=== PATIENT | female | born 1950 | race Caucasian/White ===

== ENCOUNTER 2019-01-24 14:23 | Emergency (ER) | payer OTHER ==
[~2019-01-24] VITALS: Ht 162.6 cm; Wt 56.2 kg
[~2019-01-24 14:23] MED LIST: CEPH500 PO; CIPR500 PO; DOCU100 PO; Fibercon625 MG; Gas-X125 M1; HYDCHL12.5 PO; LACTULOSE10 GM/15 M PO; LISI10 PO; LISI20 PO; OXYB5 PO; PHENA200 PO; Stool Softener100 MG PO; [UNRECOGNIZED DRUG - REMARK] PO; lisinopril PO
[2019-01-24] MEDS ORDERED: Amoxicillin500 MG PO (14:53)
[2019-01-24] MEDS ORDERED: PROBIOTIC1 EACH PO (14:53)
[2019-01-24] MEDS ORDERED: Metamucil Smooth1 EA PO (14:53)
[2019-01-24] MEDS ORDERED: VITAMIN D50000 UNIT PO (14:54)
[2019-01-24 15:04] LABS: BASOPHILS ABSOLUTE AUTO 0.03 K/mm3 (0.00-0.23); BASOPHILS PERCENT AUTO 0 % (0-2); EOSINOPHILS PERCENT AUTO 0 % (0-6); Hematocrit 45.8 % (33.0-51.0); Hemoglobin 14.8 g/dL (11.5-16.0); IMMATURE GRAN ABSOLUTE AUTO 0.05 K/mm3 (0.00-0.10); IMMATURE GRAN PERCENT AUTO 0 % (0-1); LYMPHOCYTES ABSOLUTE AUTO 0.89 K/mm3 (0.84-5.20); LYMPHOCYTES PERCENT AUTO 7 % (21-46); MONOCYTES PERCENT AUTO 8 % (4-13); Mean Corpuscular HGB 31.5 pg (26.0-34.0); Mean Corpuscular HGB Conc 32.3 g/dL (31.5-36.5); Mean Corpuscular Volume 97 fL (80-100); Mean Platelet Volume 9.7 fL (9.1-12.4); NEUTROPHILS ABSOLUTE AUTO 11.51 K/mm3 (1.96-9.15); NEUTROPHILS PERCENT AUTO 85 % (41-73); Platelet Count 340 K/mm3 (150-400); RDW Coefficient Variation 14.1 % (11.7-14.2); White Blood Cell Count 13.58 K/mm3 (4.00-11.30)
[2019-01-24 15:24] LABS: Alanine Aminotransfer (ALT/SGP 64 U/L (12-78); Albumin, Blood 4.3 g/dL (3.4-5.0); Albumin/Globulin Ratio 1.1 (0.8-1.8); Alk Phos 188 U/L (50-136); Anion Gap 9 mmol/L (6-16); Aspartate Aminotrans (AST/SGOT 42 U/L (12-37); Blood Urea Nitrogen 27 mg/dL (8-24); Bun/Creatinine Ratio 28.7 (12.0-20.0); CO2, Blood 25 mmol/L (21-32); Calcium, Blood 9.6 mg/dL (8.5-10.1); Chloride, Blood 107 mmol/L (98-108); Creatinine, Blood 0.94 mg/dL (0.40-1.00); Globulin, Blood 3.8 g/dL (2.2-4.0); Glomerular Filtration Rate >60 (60-); Glucose, Blood 105 mg/dL (70-99); Sodium, Blood 141 mmol/L (136-145); Total Protein, Blood 8.1 g/dL (6.4-8.2)
[2019-01-24] MEDS ORDERED: Miralax17 GM PO (16:32)
[2019-01-24] MEDS ORDERED: SIME80CH PO (16:32)
== END 2019-01-24 17:03 | disposition home or self-care (01) ==
LOC: ER 14:23
PROVIDERS: Physician Assistant
DX: R14.0 Abdominal distension (gaseous) (principal); L98.9 Disorder of the skin and subcutaneous tissue, unspecified; J98.11 Atelectasis; I10 Essential (primary) hypertension; Z85.3 Personal history of malignant neoplasm of breast
CPT/HCPCS: 36415; 71046; 74176; 80053; 83690; 85025; 93005; 93010; 99284-25

== ENCOUNTER 2019-01-27 11:18 | Inpatient (IN) | payer OTHER ==
[~2019-01-27] VITALS: Ht 162.6 cm; Wt 56.3 kg
[~2019-01-27 11:18] MED LIST changes: +Amoxicillin500 MG PO; +Metamucil Smooth1 EA PO; +Miralax17 GM PO; +PROBIOTIC1 EACH PO; +SIME80CH PO; +VITAMIN D50000 UNIT PO
[2019-01-27 11:57] LABS: BASOPHILS ABSOLUTE AUTO 0.04 K/mm3 (0.00-0.23); BASOPHILS PERCENT AUTO 1 % (0-2); EOSINOPHILS ABSOLUTE AUTO 0.07 K/mm3 (0.00-0.68); EOSINOPHILS PERCENT AUTO 1 % (0-6); Hematocrit 42.8 % (33.0-51.0); IMMATURE GRAN ABSOLUTE AUTO 0.02 K/mm3 (0.00-0.10); IMMATURE GRAN PERCENT AUTO 0 % (0-1); LYMPHOCYTES ABSOLUTE AUTO 1.31 K/mm3 (0.84-5.20); LYMPHOCYTES PERCENT AUTO 23 % (21-46); MONOCYTES ABSOLUTE AUTO 0.58 K/mm3 (0.16-1.47); MONOCYTES PERCENT AUTO 10 % (4-13); Mean Corpuscular HGB Conc 32.7 g/dL (31.5-36.5); Mean Corpuscular Volume 98 fL (80-100); Mean Platelet Volume 9.6 fL (9.1-12.4); NEUTROPHILS ABSOLUTE AUTO 3.77 K/mm3 (1.96-9.15); NEUTROPHILS PERCENT AUTO 65 % (41-73); Platelet Count 265 K/mm3 (150-400); RDW Coefficient Variation 14.2 % (11.7-14.2); RDW Standard Deviation 51.5 fL (35.1-46.3); Red Blood Cell Count 4.37 M/mm3 (3.80-5.20); White Blood Cell Count 5.79 K/mm3 (4.00-11.30)
[2019-01-27 12:18] LABS: Alanine Aminotransfer (ALT/SGP 61 U/L (12-78); Albumin, Blood 3.9 g/dL (3.4-5.0); Albumin/Globulin Ratio 1.1 (0.8-1.8); Alk Phos 169 U/L (50-136); Anion Gap 7 mmol/L (6-16); Aspartate Aminotrans (AST/SGOT 47 U/L (12-37); Bilirubin, Total 1.1 mg/dL (0.1-1.0); Blood Urea Nitrogen 15 mg/dL (8-24); Bun/Creatinine Ratio 23.2 (12.0-20.0); CO2, Blood 27 mmol/L (21-32); Calcium, Blood 9.6 mg/dL (8.5-10.1); Chloride, Blood 108 mmol/L (98-108); Creatinine, Blood 0.65 mg/dL (0.40-1.00); Globulin, Blood 3.6 g/dL (2.2-4.0); Glomerular Filtration Rate >60 (60-); Glucose, Blood 92 mg/dL (70-99); Potassium, Blood 3.8 mmol/L (3.5-5.5); Sodium, Blood 142 mmol/L (136-145); Total Protein, Blood 7.5 g/dL (6.4-8.2)
[2019-01-27 14:53] LABS: International Normalized Ratio 1.01; Prothrombin Time Results 10.7 Sec (9.7-11.5)
[2019-01-27] MEDS ORDERED: BISA5EC PO (17:47)
[2019-01-27] MEDS ORDERED: ZYRTEC10 M1 PO (17:47)
--- NOTE | 2019-01-27 18:05 | NUR ---
ADMIT NOTE RECEIVED REPORT FROM LING GALVEZ RN IN ED. PT TO ROOM AT 1633, SBA TO BED. PT ORIENTED TO ROOM AND CALL LIGHT. PT EDUCATED ON FALL RISK AND USE OF CALL LIGHT. PT REPORTS THE BLOATING AND ABD PAIN STARTED ON Saturday01/24/19 AND WAS SEEN IN ER AND SENT HOME. PCP SENT PT IN TO ER TODAY FOR CONTINUED ABD BLOATING AND PAIN. PT A&Ox4, CALM AND COOPERATIVE WITH CARE. PT RESTING IN BED, CALL LIGHT WITHIN REACH. PT DENIES PAIN AT THIS TIME, SOB AND N/V. PT RECEIVING IV FLUIDS. NPO EXCEPT ICE CHIPS. VSS. NO OTHER ACUTE CHANGES NOTED DURING SHIFT. WILL CONTINUE TO MONITOR UNTIL REPORT GIVEN TO ONCOMING RN.
--- NOTE | 2019-01-27 20:42 | NUR ---
patient sitting in be at shift change with family friend at bedside. patient denies pain at this time. IVF infusing. lungs sounds clear throughout. Abdomen is largely distended and firm non tender with tympanic belly sounds. patient OOB to BSC, but unable to void. will try again as patient desires. bed alarmed. call irby within reach.
--- NOTE | 2019-01-27 21:14 | NUR ---
spoke to patients brother Thong Hand at patient request. also received message froom sister Mohini will return her call kathy. provided info regarding current consults pending and patient resting comfortably, denies pain at this time.
[2019-01-28 04:59] LABS: BASOPHILS ABSOLUTE AUTO 0.03 K/mm3 (0.00-0.23); BASOPHILS PERCENT AUTO 1 % (0-2); EOSINOPHILS ABSOLUTE AUTO 0.11 K/mm3 (0.00-0.68); EOSINOPHILS PERCENT AUTO 3 % (0-6); Hematocrit 35.5 % (33.0-51.0); Hemoglobin 11.3 g/dL (11.5-16.0); IMMATURE GRAN ABSOLUTE AUTO 0.02 K/mm3 (0.00-0.10); IMMATURE GRAN PERCENT AUTO 1 % (0-1); LYMPHOCYTES PERCENT AUTO 41 % (21-46); MONOCYTES ABSOLUTE AUTO 0.48 K/mm3 (0.16-1.47); MONOCYTES PERCENT AUTO 12 % (4-13); Mean Corpuscular HGB 30.9 pg (26.0-34.0); Mean Corpuscular HGB Conc 31.8 g/dL (31.5-36.5); Mean Corpuscular Volume 97 fL (80-100); Mean Platelet Volume 9.9 fL (9.1-12.4); NEUTROPHILS PERCENT AUTO 43 % (41-73); Platelet Count 202 K/mm3 (150-400); RDW Coefficient Variation 14.3 % (11.7-14.2); RDW Standard Deviation 50.3 fL (35.1-46.3); Red Blood Cell Count 3.66 M/mm3 (3.80-5.20); White Blood Cell Count 3.94 K/mm3 (4.00-11.30)
[2019-01-28 05:24] LABS: Alanine Aminotransfer (ALT/SGP 42 U/L (12-78); Albumin, Blood 2.9 g/dL (3.4-5.0); Albumin/Globulin Ratio 1.2 (0.8-1.8); Alk Phos 113 U/L (50-136); Anion Gap 3 mmol/L (6-16); Aspartate Aminotrans (AST/SGOT 21 U/L (12-37); Bilirubin, Total 0.9 mg/dL (0.1-1.0); Blood Urea Nitrogen 11 mg/dL (8-24); Bun/Creatinine Ratio 17.7 (12.0-20.0); CO2, Blood 28 mmol/L (21-32); Calcium, Blood 7.8 mg/dL (8.5-10.1); Chloride, Blood 114 mmol/L (98-108); Creatinine, Blood 0.62 mg/dL (0.40-1.00); Globulin, Blood 2.5 g/dL (2.2-4.0); Glomerular Filtration Rate >60 (60-); Glucose, Blood 101 mg/dL (70-99); Potassium, Blood 3.2 mmol/L (3.5-5.5); Sodium, Blood 145 mmol/L (136-145)
[2019-01-28 05:25] LABS: Total Protein, Blood 5.4 g/dL (6.4-8.2)
--- NOTE | 2019-01-28 12:09 | NUR ---
PATIENT PICKED UP BY DAY SURGERY. A/O AT BASELINE WITH NO C/O PAIN OR DISTRESS.
--- NOTE | 2019-01-28 12:09 | NUR ---
FROM ROOM 361 TO SDS WITH RN. ADMISSION TO UNIT STARTED
--- NOTE | 2019-01-28 13:19 | NUR ---
PATIENT RETURNED FROM DAY SURGERY [facility]IA [facility] WITH RN. PATIENT IS A/O AT BASELINE WITH NO C/O PAIN OR DISCOMFORT. ABDOMEN IS SIGNIFICANTLY LESS DISTENDED. ABDOMEN IS SOFT, ROUND AND NON-TENDER WITH HYPOACTIVE BOWEL TONES. PATIENT IS RESTING COMFORTABLY IN BED.
--- NOTE | 2019-01-28 14:54 | NUR ---
Advance Directive Education attempted/Spiritual care visit conducted. Patient states that she has no interest in talking about advance care directives and did not know why admissions would send that request. Patient is lying in bed and alert. Patient immediately tells me about the relief she feels fro having some of the air removed from her stomach. Patient tells me about her family, her roman catholic ([facility]) and her life history. I listen empathically, emotional support and prayer. Patient responds well and voices appreciation for the visit.
--- NOTE | 2019-01-28 17:21 | NUR ---
SHIFT SUMMARY: PATIENT IS RESTING IN BED COMFORTABLY SINCE COLONOSCOPY THIS MORNING. SHE DENIES ANY PAIN OR DISCOMFORT. PATIENT ASKED THIS NURSE TO CALL AND GIVE AN UPDATE TO HER CORN MILLER, MARLON AND THIS WAS DONE THIS AFTERNOON. PATIENT HAS HAD MULTIPLE VISITORS THROUGHOUT THE DAY. PATIENT IS PLEASANT AND COOPERATIVE WITH HER CARE AND AWAITING DINNER.
[2019-01-29 05:41] LABS: Anion Gap 8 mmol/L (6-16); Blood Urea Nitrogen 9 mg/dL (8-24); Bun/Creatinine Ratio 17.1 (12.0-20.0); CO2, Blood 25 mmol/L (21-32); Calcium, Blood 7.8 mg/dL (8.5-10.1); Chloride, Blood 112 mmol/L (98-108); Creatinine, Blood 0.53 mg/dL (0.40-1.00); Glomerular Filtration Rate >60 (60-); Glucose, Blood 88 mg/dL (70-99); Potassium, Blood 3.2 mmol/L (3.5-5.5); Sodium, Blood 145 mmol/L (136-145)
--- NOTE | 2019-01-29 06:25 | NUR ---
NOC SHIFT SUMMARY PT HAS BEEN PLEASANT AND COOPERATIVE WITH CARE THIS NIGHT. BOWEL TONES THROUGHOUT. HER STOMACH REMAINS DISTENDED THOUGH PER DAY SHIFT REPORT IT IS MUCH IMPROVED FROM PREVIOUS. NO COMPLAINTS OF PAIN OR DISCOMFORT. PT HAS SLEPT MUCH OF NIGHT. DURING ROUNDING WHEN I SAW THAT SHE WAS AWAKE I OFFERED ENSURE. PT DECLINED STATING THAT IT WAS TOO EARLY IN THE MORNING TO DRINK. CURRENTLY IN BED AND APPEARS IN NO ACUTE DISTRESS. WILL CONTINUE TO MONITOR. VSS.
--- NOTE | 2019-01-29 18:14 | NUR ---
NOTIFIED DR. Eduardo CASTORENA PT REQUESTING GAS X. DR. CASTORENA SAID TO ORDER 1 TAB GAS X Q4H PRN. NO OTHER NEW ORDERS AT THIS TIME.
--- NOTE | 2019-01-29 18:18 | NUR ---
SHIFT SUMMARY- PT DENIES PAIN. DENIES SOB. RESP E/U ON RA. DENIES N/V. PT PASSING GAS. NO BM THIS SHIFT. PT REQUESTING GAS X. NOTIFIED. MEDS GIVEN PER EMAR. PHYSICAL THERAPY IN TO WORK WITH PT TODAY. 1 ASSIST TO THE BATHROOM. PT'S SPOUSE IN TO VISIT THIS AM. NO OTHER SIGNIFICANT CHANGES THIS SHIFT.
--- NOTE | 2019-01-30 03:42 | NUR ---
NOC SHIFT SUMMARY PT IS AAOX4. SHE IS PLEASANT AND COOPERATIVE WITH CARE. HAS SPENT THIS NIGHT IN BED SLEEPING OFF AND ON. SHE HAS BEEN OFFERED AND AGREED TO BREATHING TREATMENTS. NO ACUTE CHANGES NOTED FRMOM PREVIOUS NIGHT. VSS. SHE DOES COMPLAIN OF SOME DISCOMFORT IN HER R ARM WHERE AN IV WAS REMOVED, REQUESTED AND WAS GIVEN A WARM DAMP CLOTH TO THE AREA. PT IS APPRECIATIVE. CURRENTLY APPEARS IN NO ACUTE DISTRESS. WILL CONTINUE TO MONITOR.
[2019-01-30 04:49] LABS: BASOPHILS ABSOLUTE AUTO 0.03 K/mm3 (0.00-0.23); BASOPHILS PERCENT AUTO 1 % (0-2); EOSINOPHILS ABSOLUTE AUTO 0.12 K/mm3 (0.00-0.68); EOSINOPHILS PERCENT AUTO 3 % (0-6); Hematocrit 37.3 % (33.0-51.0); Hemoglobin 11.8 g/dL (11.5-16.0); IMMATURE GRAN ABSOLUTE AUTO 0.01 K/mm3 (0.00-0.10); IMMATURE GRAN PERCENT AUTO 0 % (0-1); LYMPHOCYTES ABSOLUTE AUTO 1.68 K/mm3 (0.84-5.20); LYMPHOCYTES PERCENT AUTO 37 % (21-46); MONOCYTES ABSOLUTE AUTO 0.46 K/mm3 (0.16-1.47); MONOCYTES PERCENT AUTO 10 % (4-13); Mean Corpuscular HGB 31.6 pg (26.0-34.0); Mean Corpuscular HGB Conc 31.6 g/dL (31.5-36.5); Mean Platelet Volume 9.7 fL (9.1-12.4); NEUTROPHILS PERCENT AUTO 49 % (41-73); Platelet Count 185 K/mm3 (150-400); RDW Coefficient Variation 13.9 % (11.7-14.2); RDW Standard Deviation 51.4 fL (35.1-46.3); Red Blood Cell Count 3.73 M/mm3 (3.80-5.20)
--- NOTE | 2019-01-30 04:57 | NUR ---
NOC SHIFT SUMMARY PT IS AAOX4 RESP EVEN AND UNLABORED SLEEPING IN BED AT PRESENT AND APPEARS IN NO ACUTE DISTRESS. HER STOMACH CONTINUES TO BE DISTENDED WITH NO COMPLAINTS OF PAIN. PT STATES SHE HAS BEEN PASSING FLATUS. PER NOTES ENGOURAGED WALKING AND PO LIQUID INTAKE. VSS. HAVE GIVEN PO SIMETHICONE. NO ACUTE CHANGES NOTED THIS NIGHT WILL CONTINUE TO MONITOR.
[2019-01-30 04:58] LABS: Mean Corpuscular Volume 100 fL (80-100)
[2019-01-30 05:10] LABS: Anion Gap 5 mmol/L (6-16); Blood Urea Nitrogen 8 mg/dL (8-24); Bun/Creatinine Ratio 12.6 (12.0-20.0); CO2, Blood 30 mmol/L (21-32); Calcium, Blood 8.4 mg/dL (8.5-10.1); Chloride, Blood 110 mmol/L (98-108); Creatinine, Blood 0.63 mg/dL (0.40-1.00); Glomerular Filtration Rate >60 (60-); Glucose, Blood 87 mg/dL (70-99); Potassium, Blood 3.8 mmol/L (3.5-5.5); Sodium, Blood 145 mmol/L (136-145)
--- NOTE | 2019-01-30 11:40 | NUR ---
Patient is lying in bed and is complaining about the pressure in her "belly." I asked patient what the plans for her stomach issues are and she said that "they" are working on it. I provided emotional support and prayer. Patient responded well and thanked me for the visit.
--- NOTE | 2019-01-30 18:29 | NUR ---
SHIFT SUMMARY - PT DENIES PAIN. DENIES SOB. RESP E/U ON RA. DENIES N/V. NSR AT 74 PER PCU REPAIRER CYLINDER HEADS. PT PASSING GAS. PT HAD ONE SMALL BM TODAY. DR. ANDERSEN PLACED 30 UPPER SORBIAN CATH TUBE IN PT'S BOTTOM TO HELP EXPELL THE GAS. PT'S ABDOMEN A LITTLE LESS DISTENDED AND MUCH SOFTER TO PALPATE THIS PM. DR. ANDERSEN SAID IF RECTAL TUBE FALLS OUT IT DOES NOT NEED TO BE REPLACED. PT'S IN TO VISIT TODAY. ONE ASSIST TO THE BATHROOM. NO OTHER SIGNIFICANT CHANGES THIS SHIFT.
[2019-01-30 21:54] LABS: Source, Urine Clean Catch
[2019-01-30 22:01] LABS: Bilirubin, Urine Neg (Neg); Blood, Urine 1+ (Neg); Glucose Qualitative, Urine Neg (Neg); Ketones, Urine Neg (Neg); Leukocyte Esterase, Urine Neg (Neg); Nitrite, Urine Neg (Neg); Protein, Urine Neg (Neg); Specific Gravity, Urine 1.005 (1.003-1.022); Urobilinogen, Urine NORM (Normal)
[2019-01-30 22:06] LABS: Appearance, Urine Clear (Clear); Color, Urine Yellow (P-Yellow)
[2019-01-30 22:20] LABS: Bacteria Mod /hpf; Red Blood Cells, Urine 0-2 /hpf (0-2); Squamous Epithelial Cells Mod /hpf (Few); White Blood Cells, Urine 0-2 /hpf (0-5)
--- NOTE | 2019-01-31 04:22 | NUR ---
SHIFT SUMMARY PT DEVELOPMENTALLY DELAYED. SPEECH SLOW BUT ANSWERS QUESTIONS APPROPRIATELY. DEE REMAINED IN RECTUM PLACED BY MD YESTERDAY. NO COMPLAINTS OF GAS, NAUSEA OR ABD DISCOMFORT THIS EVENING. SMALL AMOUNT OF LIQUID STOOL OUT. BLOOD PRESSURE ELEVATED THIS EVENING. APRESOLINE GIVEN THIS AM. OTHERWISE NO ACUTE CHANGES. WILL CONTINUE TO MONITOR AND REPORT TO DAY RN.
[2019-01-31 05:07] LABS: BASOPHILS ABSOLUTE AUTO 0.03 K/mm3 (0.00-0.23); BASOPHILS PERCENT AUTO 1 % (0-2); EOSINOPHILS ABSOLUTE AUTO 0.14 K/mm3 (0.00-0.68); EOSINOPHILS PERCENT AUTO 2 % (0-6); Hematocrit 43.9 % (33.0-51.0); Hemoglobin 14.1 g/dL (11.5-16.0); IMMATURE GRAN ABSOLUTE AUTO 0.02 K/mm3 (0.00-0.10); IMMATURE GRAN PERCENT AUTO 0 % (0-1); LYMPHOCYTES ABSOLUTE AUTO 1.03 K/mm3 (0.84-5.20); LYMPHOCYTES PERCENT AUTO 18 % (21-46); MONOCYTES ABSOLUTE AUTO 0.55 K/mm3 (0.16-1.47); MONOCYTES PERCENT AUTO 10 % (4-13); Mean Corpuscular HGB Conc 32.1 g/dL (31.5-36.5); Mean Platelet Volume 9.8 fL (9.1-12.4); NEUTROPHILS ABSOLUTE AUTO 4.02 K/mm3 (1.96-9.15); NEUTROPHILS PERCENT AUTO 70 % (41-73); Platelet Count 234 K/mm3 (150-400); RDW Coefficient Variation 13.8 % (11.7-14.2); Red Blood Cell Count 4.55 M/mm3 (3.80-5.20); White Blood Cell Count 5.79 K/mm3 (4.00-11.30)
[2019-01-31 05:17] LABS: Mean Corpuscular Volume 97 fL (80-100)
[2019-01-31 05:38] LABS: Alanine Aminotransfer (ALT/SGP 33 U/L (12-78); Albumin, Blood 3.3 g/dL (3.4-5.0); Albumin/Globulin Ratio 0.9 (0.8-1.8); Alk Phos 130 U/L (50-136); Anion Gap 6 mmol/L (6-16); Aspartate Aminotrans (AST/SGOT 25 U/L (12-37); Blood Urea Nitrogen 8 mg/dL (8-24); Bun/Creatinine Ratio 14.3 (12.0-20.0); CO2, Blood 30 mmol/L (21-32); Calcium, Blood 8.6 mg/dL (8.5-10.1); Chloride, Blood 106 mmol/L (98-108); Creatinine, Blood 0.56 mg/dL (0.40-1.00); Globulin, Blood 3.6 g/dL (2.2-4.0); Glomerular Filtration Rate >60 (60-); Glucose, Blood 93 mg/dL (70-99); Sodium, Blood 142 mmol/L (136-145); Total Protein, Blood 6.9 g/dL (6.4-8.2)
[2019-01-31] MEDS ORDERED: MIRALAX17 GM PO (11:19)
[2019-01-31] MEDS ORDERED: SIME80CH PO (11:20)
--- NOTE | 2019-01-31 12:55 | NUR ---
PATIENT DISCHARGE THE PATIENT WAS DISCHARGED HOME WITH HER SPOUSE AFTER DISCHARGE INSTRUCTIONS WERE GIVEN TO THE PATIENT. THE PATIENT WAS INSTRUCTED TO FOLLOW UP WITH PCP AND TO LOG BUYER HER PRESCRIPTIONS ORDERED. THE PATIENT WAS ALSO INSTRUCTED TO WALK AT HOME 3 TIMES A DAY. THE PATIENT LEFT THE HOSPITAL WITHOUT CONCERN OR COMPLAINT.
== END 2019-01-31 12:56 | disposition home or self-care (01) | DRG 346 ==
LOC: ER 11:18 → MEDS 15:07 → ENPENDDIS 01-31 10:40 → MEDS 01-31 12:56
PROVIDERS: Emergency Medicine; Family Medicine; Internal Medicine Gastroenterology; Surgery; ADMIT Family Medicine
PROC: 0D9L8ZZ Drainage of Transverse Colon, Via Natural or Artificial Opening Endoscopic (ICD-10-PCS; principal; 2019-01-28 11:30)
DX: K56.609 Unspecified intestinal obstruction, unspecified as to partial versus complete obstruction (principal); K64.4 Residual hemorrhoidal skin tags; K64.8 Other hemorrhoids; I10 Essential (primary) hypertension; L68.0 Hirsutism; G31.84 Mild cognitive impairment of uncertain or unknown etiology; E87.6 Hypokalemia
CPT/HCPCS: 36415; 71046; 74018; 74176; 80048; 80053; 81001; 83690; 84443; 85025; 85610; 87086; 93005; 93010; 96361; 96374; 97110; 97116; 97162; 99284-25; 99285-25; J0360; J1170; J1650; J2704; J2710; J7120

== ENCOUNTER 2019-04-24 19:36 | Observation (INO) | payer OTHER ==
[~2019-04-24] VITALS: Ht 162.6 cm; Wt 52.3 kg
[~2019-04-24 19:36] MED LIST changes: +BISA5EC PO; +MIRALAX17 GM PO; +ZYRTEC10 M1 PO
[2019-04-24 22:53] LABS: BASOPHILS ABSOLUTE AUTO 0.02 K/mm3 (0.00-0.23); BASOPHILS PERCENT AUTO 0 % (0-2); EOSINOPHILS ABSOLUTE AUTO 0.05 K/mm3 (0.00-0.68); EOSINOPHILS PERCENT AUTO 1 % (0-6); Hemoglobin 13.6 g/dL (11.5-16.0); IMMATURE GRAN ABSOLUTE AUTO 0.01 K/mm3 (0.00-0.10); IMMATURE GRAN PERCENT AUTO 0 % (0-1); LYMPHOCYTES ABSOLUTE AUTO 1.44 K/mm3 (0.84-5.20); LYMPHOCYTES PERCENT AUTO 26 % (21-46); MONOCYTES ABSOLUTE AUTO 0.52 K/mm3 (0.16-1.47); MONOCYTES PERCENT AUTO 9 % (4-13); Mean Corpuscular HGB 31.2 pg (26.0-34.0); Mean Corpuscular HGB Conc 32.4 g/dL (31.5-36.5); Mean Corpuscular Volume 96 fL (80-100); Mean Platelet Volume 9.6 fL (9.1-12.4); NEUTROPHILS ABSOLUTE AUTO 3.56 K/mm3 (1.96-9.15); NEUTROPHILS PERCENT AUTO 64 % (41-73); Platelet Count 231 K/mm3 (150-400); RDW Coefficient Variation 14.2 % (11.7-14.2); RDW Standard Deviation 50.4 fL (35.1-46.3); Red Blood Cell Count 4.36 M/mm3 (3.80-5.20)
[2019-04-24 23:08] LABS: Alanine Aminotransfer (ALT/SGP 43 U/L (12-78); Albumin, Blood 4.1 g/dL (3.4-5.0); Albumin/Globulin Ratio 1.2 (0.8-1.8); Alk Phos 145 U/L (50-136); Anion Gap 7 mmol/L (6-16); Aspartate Aminotrans (AST/SGOT 33 U/L (12-37); Bilirubin, Total 1.1 mg/dL (0.1-1.0); Blood Urea Nitrogen 12 mg/dL (8-24); Bun/Creatinine Ratio 22.8 (12.0-20.0); CO2, Blood 29 mmol/L (21-32); Calcium, Blood 8.9 mg/dL (8.5-10.1); Chloride, Blood 107 mmol/L (98-108); Creatinine, Blood 0.53 mg/dL (0.40-1.00); Globulin, Blood 3.4 g/dL (2.2-4.0); Glomerular Filtration Rate >60 (60-); Glucose, Blood 103 mg/dL (70-99); Potassium, Blood 3.7 mmol/L (3.5-5.5); Sodium, Blood 143 mmol/L (136-145); Total Protein, Blood 7.5 g/dL (6.4-8.2); Troponin I <0.015 ng/mL (0.000-0.040)
[2019-04-25 05:34] LABS: Alanine Aminotransfer (ALT/SGP 33 U/L (12-78); Albumin, Blood 3.1 g/dL (3.4-5.0); Albumin/Globulin Ratio 1.1 (0.8-1.8); Alk Phos 106 U/L (50-136); Anion Gap 6 mmol/L (6-16); Aspartate Aminotrans (AST/SGOT 22 U/L (12-37); Blood Urea Nitrogen 10 mg/dL (8-24); Bun/Creatinine Ratio 20.7 (12.0-20.0); CO2, Blood 28 mmol/L (21-32); Calcium, Blood 8.3 mg/dL (8.5-10.1); Chloride, Blood 109 mmol/L (98-108); Creatinine, Blood 0.48 mg/dL (0.40-1.00); Globulin, Blood 2.8 g/dL (2.2-4.0); Glomerular Filtration Rate >60 (60-); Glucose, Blood 82 mg/dL (70-99); Magnesium, Blood 2.4 mg/dL (1.6-2.4); Potassium, Blood 3.2 mmol/L (3.5-5.5); Sodium, Blood 143 mmol/L (136-145); Total Protein, Blood 5.9 g/dL (6.4-8.2)
--- NOTE | 2019-04-25 05:41 | NUR ---
Rn summary: Patient is alert and oriented, she is develomentaly slow. She has been cooperative with care. Pt is incontinent of urine. Pt has rested fairly well after admission completed. Pt did have a small scratch to her left hip and upper back. No bruising noted. Pt does have 3+ pitting edema to bernarda feet and ankles. Chente hose applied as ordered. Bed alarm for safety. Plan is for pt to be placed with BPA today. Call light in reach. Will continue to monitor.
--- NOTE | 2019-04-25 09:54 | NUR ---
X-RAY RESULTS: WHEN PATIENT RETURNED FROM THE X-RAY, TRANSPORT REPORTED THAT THE RADIOLOGIST RECOMMENDED THAT THE PATIENT BE NPO. DISCUSSED THIS WITH DR. RAMIREZ. PATIENT DENIES NAUSEA, VOMITING, AND ABDOMINAL TENDERNESS. BOWEL SOUNDS PRESENT. PATIENT REPORTS THAT THIS IS HER NORMAL ABDOMINAL SIZE.
--- NOTE | 2019-04-25 11:09 | NUR ---
RECTAL TUBE REFUSAL: INFORMED DR. RAMIREZ THAT THE PATIENT REFUSED THE PLACEMENT OF THE RECTAL TUBE. PER DR. RAMIREZ, STAFF IS TO ENCOURAGE AMBULATION.
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
--- NOTE | 2019-04-26 06:24 | NUR ---
SHIFT SUMMARY NO ACUTE EVENTS OVERNIGHT. PATIENT AMBULATED TO BATHROOM WITH SBA. CONTINENT/INCONTINENT. PATIENT COMPLAINING OF TEETH BEING "STUCK". NO OTHER COMPLAINTS OR CONCERNS.
--- NOTE | 2019-04-26 15:25 | NUR ---
ELEVATED BLOOD PRESSURE: PATIENT EXPERIENCING AN ELEVATED BLOOD PRESSURE. PATIENT DENIES DIZZINESS, SOB OR CHEST PAIN. NO CHANGES TO NEURO STATUS. PATIENT RESTING COMFORTABLY IN BED. MEDICATED PER PRNS FOR ELEVATED BLOOD PRESSURE (SEE EMAR).
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
--- NOTE | 2019-04-27 05:52 | NUR ---
SHIFT SUMMARY NO ACUTE EVENTS OVERNIGHT. PATIENT STATES THAT ABD DISTENTION IS BETTER TODAY. PATIENT UP AD TIRSO IN ROOM. INCONTINENT OF BLADDER. PATIENT STATES SHE HAD A VERY NICE VISIT WITH HER 04/26/19. NO COMPLAINTS OR CONCERNS VOICED.
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
--- NOTE | 2019-04-27 18:32 | NUR ---
SHIFT SUMMARY PT HAS HAD NO COMPLAINTS OR CHANGES THIS SHIFT. PLANS FOR POSSIBLE DISCHARGES TOMORROW. CALL LIGHT IN REACH. WILL CONTINUE TO MONITOR AND REPORT TO ONCOMING RN.
--- NOTE | 2019-04-28 06:04 | NUR ---
SHIFT SUMMARY PATIENT UNABLE TO SLEEP THROUGHOUT EDGE CUTTING MACHINE OPERATOR. PATIENT BLOOD PRESSURE 190/110 THIS AM. TREATED WITH PRN ANEL, SEE MAR. PATIENT INCONTINENT BUT CALLS APPROPRIATELY FOR STAFF ASSIST. WILL CONTINUE TO MONITOR AND REPORT TO ONCOMING NURSE.
[2019-04-28 08:35] LABS: Anion Gap 2 mmol/L (6-16); Blood Urea Nitrogen 14 mg/dL (8-24); CO2, Blood 32 mmol/L (21-32); Calcium, Blood 9.4 mg/dL (8.5-10.1); Chloride, Blood 105 mmol/L (98-108); Creatinine, Blood 0.64 mg/dL (0.40-1.00); Glomerular Filtration Rate >60 (60-); Glucose, Blood 94 mg/dL (70-99); Potassium, Blood 3.5 mmol/L (3.5-5.5); Sodium, Blood 139 mmol/L (136-145)
[2019-04-28] MEDS ORDERED: ACET325 PO (12:10)
[2019-04-28] MEDS ORDERED: SIME80CH PO (12:11)
--- NOTE | 2019-04-28 13:35 | NUR ---
1240 PATIENT TO DISCHARGE HOME ON HOME HEALTH AND WITH THE AIDE OF CAREGIVER. IV REMOVED WITH NO SS OF INFECTION NOTED. NURSE WENT OVER DC PAPERS WITH PATIENT AND SENT THEM HOME WITH CAREGIVER WHO ARRIVED TO PICK HER UP . PATIENT DRESSED BY STAFF. FOLLOW UP APPOINTMENT MADE BY [facility]. PATIENT TAKEN OUT BY STAFF IN TO AWAITING RIDE.
== END 2019-04-28 13:22 | disposition home or self-care (01) ==
LOC: ER 19:36 → MEDS 19:37 → ER 04-25 00:36 → MEDS 04-25 00:36 → ENPENDDIS 04-28 11:53 → MEDS 04-28 13:22
PROVIDERS: Family Medicine; Nurse Practitioner Acute Care; Physician Assistant; ADMIT Family Medicine
DX: T74.11XA Adult physical abuse, confirmed, initial encounter (principal); I16.0 Hypertensive urgency; G31.84 Mild cognitive impairment of uncertain or unknown etiology; F81.9 Developmental disorder of scholastic skills, unspecified; R14.0 Abdominal distension (gaseous); I10 Essential (primary) hypertension; Z79.899 Other long term (current) drug therapy; Y04.2XXA Assault by strike against or bumped into by another person, initial encounter
CPT/HCPCS: 36415; 71046; 74019; 80048; 80053; 83735; 84484; 85025; 93005; 93010; 96372; 99285-25; A9270; G0378; J1650

== ENCOUNTER 2019-04-28 19:59 | Inpatient (IN) | payer OTHER ==
[~2019-04-28] VITALS: Ht 162.6 cm; Wt 46.0 kg
[2019-04-28 20:46] LABS: BASOPHILS ABSOLUTE AUTO 0.03 K/mm3 (0.00-0.23); BASOPHILS PERCENT AUTO 0 % (0-2); EOSINOPHILS PERCENT AUTO 0 % (0-6); Hematocrit 47.2 % (33.0-51.0); IMMATURE GRAN ABSOLUTE AUTO 0.04 K/mm3 (0.00-0.10); IMMATURE GRAN PERCENT AUTO 0 % (0-1); LYMPHOCYTES ABSOLUTE AUTO 0.64 K/mm3 (0.84-5.20); LYMPHOCYTES PERCENT AUTO 4 % (21-46); MONOCYTES ABSOLUTE AUTO 0.85 K/mm3 (0.16-1.47); MONOCYTES PERCENT AUTO 6 % (4-13); Mean Corpuscular HGB Conc 33.9 g/dL (31.5-36.5); Mean Corpuscular Volume 94 fL (80-100); Mean Platelet Volume 9.8 fL (9.1-12.4); NEUTROPHILS ABSOLUTE AUTO 12.84 K/mm3 (1.96-9.15); NEUTROPHILS PERCENT AUTO 89 % (41-73); Platelet Count 376 K/mm3 (150-400); RDW Coefficient Variation 14.3 % (11.7-14.2); RDW Standard Deviation 49.3 fL (35.1-46.3)
[2019-04-28 21:05] LABS: Albumin, Blood 4.5 g/dL (3.4-5.0); Albumin/Globulin Ratio 1.2 (0.8-1.8); Bilirubin, Total 1.4 mg/dL (0.1-1.0); Bun/Creatinine Ratio 18.5 (12.0-20.0); Calcium, Blood 9.7 mg/dL (8.5-10.1); Creatinine, Blood 1.08 mg/dL (0.40-1.00); Globulin, Blood 3.7 g/dL (2.2-4.0); Potassium, Blood 3.8 mmol/L (3.5-5.5); Total Protein, Blood 8.2 g/dL (6.4-8.2)
[2019-04-29 02:31] LABS: Source, Urine Catheter
[2019-04-29 02:41] LABS: Appearance, Urine Clear (Clear); Bilirubin, Urine Neg (Neg); Blood, Urine 1+ (Neg); Color, Urine Amber (P-Yellow); Glucose Qualitative, Urine Neg (Neg); Ketones, Urine 1+ (Neg); Leukocyte Esterase, Urine 1+ (Neg); Nitrite, Urine Neg (Neg); Protein, Urine 2+ (Neg); Specific Gravity, Urine 1.025 (1.003-1.022); Urobilinogen, Urine NORM (Normal)
[2019-04-29 02:47] LABS: Bacteria Many /hpf; Hyaline Casts 50-100 /lpf (0-2); Mucus Mod (0-Heavy); Red Blood Cells, Urine 0-2 /hpf (0-2); Squamous Epithelial Cells Few /hpf (Few)
[2019-04-29 04:37] LABS: BASOPHILS ABSOLUTE AUTO 0.02 K/mm3 (0.00-0.23); BASOPHILS PERCENT AUTO 0 % (0-2); EOSINOPHILS PERCENT AUTO 0 % (0-6); Hematocrit 41.5 % (33.0-51.0); Hemoglobin 13.9 g/dL (11.5-16.0); IMMATURE GRAN ABSOLUTE AUTO 0.08 K/mm3 (0.00-0.10); IMMATURE GRAN PERCENT AUTO 1 % (0-1); LYMPHOCYTES ABSOLUTE AUTO 0.68 K/mm3 (0.84-5.20); LYMPHOCYTES PERCENT AUTO 5 % (21-46); MONOCYTES ABSOLUTE AUTO 0.99 K/mm3 (0.16-1.47); MONOCYTES PERCENT AUTO 7 % (4-13); Mean Corpuscular HGB Conc 33.5 g/dL (31.5-36.5); Mean Corpuscular Volume 96 fL (80-100); Mean Platelet Volume 9.7 fL (9.1-12.4); NEUTROPHILS ABSOLUTE AUTO 11.91 K/mm3 (1.96-9.15); NEUTROPHILS PERCENT AUTO 87 % (41-73); Platelet Count 241 K/mm3 (150-400); RDW Coefficient Variation 14.3 % (11.7-14.2); Red Blood Cell Count 4.34 M/mm3 (3.80-5.20); White Blood Cell Count 13.68 K/mm3 (4.00-11.30)
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
[2019-04-29 04:51] LABS: Anion Gap 9 mmol/L (6-16); Blood Urea Nitrogen 20 mg/dL (8-24); Bun/Creatinine Ratio 22.8 (12.0-20.0); CO2, Blood 27 mmol/L (21-32); Calcium, Blood 8.8 mg/dL (8.5-10.1); Chloride, Blood 104 mmol/L (98-108); Creatinine, Blood 0.88 mg/dL (0.40-1.00); Glomerular Filtration Rate >60 (60-); Glucose, Blood 136 mg/dL (70-99); Potassium, Blood 3.2 mmol/L (3.5-5.5); Sodium, Blood 140 mmol/L (136-145)
[2019-04-29 13:07] LABS: Source, Urine Catheter
[2019-04-29 13:10] LABS: Bilirubin, Urine Neg (Neg); Blood, Urine 1+ (Neg); Glucose Qualitative, Urine Neg (Neg); Ketones, Urine Neg (Neg); Leukocyte Esterase, Urine Neg (Neg); Nitrite, Urine Neg (Neg); Protein, Urine 1+ (Neg); Urobilinogen, Urine NORM (Normal)
[2019-04-29 13:52] LABS: Appearance, Urine Clear (Clear); Color, Urine Yellow (P-Yellow)
[2019-04-29 13:53] LABS: Amorphous Light (0-Heavy); Bacteria Mod /hpf; Mucus Light (0-Heavy); Red Blood Cells, Urine 0-2 /hpf (0-2); Squamous Epithelial Cells Few /hpf (Few); White Blood Cells, Urine 0-2 /hpf (0-5)
--- NOTE | 2019-04-29 17:26 | NUR ---
SHIFT SUMMARY PT HAD RECTAL TUBE THIS AM THAT WAS REMOVED BY THIS RN PER DR. CASTORENA'S ORDERS. PT HAS BEEN UNABLE TO VOID AND HAD URINARY RETENTION WITH ALMOST 600ML OF URINE IN BLADDER AROUND 1100. IT WAS VERY DIFFICULT TO PLACE DEE CATHETER. AFTER SEVERAL NURSES TRIED TO PLACE A STRAIGHT CATH, CREATIVE TECHNOLOGIST PLACED INDWELLING CATHETER. DR. CASTORENA WAS AWARE OF RETENTION AND DIFFICULTY PLACING CATHETER AND ORDERED FOR CATHETER TO STAY IN. PT HAS HAD NO COMPLAINTS OF PAIN. IVF INFUSING WITHOUT DIFFICULTY. PT CONTINUES TO HAVE DISTENTION TO ABDOMEN. NO BM'S SINCE RECTAL TUBE, WHICH HAD STOOL IN IT. NO FLATULANCE. PT NPO AT THIS TIME. NO ACUTE CHANGES THIS SHIFT. CALL LIGHT IN REACH. BED ALARM ON FOR SAFETY. WILL CONTINUE TO MONITOR AND REPORT TO ONCOMING RN.
--- NOTE | 2019-04-30 03:48 | NUR ---
SHIFT SUMMARY: PT IS ALERT AND ORIENTED. PT IS CALM AND COOPERATIVE WITH CARE. PT CALLS APPROPRIATELY. PT IS A ONE PERSON ASSIST TO THE BSC. FLUIDS RUNNING ORDERED. DEE PATENT AND DRAINING YELLOW URINE. PT DENIES PAIN, NAUSEA, VOMITING, AND SOB. PT'S ABD CONTINUES TO BE QUITE DISTENDED WITH TYMPANIC BOWEL TONES. PT SLEPT INTERMITTENTLY THROUGHOUT THE NIGHT. NO ACUTE CHANGES OR COMPLICATIONS THIS SHIFT. BED IN LOW POSITION, CALL LIGHT WITHIN REACH. WILL CONTINUE TO MONITOR.
[2019-04-30 04:50] LABS: BASOPHILS ABSOLUTE AUTO 0.02 K/mm3 (0.00-0.23); BASOPHILS PERCENT AUTO 0 % (0-2); EOSINOPHILS ABSOLUTE AUTO 0.05 K/mm3 (0.00-0.68); EOSINOPHILS PERCENT AUTO 1 % (0-6); Hematocrit 36.8 % (33.0-51.0); IMMATURE GRAN ABSOLUTE AUTO 0.03 K/mm3 (0.00-0.10); IMMATURE GRAN PERCENT AUTO 0 % (0-1); LYMPHOCYTES ABSOLUTE AUTO 1.35 K/mm3 (0.84-5.20); LYMPHOCYTES PERCENT AUTO 19 % (21-46); MONOCYTES ABSOLUTE AUTO 0.66 K/mm3 (0.16-1.47); MONOCYTES PERCENT AUTO 9 % (4-13); Mean Corpuscular HGB 31.7 pg (26.0-34.0); Mean Corpuscular HGB Conc 32.6 g/dL (31.5-36.5); Mean Corpuscular Volume 97 fL (80-100); NEUTROPHILS ABSOLUTE AUTO 4.89 K/mm3 (1.96-9.15); NEUTROPHILS PERCENT AUTO 70 % (41-73); Platelet Count 219 K/mm3 (150-400); RDW Coefficient Variation 14.6 % (11.7-14.2); RDW Standard Deviation 51.8 fL (35.1-46.3); Red Blood Cell Count 3.78 M/mm3 (3.80-5.20)
[2019-04-30 05:06] LABS: Anion Gap 4 mmol/L (6-16); Blood Urea Nitrogen 12 mg/dL (8-24); Bun/Creatinine Ratio 20.9 (12.0-20.0); CO2, Blood 28 mmol/L (21-32); Chloride, Blood 113 mmol/L (98-108); Creatinine, Blood 0.58 mg/dL (0.40-1.00); Glomerular Filtration Rate >60 (60-); Glucose, Blood 87 mg/dL (70-99); Potassium, Blood 2.9 mmol/L (3.5-5.5); Sodium, Blood 145 mmol/L (136-145)
[2019-04-30 11:10] LABS: Free Thyroxine 1.2 ng/dL (0.70-1.60); Magnesium, Blood 2.4 mg/dL (1.6-2.4)
[2019-04-30 11:13] LABS: Thyroid Stimulating Hormone 2.52 uIU/mL (0.360-4.800)
[2019-04-30 11:21] LABS: Bilirubin, Direct 0.2 mg/dL (0.0-0.3); Bilirubin, Total 1.2 mg/dL (0.1-1.0)
--- NOTE | 2019-04-30 18:29 | NUR ---
SHIFT SUMMARY PT HAD A LARGE LIQUID STOOL THIS AFTERNOON AND ABDOMEN HAS BEEN LESS DISTENDED. PT REPORTS FEELING BETTER. INDWELLING CATHETER IN PLACE WITH URINE DRAINING. IVF INFUSING WITHOUT DIFFICULTY. DR. BEAVERS IN TO SEE PT THIS AFTENROON AND PLANS FOR A POSSIBLE DECOMPRESSSION PROCEDURE TOMORROW. DR. BEAVERS WILL REASSESS HER TOMORROW. PT TOLERATING CLEAR LIQUID DIET. NO ACUTE CHANGES AT THIS TIME. WILL CONTINUE TO MONITOR AND REPORT TO ONCOMING RN. CALL LIGHT IN REACH.
[2019-05-01 04:35] LABS: BASOPHILS ABSOLUTE AUTO 0.02 K/mm3 (0.00-0.23); BASOPHILS PERCENT AUTO 0 % (0-2); EOSINOPHILS ABSOLUTE AUTO 0.09 K/mm3 (0.00-0.68); EOSINOPHILS PERCENT AUTO 2 % (0-6); Hemoglobin 11.3 g/dL (11.5-16.0); IMMATURE GRAN ABSOLUTE AUTO 0.01 K/mm3 (0.00-0.10); IMMATURE GRAN PERCENT AUTO 0 % (0-1); LYMPHOCYTES ABSOLUTE AUTO 1.33 K/mm3 (0.84-5.20); LYMPHOCYTES PERCENT AUTO 22 % (21-46); MONOCYTES ABSOLUTE AUTO 0.59 K/mm3 (0.16-1.47); MONOCYTES PERCENT AUTO 10 % (4-13); Mean Corpuscular HGB 30.9 pg (26.0-34.0); Mean Corpuscular HGB Conc 32.3 g/dL (31.5-36.5); Mean Corpuscular Volume 96 fL (80-100); NEUTROPHILS ABSOLUTE AUTO 3.97 K/mm3 (1.96-9.15); NEUTROPHILS PERCENT AUTO 66 % (41-73); Platelet Count 198 K/mm3 (150-400); RDW Coefficient Variation 14.6 % (11.7-14.2); Red Blood Cell Count 3.66 M/mm3 (3.80-5.20); White Blood Cell Count 6.01 K/mm3 (4.00-11.30)
[2019-05-01 05:01] LABS: Anion Gap 5 mmol/L (6-16); Blood Urea Nitrogen 8 mg/dL (8-24); Bun/Creatinine Ratio 15.6 (12.0-20.0); CO2, Blood 26 mmol/L (21-32); Calcium, Blood 7.9 mg/dL (8.5-10.1); Chloride, Blood 116 mmol/L (98-108); Creatinine, Blood 0.51 mg/dL (0.40-1.00); Glomerular Filtration Rate >60 (60-); Glucose, Blood 85 mg/dL (70-99); Potassium, Blood 3.3 mmol/L (3.5-5.5); Sodium, Blood 147 mmol/L (136-145)
--- NOTE | 2019-05-01 05:11 | NUR ---
SHIFT SUMMARY: PT IS ALERT AND ORIENTED. PT IS CALM, FRIENDLY, AND COOPERATIVE WITH CARE. PT CALLS APPROPRIATELY. PT IS A ONE PERSON ASSIST FOR TRANSFERS. PT DENIES PAIN, NAUSEA, VOMITING, AND SOB. FLUIDS RUNNING ORDERED. GI CONSULTED. NPO AFTER MIDNIGHT ORDERED. NO ACUTE CHANGES OR COMPLICATIONS THIS SHIFT. WILL CONTINUE TO MONITOR.
[2019-05-01] MEDS ORDERED: PERIDEX15 ML PO (12:44)
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
--- NOTE | 2019-05-01 19:09 | NUR ---
SHIFT SUMMARY- PT RECIEVED A DOSE OF IV LASIX AFTER THE COMPLETION OF HER COLONOSCOPY AND IV POTASSIUM. PT HAD 1000ML OF CLEAR URINE OUT IN THE FIRST 60 MINUTES FOLLOWING THE DOSE. BETWEEN 1520 AND 1900 SHE HAD ROUGHLY 3000ML OF CLEAR URINE OUT LAST BP WAS 124/71, SEEMS TO BE TRENDING DOWN NOW. PT IS VERY PRECAST WORKER AT THIS TIME, SHE IS ON A CLEAR LIQUID DIET AND IV CLINIMIX AT 125ML PER HOUR, PT HAD +4 PITTING EDEMA IN HER LLE AND +2 IN THE RLE PRIOR TO THE IV LASIX DOSE THIS HAS IMPROVED GREATLY TO RLE TRACE AND LLE +2 EDEMA. PASSED ON IN BEDSIDE REPORT TO NIGHT ERROL LOEPZ.
[2019-05-02 05:17] LABS: BASOPHILS ABSOLUTE AUTO 0.03 K/mm3 (0.00-0.23); BASOPHILS PERCENT AUTO 1 % (0-2); EOSINOPHILS PERCENT AUTO 2 % (0-6); Hematocrit 36.8 % (33.0-51.0); IMMATURE GRAN ABSOLUTE AUTO 0.02 K/mm3 (0.00-0.10); IMMATURE GRAN PERCENT AUTO 0 % (0-1); LYMPHOCYTES ABSOLUTE AUTO 1.42 K/mm3 (0.84-5.20); LYMPHOCYTES PERCENT AUTO 28 % (21-46); MONOCYTES ABSOLUTE AUTO 0.47 K/mm3 (0.16-1.47); MONOCYTES PERCENT AUTO 9 % (4-13); Mean Corpuscular HGB 31.3 pg (26.0-34.0); Mean Corpuscular HGB Conc 32.6 g/dL (31.5-36.5); Mean Corpuscular Volume 96 fL (80-100); NEUTROPHILS ABSOLUTE AUTO 2.96 K/mm3 (1.96-9.15); NEUTROPHILS PERCENT AUTO 59 % (41-73); Platelet Count 207 K/mm3 (150-400); RDW Coefficient Variation 14.1 % (11.7-14.2); RDW Standard Deviation 49.5 fL (35.1-46.3); Red Blood Cell Count 3.84 M/mm3 (3.80-5.20)
[2019-05-02 05:45] LABS: Alanine Aminotransfer (ALT/SGP 34 U/L (12-78); Albumin, Blood 2.7 g/dL (3.4-5.0); Albumin/Globulin Ratio 0.9 (0.8-1.8); Alk Phos 131 U/L (50-136); Anion Gap 4 mmol/L (6-16); Aspartate Aminotrans (AST/SGOT 25 U/L (12-37); Bilirubin, Total 0.8 mg/dL (0.1-1.0); Blood Urea Nitrogen 10 mg/dL (8-24); Bun/Creatinine Ratio 19.9 (12.0-20.0); CO2, Blood 30 mmol/L (21-32); Calcium, Blood 8.2 mg/dL (8.5-10.1); Chloride, Blood 110 mmol/L (98-108); Globulin, Blood 2.9 g/dL (2.2-4.0); Glomerular Filtration Rate >60 (60-); Glucose, Blood 92 mg/dL (70-99); Magnesium, Blood 2.3 mg/dL (1.6-2.4); Phosphorus, Blood 2.6 mg/dL (2.5-4.9); Potassium, Blood 3.8 mmol/L (3.5-5.5); Sodium, Blood 144 mmol/L (136-145); Total Protein, Blood 5.6 g/dL (6.4-8.2)
--- NOTE | 2019-05-02 07:12 | NUR ---
very cooperative, took medication with water, rm air, call light in reach, no major medical changes noted during shift, abdm soft but still swollen
--- NOTE | 2019-05-02 07:31 | NUR ---
ASSUMED CARE OF PT- RECIEVED REPORT FROM NIGHT ERROL LOPEZ. PT SLEEPING SOUNDLY AT SHIFT CHANGE, EDEMA IN BLE NOTICABLY LESS THAN PREVIOUS. PT ABD DISTENDED, WILL MEDICATE WITH METAMUCIL AND MIRALAX THIS MORNING PER EMAR. PT WOKE TO STAFF VOICES BUT STILL APPEARS GROGGY. DEE IN PLACE PATENT AND DRAINING CLEAR YELLOW TINGED URINE.
--- NOTE | 2019-05-02 13:04 | NUR ---
CALLED DR BEAVERS- PT ABDOMEN MORE DISTENDED THIS AFTERNOON, STILL NOT PASSING ANY FLATUS. NEW ORDER FOR NPO, POSSIBLE CT SCAN OF THE ABDOMEN
[2019-05-02 14:53] LABS: BASOPHILS ABSOLUTE AUTO 0.02 K/mm3 (0.00-0.23); BASOPHILS PERCENT AUTO 1 % (0-2); EOSINOPHILS ABSOLUTE AUTO 0.06 K/mm3 (0.00-0.68); EOSINOPHILS PERCENT AUTO 1 % (0-6); Hematocrit 37.3 % (33.0-51.0); Hemoglobin 12.2 g/dL (11.5-16.0); IMMATURE GRAN ABSOLUTE AUTO 0.02 K/mm3 (0.00-0.10); IMMATURE GRAN PERCENT AUTO 1 % (0-1); LYMPHOCYTES ABSOLUTE AUTO 0.83 K/mm3 (0.84-5.20); LYMPHOCYTES PERCENT AUTO 19 % (21-46); MONOCYTES ABSOLUTE AUTO 0.44 K/mm3 (0.16-1.47); MONOCYTES PERCENT AUTO 10 % (4-13); Mean Corpuscular HGB 31.4 pg (26.0-34.0); Mean Corpuscular HGB Conc 32.7 g/dL (31.5-36.5); Mean Corpuscular Volume 96 fL (80-100); Mean Platelet Volume 9.7 fL (9.1-12.4); NEUTROPHILS ABSOLUTE AUTO 2.96 K/mm3 (1.96-9.15); NEUTROPHILS PERCENT AUTO 68 % (41-73); Platelet Count 212 K/mm3 (150-400); RDW Coefficient Variation 14.2 % (11.7-14.2); RDW Standard Deviation 49.9 fL (35.1-46.3); Red Blood Cell Count 3.88 M/mm3 (3.80-5.20); White Blood Cell Count 4.33 K/mm3 (4.00-11.30)
[2019-05-02 15:11] LABS: Anion Gap 5 mmol/L (6-16); Blood Urea Nitrogen 11 mg/dL (8-24); Bun/Creatinine Ratio 24.8 (12.0-20.0); CO2, Blood 28 mmol/L (21-32); Calcium, Blood 8.2 mg/dL (8.5-10.1); Chloride, Blood 110 mmol/L (98-108); Creatinine, Blood 0.44 mg/dL (0.40-1.00); Glomerular Filtration Rate >60 (60-); Glucose, Blood 133 mg/dL (70-99); Potassium, Blood 4.2 mmol/L (3.5-5.5); Sodium, Blood 143 mmol/L (136-145)
--- NOTE | 2019-05-02 18:19 | NUR ---
SHIFT SUMMARY- PT ABD CONTINUED TO INCREASE IN SIZE T/O THE SHIFT, SPOKE TO DR BEAVERS, PT NOW NPO WITH THE EXCEPTION OF SIPS OF WATER WITH MEDICATIONS. PT CURRENTLY PREPARING FOR CT SCAN OF THE ABDOMEN HAS BEEN DRINKING CONTRAST EVERY HOUR. PLAN IS FOR CT SCAN AT 1900. PT HAS A SMALL AREA ON HER TAILBONE THAT IS OPEN FROM BEING IN BED AND SCOOTING UP AND DOWN IN BED, PT MOVES HERSELF IN THE BED INDEPENDENTLY. PLACED A COCCYX MEPILEX TO PREVENT FURTHER BREAKDOWN. FLOATED PT HIPS ON PILLOWS TO RELIEVE PRESSURE. PT STATES HER BOTTOM FEELS MUCH BETTER.
--- NOTE | 2019-05-03 04:09 | NUR ---
SHIFT SUMMARY: ABD REMAINS DISTENDED WITH TYMPANIC HYPERACTIVE BOWEL TONES. PT DENIES PAIN AND ANY N/V. GIVEN SIMETHICONE Q4 PER EMAR. PT DENIES PASSING GAS. NO BM. NPO EXCEPT FOR SIPS WITH MEDS. CLINIMIX INFUSING. PT REQUESTING ASSISTANCE WITH REPOSITIONING T/O SHIFT. DEE DRAINING CLEAR YELLOW URINE.
--- NOTE | 2019-05-03 07:35 | NUR ---
ASSUMED CARE OF PT- BEDSIDE REPORT COMPLETED WITH NIGHT RN PITER. PT HAS HAD NO ACUTE CHANGES T/O THE NIGHT, CT ABDOMEN WAS COMPLETED, ABDOMINAL DISTENTION SEEMS A LITTLE WORSE THIS MORNING THAN AT END OF SHIFT YESTERDAY. PT SEEMS TO BE MORE TIRED TODAUY AND IS BEGINNING TO FEEL LIKE SHE IS "NEVER GOING TO GET TO GO HOME." PT DESPERATELY WANTS TO EAT FOOD, STAFF REMIND HER SHE IS NPO AT THIS TIME AND THAT THE FOOD ISN'T GOING ANYWHERE (PT STILL NOT PASSING FLATUS). CLINIMIX GOING IV AT THIS TIME AT 125ML/HR.
--- NOTE | 2019-05-03 09:28 | NUR ---
CALLED DR LEEANNE RADER TO GIVE SPIRONOLACTONE AND LISINOPRIL. PLAN IS FOR PT TO GO DOWN TO ICU FOR INFUSION OF NEOSTIGMINE.
--- NOTE | 2019-05-03 11:07 | NUR ---
NEOSTIGMINE & GLYCOPYRROLATE: ADMINISTERED 0.2MG OF GLYCOPYRROLATE AT 1101 INTO IV ON L FORARM, FLUSHED WITH 10ML OF NS. STARTED 2MG OF NEOSTIGMINE PROGRAMED INTO IV PUMP TO INFUSE OVER 2 MIN AND FLUSH WITH A TOTAL OF 15 ML OF NS @ A RATE OF 2ML/MIN. HR CURRENTLY 85 BP 129/79. NO S/S OF DISTRESS NOTED. PRIOR TO STARTING MEDICATIONS BT NOTED IN ALL 4 QUADRANTS AND VERY TEMPNIC.
--- NOTE | 2019-05-03 12:00 | NUR ---
TRANSFER BACK TO [facility]: PT APPEARS STABLE AT THIS TIME. HEAR RATE IS RANGING FROM HIGH 50'S TO 60'S, WAS WHAT HER HEART RATE WAS UPON ARIVING TO ICU. PT BEDDING PREPPED FOR POSSIBLE BM AFTER INFUSION WAS ADMINISTERED, BUT WAS TRANSFERED WITHOUT ANY BM. NURSE AWARE. TRANSFERED WITH TELE BOX ON PRIOR TO LEAVING THE ICU. NO ACUTE DISTRESS NOTED. UPDATED MED FLOOR RN.
--- NOTE | 2019-05-03 15:46 | NUR ---
art therapy given to patient she is distrught at still being in hospital
--- NOTE | 2019-05-03 16:28 | NUR ---
SHIFT SUMMARY- PT WENT TO ICU FOR INFUSIONS, MEDICATIONS THAT MAY GET HER BOWELS MOVING. PT CURRENTLY ON POWDER PRESS OPERATOR RUNNING NSR IN THE 80'S. PT DENIES ABD PAIN, DISTENTION STILL PRESENT, PT STILL NPO WITH THE EXCEPTIONS OF MEDS WITH SIPS OF WATER. CLINIMIX RUNNING AT 125ML/HR. SPOKE TO PALLIATIVE CARE, PT SEEMED TO BE GETTING MORE DISCOURAGED, PROVIDED COLORING PAGES CRAYONS AND MARKERS. PT SEEMED PLEASED WITH THIS. ABDOMINAL DISTENTION SEEMS TO BE GETTING WORSE DESPITE SIMETHICONE ADMINISTRATION, BT HYPERACTIVE AND TYMPANIC.
[2019-05-04 04:40] LABS: BASOPHILS ABSOLUTE AUTO 0.03 K/mm3 (0.00-0.23); BASOPHILS PERCENT AUTO 1 % (0-2); EOSINOPHILS ABSOLUTE AUTO 0.12 K/mm3 (0.00-0.68); EOSINOPHILS PERCENT AUTO 2 % (0-6); Hematocrit 39.2 % (33.0-51.0); Hemoglobin 12.6 g/dL (11.5-16.0); IMMATURE GRAN ABSOLUTE AUTO 0.03 K/mm3 (0.00-0.10); IMMATURE GRAN PERCENT AUTO 1 % (0-1); LYMPHOCYTES ABSOLUTE AUTO 1.08 K/mm3 (0.84-5.20); LYMPHOCYTES PERCENT AUTO 17 % (21-46); MONOCYTES ABSOLUTE AUTO 0.72 K/mm3 (0.16-1.47); MONOCYTES PERCENT AUTO 11 % (4-13); Mean Corpuscular HGB 31.5 pg (26.0-34.0); Mean Corpuscular HGB Conc 32.1 g/dL (31.5-36.5); Mean Corpuscular Volume 98 fL (80-100); Mean Platelet Volume 9.9 fL (9.1-12.4); NEUTROPHILS ABSOLUTE AUTO 4.36 K/mm3 (1.96-9.15); NEUTROPHILS PERCENT AUTO 69 % (41-73); Platelet Count 238 K/mm3 (150-400); RDW Coefficient Variation 13.8 % (11.7-14.2); RDW Standard Deviation 50.3 fL (35.1-46.3); White Blood Cell Count 6.34 K/mm3 (4.00-11.30)
[2019-05-04 05:10] LABS: Alanine Aminotransfer (ALT/SGP 30 U/L (12-78); Albumin, Blood 2.7 g/dL (3.4-5.0); Albumin/Globulin Ratio 0.9 (0.8-1.8); Alk Phos 126 U/L (50-136); Anion Gap 5 mmol/L (6-16); Aspartate Aminotrans (AST/SGOT 20 U/L (12-37); Blood Urea Nitrogen 23 mg/dL (8-24); Bun/Creatinine Ratio 54.2 (12.0-20.0); CO2, Blood 28 mmol/L (21-32); Calcium, Blood 8.3 mg/dL (8.5-10.1); Chloride, Blood 110 mmol/L (98-108); Creatinine, Blood 0.42 mg/dL (0.40-1.00); Globulin, Blood 3.1 g/dL (2.2-4.0); Glomerular Filtration Rate >60 (60-); Glucose, Blood 111 mg/dL (70-99); Magnesium, Blood 2.5 mg/dL (1.6-2.4); Potassium, Blood 4.4 mmol/L (3.5-5.5); Sodium, Blood 143 mmol/L (136-145); Total Protein, Blood 5.8 g/dL (6.4-8.2)
[2019-05-04 05:11] LABS: Bilirubin, Total 0.6 mg/dL (0.1-1.0)
--- NOTE | 2019-05-04 05:15 | NUR ---
Rn Summary: Patient is alert and oriented, slow. Pt has walked to the BR tonight. Pt denies any pain. Abdomen with active bowel tones but remains very distended. Abdomen is sl firm but has give to it. Pt has burped some tonight but deinies passing any gas. Pt continues on clinimix as ordered. Vital signs have remianed stable. Telemetry shows SR in the 60's this am Pt has rested fairly well between meds and cares. Uses call light appropriately. Will continue to monitor.
--- NOTE | 2019-05-04 10:50 | NUR ---
PER DR.T.POWELL RADER FOR CLEAR LIQUIDS. PATIENT HAD ONE WATERY SMALL TO MEDIUM B.M.
--- NOTE | 2019-05-04 17:59 | NUR ---
ALERT.ORIENTED. SLOW TO RESPOND. DEVELOPMENTALLY DELAYED. CLINIMIX AT 75ML/HR. USES BSC. AND WERE IN TO SEE. DENIES ABD PAIN WHICH REMAINS FIRM . USES BSC. UNLABORED RESPIRATIONS.DEE DRAINING CLEAR YELLOW URINE. BED IN LOW POSITION. CALL LIGHT WITHIN REACH. TELE ON. TM.
--- NOTE | 2019-05-05 13:30 | NUR ---
TO SURGERY ABOUT 1320. CAREGIVER HERE. WENT HOME ABOUT 1/2 HOUR AGO AND STS "SHE CAN CALL ME WHEN SHE'S BACK."IV SALINE LOCKED. AWARE PATIENT HAD FULL LIQUID BREAKFAST. Abhay RN'S AWARE OF BREAKFAST.
--- NOTE | 2019-05-05 13:38 | NUR ---
INTO SDS VIA BED. ESCORTED BY [facility]. PT REPORTS BEING "SCARED," BUT DENIES PAIN. HISTORY AND ALLERGIES REVIEWED. NPO SINCE FULL LIQUID BREAKFAST @ 0800 THIS AM. PT ABDOMEN IS EXTREMELY DISTENDED AND FIRM. NO NOTED RESPIRATORY DISTRESS AT THIS TIME.
--- NOTE | 2019-05-05 15:18 | NUR ---
REPORT TO GUI [facility]ON ON SURGICAL FLOOR. PATIENT STILL IN SURGERY. WILL MOVE PATIENT BELONGINGS TO RM 211.
--- NOTE | 2019-05-05 17:40 | NUR ---
SHIFT SUMMARY PT A&OX4, VSS, PAIN 12/03, KATIE PO, DENIES N&V. S/P TOTAL COLECTOMY WITH ILEOSTOMY.
[2019-05-06 03:39] LABS: BASOPHILS ABSOLUTE AUTO 0.01 K/mm3 (0.00-0.23); BASOPHILS PERCENT AUTO 0 % (0-2); EOSINOPHILS PERCENT AUTO 0 % (0-6); Hematocrit 35.1 % (33.0-51.0); Hemoglobin 11.6 g/dL (11.5-16.0); IMMATURE GRAN ABSOLUTE AUTO 0.06 K/mm3 (0.00-0.10); IMMATURE GRAN PERCENT AUTO 1 % (0-1); LYMPHOCYTES ABSOLUTE AUTO 0.84 K/mm3 (0.84-5.20); LYMPHOCYTES PERCENT AUTO 8 % (21-46); MONOCYTES ABSOLUTE AUTO 1.09 K/mm3 (0.16-1.47); MONOCYTES PERCENT AUTO 10 % (4-13); Mean Corpuscular HGB 31.8 pg (26.0-34.0); Mean Corpuscular Volume 96 fL (80-100); Mean Platelet Volume 9.8 fL (9.1-12.4); NEUTROPHILS ABSOLUTE AUTO 8.77 K/mm3 (1.96-9.15); NEUTROPHILS PERCENT AUTO 81 % (41-73); Platelet Count 361 K/mm3 (150-400); RDW Coefficient Variation 13.9 % (11.7-14.2); Red Blood Cell Count 3.65 M/mm3 (3.80-5.20); White Blood Cell Count 10.77 K/mm3 (4.00-11.30)
[2019-05-06 03:56] LABS: Albumin, Blood 2.7 g/dL (3.4-5.0); Anion Gap 6 mmol/L (6-16); Blood Urea Nitrogen 19 mg/dL (8-24); Bun/Creatinine Ratio 31.6 (12.0-20.0); CO2, Blood 26 mmol/L (21-32); Calcium, Blood 8.7 mg/dL (8.5-10.1); Chloride, Blood 108 mmol/L (98-108); Glomerular Filtration Rate >60 (60-); Glucose, Blood 148 mg/dL (70-99); Phosphorus, Blood 4.1 mg/dL (2.5-4.9); Potassium, Blood 5.1 mmol/L (3.5-5.5); Sodium, Blood 140 mmol/L (136-145)
--- NOTE | 2019-05-06 05:33 | NUR ---
S/P day 2 colectomy, Low grade temperature. Vitals stable. No complaints of pain. Paul catheter in place, drained 600ml. Stoma red/bloody, no drainage.
--- NOTE | 2019-05-06 10:28 | NUR ---
DEE CATHETER REMOVED AT 1020. PT WAS ABLE TO AMBULATE IN THE HALWAYS, SHE REQUIRED 2 ASSIST FOR HELP WITH LINES AND TUBES.
--- NOTE | 2019-05-06 13:07 | NUR ---
DIET ORDER CLARIFIED WITH DR. CONTRERAS. OK TO CONTINUE FULL LIQUID DIET.
--- NOTE | 2019-05-06 17:08 | NUR ---
STRAIGHT CATH OF PATIENT FOR BLADDER SCAN VOLUME GREATER THAN 300ML. 500ML OUT. PT TOLERATED WELL. NO COMPLAINTS OF PAIN OR DISCOMFORT.
--- NOTE | 2019-05-06 17:11 | NUR ---
POD 1 TOTAL COLECTOMY WITH ILEOSOMY. PATIENT ALERT AND ORIENTED, SLOW TO RESPOND NORMAL FOR PT. DEE REMOVED THIS AM. NO VOID DURING SHIFT STRAIGHT CATH AT 1713 500ML OUT. PT HAS NO COMPLAINTS OF PAIN THIS SHIFT. OSTOMY PINK AND BEEFY, NO STOOL OUTPUT. SMALL AMOUNT SANGUINOUS DISCHARGE. PT FLOATED ON PILLOWS DURING SHIFT. UP TO CHAIR AND RESTROOM DURING SHIFT. CLINIMIX INFUSING 75ML/HR.
[2019-05-07 05:02] LABS: BASOPHILS ABSOLUTE AUTO 0.01 K/mm3 (0.00-0.23); BASOPHILS PERCENT AUTO 0 % (0-2); EOSINOPHILS ABSOLUTE AUTO 0.01 K/mm3 (0.00-0.68); EOSINOPHILS PERCENT AUTO 0 % (0-6); Hematocrit 28.1 % (33.0-51.0); Hemoglobin 9.2 g/dL (11.5-16.0); IMMATURE GRAN ABSOLUTE AUTO 0.04 K/mm3 (0.00-0.10); IMMATURE GRAN PERCENT AUTO 1 % (0-1); LYMPHOCYTES ABSOLUTE AUTO 0.96 K/mm3 (0.84-5.20); LYMPHOCYTES PERCENT AUTO 12 % (21-46); MONOCYTES ABSOLUTE AUTO 1.04 K/mm3 (0.16-1.47); MONOCYTES PERCENT AUTO 13 % (4-13); Mean Corpuscular HGB 31.3 pg (26.0-34.0); Mean Corpuscular HGB Conc 32.7 g/dL (31.5-36.5); Mean Corpuscular Volume 96 fL (80-100); Mean Platelet Volume 9.9 fL (9.1-12.4); NEUTROPHILS PERCENT AUTO 75 % (41-73); Platelet Count 290 K/mm3 (150-400); RDW Coefficient Variation 13.9 % (11.7-14.2); RDW Standard Deviation 48.5 fL (35.1-46.3); Red Blood Cell Count 2.94 M/mm3 (3.80-5.20); White Blood Cell Count 8.06 K/mm3 (4.00-11.30)
[2019-05-07 05:49] LABS: Anion Gap 7 mmol/L (6-16); Blood Urea Nitrogen 17 mg/dL (8-24); Bun/Creatinine Ratio 34.6 (12.0-20.0); CO2, Blood 29 mmol/L (21-32); Calcium, Blood 8.8 mg/dL (8.5-10.1); Chloride, Blood 104 mmol/L (98-108); Creatinine, Blood 0.49 mg/dL (0.40-1.00); Glomerular Filtration Rate >60 (60-); Glucose, Blood 134 mg/dL (70-99); Magnesium, Blood 2.2 mg/dL (1.6-2.4); Phosphorus, Blood 3.3 mg/dL (2.5-4.9); Potassium, Blood 4.3 mmol/L (3.5-5.5); Sodium, Blood 140 mmol/L (136-145)
--- NOTE | 2019-05-07 06:20 | NUR ---
SHIFT SUMMARY LYING IN SEMI FOWLERS WITH EYES OPEN. HAS BEEN ACTIVE THIS SHFIT. GOT OOB TO BS TO URINATE X4, WITH A SHIFT TOTAL OF 800ML MEASURED, AND 2 INCONTINENT VOIDS. PULL UP PLACED PER PT REQUEST DUE TO INCONTINENT EPISODES. ABLE TO REPOSITION SELF IN BED. ENCOURAGED TO MOVE AT WILL. MEPILEX TO COCCYX REMAINS C/D/I. MIDLINE ABD PREVENA IN PLACE, CONTINUES TO MAKE NOISE BUT REMAINS PATENT. ILEOSTOMY TO RLQ WITH RED BEEFY STOMA. BAG CIRCUIT INTACT, DRAINING RED FLUID. NO FLATUS PRESENT YET. ABD DISTENTION CONTINUES. DENIES PAIN, DISCOMFRT, OR FURTHER NEEDS AT THIS TIME. SAFETY MEASURES IN PLACE. WILL GIVE HAND OFF TO ONCOMING SHIFT USING SBAR.
--- NOTE | 2019-05-07 07:50 | NUR ---
05/07/19 0750 hSeldon Rene PATIENT DETERMINED TO BE ASA APPROPRIATE FOR PROPOFOL SEDATION PRIOR TO START OF PROCEDURE BY DR. Wendy Broderick Placed3-LEAD EKG REVIEWED WITH PHYSICIAN PRIOR TO START OF PROCEDURE.Patient to ENDO 1History, Chart, Medications and Allergies reviewed before start of procedure.MONITOR INTACT WITH CONTINUOUS PULSE OXIMETRY AND INTERMITTENT BP.O2 VIA N/C INTACT THROUGHOUT SEDATION/PROCEDURE.
--- NOTE | 2019-05-07 13:01 | NUR ---
Echocardiogram completed.
--- NOTE | 2019-05-07 14:22 | NUR ---
NOTICED A DROP IN HGB FROM 11.6 ON 05/06 TO 9.2 ON 05/07. DR CASTORENA NOTIFIED. NO NEW ORDERS AT THIS TIME. PATIENT IS ASYMPTOMATIC. RESTING IN BED AMBULATING TO RESTROOM DURING SHIFT.
--- NOTE | 2019-05-07 16:16 | NUR ---
SHIFT SUMMARY POD 2. PT ALERT AND ORIENTED. NO COMPLAINTS OF PAIN. UP TO RESTROOM AND TO CHAIR DURING SHIFT. AMBULATED HALLWAYS, TOLERATED WELL. OSTOMY RLQ PINK AND BEEFY SMALL AMOUNT SANGUINOUS DISCHARGE, NO BM SEEN. SLIGHT INCREASE IN DISTENTION, DR CONTRERAS AWARE ORDERS CHANGED TO CLEAR LIQUID DIET. PT REPOSITIONING SELF IN BED. ALTERNATING SIDES WITH PILLOWS. PROVENA STILL CONTINUALLY SUCTIONING, FOAM STILL COMPRESSED. NO DRAINAGE.
[2019-05-08 05:31] LABS: Hematocrit 35.2 % (33.0-51.0); Hemoglobin 11.5 g/dL (11.5-16.0); Mean Corpuscular HGB Conc 32.7 g/dL (31.5-36.5); Mean Corpuscular Volume 98 fL (80-100); Mean Platelet Volume 10.3 fL (9.1-12.4); Platelet Count 396 K/mm3 (150-400); RDW Coefficient Variation 13.6 % (11.7-14.2); RDW Standard Deviation 49.2 fL (35.1-46.3); Red Blood Cell Count 3.59 M/mm3 (3.80-5.20); White Blood Cell Count 15.81 K/mm3 (4.00-11.30)
[2019-05-08 05:59] LABS: Albumin, Blood 2.4 g/dL (3.4-5.0); Anion Gap 6 mmol/L (6-16); Blood Urea Nitrogen 26 mg/dL (8-24); Bun/Creatinine Ratio 52.3 (12.0-20.0); CO2, Blood 29 mmol/L (21-32); Calcium, Blood 9.1 mg/dL (8.5-10.1); Chloride, Blood 100 mmol/L (98-108); Glomerular Filtration Rate >60 (60-); Glucose, Blood 165 mg/dL (70-99); Phosphorus, Blood 4.6 mg/dL (2.5-4.9); Potassium, Blood 5.2 mmol/L (3.5-5.5); Sodium, Blood 135 mmol/L (136-145)
--- NOTE | 2019-05-08 06:34 | NUR ---
SHIFT SUMMARY LYING IN SEMI FOWLERS WITH EYES OPEN. HAS BEEN ACTIVE THIS SHIFT. GOT OOB AND AMBULATED TO BATHROOM X3. PULL UP IN PLACE DUE TO URGENCY. ABLE TO REPOSITION SELF IN BED. ENCOURAGED TO MOVE AT WILL. MEPILEX TO COCCYX REMAINS C/D/I. MIDLINE ABD PREVENA IN PLACE, CONTINUES TO MAKE NOISE BUT REMAINS PATENT. ILEOSTOMY TO RLQ WITH RED BEEFY STOMA. BAG CIRCUIT INTACT, DRAINING RED FLUID. NO FLATUS PRESENT YET. HAD SMALL BM FROM RECTUM THIS SHIFT. ABD DISTENTION CONTINUES. C/O PAIN AND N/V X1 EACH THIS SHIFT. BEDICATED PER EMAR. DENIES FURTHER DISCOMFRT OR FURTHER NEEDS AT THIS TIME. SAFETY MEASURES IN PLACE. WILL GIVE HAND OFF TO ONCOMING SHIFT USING SBAR.
--- NOTE | 2019-05-08 15:12 | NUR ---
PATIENT UP TO CHAIR FOR APPROX 3 HRS. AMBULATED IN LEON. VISITOR IN TO SEE; PANFILO HWANG. BACK TO BED. DENIES PAIN. C/O NAUSEA AT THIS TIME; ZOFRAN ADMIN. CONT TO MONITOR.
--- NOTE | 2019-05-08 15:26 | NUR ---
200 ML DARK RED LIQUID OUT IN OSTOMY.
--- NOTE | 2019-05-08 18:25 | NUR ---
SHIFT SUMMARY PATIENT C/O NAUSEA X 1 THIS AFTERNOON, RESOLVED PER PATIENT AFTER ZOFRAN ADMIN. DENIES PAIN. ABD REMAINS FIRM AND DISTENDED, VERY HYPO BT'S. IVF INFUSING PER ORDER, SITE CLEAR. 200 ML THIN RED LIQUID OUT IN OSTOMY THIS SHIFT. PATIENT CONTINENT AND INCONTINENT OF URINE. ATTENDS IN PLACE. COCCYX DRESSING C&I. BED ALARM ON. CALL LIGHT IN REACH. WOUND VAC ALRMING AT TIMES, APPEARS TO HAVE ADEQUATE SEAL. DR CONTRERAS IN THIS AFTERNOON. NO NEW ORDERS.
[2019-05-09 10:09] LABS: BASOPHILS ABSOLUTE AUTO 0.01 K/mm3 (0.00-0.23); BASOPHILS PERCENT AUTO 0 % (0-2); EOSINOPHILS PERCENT AUTO 0 % (0-6); Hemoglobin 9.5 g/dL (11.5-16.0); IMMATURE GRAN ABSOLUTE AUTO 0.07 K/mm3 (0.00-0.10); IMMATURE GRAN PERCENT AUTO 1 % (0-1); LYMPHOCYTES ABSOLUTE AUTO 1.08 K/mm3 (0.84-5.20); LYMPHOCYTES PERCENT AUTO 7 % (21-46); MONOCYTES ABSOLUTE AUTO 1.12 K/mm3 (0.16-1.47); MONOCYTES PERCENT AUTO 7 % (4-13); Mean Corpuscular HGB 31.8 pg (26.0-34.0); Mean Corpuscular HGB Conc 31.7 g/dL (31.5-36.5); Mean Corpuscular Volume 100 fL (80-100); Mean Platelet Volume 10.1 fL (9.1-12.4); NEUTROPHILS ABSOLUTE AUTO 12.91 K/mm3 (1.96-9.15); NEUTROPHILS PERCENT AUTO 85 % (41-73); Platelet Count 401 K/mm3 (150-400); RDW Coefficient Variation 13.9 % (11.7-14.2); RDW Standard Deviation 50.5 fL (35.1-46.3); Red Blood Cell Count 2.99 M/mm3 (3.80-5.20); White Blood Cell Count 15.19 K/mm3 (4.00-11.30)
[2019-05-09 11:58] LABS: Anion Gap 5 mmol/L (6-16); Blood Urea Nitrogen 50 mg/dL (8-24); Bun/Creatinine Ratio 61.6 (12.0-20.0); CO2, Blood 30 mmol/L (21-32); Calcium, Blood 9.3 mg/dL (8.5-10.1); Chloride, Blood 96 mmol/L (98-108); Creatinine, Blood 0.81 mg/dL (0.40-1.00); Glomerular Filtration Rate >60 (60-); Glucose, Blood 146 mg/dL (70-99); Potassium, Blood 5.3 mmol/L (3.5-5.5); Sodium, Blood 131 mmol/L (136-145)
--- NOTE | 2019-05-09 17:56 | NUR ---
SHIFT SUMMARY PT POD 5 COLECTOMY W/ILEOSTOMY PLACEMENT. STOMA PINK/BEEFY, DRAINING SMALL AMOUNT GREENISH FLUID. ABDOMEN SEVERLY DISTENDED W/HYPOACTIV BT, DENIES NAUSEA THIS SHIFT-TOLERATING SMALL AMOUNTS CLEAR LIQUIDS. PT UP TO CHAIR UNTIL 1400. WORKED WITH PT, UP TO BSC SBA W/FWW.
[2019-05-10 04:51] LABS: Anion Gap 7 mmol/L (6-16); Blood Urea Nitrogen 49 mg/dL (8-24); CO2, Blood 27 mmol/L (21-32); Calcium, Blood 8.8 mg/dL (8.5-10.1); Chloride, Blood 98 mmol/L (98-108); Creatinine, Blood 0.64 mg/dL (0.40-1.00); Glomerular Filtration Rate >60 (60-); Glucose, Blood 118 mg/dL (70-99); Potassium, Blood 4.9 mmol/L (3.5-5.5); Sodium, Blood 132 mmol/L (136-145)
--- NOTE | 2019-05-10 05:59 | NUR ---
PT HAS BEEN STABLE THIS SHIFT. TACHYCARDIC. PT DENIES PAIN. CALLS FREQUENTLY FOR REPOSITIONING IN THE BED. ABD REMAINS BLOATED AND TENDER. OSTOMY WITH 100CC BURGUNDY LIQUID. ABD DRESSING CDI. PT VOIDING WELL ON BSC. MIN ASSIST OOB. PT HAS POOR PO INTAKE. CLINIMIX CONT TO INFUSE. MEPILEX INTACT TO COCCYX. PT GIVEN MELATONIN TO ASSIST SLEEP, HOWEVER DID NOT SLEEP MUCH IF AT ALL. USES CALL LIGHT APPROPRIATELY NEEDED.
--- NOTE | 2019-05-10 16:20 | NUR ---
SHIFT SUMMARY PT WAS UP TO CHAIR TODAY UNTIL 2PM. PT AMBULATES TO BATHROOM WITH STANDBY ASSISTANCE. ILEOSTOMY IN PLACE WITH MINIMAL BURGUNDY DRAINAGE TODAY. PT HAS BEEN ON SEVERAL WALKS DOWN THE LEON TODAY WITH RN AND ACTIVITY HAS BEEN ENCOURAGED. DR HAS BEEN IN TO SEE PT TODAY. ATTENS IN PLACE FOR OCCASIONAL INCONTINENCE. SCD'S IN PLACE THROUGHOUT THE DAY.
[2019-05-11 04:49] LABS: Bun/Creatinine Ratio 60.5 (12.0-20.0); Calcium, Blood 9.1 mg/dL (8.5-10.1); Creatinine, Blood 1.24 mg/dL (0.40-1.00); Potassium, Blood 5.7 mmol/L (3.5-5.5)
--- NOTE | 2019-05-11 05:33 | NUR ---
PT STABLE THIS SHIFT. LOW GRADE TEMPS X2. TACHY T/O SHIFT. ENCOURAGED DEEP BREATHING. PT DID NOT SLEEP WELL T/O NIGHT. REPOSITIONED NEEDED FOR COMFORT. EGG CRATE PLACED TO BED. PT UP TO CHAIR X1. SBA TO BATHROOM. ATTENDS ON FOR OCCASIONAL INCONTINENCE. TYLENOL FOR PAIN X1, EFFECTIVE. NAUSEA MED X1, EFFECTIVE. OSTOMY WITH NO OUTPUT. ABSENT BT'S. POOR PO INTAKE. CONT CLINIMIX. USES CALL LIGHT APPROPRIATELY.
--- NOTE | 2019-05-11 18:32 | NUR ---
SHIFT SUMMARY PT A&O, DEVELOPMENTALLY DELAYED. NO ACUTE CHANGES T/O SHIFT. AMBULATED IN LEON WITH ASSEMBLER TRIM SEVERAL TIME TODAY AND SAT UP ON CHAIR FOR MOST OF SHIFT. BT RARE BUT OSTOMY PUT OUT THIN BROWN LIQUID. STOMA DUSKY, DOCTOR IS AWARE. NA 128 TODAY, DR. GREENE AWARE. USES CALL LIGHT APPROPRIATELY
[2019-05-12 04:58] LABS: Hematocrit 22.3 % (33.0-51.0); Hemoglobin 7.4 g/dL (11.5-16.0); Mean Corpuscular HGB 32.2 pg (26.0-34.0); Mean Corpuscular HGB Conc 33.2 g/dL (31.5-36.5); Platelet Count 303 K/mm3 (150-400); RDW Coefficient Variation 14.5 % (11.7-14.2); RDW Standard Deviation 51.2 fL (35.1-46.3); White Blood Cell Count 16.87 K/mm3 (4.00-11.30)
[2019-05-12 05:02] LABS: Mean Corpuscular Volume 97 fL (80-100)
[2019-05-12 05:19] LABS: BAND PERCENT MAN 15 % (0-8); BASOPHILS PERCENT MAN 0 % (0-2); EOSINOPHILS PERCENT MAN 0 % (0-6); LYMPHOCYTES ABSOLUTE MAN 1.34 K/mm3 (0.84-5.20); LYMPHOCYTES PERCENT MAN 8 % (21-46); METAMYELOCYTE ABSOLUTE MAN 0.16 K/mm3 (0.00-0.00); METAMYELOCYTE PERCENT MAN 1 % (0-0); MONOCYTES ABSOLUTE MAN 1.34 K/mm3 (0.16-1.47); MONOCYTES PERCENT MAN 8 % (4-13); SEG NEUTROPHILS PERCENT MAN 68 % (41-73); TOTAL CELLS COUNTED 100
--- NOTE | 2019-05-12 05:40 | NUR ---
SHIFT SUMMARY: PT IS ALERT AND ORIENTED BUT DEVELOPMENTALLY DELAYED. PT IS A 1 PERSON ASSIST TO THE BSC. PT INCONINENT OVERNIGHT. DR. GREENE CALLED AND ORDERED DEE PLACEMENT FOR STRICT I'S AND O'S, MULTIPLE ATTEMPTS AT PLACEMENT WERE NOT SUCCESSFUL. PT'S ILEOSTOMY PUTTING OUT DARK BROWN LIQUID STOOL. PT DID NOT SLEEP OVERNIGHT. CLINIMIX RUNNING ORDERED. PT DENIES PAIN, NAUSEA, VOMITING, AND SOB. WILL CONTINUE TO MONITOR.
[2019-05-12 06:35] LABS: Albumin/Globulin Ratio 0.5 (0.8-1.8); Bilirubin, Total 0.5 mg/dL (0.1-1.0); Bun/Creatinine Ratio 49.3 (12.0-20.0); Calcium, Blood 8.7 mg/dL (8.5-10.1); Creatinine, Blood 2.27 mg/dL (0.40-1.00); Globulin, Blood 3.7 g/dL (2.2-4.0); Potassium, Blood 6.3 mmol/L (3.5-5.5); Total Protein, Blood 5.7 g/dL (6.4-8.2)
[2019-05-12 07:43] LABS: PCO2 Arterial 23.7 mmHg (35-45); PO2 Arterial 79.2 mmHg (80-100); pH Blood Arterial 7.43 (7.35-7.45)
--- NOTE | 2019-05-12 08:32 | NUR ---
LATE ENTRY 0730 THIS RN TO ROOM, BRIDGE OPERATOR REPORTS LOW BP 80'S/10'S AND UNABLE TO OBTAIN MANUAL BP. PT RESPONDS TO VERBAL STIMULI AND FALLS ASLEEP QUICKLY. TACHYPNIC, BREATHING EVEN AND UNLABORED. O2 SATURATIONS IN 80'S, PLACED 3L O2 VIA NC, LS CLEAR/DIM BASES. HEART SOUNDS IRREGULAR AND HAS MURMUR, 90-110'S. EDEMA NOTED IN BLE 2+. CAP REFIL >[address]REM[address] COOL. [address] GREENE CALLED EARLIER THIS AM WITH POTASSIUM RESULTS, ORDERS ENTERED BY NOC RN. DR CAMACHO CONSULTED, SPOKE WITH NOC RN, ORDERS ENTERED BY NOC RN. HIRAM, MUSICAL INSTRUMENT SUPERVISOR GIVES REPORTS TO EDUCATIONAL DIAGNOSTICIAN. PT MOVED TO ICU8.
--- NOTE | 2019-05-12 08:55 | NUR ---
SUMMARY REPORT FROM ERROL MANN ON PATIENT IN 211 WITH HYPOTENSION AFTER TOTAL COLLECTOMY. TRANSFERRED IN BED TO ICU 8 AT 0746. UPON INITIAL ASSESSMENT, ABDOMEN IS VERY DISTENDED AND FIRM. CALL TO DR. GREENE FOR NGT ORDER FOR DECOMPRESSION. LARGE AMOUNT OF AIR DISPELLED AND ABDOMEN SOFT IMMEDIATELY WITH INSERTION OF NGT. BROWN STOOL FOLLOWED AIR WITH A TOTAL OF 850 CC IN FIRST HOUR. 500 CC BOLUS NS GIVEN. STAT ABDOMEN CT AT 0825. BACK TO ICU 8 WITH LAB ATTEMPTING TO OBTAIN TYPE AND CROSS FOR PRBC ADMINISTRATION. DR. GREENE HAS CONSULTED DR. CAMCAHO AND DR. EMERSON. BICARB GTT STARTED. 2ND BOLUS OF 1L ORDERED AND RADIOLOGIST CALLED REQUESTING DR. GREENE'S PHONE# AND AGAIN TO ASK FOR DR. CONTRERAS. PATIENT IS A&O, DEVELOPMENTALLY DELAYED AT BASELINE, AND SAYS HER STOMACH FEELS BETTER NOW. OSTOMY BAG SHOWS SMALL AMOUNT OF BROWN STOOL IN BAG.
--- NOTE | 2019-05-12 10:07 | NUR ---
MD VISIT DR. EMERSON IN. PLACING CENTRAL LINE LEFT SUBCLAVIAN AFTER 12.5 FENTANYL AND VERSED 1 MG IV. LEVOPHED STARTED AT 4 MCG/MIN. TITRATED TO 8 MCG/MIN
--- NOTE | 2019-05-12 10:10 | NUR ---
BICARB GTT STOPPED PER DR. EMERSON. PRBC HELD PER DR. EMERSON. 2ND LITER BOLUS INFUSING (500 CC +1000+ 1000)
--- NOTE | 2019-05-12 10:15 | NUR ---
LEVOPHE TITRATED TO 10 MCG/MIN
--- NOTE | 2019-05-12 10:49 | NUR ---
LEVOPHED TO 15 MCG/MIN. 3RD ITER BOLUS ORDERED
[2019-05-12 11:39] LABS: Hematocrit 19.5 % (33.0-51.0); Hemoglobin 6.3 g/dL (11.5-16.0); Mean Corpuscular HGB 31.8 pg (26.0-34.0); Mean Corpuscular HGB Conc 32.3 g/dL (31.5-36.5); Mean Corpuscular Volume 99 fL (80-100); Mean Platelet Volume 10.4 fL (9.1-12.4); Platelet Count 342 K/mm3 (150-400); RDW Coefficient Variation 14.4 % (11.7-14.2); RDW Standard Deviation 51.3 fL (35.1-46.3); Red Blood Cell Count 1.98 M/mm3 (3.80-5.20); White Blood Cell Count 17.79 K/mm3 (4.00-11.30)
[2019-05-12 11:43] LABS: Source, Urine Catheter
[2019-05-12 11:48] LABS: Bilirubin, Urine Neg (Neg); Blood, Urine 5+ (Neg); Glucose Qualitative, Urine 2+ (Neg); Ketones, Urine Neg (Neg); Leukocyte Esterase, Urine 1+ (Neg); Nitrite, Urine Neg (Neg); Protein, Urine 2+ (Neg); Urobilinogen, Urine NORM (Normal)
[2019-05-12 11:59] LABS: Albumin, Blood 1.5 g/dL (3.4-5.0); Albumin/Globulin Ratio 0.5 (0.8-1.8); Bilirubin, Total 0.5 mg/dL (0.1-1.0); Bun/Creatinine Ratio 50.5 (12.0-20.0); Calcium, Blood 7.5 mg/dL (8.5-10.1); Creatinine, Blood 2.02 mg/dL (0.40-1.00); Globulin, Blood 2.8 g/dL (2.2-4.0); Magnesium, Blood 2.4 mg/dL (1.6-2.4); Phosphorus, Blood 6.5 mg/dL (2.5-4.9); Potassium, Blood 5.5 mmol/L (3.5-5.5); Total Protein, Blood 4.3 g/dL (6.4-8.2); Troponin I 0.026 ng/mL (0.000-0.040)
--- NOTE | 2019-05-12 12:00 | NUR ---
EMERGENT CASE TAKEN DIRECTLY FROM ICU TO OR.
[2019-05-12 12:12] LABS: BAND PERCENT MAN 13 % (0-8); BASOPHILS PERCENT MAN 0 % (0-2); EOSINOPHILS PERCENT MAN 0 % (0-6); LYMPHOCYTES ABSOLUTE MAN 1.06 K/mm3 (0.84-5.20); LYMPHOCYTES PERCENT MAN 6 % (21-46); MONOCYTES ABSOLUTE MAN 1.24 K/mm3 (0.16-1.47); MONOCYTES PERCENT MAN 7 % (4-13); NEUTROPHILS ABSOLUTE MAN 15.47 K/mm3 (1.96-9.15); SEG NEUTROPHILS PERCENT MAN 74 % (41-73); TOTAL CELLS COUNTED 100
[2019-05-12 12:13] LABS: International Normalized Ratio 1.06; Prothrombin Time Results 11.2 Sec (9.7-11.5)
--- NOTE | 2019-05-12 12:32 | NUR ---
TAKEN TO SURGERY BY ERROL GASCA
--- NOTE | 2019-05-12 13:03 | NUR ---
05/12/19 1303 Sherly Rausch PT TO OR 3 FROM ICU 8. MULTIPLE DRIPS RUNNING. BLOOD RUNNING. DEE DRAINING YELLOW URINE. BLOOD PUT ON RANGER BY ORDARTEM UPON ENTERING OR. 2ND UNIT OF BLOOD STARTED AFTER START OF CASE BY BRENT ON RANGER.
[2019-05-12 13:06] LABS: Appearance, Urine Clear (Clear); Color, Urine Yellow (P-Yellow)
[2019-05-12 13:12] LABS: Amorphous Light (0-Heavy); Bacteria Mod /hpf; Squamous Epithelial Cells Few /hpf (Few); Yeast/Fungi Urine Few /hpf
--- NOTE | 2019-05-12 14:05 | NUR ---
RETURNED FROM OR ON VENT
--- NOTE | 2019-05-12 14:10 | NUR ---
VASOPRESSIN OFF. TITRATING LEVOPHED DOWN
--- NOTE | 2019-05-12 15:20 | NUR ---
FAMILY MEETING WITH PALLIATIVE CARE TO DETERMINE CODE STATUS AND FILL OUT POLST
--- NOTE | 2019-05-12 15:22 | NUR ---
VASOPRESSIN ON. LEVOPHED AT 5 MCG/MIN
--- NOTE | 2019-05-12 15:33 | NUR ---
SLIGHT ST ELEVATION POSSIBLE ON MONITOR. EKG ORDERED
--- NOTE | 2019-05-12 15:46 | NUR ---
[facility] CARE VISIT: EARLIER CASE CONFERENCE WITH GROUP EXERCISE CLASS INSTRUCTOR FOLLOWING PT AND WORKING WITH [facility] STILL PUMP OPERATOR TO ASSIST PT AND HER , ANA, WHO BOTH HAVE DEVELOPMENTAL DELAY/COGNITIVE IMPAIRMENT. INFORMED THAT PT HAS TAKEN A TURN FOR THE WORSE AND ADVOCATES FROM [facility] ARE CONCERNED AND WOULD LIKE PT'S CODE STATUS ADDRESSED WITH HER IF POSSIBLE. ARRIVED TO ICU RM #8, WHERE PT HAS TRANSFERRED AFTER A SECOND BOWEL SURGERY. SHE IS ON A VENTILATOR AND HER RN IS TENDING TO HER. PRESENT, WERE OUR GROUP EXERCISE CLASS INSTRUCTOR, PT'S , ANA, [facility] ACCOUNT SERVICES COORDINATOR, MARTIN AND PT/'S CHIEF YEOMAN. I INTRODUCED MYSELF TO AND STOOD WITH HIM WHILE I EXPLAINED HIS OPTICIANRY TEACHER'S CONCERNS. [facility] STAFF WERE PRESENT TO ADVOCATE FOR PT/ AND TO VERIFY/READ ANY MATERIALS DISCUSSED AND MADE CLEAR THEY CANNOT MAKE RECOMMENDATIONS OR INFLUENCE MEDICAL DECISIONS IN ANY WAY. IN SIMPLE TERMS, I EXPLAINED WHAT FULL CODE MEANT TO AND HE WAS GIVEN AN UPDATE ON HIS 'S HEALTH STATUS AFTER SURGERY BY GROUP EXERCISE CLASS INSTRUCTOR, RN AND HIS [facility] RADIOLOGY RESIDENT. BECAME UNSTABLE ON HIS FEET WITH DISTRESS AND FEELING WEAK. WE SEATED HIM IN A CHAIR AND I BROUGHT HIM WATER. HIS CHIEF YEOMAN SAID A PRAYER FOR GROUP AND WE CONTINUED CONVERSATION WITH HIS PERMISSION. AFTER DISCUSSION AND AND [facility] ACCOUNT SERVICES COORDINATOR'S QUESTIONS ANSWERED WAS ASKED BY [facility] STAFF IF PT'S HEART WERE TO STOP WOULD HE WANT US TO DO CPR/COMPRESSIONS OR WOULD HE WANT US TO ALLOW HER TO GO TO [facility]. ANA STATED HE WOULD WANT HER TO BE ALLOWED TO PASS AND TO GO TO [facility]. WITH HIS PERMISSION WE COMPLETED A POLST TO REFLECT WISHES FOR CARE. ANA REPEATS THAT HE CANNOT READ OR WRITE AND I ASKED HIS ADVOCATE/RADIOLOGY RESIDENT TO REMAIN BY HIS SIDE WHILE WE DISCUSSED THE POLST SO HE WOULD BE COMFORTABL KNOWING FROM SOMEONE FAMILIAR WHAT WAS REVIEWED AND DOCUMENTED. WE DISCUSSED PT'S IMPROVED STATUS AFTER SURGERY TODAY, POSSIBILITY OF COMING OFF THE VENT TOMORROW. PT STATED IF SHE WERE TO NEED THE BREATHING MACHINE AGAIN, HE WOULD WANT HER TO BE VENTILATED TO HELP HER AT LEAST FOR AWHILE. POLST COMPLETED AND ORDERS ENTERED AFTER SIGNATURE AND DISCUSSION WITH DR EMERSON. PT IS NOW A LIMITED CODE. NO CPR, NO SHOCKS, YES TO INTUBATION AND MEDICATIONS. UNDERSTANDS THAT IF PT WERE TO DECLINE FURTHER WE WOULD TALK AGAIN ABOUT MEDICAL DECISIONS AND THE BENEFIT VS THE BURDEN OF TREATMENTS AVAILABLE. HE IS APPROPRIATELY TEARFUL AND SHAKEN WITH THIS VERY DIFFICULT CONVERSATION AND DECISION MAKING. ANA WAS SUPPORTED AND PRAISED FOR HIS LOVE AND LONG ENDURING ATTENDANCE TO HIS 'S NEEDS. HIS RADIOLOGY RESIDENT HAS BEEN AN ADVOCATE AND SUPPORT PERSON FOR SOME TIME AND HAD A GOOD RAPPORT WITH HIM, DID HIS CHIEF YEOMAN. RESPONDED WELL TO COACHING ON DEEP BREATHING WHEN HE BECAME DISTRESSED DURING THE CONVERSATION. HE AND HIS HAVE BEEN FOR MORE THAN 40 YEARS. PLAN FOR [facility] CARE TO FOLLOW PT AND SUPPORT ANA.
--- NOTE | 2019-05-12 16:23 | NUR ---
PT'S UPDATED POLST FAXED TO [facility].
[2019-05-12 16:45] LABS: Base Excess Venous -9.9 mmol/L; PCO2 Venous 39.4 mmHg (38-42); PO2 Venous 80.6 mmHg (38-42); pH Blood Venous 7.25 (7.34-7.37)
--- NOTE | 2019-05-12 17:16 | NUR ---
LIMITED BEDSIDE ECHOCARDIOGRAM COMPLETE
[2019-05-12 17:17] LABS: Magnesium, Blood 2.2 mg/dL (1.6-2.4)
[2019-05-12 17:34] LABS: Calcium, Blood 7.4 mg/dL (8.5-10.1); Creatinine, Blood 1.74 mg/dL (0.40-1.00); Potassium, Blood 5.5 mmol/L (3.5-5.5)
--- NOTE | 2019-05-12 18:33 | NUR ---
MD VISIT DR. CAMAHCO IN. ORDER FOR ABG AND TO CALL RESULTS
[2019-05-12 18:35] LABS: PCO2 Arterial 27.1 mmHg (35-45); PO2 Arterial 119 mmHg (80-100); pH Blood Arterial 7.37 (7.35-7.45)
--- NOTE | 2019-05-12 18:46 | NUR ---
LEFT MESSAGE FOR DR. CAMACHO ON CELL TO CALL BACK FOR ABG RESULTS
--- NOTE | 2019-05-12 18:51 | NUR ---
DR. CAMACHO CALLED BACK FOR ABG RESULTS.
[2019-05-13 03:55] LABS: Alanine Aminotransfer (ALT/SGP 82 U/L (12-78); Albumin, Blood 1.3 g/dL (3.4-5.0); Albumin/Globulin Ratio 0.4 (0.8-1.8); Alk Phos 214 U/L (50-136); Anion Gap 7 mmol/L (6-16); Aspartate Aminotrans (AST/SGOT 68 U/L (12-37); Bilirubin, Total 0.7 mg/dL (0.1-1.0); Blood Urea Nitrogen 74 mg/dL (8-24); Bun/Creatinine Ratio 59.2 (12.0-20.0); CO2, Blood 21 mmol/L (21-32); Calcium, Blood 7.3 mg/dL (8.5-10.1); Chloride, Blood 104 mmol/L (98-108); Creatinine, Blood 1.25 mg/dL (0.40-1.00); Globulin, Blood 3.2 g/dL (2.2-4.0); Glomerular Filtration Rate 45 (60-); Glucose, Blood 228 mg/dL (70-99); Magnesium, Blood 2.2 mg/dL (1.6-2.4); Phosphorus, Blood 4.1 mg/dL (2.5-4.9); Sodium, Blood 132 mmol/L (136-145); Total Protein, Blood 4.5 g/dL (6.4-8.2); Vancomycin, Random 7.6 ug/mL
--- NOTE | 2019-05-13 06:06 | NUR ---
SHIFT SUMMARY: BEDSIDE REPORT FROM AKBAR RN. PT INTUBATED SEDATED ON PROPOFOL. LS CLEAR WITH SLIGHT RHONCHI CLEARED WITH SX. PT ON LEVOPHED AND VASOPRESSIN. BICARB gtt AND TPN AT 75/hr. PT QUIET AND APPEARED COMFORTABLE T/O NOC OPENING EYES MOST TIMES WHEN RN AT BEDSIDE. PT STOMA WET AND PINK/RED WITH DK. BROWN WATERY LIQUID OUT. ABD INCISION WITH WOUND VAC IN PLACE-DRESSING REMAINING SEALED D/C/I. PT GIVEN COMPLETE BEDBATH, MEPILEX ON COCCYX WOUND D/C/I. PT REMAINS ON LEVOPHED AND VASOPRESSIN NOT TOLERATING OFF VASOPRESSIN. WILL CONTINUE TO MONITOR AND REPORT OFF TO DAY RN.
[2019-05-13 07:18] LABS: Hematocrit 26.5 % (33.0-51.0); Hemoglobin 9.1 g/dL (11.5-16.0)
--- NOTE | 2019-05-13 14:11 | NUR ---
ASSUMPTION OF CARE ASSUMED CARE OF PT AT 0715, PT INTUBATED WITH VENT SET TO AC 18/400/5/30%, CENTRAL LINE TO LEFT IJ INFUSING BICARB, LEVOPHED, VASOPRESSIN, AND PROPOFOL (SEE FLOWSHEET), VSS. PT AROUSES TO VERBAL STIMULI, FOLLOWS DIRECTIONS. WOUNDVAC IN PLACE, NOT DRAINAGE NOTED. ILEOSTOMY IN PLACE, STOMA PINK, DARK BROWN LIQUID STOOL DRAINING. VENT SETTINGS CHANGED TO PS 5 @ APPROX 1015, TOLERATED WELL. PT EXTUBATED @ 1139. PRESSORS TITRATED DOWN TO STAND BY.
--- NOTE | 2019-05-13 14:31 | NUR ---
PT AWAKE IN BED, WATCHING TELEVISION. PT APPEARS TO HAVE COGNITIVE DELAYS, CHILD LIKE SPEECH, SLOWLY PROCESSES INFORMATION AND DIFFICULTIES RETAINING INFORMATION. PT IS COOPERATIVE BUT IRRITABLE AT TIMES. DECLINED PARTICIPATION IN PHYSICAL THERAPY TODAY.
[2019-05-13 15:11] LABS: Base Excess Venous -2.2 mmol/L; Bicarbonate Venous 22.3 mmol/L (24.0-30.0); PCO2 Venous 43.8 mmHg (38-42); PO2 Venous 47.7 mmHg (38-42); pH Blood Venous 7.34 (7.34-7.37)
[2019-05-13 15:12] LABS: Hematocrit 28.6 % (33.0-51.0); Hemoglobin 9.8 g/dL (11.5-16.0); Mean Corpuscular HGB 31.4 pg (26.0-34.0); Mean Corpuscular HGB Conc 34.3 g/dL (31.5-36.5); Mean Platelet Volume 9.7 fL (9.1-12.4); NRBC ABSOLUTE 0.02 K/mm3 (0.00-0.02); NRBC Auto 0.2 /100 WBC (0.0-0.2); Platelet Count 209 K/mm3 (150-400); RDW Coefficient Variation 16.5 % (11.7-14.2); RDW Standard Deviation 55.8 fL (35.1-46.3); Red Blood Cell Count 3.12 M/mm3 (3.80-5.20); White Blood Cell Count 9.39 K/mm3 (4.00-11.30)
[2019-05-13 15:18] LABS: Mean Corpuscular Volume 92 fL (80-100)
--- NOTE | 2019-05-13 15:29 | NUR ---
NT SUCTION PROVIDED, PT TOLERATED WELL.
[2019-05-13 15:30] LABS: BAND PERCENT MAN 11 % (0-8); BASOPHILS PERCENT MAN 0 % (0-2); EOSINOPHILS ABSOLUTE MAN 0.09 K/mm3 (0.00-0.68); EOSINOPHILS PERCENT MAN 1 % (0-6); LYMPHOCYTES ABSOLUTE MAN 0.46 K/mm3 (0.84-5.20); LYMPHOCYTES PERCENT MAN 5 % (21-46); MONOCYTES ABSOLUTE MAN 0.37 K/mm3 (0.16-1.47); MONOCYTES PERCENT MAN 4 % (4-13); NEUTROPHILS ABSOLUTE MAN 8.45 K/mm3 (1.96-9.15); SEG NEUTROPHILS PERCENT MAN 79 % (41-73); TOTAL CELLS COUNTED 100
--- NOTE | 2019-05-13 18:46 | NUR ---
SHIFT SUMMARY OVERALL PT DID WELL THIS SHIFT. PT IS ALERT AND ORIENTED, BUT HAS DIFFICULTIES RETAINING INFORMATION. PT EXTUBATED AT APPROX 1145, TOLERATED WELL, MAINTAINING SATURATIONS ON RA-2L PER NC. PT HAS A WEAK COUGH AND SECRETIONS REQUIRING OCCASSIONAL NT SUCTIONING. NG TUBE TO INTERMITTENT SUCTION, DRAINING BILE, TOTAL OF 650ml THIS SHIFT. RUQ BOWEL TONES HYPOACTIVE, ABSENT BOWEL TONES OTHERWISE. ILEOSTOMY WITH LIQUID BROWN STOOL, STOMA IS BEEFY RED IN AREAS AND POSSIBLY DUSKY IN OTHERS. NO DRAINAGE TO ABDOMINAL WOUND VAC THIS SHIFT. LEVOPHED WAS TITRATED OFF @ APPROX 1300, BUT WAS RESTARTED AT 1530 AND TITRATED UP TO 5, MAPS CURRENTLY IN THE 60'S.
--- NOTE | 2019-05-13 19:30 | NUR ---
ASSUMED CARE BEDSIDE REPORT RECIEVED. PT IS LAYING IN BED, AWAKE, ALERT, AND ORIENTED. PT WITH HX OF DEVELOPMENTAL DELAY. PT IS ABLE TO ANSWER SIMPLE QUESTIONS AND FOLLOW SIMPLE COMMANDS. PT ON 2L O2 NC. PT WITH WEAK COUGH REQUIRING FREQUENT NT SUCTION TO CLEAR SECRETIONS. VITAL SIGNS STABLE WITH PT ON LEVOPHED AT 5 MCG/MIN. TPN INFUSING AT 75 ML/HR. CL TO LIJ C/D/I. SAFE SET IN PLACE. NGT IN PLACE TO LIS WITH BILE OUTPUT NOTED. OSTOMY IN PLACE WITH PINK STOMA WITH AREAS OF BROWN/SCAB LIKE APPEARANCE. OSTOMY PUTTING OUT LIQUID BROWN STOOL. MID LINE ABD WOUND VAC IN PLACE. DEE IN PLACE WITH CLEAR YELLOW OUTPUT NOTED. WILL CONTINUE TO MONITOR.
[2019-05-14 04:12] LABS: Hematocrit 26.1 % (33.0-51.0); Hemoglobin 8.9 g/dL (11.5-16.0); Mean Corpuscular HGB Conc 34.1 g/dL (31.5-36.5); Mean Corpuscular Volume 91 fL (80-100); Mean Platelet Volume 9.7 fL (9.1-12.4); NRBC ABSOLUTE 0.02 K/mm3 (0.00-0.02); NRBC Auto 0.2 /100 WBC (0.0-0.2); Platelet Count 248 K/mm3 (150-400); RDW Coefficient Variation 16.4 % (11.7-14.2); RDW Standard Deviation 55.2 fL (35.1-46.3); Red Blood Cell Count 2.87 M/mm3 (3.80-5.20); White Blood Cell Count 11.29 K/mm3 (4.00-11.30)
[2019-05-14 04:35] LABS: Magnesium, Blood 2.3 mg/dL (1.6-2.4)
[2019-05-14 04:40] LABS: BAND PERCENT MAN 13 % (0-8); BASOPHILS PERCENT MAN 0 % (0-2); EOSINOPHILS PERCENT MAN 0 % (0-6); LYMPHOCYTES ABSOLUTE MAN 0.33 K/mm3 (0.84-5.20); LYMPHOCYTES PERCENT MAN 3 % (21-46); MONOCYTES ABSOLUTE MAN 0.67 K/mm3 (0.16-1.47); MONOCYTES PERCENT MAN 6 % (4-13); NEUTROPHILS ABSOLUTE MAN 10.27 K/mm3 (1.96-9.15); SEG NEUTROPHILS PERCENT MAN 78 % (41-73); TOTAL CELLS COUNTED 100
[2019-05-14 04:42] LABS: Alanine Aminotransfer (ALT/SGP 55 U/L (12-78); Albumin, Blood 1.2 g/dL (3.4-5.0); Albumin/Globulin Ratio 0.4 (0.8-1.8); Alk Phos 155 U/L (50-136); Anion Gap 5 mmol/L (6-16); Aspartate Aminotrans (AST/SGOT 36 U/L (12-37); Bilirubin, Total 0.7 mg/dL (0.1-1.0); Blood Urea Nitrogen 39 mg/dL (8-24); Bun/Creatinine Ratio 57.4 (12.0-20.0); CO2, Blood 26 mmol/L (21-32); Calcium, Blood 7.7 mg/dL (8.5-10.1); Chloride, Blood 112 mmol/L (98-108); Creatinine, Blood 0.68 mg/dL (0.40-1.00); Globulin, Blood 3.1 g/dL (2.2-4.0); Glomerular Filtration Rate >60 (60-); Glucose, Blood 132 mg/dL (70-99); Phosphorus, Blood 1.9 mg/dL (2.5-4.9); Potassium, Blood 2.9 mmol/L (3.5-5.5); Total Protein, Blood 4.3 g/dL (6.4-8.2); Vancomycin, Random 9.4 ug/mL
[2019-05-14 04:43] LABS: Sodium, Blood 143 mmol/L (136-145)
--- NOTE | 2019-05-14 06:07 | NUR ---
SHIFT SUMMARY NO ACUTE CHANGES THIS SHIFT. PT HAS SLEPT THROUGHOUT MOST OF THE MORNING. WHEN AWAKE PT IS ALERT, ORIENTED, AND FOLLOWS SIMPLE COMMANDS. PT HAS DENIED PAIN THIS SHIFT. PT USES CALL LIGHT APPROPRIATELY AND ASKS TO BE NT SUCTIONED. PT REMAINS WITH WEAK COUGH AND COPIOUS ORAL SECRETIONS. VITAL SIGNS STABLE WITH LEVOPHED AT 6 MCG/MIN. CL TO LIJ C/D/I, SAFESET IN PLACE. TPN INFUSING AT 75 ML/HR, NS TKO, AND KCL IVPB. DR CAMACHO IN TO SEE PT TONIGHT. DEE REMAINS IN PLACE WITH LARGE AMOUNT OF CLEAR YELLOW OUTPUT NOTED. ILLEOSTOMY REMAINS UNCHANGED WITH SMALL AMOUNT OF LIQUID BROWN OUTPUT NOTED. WOUND VAC REMAINS C/D/I. NGT IN PLACE WITH SMALL AMOUNT OF BILE OUTPUT THIS SHIFT. WILL CONTINUE TO MONITOR AND REPORT OFF TO ONCOMING RN.
--- NOTE | 2019-05-14 08:14 | NUR ---
ASSUMPTION OF CARE ASSUMED CARE OF PT AT 0700. PT AWAKE AND ALERT IN BED, FOLLOWING COMMANDS. PT ABLE TO ANSWER YES/NO QUESTIONS EASILY BUT IS SLOWER TO RESPOND AND HAS MORE DIFFICULTY WITH OPEN ENDED QUESTIONS. CENTRAL LINE TO L IJ INFUSING LEVOPHED @ 6, CPN @ 75, AND KCL. PT HAS DIFFICULTY REPOSITING SELF IN BED. LOW DIASTOLIC BP'S NOTED, MAP IN 60-70'S. STOMA APPEARS PINK/RED WITH DARKENED/BROWN AREAS. PLAN: INCREASE MOBILITY TOLERATED, PT/OT, TITRATE LEVOPHED DOWN TOLERATED, PULMONARY TOILET; I.S., ENCOURAGE DEEP BREATHING AND COUGHING.
--- NOTE | 2019-05-14 12:07 | NUR ---
Pt visit this afternoon. Pt resting in bed upon arrival. Pt reports discomfort in her sacral area but denies need for medication or intervention for discomfort. She reports discomfort is tolerable. Pt's attention is drawn towards television during visit. Pt denies any concens at this time. Spoke with bedside nurse and discussed case. Palliative Care will remain available.
--- NOTE | 2019-05-14 15:41 | NUR ---
PAIN ASSESSMENT PT SEEMS TO HAVE DIFFICULTY VERBALIZING PAIN. WHEN ASKED IF SHE HAS ANY PAIN OR DISCOMFORT, PT STS NO. PT APPEARED TO BE GUARDING ABDOMINAL AREA AND GRIMACING. WHEN ASKED ABOUT SPECIFIC AREAS PT STATED SHE HAD PAIN IN THE ABDOMINAL AND SACRAL AREA, MEDICATED WITH PRN FENTANYL. PT NOW ONLY COMPLAINS OF SACRAL PAIN.
--- NOTE | 2019-05-14 18:38 | NUR ---
SHIFT SUMMARY PT CONTINUES TO BE ALERT AND ORIENTED THROUGHOUT SHIFT, SLOW TO RESPOND, USES CALL LIGHT APPROPRIATELY. VSS, LEVOPHED TITRATED OFF @ 1540 WITH MAPS MAINTAINING 60'S-70'S. BOWEL TONES PRESENT IN ALL 4 QUADRANTS, WOUND VAC REMAINS IN PLACE, NO DRAINAGE NOTED. NO CHANGE TO STOMA, REMAINS PINK/RED WITH DARK/BROWN AREAS. NGT CONTINUES TO DRAIN LARGE AMOUNTS OF BILE, 800ml THIS SHIFT.
[2019-05-15 04:01] LABS: BASOPHILS ABSOLUTE AUTO 0.01 K/mm3 (0.00-0.23); BASOPHILS PERCENT AUTO 0 % (0-2); EOSINOPHILS ABSOLUTE AUTO 0.08 K/mm3 (0.00-0.68); EOSINOPHILS PERCENT AUTO 1 % (0-6); Hematocrit 26.5 % (33.0-51.0); Hemoglobin 8.8 g/dL (11.5-16.0); IMMATURE GRAN ABSOLUTE AUTO 0.61 K/mm3 (0.00-0.10); IMMATURE GRAN PERCENT AUTO 6 % (0-1); LYMPHOCYTES ABSOLUTE AUTO 0.65 K/mm3 (0.84-5.20); LYMPHOCYTES PERCENT AUTO 7 % (21-46); MONOCYTES ABSOLUTE AUTO 1.18 K/mm3 (0.16-1.47); MONOCYTES PERCENT AUTO 12 % (4-13); Mean Corpuscular HGB 31.4 pg (26.0-34.0); Mean Corpuscular HGB Conc 33.2 g/dL (31.5-36.5); Mean Platelet Volume 9.4 fL (9.1-12.4); NEUTROPHILS ABSOLUTE AUTO 7.16 K/mm3 (1.96-9.15); NEUTROPHILS PERCENT AUTO 74 % (41-73); Platelet Count 245 K/mm3 (150-400); RDW Coefficient Variation 16.2 % (11.7-14.2); RDW Standard Deviation 56.5 fL (35.1-46.3); White Blood Cell Count 9.69 K/mm3 (4.00-11.30)
[2019-05-15 04:02] LABS: Mean Corpuscular Volume 95 fL (80-100)
[2019-05-15 04:18] LABS: Albumin, Blood 1.2 g/dL (3.4-5.0); Anion Gap 3 mmol/L (6-16); Blood Urea Nitrogen 28 mg/dL (8-24); Bun/Creatinine Ratio 49.4 (12.0-20.0); CO2, Blood 26 mmol/L (21-32); Calcium, Blood 7.7 mg/dL (8.5-10.1); Chloride, Blood 116 mmol/L (98-108); Creatinine, Blood 0.57 mg/dL (0.40-1.00); Glomerular Filtration Rate >60 (60-); Glucose, Blood 108 mg/dL (70-99); Magnesium, Blood 1.9 mg/dL (1.6-2.4); Phosphorus, Blood 1.2 mg/dL (2.5-4.9); Potassium, Blood 3.4 mmol/L (3.5-5.5); Sodium, Blood 145 mmol/L (136-145)
[2019-05-15 04:41] LABS: BAND PERCENT MAN 2 % (0-8); BASOPHILS PERCENT MAN 0 % (0-2); EOSINOPHILS PERCENT MAN 0 % (0-6); LYMPHOCYTES ABSOLUTE MAN 0.67 K/mm3 (0.84-5.20); LYMPHOCYTES PERCENT MAN 7 % (21-46); METAMYELOCYTE ABSOLUTE MAN 0.19 K/mm3 (0.00-0.00); METAMYELOCYTE PERCENT MAN 2 % (0-0); MONOCYTES ABSOLUTE MAN 1.25 K/mm3 (0.16-1.47); MONOCYTES PERCENT MAN 13 % (4-13); MYELOCYTE ABSOLUTE MAN 0.09 K/mm3 (0.00-0.00); MYELOCYTE PERCENT MAN 1 % (0-0); NEUTROPHILS ABSOLUTE MAN 7.46 K/mm3 (1.96-9.15); SEG NEUTROPHILS PERCENT MAN 75 % (41-73); TOTAL CELLS COUNTED 100
[2019-05-15 04:59] LABS: Vancomycin, Trough 15.5 ug/mL (5.0-10.0)
--- NOTE | 2019-05-15 06:03 | NUR ---
SHIFT SUMMARY PT WITH NO ACUTE CHANGES THIS SHIFT. PT SLEPT OFF AND ON THROUGHOUT THE NIGHT. WHEN AWAKE PT IS ALERT, ORIENTED, AND FOLLOWS SIMPLE COMMANDS. PT SPEAKS SIMPLE WORDS AND MAKES NEEDS KNOWN. PT WITH HX OF DEVELOPMENTAL DELAY. PT HAS DENIED PAIN THROUGHOUT THE SHIFT. VITAL SIGNS HAVE REMAINED STABLE. PT ON ROOM AIR. PT NEEDING FREQUENT NT SUCTION AT BEGINNING OF SHIFT TO CLEAR ORAL SECRETIONS. NGT REMAINS IN PLACE WITH DARK BILE COLORED OUTPUT. CL TO LIJ IS C/D/I, SAFE SET IN PLACE. ILLEOSTOMY C/D/I WITH DARK BROWN OUTPUT NOTED. STOMA IS PINK WITH SMALL AREAS OF STOMA APPEARING BROWN/SCAB LIKE. WOUND VAC IN PLACE TO MIDLINE ABD. DEE IN PLACE WITH YELLOW OUTPUT NOTED. NO FAMILY IN ROOM. WILL CONTINUE TO MONITOR AND REPORT OFF TO ONCOMING RN.
--- NOTE | 2019-05-15 08:30 | NUR ---
PT AWAKE, ALERT, TALKATIVE. SOMETIMES HARD TO UNDERSTAND SPEECH. ABLE TO ANSWER QUESTIONS AND FOLLOW DIRECTIONS. DENIES PAIN. DOES GRIMACE WITH REPOSITIONING. WATCHING TV. RESPIRATIONS UNLABORED, LUNGS CLEAR, CONGESTED COUGH-ABLE TO CLEAR SECRETIONS. USED PEP VALVE. SINUS RHYTHM. BP STABLE. LSC CENTRAL LINE INTACT WTIH TPN, ELECTROLYTE REPLACEMENT INFUSING. ABDOMEN SOFT, ROUND. ML DRSG INTACT WITH SMALL VAC. UO VIA DEE. LINEN WET-PERICARE DONE, LINEN CHANGE. MEPILEX ON BUTTOCKS INTACT. NGT TO LIS WITH GREEN BILE DRAINAGE. C/O THIRST, NPO. ORAL CARE DONE
--- NOTE | 2019-05-15 11:00 | NUR ---
DR. LIMON HERE-ASSESSED PT. PLANS FOR PCU STATUS. PT ABLE TO USE PEP VALVE WITH REMINDERS. REPOSITIONED
--- NOTE | 2019-05-15 12:30 | NUR ---
UO POOR, LINEN WET, QUESTION IF DEE LEAKING, D/C AND WILL LET PT TRY TO VOID. DENIES COMPLAINTS. REPOSITIONED. PT'S AND FRIEND HERE-UPDATED. ELECTROLYTES INFUSED. BLOOD SUGAR STABLE.
--- NOTE | 2019-05-15 14:30 | NUR ---
STOMA APPLIANCE LEAKING, NEW APPLIANC ON. ML WOUND DSRG INTACT. LINEN CHANGE, REPOSITIONED, WORKED WITH PHYSICAL THERAPIST.
--- NOTE | 2019-05-15 17:12 | NUR ---
DR. CONTRERAS HERE-ASSESSED PT. NGT D/C WITHOUT ANY PROBLEMS. DENIES NAUSEA. MORE TALKATIVE. DENIES ANY SOB. USING PEP VALVE WITH ENCOURAGEMENT. ATTENDS ON-INCONTINENT URINE. COLOSTOMY BAG INTACT, STOMA PROTRUDING, MOIST, PINK WITH SEROSANG DRAINAGE. TPN INFUSING AND ANTIBIOTICS VIA CENTRAL LINE. PLANS FOR TRANSFER TO SURGICAL FLOOR.
--- NOTE | 2019-05-15 18:00 | NUR ---
REPORT TO ANGEL RN, PT TO SURGICAL FLOOR 231 IN BED. AWAKE, ALERT, NO DISTRESS. LINES INTACT
--- NOTE | 2019-05-15 18:25 | NUR ---
PT ARRIVAL TO UNIT. ALERT AND COOPERATIVE. PT DENIES PAIN OR DISCOMFORT. MIDLINE ABD INCISION IS CDI WITH ARJUN WOUND VAC IN PLACE. TPN INFUSING PER ORDERS. CALL LIGHT WITHIN REACH. PT APPEARS COMFORTABLE IN BED WATCHING TV. BED ALARM IN PLACE FOR SAFETY.
[2019-05-16 05:21] LABS: Hematocrit 27.1 % (33.0-51.0); Mean Corpuscular HGB 30.7 pg (26.0-34.0); Mean Corpuscular HGB Conc 33.2 g/dL (31.5-36.5); Mean Corpuscular Volume 93 fL (80-100); Mean Platelet Volume 9.4 fL (9.1-12.4); Platelet Count 286 K/mm3 (150-400); RDW Coefficient Variation 15.8 % (11.7-14.2); RDW Standard Deviation 53.4 fL (35.1-46.3); Red Blood Cell Count 2.93 M/mm3 (3.80-5.20); White Blood Cell Count 10.56 K/mm3 (4.00-11.30)
[2019-05-16 05:42] LABS: BASOPHILS PERCENT MAN 0 % (0-2); EOSINOPHILS PERCENT MAN 1 % (0-6); LYMPHOCYTES ABSOLUTE MAN 0.84 K/mm3 (0.84-5.20); LYMPHOCYTES PERCENT MAN 8 % (21-46); METAMYELOCYTE ABSOLUTE MAN 0.52 K/mm3 (0.00-0.00); METAMYELOCYTE PERCENT MAN 5 % (0-0); MONOCYTES ABSOLUTE MAN 1.26 K/mm3 (0.16-1.47); MONOCYTES PERCENT MAN 12 % (4-13); NEUTROPHILS ABSOLUTE MAN 7.81 K/mm3 (1.96-9.15); SEG NEUTROPHILS PERCENT MAN 74 % (41-73); TOTAL CELLS COUNTED 100
[2019-05-16 05:49] LABS: Albumin, Blood 1.3 g/dL (3.4-5.0); Anion Gap 5 mmol/L (6-16); Blood Urea Nitrogen 26 mg/dL (8-24); Bun/Creatinine Ratio 49.4 (12.0-20.0); CO2, Blood 27 mmol/L (21-32); Chloride, Blood 115 mmol/L (98-108); Creatinine, Blood 0.53 mg/dL (0.40-1.00); Glomerular Filtration Rate >60 (60-); Glucose, Blood 110 mg/dL (70-99); Phosphorus, Blood 2.5 mg/dL (2.5-4.9); Potassium, Blood 3.4 mmol/L (3.5-5.5); Sodium, Blood 147 mmol/L (136-145)
--- NOTE | 2019-05-16 06:35 | NUR ---
Patient alert and oriented. Vital signs stable. TPN infusing. No complaints of pain. Ostomy producing brown liquidy stool and gas. Incontinent of voids.
--- NOTE | 2019-05-16 18:33 | NUR ---
SUMMARY: PT IS POD4 FROM SUDO OBSTUCTION REPAIR. NO ACUTE CHANGE TODAY, PT A/O, VSS. BOWEL TONES ACTIVE AND OSTOMY PRODUCING LIQ BROWN STOOL. ABD DISTENDED TODAY. ABLE TO ADVANCE TO CLEAR LIQ DIET, PT TOLERATED WELL WITHOUT NAUSEA. PT WORKED WITH PHYSICAL THERAPY, UP WITH SBA TO CHAIR. ENCOUARGING MOBILTY, TURNING, AND DEEP BREATHING. MEPILEX DRESSING CHANGED AT [facility]. PT HAS DENIED PAIN TODAY. WILL CTM AND REPORT TO [facility].
--- NOTE | 2019-05-17 01:41 | NUR ---
HR: THIS RN NOTIFIED BY TELE MONITOR OF 10 BEAT RUN OF VTACH W/RATE OF 225. PT ALERT, ASYMPTOMATIC WHEN ASSESSED. VITALS TAKEN; WNL. OTIFIED, NO NEW ORDERS REC AT THIS TIME.
[2019-05-17 06:44] LABS: Hematocrit 29.7 % (33.0-51.0); Hemoglobin 9.5 g/dL (11.5-16.0)
[2019-05-17 07:00] LABS: Albumin, Blood 1.4 g/dL (3.4-5.0); Anion Gap 5 mmol/L (6-16); Blood Urea Nitrogen 26 mg/dL (8-24); Bun/Creatinine Ratio 57.5 (12.0-20.0); CO2, Blood 28 mmol/L (21-32); Chloride, Blood 114 mmol/L (98-108); Creatinine, Blood 0.45 mg/dL (0.40-1.00); Glomerular Filtration Rate >60 (60-); Glucose, Blood 113 mg/dL (70-99); Magnesium, Blood 2.1 mg/dL (1.6-2.4); Potassium, Blood 3.6 mmol/L (3.5-5.5); Sodium, Blood 147 mmol/L (136-145)
--- NOTE | 2019-05-17 07:31 | NUR ---
POD 5 S/P OSTOMY REVISION. PT HAD A 10 BEAT RUN OF VTACH W/RATE OF 225; PT ASYMPTOMATIC DURING EVENT, OTHER VSS. DRESSING CDI. PT DENIED NEED FOR PAIN MEDS. OSTOMY PUTTING OUT LIQ BROWN STOOL+SM AMT GAS, STOMA BEEFY PINK. PO INTAKE MINIMAL, FLUIDS ENC W/ROUNDINGS. PT REPOSITIONED FREQ T/O NIGHT, IS USING CALL LIGHT FOR ASSISTANCE, REP GIVEN TO DAY RN.
--- NOTE | 2019-05-17 10:45 | NUR ---
DR. GREENE IN TO SEE PT. DISCUSSED D/C TELE ORDERS, INFORMED OF V-TACH DURING BATTERY TEST ENGINEER. ADVICED TO GO AHEAD TO D/C TELE PER PREVIOUS ORDER.
--- NOTE | 2019-05-17 12:00 | NUR ---
DR. CAMACHO IN TO SEE PT AT 0627. D/C PO K+ PER DOCTOR ORDER.
--- NOTE | 2019-05-17 12:20 | NUR ---
DR. DOSS IN TO SEE PT. NO NEW ORDERS AT THIS TIME.
--- NOTE | 2019-05-17 18:29 | NUR ---
SHIFT SUMMARY POD #5 S/P OSTOMY REVISION. A&O T/O SHIFT W/OUT ANY ACUTE CHANGES. FAMILY IN TO VISIT TWICE TODAY AT MEAL TIMES. TELE DC PER ORDER. ARJUN IN PLACE WITH DRESSING DRY AND INTACT. OSTOMY PRODUCING BROWN LIQUID STOOL AND GAS. STOMA APPEARED MEATY. ATTENDS IN PLACE R/T INCONT AND CHANGED PRN. VALE AREA HAD INCREASED REDNESS, WHICH DECREASED WITH BARRIER CREAM APPLICATION. DENIED PAIN OR NEED FOR PAIN MEDICATIONS DURING SHIFT. REPOSITIONED FREQUENTLY AND WAS UP IN CHAIR AT DINNER TIME.
[2019-05-18 05:15] LABS: Hematocrit 29.9 % (33.0-51.0); Hemoglobin 9.5 g/dL (11.5-16.0)
[2019-05-18 05:37] LABS: Albumin, Blood 1.4 g/dL (3.4-5.0); Anion Gap 6 mmol/L (6-16); Blood Urea Nitrogen 25 mg/dL (8-24); Bun/Creatinine Ratio 56.6 (12.0-20.0); CO2, Blood 28 mmol/L (21-32); Calcium, Blood 8.1 mg/dL (8.5-10.1); Chloride, Blood 112 mmol/L (98-108); Creatinine, Blood 0.44 mg/dL (0.40-1.00); Glomerular Filtration Rate >60 (60-); Glucose, Blood 115 mg/dL (70-99); Magnesium, Blood 2.2 mg/dL (1.6-2.4); Phosphorus, Blood 3.6 mg/dL (2.5-4.9); Potassium, Blood 3.8 mmol/L (3.5-5.5); Sodium, Blood 146 mmol/L (136-145)
--- NOTE | 2019-05-18 06:27 | NUR ---
PT VSS T/O NIGHT. DRESSING INTACT, NO ACTIVE DRNG. OSTOMY PUTTING OUT LIQ GREEN/BROWN STOOL+GAS. PT EDUCATED DURING OSTOMY CARE. PT DENIED PAIN/N/V, KATIE SM AMT CLEAR LIQ. TPN AND ABX CONT PER ORDERS. ATTENDS CHANGES PRN, MEPILEX TO COCCYX CHANGED THIS SHIFT. PT REPOSITIONED OFTEN T/O NIGHT, ENC TO ASSIST W/REPOSITIONING. PT USING CALL LIGHT FOR ASSISTANCE, WILL CONT TO MONITOR UNTIL REP GIVEN TO ONCOMING RN.
--- NOTE | 2019-05-18 17:02 | NUR ---
SHIFT SUMMARY NO ACUTE CHANGES TODAY. VSS. PT CONT TO GET STRONGER WITH PT/OT. WAS UP IN CHAIR FOR GOOD PORTION OF THE MORNING. PT DENIES PAIN. MIDLINE ARJUN WOUND VAC CDI. OSTOMY PRODUCING GAS AND LIQ BROWN STOOL. PT ADVANCING TO FULL LIQ DIET FOR DINNER THIS EVENING. CPN INFUSING PER ORDERS. PT REPOSITIONED Q2H AND ATTENDS CHANGED PRN FOR INCONTINENCE. MEPILEX DRESSING TO COCCYX CDI. PT USES CALL LIGHT APPROPRIATELY. BED ALARM IN PLACE FOR SAFETY. PLAN IS FOR DISCHARGE TO SNF EITHER TOMORROW OR THE NEXT DAY.
[2019-05-19 05:15] LABS: Hematocrit 29.5 % (33.0-51.0); Hemoglobin 9.4 g/dL (11.5-16.0)
[2019-05-19 05:38] LABS: Albumin, Blood 1.4 g/dL (3.4-5.0); Anion Gap 5 mmol/L (6-16); Blood Urea Nitrogen 23 mg/dL (8-24); CO2, Blood 28 mmol/L (21-32); Calcium, Blood 8.2 mg/dL (8.5-10.1); Chloride, Blood 111 mmol/L (98-108); Creatinine, Blood 0.47 mg/dL (0.40-1.00); Glomerular Filtration Rate >60 (60-); Glucose, Blood 107 mg/dL (70-99); Magnesium, Blood 2.2 mg/dL (1.6-2.4); Phosphorus, Blood 3.7 mg/dL (2.5-4.9); Potassium, Blood 3.9 mmol/L (3.5-5.5); Sodium, Blood 144 mmol/L (136-145)
--- NOTE | 2019-05-19 06:15 | NUR ---
DR CAMACHO IN TO SEE PT.
--- NOTE | 2019-05-19 06:15 | NUR ---
TPN RATE DECREASING TO 50ML/HR PER DR. CAMACHO
--- NOTE | 2019-05-19 06:23 | NUR ---
SHIFT SUMMARY: NO SIGNIFICANT CHANGES OVER NIGHT. PT DENIES PAIN AND N/V. STOMA BEEFY RED, PRODUCING GAS AND GREEN LIQ STOOL. APPLIANCE CHANGED ONCE THIS SHIFT. EMPTIED A TOTAL OF 250 ML OUT. PT EDUCATED ON HOW TOT BURP OSTOMY BAG. PT REPOSITIONED IN BED FREQ T/O SHIFT. MEPILEX TO COCCYX CDI. PT KATIE FULL LIQ DIET WITH NECTAR THICK LIQ. NO SX OF ASPIRATION. TPN INFUSING INTO CENTRAL LINE. INCONTINENT X2 OVERNIGHT. 2 ASSIST FOR ALL TRANSFERS. POSSIBLE D/C TO SNF TODAY.
[2019-05-19 17:56] LABS: Vancomycin, Trough 19.6 ug/mL (5.0-10.0)
--- NOTE | 2019-05-19 18:04 | NUR ---
SHIFT SUMMARY PT HAS BEEN UP TO CHAIR TODAY X2, REPOSITIONED FREQUENTLY. PT NEEDED 2X ASSIST WITH WALKER WHEN TRANSFERRING BED TO CHAIR. BED ALARM AND CHAIR ALARM IN USE TODAY. PT'S WAS IN TO VISIT. ILEOSTOMY IS FUNCTIONING WELL; PT HAS BEEN PRODUCING A LOT OF GAS WELL. PT HAS BEEN TOLERATING NECTAR THICK LIQUIDS, ALTHOUGH SHE STATES SHE "DOESN'T LIKE MOST OF THEM". HOWEVER SHE DOES SEEM TO LIKE THE CHOCOLATE ENSURES. PT HAS REPORTED NO PAIN TODAY. WOUND VAC DRESSING C/D/I. MEPILEX ON COCCYX CHANGED TODAY.
--- NOTE | 2019-05-20 05:33 | NUR ---
SHIFT SUMMARY: PT S/P OSTOMY REVISION. ILEOSTOMY PRODUCING LIQ BROWN STOOL AND GAS. PT BEGINNING TO ASSIST IN BURPING BAG. EDUCATION PROVIDED T/O SHIFT. PT TURNED FREQ PT IS HAVING A DIFFICULT TIME GETTING COMFORTABLE. DENYING PAIN AND N/V. ABD WITH MILD-MOD DISTENTION. BT ACTIVE IN ALL QUADRANTS. LAST BAG OF TPN HAS INFUSED. SALINE LOCKED EXCEPT FOR ABX PER EMAR. POSSIBLE DISCHARGE TO SNF TODAY.
[2019-05-20 06:16] LABS: Albumin, Blood 1.5 g/dL (3.4-5.0); Anion Gap 4 mmol/L (6-16); Blood Urea Nitrogen 23 mg/dL (8-24); Bun/Creatinine Ratio 46.6 (12.0-20.0); CO2, Blood 28 mmol/L (21-32); Calcium, Blood 8.2 mg/dL (8.5-10.1); Chloride, Blood 113 mmol/L (98-108); Creatinine, Blood 0.49 mg/dL (0.40-1.00); Glomerular Filtration Rate >60 (60-); Glucose, Blood 85 mg/dL (70-99); Magnesium, Blood 2.2 mg/dL (1.6-2.4); Phosphorus, Blood 3.9 mg/dL (2.5-4.9); Sodium, Blood 145 mmol/L (136-145)
[2019-05-20 06:44] LABS: Hematocrit 29.6 % (33.0-51.0); Hemoglobin 9.3 g/dL (11.5-16.0)
--- NOTE | 2019-05-20 08:15 | NUR ---
pt's jo barnes called for update of pt, on list of release of information approval, provided with update and told pt jo called
--- NOTE | 2019-05-20 11:08 | NUR ---
PT NPO PER SPEECH THERAPY EVAL AND RECOMMENDATION FOR NPO. DR CALLE NOTIFIED. PT EXPRESSED DESIRE TO BE DISCHARGED AND DOES NOT WANT PEG TUBE. PALLIATIVE CARE CONSULT REQUESTED.
--- NOTE | 2019-05-20 13:34 | NUR ---
Case Conference: Conferenced with [facility] Calvillo, [employer] Operations Manager [employer], and SORB advocate Santa. Karli educates on swallow evaluation and the Pt's inability to protect her airway when swallowing including her own secretions. Discussed options for goals of care including Peg-Tube placement and hospice. Questions answered and Santa reports she will continue conversation with Pt's niece and other SORB advocates. Palliative Care will remain available.
--- NOTE | 2019-05-20 14:17 | NUR ---
Received call from bedside nurse that VERONICA advocate would like to speak with this RN further. Spoke with SORB advocate Santa and she reports having further discussions with Pt regarding PEG-Tube placement and feels the Pt understands the consequences of not wanting a PEG-Tube placed and the consuequences of eating. This RN visited with Pt and accessed Pt's level of understanding regarding eating. Asked Pt what would happen if she where to eat and drink. Pt responds "I would choke". Instructed Pt she may not even know if she is choking and food and fluid would enter her lungs. Asked what would happen if food and fluid goes into her lungs. She states "I would get sick". Instructed Pt getting sick could cause her to dye. Asked what dying means and Pt reponds "I would not be here anymore". Asked Pt with knowing she could if she still wants to eat and Pt responds "yes". Pt appears to understand consequnces if she were to eat. Suggested to VERONICA advocate to have another person that knows her as well as Santa or better confirm Pt's understanding. Santa is agreeable and will contact Bella. No other concerns reported at this time. Palliative Care will remain available.
--- NOTE | 2019-05-20 19:16 | NUR ---
SHIFT SUMMARY PT HAS REPORTED NO PAIN TODAY. ILEOSTOMY IS FUNCTIONING WELL. PT INCONTIENT; WEARS BRIEFS. SWALLOW EVAL WAS DONE TODAY, SHOWED THAT PT SILENTLY ASPIRATES; PEG TUBE RECOMMENDED. DR CALLE, PALLIATIVE CARE, GUN FITTER, WERE NOTIFIED AND DISCUSSED OPTIONS WITH PT. PT REPORTS BEING ANXIOUS ABOUT THE SITUATION. CENTRAL LINE DC'D TODAY. PT HAS BEEN NPO SINCE SWALLOW EVAL THIS MORNING PER RECOMMENDATIONS. PT HAS BEEN UP TO CHAIR TODAY WELL.
[2019-05-21 05:12] LABS: Hematocrit 29.2 % (33.0-51.0)
[2019-05-21 05:28] LABS: Albumin, Blood 1.5 g/dL (3.4-5.0); Anion Gap 5 mmol/L (6-16); Blood Urea Nitrogen 23 mg/dL (8-24); Bun/Creatinine Ratio 40.6 (12.0-20.0); CO2, Blood 27 mmol/L (21-32); Calcium, Blood 8.2 mg/dL (8.5-10.1); Chloride, Blood 115 mmol/L (98-108); Creatinine, Blood 0.57 mg/dL (0.40-1.00); Glomerular Filtration Rate >60 (60-); Glucose, Blood 84 mg/dL (70-99); Magnesium, Blood 2.2 mg/dL (1.6-2.4); Phosphorus, Blood 4.2 mg/dL (2.5-4.9); Potassium, Blood 3.7 mmol/L (3.5-5.5); Sodium, Blood 147 mmol/L (136-145)
--- NOTE | 2019-05-21 07:39 | NUR ---
PT VSS T/O NIGHT. DRESSING CDI. PT DENIED PAIN/N/V T/O NIGHT. OSTOMY PUTTING OUT GAS+LIQ STOOL. PT EDUCATION CONT W/OSTOMY CARE. PT NPO PER ORDERS, ORAL CARE PROVIDED. PT REPOSITIONED FREQ T/O NIGHT, ENC TO STAY OFF OF BACK R/T COCCYX WOUND. ATTENDS CHANGED PRN T/O NIGHT. PT USING CALL LIGHT FOR ASSISTANCE, REP GIVEN TO DAY RN.
--- NOTE | 2019-05-21 14:09 | NUR ---
Spiritual care visit conducted. Patient is sitting on a chair and alert with her , Jules, bedside. Patient immediately tells me what she thinks is happening with her plan of care then a few minutes later patient's RN comes in and reminds her again about her diagnosis and the precautions they are taking to keep her from aspirating. Patient tells me about her voodoo beliefs (patient attends [facility]), and how her sincere helps in difficult times. Patient tells me that their goal is to try to get up to [place] where they could be near a relative who is a nurse. I listn empathically and provide a calming presence and prayer. Patient and Edward respond well and show sigs of reduced stress. They voice appreciation for the prayer. I will continue to remain available to patient and family.
--- NOTE | 2019-05-21 16:56 | NUR ---
SPOKE WITH DR. CALLE ABOUT REDNESS AROUND PATIENTS VALE AREA. ORDERS PLACED FOR NYSTATIN. ORDERS TO RESTART TPN WERE PLACED PATIENT IS STILL UNABLE TO SWALLOW SAFELY. PATIENT HAS ALSO STATED HER WILLINGNESS TO HAVE A PEG TUBE PLACED IF SHE IS DEEMED A CANDIDATE.
--- NOTE | 2019-05-21 16:58 | NUR ---
Pt visit this afternoon. Pt resting in bed upon arival. SORB advocates, bedside nurse Shen, healthcare advisory services manager Sandra, and Dr Horta present during visit. Pt has elected for G-Tube placement. Dr Macias has order CT to determine if there is room. Short discharge plan discussed along with intermodal dispatcher placement planned also discussed with SORB advocates. No other concerns reported at this time. Palliative Care will remain available.
--- NOTE | 2019-05-21 17:22 | NUR ---
SHIFT SUMMARY PT HAS BEEN ALERT AND ORIENTED X 4 DURING SHIFT, HAS SHOWN SOME INTERMITTENT CONFUSION. PATIENT HAS SHOWN A POSITIVE AFFECT. WORKED WITH PT AND OT TODAY WAS UP TO CHAIR DURING SHIFT. PATIENT HAS BEEN WILLING TO REPOSITION. PATIENT STATED WILLINGNESS TO RECEIVE A PEG TUBE, AWAITING CT SCAN TO CONFIRM THE POSSIBILITY. NO COMPLAINTS OF PAIN DURING SHIFT. OSTOMY IS PINK AND BEEFY, GAS AND BROWN STOOL BEING OUTPUT, PATIENT WAS A WILLING PARTICIPANT DURING CARE. NEW ORDERS STARTED FOR CLINIMIX WITH LIPIDS FOR NUTRITIONAL SUPPLEMENT.
--- NOTE | 2019-05-21 18:46 | NUR ---
CHANGED OSTOMY APPLIANCE AND BANDAGE, SLIGHT REDNESS AROUND STOMA. SCANT AMOUNT RED DISCHARGE AROUND STOMA. PATIENT TOLERATED CHANGE WELL, LOOKED AT STOMA AND OSTOMY DURING CHANGE.
[2019-05-22 04:44] LABS: Hematocrit 31.4 % (33.0-51.0); Hemoglobin 9.9 g/dL (11.5-16.0)
[2019-05-22 05:07] LABS: Albumin, Blood 1.7 g/dL (3.4-5.0); Anion Gap 7 mmol/L (6-16); Blood Urea Nitrogen 32 mg/dL (8-24); Bun/Creatinine Ratio 42.2 (12.0-20.0); CO2, Blood 26 mmol/L (21-32); Calcium, Blood 8.3 mg/dL (8.5-10.1); Chloride, Blood 113 mmol/L (98-108); Creatinine, Blood 0.76 mg/dL (0.40-1.00); Glomerular Filtration Rate >60 (60-); Glucose, Blood 142 mg/dL (70-99); Magnesium, Blood 2.4 mg/dL (1.6-2.4); Phosphorus, Blood 4.3 mg/dL (2.5-4.9); Sodium, Blood 146 mmol/L (136-145)
--- NOTE | 2019-05-22 05:30 | NUR ---
Pt alert and oriented. Vital signs stable. Turn and repositioned every hour. Incontinent of void. IV Clinamix infusing. Patient taken to CT for imaging. Ostomy producing green liquidy BM, stoma is pink and beefy. NPO maintained. No complaints of pain. Reddness to anna area; nystatin powder applied.
--- NOTE | 2019-05-22 07:38 | NUR ---
POWERGLIDE DC'D R/T INFILTRATION. CLINIMIX INFUSION STOPPED AND ACCESS REMOVED. PT REPORTS NO PAIN IN ARM. "UNCOMFORTABLE" FEELING. PUFFY UP TO SHOULDER AND DOWN TO MID FOREARM. WILL CONTINUE TO MONITOR.
--- NOTE | 2019-05-22 09:10 | NUR ---
INTO SDS VIA dBMEDx. PT A&OX3-DENIES PAIN AT THIS TIME. HISTORY AND ALLERGIES REVIEWED. NPO STATUS CONFIRMED.NEW #20 TO RIGHT FOREARM OBTAINED PT DID NOT HAVE PREVIOUS IV ACCESS.LUNGS DIMINISHED IN THE LEFT BASE. SATS>90% ON RA.
--- NOTE | 2019-05-22 09:24 | NUR ---
PT LEFT VIA GURNEY TO OR FOR PEG TUBE PLACEMENT. PT AND OT IN ROOM TO ASSIST WITH TRANSFER.
--- NOTE | 2019-05-22 09:37 | NUR ---
05/22/19 0937 Joie Lindsey PROCEDURE ROOM ENDO #1. MONITOR INTACT WITH CONTINUOUS PULSE OXIMETRY AND INTERMITTENT BP.
--- NOTE | 2019-05-22 11:18 | NUR ---
PT RETURNED FROM OR AT APPROX 1005. PATIENT WAS ALERT AND ORIENTED WITH NO COMPLAINTS OF PAIN. PER REPORTING NURSE THEY WERE UNABLE TO PLACE A PEG TUBE. PATIENT IS SITTING UP IN BED AND IS ON ROOM AIR.
--- NOTE | 2019-05-22 16:45 | NUR ---
SPOKE WITH YEHUDA MEJIA TO PROVIDE UPDATE ON PATIENT. PATIENT RESTING COMFORTABLY IN BED. PT REQUESTED THE IV IN HER RIGHT HAND BE REMOVED. CLINIMIX INFUSING THROUGH PICC LINE CURRENTLY
--- NOTE | 2019-05-22 19:34 | NUR ---
SHIFT SUMMARY PT ALERT AND ORIENTED DURING SHIFT. TAKEN TO OR FOR PEG TUBE PLACEMENT AND WAS UNABLE TO HAVE PROCEDURE DONE R/T ULCERATIONS OF THE STOMACH. ORDERS CHANGED FOR PICC PLACEMENT AND TPN TO BE ORDERED STARTING TOMORROW. PICC LINE IS IN PLACE. PATIENT RECEIVING CLINIMIX DURING SHIFT. PATIENT ASKS FOR SIPS OF WATER AND FOOD DURING SHIFT, REMINDED OF NPO STATUS AND GIVEN MOUTH SWABS. OSTOMY PRODUCING GREEN LIQUID BM. STOMA PINK AND BEEFY. SURGICAL SITE OPEN TO AIR [place] IN PLACE NO DISCHARGE NOTED. REDNESS ON VALE AREA TREATED DURING BRIEF CHANGES WITH NYSTATIN. PT AMBULATED TO CHAIR WITH FWW AND GAIT BELT, 2 ASSIST. PATIENT HAS HAD A FLAT AFFECT DURING SHIFT.
[2019-05-23 04:54] LABS: BASOPHILS ABSOLUTE AUTO 0.02 K/mm3 (0.00-0.23); BASOPHILS PERCENT AUTO 0 % (0-2); EOSINOPHILS ABSOLUTE AUTO 0.08 K/mm3 (0.00-0.68); EOSINOPHILS PERCENT AUTO 0 % (0-6); Hematocrit 29.6 % (33.0-51.0); Hemoglobin 9.6 g/dL (11.5-16.0); IMMATURE GRAN PERCENT AUTO 1 % (0-1); LYMPHOCYTES ABSOLUTE AUTO 0.62 K/mm3 (0.84-5.20); LYMPHOCYTES PERCENT AUTO 3 % (21-46); MONOCYTES ABSOLUTE AUTO 1.06 K/mm3 (0.16-1.47); MONOCYTES PERCENT AUTO 5 % (4-13); Mean Corpuscular HGB 31.1 pg (26.0-34.0); Mean Corpuscular HGB Conc 32.4 g/dL (31.5-36.5); Mean Platelet Volume 9.6 fL (9.1-12.4); NEUTROPHILS ABSOLUTE AUTO 18.15 K/mm3 (1.96-9.15); NEUTROPHILS PERCENT AUTO 90 % (41-73); Platelet Count 521 K/mm3 (150-400); RDW Coefficient Variation 14.6 % (11.7-14.2); RDW Standard Deviation 51.4 fL (35.1-46.3); Red Blood Cell Count 3.09 M/mm3 (3.80-5.20); White Blood Cell Count 20.13 K/mm3 (4.00-11.30)
[2019-05-23 04:57] LABS: Mean Corpuscular Volume 96 fL (80-100)
[2019-05-23 05:15] LABS: Alanine Aminotransfer (ALT/SGP 25 U/L (12-78); Albumin, Blood 1.6 g/dL (3.4-5.0); Albumin/Globulin Ratio 0.4 (0.8-1.8); Alk Phos 239 U/L (50-136); Anion Gap 5 mmol/L (6-16); Aspartate Aminotrans (AST/SGOT 12 U/L (12-37); Bilirubin, Total 0.4 mg/dL (0.1-1.0); Blood Urea Nitrogen 36 mg/dL (8-24); Bun/Creatinine Ratio 42.9 (12.0-20.0); CO2, Blood 26 mmol/L (21-32); Calcium, Blood 8.2 mg/dL (8.5-10.1); Chloride, Blood 111 mmol/L (98-108); Creatinine, Blood 0.84 mg/dL (0.40-1.00); Globulin, Blood 3.9 g/dL (2.2-4.0); Glomerular Filtration Rate >60 (60-); Glucose, Blood 120 mg/dL (70-99); Magnesium, Blood 2.4 mg/dL (1.6-2.4); Phosphorus, Blood 3.7 mg/dL (2.5-4.9); Potassium, Blood 3.8 mmol/L (3.5-5.5); Sodium, Blood 142 mmol/L (136-145); Total Protein, Blood 5.5 g/dL (6.4-8.2)
--- NOTE | 2019-05-23 05:27 | NUR ---
SHIFT SUMMARY PT HAS DONE WELL THIS SHIFT. STOMA PINK/BEEFY MOD AMT GREEN LIQUID OUTPUT FROM OSTOMY. MIDLINE INCISION CLEAN AND DRY, OPEN TO AIR. UP TO CHAIR TWICE 1 PERSON MODERATE ASSIST. CLINIMIX W/LIPIDS RUNNING 50ML/HR.
--- NOTE | 2019-05-23 16:25 | NUR ---
SHIFT SUMMARY: TRACEY WAS ADMITTED FOR SIRS. SHE HAD A SMALL BOWEL OBSTRUCTION WITH ILEOSTOMY REVISION ON 05/12. SHE USES HER CALL LIGHT APPROPRIATELY. SHE AMBULATED DOWN THE HALLWAY AND BACK WITH PT TODAY USING A FWW AND GAIT BELT, MODIFIED 1 PERSON ASSIST. PICC LINE PATENT. SOMEONE IS COMING TOMORROW TO CUT HER HAIR. MEPILEX IN PLACE ON COCCYX. MIDLINE INCISION BATH MIX OPERATOR.
[2019-05-24 04:58] LABS: BASOPHILS ABSOLUTE AUTO 0.03 K/mm3 (0.00-0.23); BASOPHILS PERCENT AUTO 0 % (0-2); EOSINOPHILS ABSOLUTE AUTO 0.13 K/mm3 (0.00-0.68); EOSINOPHILS PERCENT AUTO 1 % (0-6); Hematocrit 28.6 % (33.0-51.0); Hemoglobin 8.9 g/dL (11.5-16.0); IMMATURE GRAN ABSOLUTE AUTO 0.08 K/mm3 (0.00-0.10); IMMATURE GRAN PERCENT AUTO 1 % (0-1); LYMPHOCYTES ABSOLUTE AUTO 0.37 K/mm3 (0.84-5.20); LYMPHOCYTES PERCENT AUTO 3 % (21-46); MONOCYTES ABSOLUTE AUTO 0.76 K/mm3 (0.16-1.47); MONOCYTES PERCENT AUTO 7 % (4-13); Mean Corpuscular HGB 30.1 pg (26.0-34.0); Mean Corpuscular HGB Conc 31.1 g/dL (31.5-36.5); Mean Corpuscular Volume 97 fL (80-100); Mean Platelet Volume 9.5 fL (9.1-12.4); NEUTROPHILS ABSOLUTE AUTO 10.35 K/mm3 (1.96-9.15); NEUTROPHILS PERCENT AUTO 88 % (41-73); Platelet Count 395 K/mm3 (150-400); RDW Coefficient Variation 14.6 % (11.7-14.2); Red Blood Cell Count 2.96 M/mm3 (3.80-5.20); White Blood Cell Count 11.72 K/mm3 (4.00-11.30)
[2019-05-24 05:13] LABS: Albumin, Blood 1.4 g/dL (3.4-5.0); Anion Gap 6 mmol/L (6-16); Blood Urea Nitrogen 30 mg/dL (8-24); Bun/Creatinine Ratio 34.2 (12.0-20.0); CO2, Blood 25 mmol/L (21-32); Calcium, Blood 7.9 mg/dL (8.5-10.1); Chloride, Blood 114 mmol/L (98-108); Creatinine, Blood 0.88 mg/dL (0.40-1.00); Glomerular Filtration Rate >60 (60-); Glucose, Blood 151 mg/dL (70-99); Magnesium, Blood 2.4 mg/dL (1.6-2.4); Phosphorus, Blood 3.5 mg/dL (2.5-4.9); Sodium, Blood 145 mmol/L (136-145); Triglycerides 82 mg/dL (30-160)
--- NOTE | 2019-05-24 07:02 | NUR ---
RECEIVED REPORT FROM ERROL HERNANDEZ. PT LYING IN BED WITH EVEN, UNLABORED RESPIRATIONS.
[2019-05-24 13:50] LABS: Vancomycin, Trough 23.8 ug/mL (5.0-10.0)
--- NOTE | 2019-05-24 17:06 | NUR ---
SHIFT SUMMARY: TRACEY IS HERE AFTER AN ILEOSTOMY REVISION. SHE HAS DEVELOPMENTAL DELAY. SHE IS ABLE TO MAKE HER NEEDS KNOWN, SLOW TO RESPOND BUT A&OX4. SHE IS RECEIVING TPN. SHE HAS BEEN UP AMBULATING X 2. SHE DENIES BEING ABLE TO AMBULATE, BUT COMPLETES THE TASK. SHE HAD VISITORS TODAY, ONE WHO CUT HER HAIR. SHE STATED THAT SHE WOULD LIKE TO GO TO A SNF UPON DISCHARGE FOR STRENGTHENING. SHE IS USING MOUTH SWABS, SHE REMAINS NPO.
[2019-05-25 01:26] LABS: Vancomycin, Trough 15.9 ug/mL (5.0-10.0)
--- NOTE | 2019-05-25 06:38 | NUR ---
PT VSS T/O NIGHT. PT HAD NO C/O PAIN/N/V. INCISION VIVEK, CDI. PT NPO, OSTOMY PUTTING OUT LIQ GREEN STOOL, CPN CONT PER ORDERS. PT REPOSITIONED FREQ, ATTENDS CHANGED PRN. PT ENC TO ASSIST W/REPOSITIONING. PT USING CALL LIGHT FOR ASSISTANCE, WILL CONT TO MONITOR UNTIL REP GIVEN TO ONCOMING RN.
--- NOTE | 2019-05-25 19:18 | NUR ---
PT WAS ABLE TO TOLERATE BEING UP IN CHAIR MOST OF THE DAY AND AMUBULATED TO THE LEON AND BACK WITH PHYSICAL THERAPY. PT IS FREQUENTNLY REQUESTING WATER, BUT EDUCATED PT ON NPO STATUS. PT CONTINUES TO RECEIVE CPN THROUGH PICC.
--- NOTE | 2019-05-26 05:31 | NUR ---
PT VSS T/O NIGHT. PT DENIED PAIN/N/V. [place] REMOVED, STERI STRIPS APPLIED. OSTOMY PUTTING OUT LIQ GREEN STOOL. PT NPO W/CPN CONT PER ORDERS, ORAL CARE PRN. PT REPOSITIONED FREQ T/O NIGHT, PT ENCOURAGED TO ASSIST. ATTENDS CHANGED PRN. PT USING CALL LIGHT FOR ASSISTANCE, WILL CONT TO MONITOR UNTIL REP GIVEN TO ONCOMING RN.
[2019-05-26 05:32] LABS: BASOPHILS ABSOLUTE AUTO 0.02 K/mm3 (0.00-0.23); BASOPHILS PERCENT AUTO 0 % (0-2); EOSINOPHILS ABSOLUTE AUTO 0.09 K/mm3 (0.00-0.68); EOSINOPHILS PERCENT AUTO 2 % (0-6); Hematocrit 28.4 % (33.0-51.0); Hemoglobin 8.7 g/dL (11.5-16.0); IMMATURE GRAN ABSOLUTE AUTO 0.06 K/mm3 (0.00-0.10); IMMATURE GRAN PERCENT AUTO 1 % (0-1); LYMPHOCYTES ABSOLUTE AUTO 0.46 K/mm3 (0.84-5.20); LYMPHOCYTES PERCENT AUTO 7 % (21-46); MONOCYTES ABSOLUTE AUTO 0.74 K/mm3 (0.16-1.47); MONOCYTES PERCENT AUTO 12 % (4-13); Mean Corpuscular HGB 30.1 pg (26.0-34.0); Mean Corpuscular HGB Conc 30.6 g/dL (31.5-36.5); Mean Corpuscular Volume 98 fL (80-100); Mean Platelet Volume 9.7 fL (9.1-12.4); NEUTROPHILS ABSOLUTE AUTO 4.81 K/mm3 (1.96-9.15); NEUTROPHILS PERCENT AUTO 78 % (41-73); Platelet Count 302 K/mm3 (150-400); RDW Coefficient Variation 14.3 % (11.7-14.2); RDW Standard Deviation 52.1 fL (35.1-46.3); Red Blood Cell Count 2.89 M/mm3 (3.80-5.20); White Blood Cell Count 6.18 K/mm3 (4.00-11.30)
[2019-05-26 05:52] LABS: Alanine Aminotransfer (ALT/SGP 20 U/L (12-78); Albumin, Blood 1.3 g/dL (3.4-5.0); Albumin/Globulin Ratio 0.3 (0.8-1.8); Alk Phos 285 U/L (50-136); Anion Gap 4 mmol/L (6-16); Aspartate Aminotrans (AST/SGOT 13 U/L (12-37); Bilirubin, Total 0.5 mg/dL (0.1-1.0); Blood Urea Nitrogen 20 mg/dL (8-24); Bun/Creatinine Ratio 25.5 (12.0-20.0); CO2, Blood 27 mmol/L (21-32); Calcium, Blood 7.7 mg/dL (8.5-10.1); Chloride, Blood 113 mmol/L (98-108); Creatinine, Blood 0.78 mg/dL (0.40-1.00); Glomerular Filtration Rate >60 (60-); Glucose, Blood 127 mg/dL (70-99); Magnesium, Blood 2.2 mg/dL (1.6-2.4); Phosphorus, Blood 3.7 mg/dL (2.5-4.9); Potassium, Blood 4.1 mmol/L (3.5-5.5); Sodium, Blood 144 mmol/L (136-145); Total Protein, Blood 5.3 g/dL (6.4-8.2)
[2019-05-26 13:27] LABS: Vancomycin, Trough 20.2 ug/mL (5.0-10.0)
--- NOTE | 2019-05-26 15:51 | NUR ---
GAVE PT SIPS OF WATER WHILE SITTING UP RIGHT. PT APPEARED TO TOLERATE SIPS, NO COUGHING OR OR GURGLING VOICE NOTED. PT REMAINED SITTING UP AFTER SIPS WERE ADMINISTERED.
--- NOTE | 2019-05-26 17:44 | NUR ---
PT AMBULATED IN LEON MULTIPLE TIMES TODAY. VSS THROUGH OUT SHIFT. CPN CONTINUES TO RUN AND PT HAD A FEW SIPS OF WATER WHEN SITTING UP RIGHT, NO COUGHING OR GURGLING VOICE NOTED. OSTOMY CONTINUES TO HAVE APPROPRIATE OUTPUT. ABDOMINAL INSICION IS APPROXIMATED, C/D/I WITH STERI-STRIPS.
[2019-05-26 18:49] LABS: Source, Urine Catheter
[2019-05-26 19:15] LABS: Appearance, Urine Cloudy (Clear); Bilirubin, Urine Neg (Neg); Blood, Urine 4+ (Neg); Color, Urine Yellow (P-Yellow); Glucose Qualitative, Urine Neg (Neg); Ketones, Urine Neg (Neg); Leukocyte Esterase, Urine 3+ (Neg); Nitrite, Urine Neg (Neg); Protein, Urine 2+ (Neg); Specific Gravity, Urine 1.015 (1.003-1.022); Urobilinogen, Urine NORM (Normal)
[2019-05-26 19:24] LABS: White Blood Cells, Urine TNTC /hpf (0-5)
[2019-05-26 19:25] LABS: Bacteria Many /hpf; Squamous Epithelial Cells Few /hpf (Few); Yeast/Fungi Urine Many /hpf
[2019-05-27 05:58] LABS: BASOPHILS ABSOLUTE AUTO 0.02 K/mm3 (0.00-0.23); BASOPHILS PERCENT AUTO 0 % (0-2); EOSINOPHILS ABSOLUTE AUTO 0.11 K/mm3 (0.00-0.68); EOSINOPHILS PERCENT AUTO 2 % (0-6); Hematocrit 28.3 % (33.0-51.0); Hemoglobin 8.9 g/dL (11.5-16.0); IMMATURE GRAN ABSOLUTE AUTO 0.16 K/mm3 (0.00-0.10); IMMATURE GRAN PERCENT AUTO 3 % (0-1); LYMPHOCYTES ABSOLUTE AUTO 0.49 K/mm3 (0.84-5.20); LYMPHOCYTES PERCENT AUTO 8 % (21-46); MONOCYTES ABSOLUTE AUTO 0.76 K/mm3 (0.16-1.47); MONOCYTES PERCENT AUTO 12 % (4-13); Mean Corpuscular HGB 30.2 pg (26.0-34.0); Mean Corpuscular HGB Conc 31.4 g/dL (31.5-36.5); Mean Corpuscular Volume 96 fL (80-100); Mean Platelet Volume 9.7 fL (9.1-12.4); NEUTROPHILS ABSOLUTE AUTO 4.59 K/mm3 (1.96-9.15); NEUTROPHILS PERCENT AUTO 75 % (41-73); Platelet Count 263 K/mm3 (150-400); RDW Standard Deviation 49.6 fL (35.1-46.3); Red Blood Cell Count 2.95 M/mm3 (3.80-5.20); White Blood Cell Count 6.13 K/mm3 (4.00-11.30)
[2019-05-27 06:14] LABS: Alanine Aminotransfer (ALT/SGP 18 U/L (12-78); Albumin, Blood 1.3 g/dL (3.4-5.0); Albumin/Globulin Ratio 0.3 (0.8-1.8); Alk Phos 260 U/L (50-136); Anion Gap 4 mmol/L (6-16); Aspartate Aminotrans (AST/SGOT 11 U/L (12-37); Bilirubin, Total 0.5 mg/dL (0.1-1.0); Blood Urea Nitrogen 18 mg/dL (8-24); Bun/Creatinine Ratio 23.3 (12.0-20.0); CO2, Blood 28 mmol/L (21-32); Calcium, Blood 7.9 mg/dL (8.5-10.1); Chloride, Blood 112 mmol/L (98-108); Creatinine, Blood 0.77 mg/dL (0.40-1.00); Globulin, Blood 4.2 g/dL (2.2-4.0); Glomerular Filtration Rate >60 (60-); Glucose, Blood 130 mg/dL (70-99); Magnesium, Blood 2.2 mg/dL (1.6-2.4); Phosphorus, Blood 3.7 mg/dL (2.5-4.9); Potassium, Blood 4.2 mmol/L (3.5-5.5); Sodium, Blood 144 mmol/L (136-145); Total Protein, Blood 5.5 g/dL (6.4-8.2)
--- NOTE | 2019-05-27 06:51 | NUR ---
PT VSS T/O NIGHT. INCISION CDI. PT KATIE SMALL SIPS WATER, W/NO SIG COUGHING EPISODES. PT USED COMMODE X1, ENC TO CALL FOR ASSISTANCE W/VOIDS. NEW 1X DOSE OF LASIX GIVEN THIS AM. CPN CONT PER ORDERS. WILL CONT TO MONITOR UNTIL REP GIVEN TO ONCOMING RN.
--- NOTE | 2019-05-27 12:42 | NUR ---
PT AMB EARLIER IN HALLWAY WITH PT ALSO WEIGHED PT SITTING IN CHAIR DR CASTORENA ALSO BY 10 ML WATER GIVEN
--- NOTE | 2019-05-27 14:35 | NUR ---
dr horvath by to see pt ok to increase amt of h20 per each 15 min to 25 ml and 100 ml per hr
--- NOTE | 2019-05-27 14:50 | NUR ---
new dressing applied to coccyx
[2019-05-28 06:13] LABS: BASOPHILS ABSOLUTE AUTO 0.03 K/mm3 (0.00-0.23); BASOPHILS PERCENT AUTO 1 % (0-2); EOSINOPHILS PERCENT AUTO 2 % (0-6); Hematocrit 27.9 % (33.0-51.0); Hemoglobin 8.6 g/dL (11.5-16.0); IMMATURE GRAN ABSOLUTE AUTO 0.25 K/mm3 (0.00-0.10); IMMATURE GRAN PERCENT AUTO 4 % (0-1); LYMPHOCYTES ABSOLUTE AUTO 0.49 K/mm3 (0.84-5.20); LYMPHOCYTES PERCENT AUTO 9 % (21-46); MONOCYTES ABSOLUTE AUTO 0.71 K/mm3 (0.16-1.47); MONOCYTES PERCENT AUTO 12 % (4-13); Mean Corpuscular HGB 29.4 pg (26.0-34.0); Mean Corpuscular HGB Conc 30.8 g/dL (31.5-36.5); Mean Corpuscular Volume 95 fL (80-100); Mean Platelet Volume 9.8 fL (9.1-12.4); NEUTROPHILS ABSOLUTE AUTO 4.19 K/mm3 (1.96-9.15); NEUTROPHILS PERCENT AUTO 73 % (41-73); Platelet Count 243 K/mm3 (150-400); RDW Standard Deviation 48.8 fL (35.1-46.3); Red Blood Cell Count 2.93 M/mm3 (3.80-5.20); White Blood Cell Count 5.77 K/mm3 (4.00-11.30)
[2019-05-28 06:28] LABS: Alanine Aminotransfer (ALT/SGP 19 U/L (12-78); Albumin, Blood 1.3 g/dL (3.4-5.0); Albumin/Globulin Ratio 0.3 (0.8-1.8); Alk Phos 223 U/L (50-136); Anion Gap 2 mmol/L (6-16); Aspartate Aminotrans (AST/SGOT 13 U/L (12-37); Bilirubin, Total 0.5 mg/dL (0.1-1.0); Blood Urea Nitrogen 20 mg/dL (8-24); Bun/Creatinine Ratio 26.6 (12.0-20.0); CO2, Blood 29 mmol/L (21-32); Calcium, Blood 7.9 mg/dL (8.5-10.1); Chloride, Blood 111 mmol/L (98-108); Creatinine, Blood 0.75 mg/dL (0.40-1.00); Glomerular Filtration Rate >60 (60-); Glucose, Blood 128 mg/dL (70-99); Magnesium, Blood 2.2 mg/dL (1.6-2.4); Phosphorus, Blood 3.8 mg/dL (2.5-4.9); Potassium, Blood 3.9 mmol/L (3.5-5.5); Sodium, Blood 142 mmol/L (136-145); Total Protein, Blood 5.3 g/dL (6.4-8.2)
--- NOTE | 2019-05-28 16:10 | NUR ---
SHIFT SUMMARY NO ACUTE CHANGES TODAY. VSS. PT CONT TO DENY PAIN. OSTOMY PUTTING OUT BROWN LIQ STOOL AND GAS. STOMA BEEFY RED. ABD MIDLINE INCISION WITH STERI STRIPS IS CDI. PT UP IN CHAIR ALL DAY AND AMBULATED HALLWAY WITH PT/OT. DR. CASTORENA DID INCREASE HER FREE WATER INTAKE AMOUNT PT TOLERATING IT WITHOUT SWALLOWING DIFFICULTY, COUGHING, OR ASPIRATION. CPN CONT TO INFUSE IN PICC LINE PER ORDERS. PT USES CALL LIGHT APPROPRIATELY.
[2019-05-29 04:23] LABS: Hemoglobin 8.5 g/dL (11.5-16.0)
[2019-05-29 04:40] LABS: Albumin, Blood 1.3 g/dL (3.4-5.0); Anion Gap 5 mmol/L (6-16); Blood Urea Nitrogen 22 mg/dL (8-24); Bun/Creatinine Ratio 30.1 (12.0-20.0); CO2, Blood 27 mmol/L (21-32); Calcium, Blood 7.7 mg/dL (8.5-10.1); Chloride, Blood 110 mmol/L (98-108); Creatinine, Blood 0.73 mg/dL (0.40-1.00); Glomerular Filtration Rate >60 (60-); Glucose, Blood 120 mg/dL (70-99); Phosphorus, Blood 3.8 mg/dL (2.5-4.9); Sodium, Blood 142 mmol/L (136-145)
--- NOTE | 2019-05-29 15:14 | NUR ---
SHIFT SUMMARY NO ACUTE CHANGES TODAY. PT CONT TO DO WELL WITH PT/OT. DIET WAS ADVANCED TO CLEAR LIQS WITH RESTRICTIONS. PT TOLERATING WELL SO FAR WITH NO S/S ASPIRATION. MIDLINE INCISION IS CDI AND OSTOMY PRODUCING LIQ BROWN STOOL AND GAS. CPN INFUSING THROUGH PICC LINE. PT USES CALL LIGHT APPROPRIATELY.
[2019-05-30 05:14] LABS: Hematocrit 28.6 % (33.0-51.0); Hemoglobin 9.1 g/dL (11.5-16.0)
[2019-05-30 05:37] LABS: Albumin, Blood 1.4 g/dL (3.4-5.0); Anion Gap 6 mmol/L (6-16); Blood Urea Nitrogen 20 mg/dL (8-24); Bun/Creatinine Ratio 28.4 (12.0-20.0); CO2, Blood 27 mmol/L (21-32); Chloride, Blood 108 mmol/L (98-108); Glomerular Filtration Rate >60 (60-); Glucose, Blood 115 mg/dL (70-99); Phosphorus, Blood 3.4 mg/dL (2.5-4.9); Potassium, Blood 3.8 mmol/L (3.5-5.5); Sodium, Blood 141 mmol/L (136-145)
--- NOTE | 2019-05-30 07:30 | NUR ---
SHIFT SUMMARY: PT HAS DONE WELL THIS SHIFT. OSTOMY PRODUCING LIQ BROWN STOOL AND FLATUS. BURPED T/O SHIFT WITH CONT EDUCATION PROVIDED. PT INCONTINENT OF URINE. MEPILEX TO COCCYX CDI. CPN INFUSING THROUGH PICC.
--- NOTE | 2019-05-30 11:45 | NUR ---
DR CASTORENA IN TO SEE PT.
--- NOTE | 2019-05-30 14:53 | NUR ---
therapy in to see pt.
--- NOTE | 2019-05-30 15:03 | NUR ---
PT VISITING W/GUEST.
--- NOTE | 2019-05-30 17:04 | NUR ---
SUMMARY NO ACUTE CHANGES T/O SHIFT. PT SAT UP IN CHAIR T/O DAY. DENIES PAIN, N/V, SOB. OSTOMY PRODUCING BROWN LIQUID STOOL. TOLERATING JELLO AND SIPS OF WATER. MULTIPLE VISITORS T/O SHIFT. CALL LIGHT AND PHONE W/IN REACH.
[2019-05-31 04:51] LABS: Hematocrit 29.8 % (33.0-51.0); Hemoglobin 9.2 g/dL (11.5-16.0)
[2019-05-31 05:14] LABS: Albumin, Blood 1.5 g/dL (3.4-5.0); Anion Gap 5 mmol/L (6-16); Blood Urea Nitrogen 21 mg/dL (8-24); Bun/Creatinine Ratio 31.8 (12.0-20.0); CO2, Blood 28 mmol/L (21-32); Calcium, Blood 8.2 mg/dL (8.5-10.1); Chloride, Blood 108 mmol/L (98-108); Creatinine, Blood 0.66 mg/dL (0.40-1.00); Glomerular Filtration Rate >60 (60-); Glucose, Blood 84 mg/dL (70-99); Magnesium, Blood 1.9 mg/dL (1.6-2.4); Phosphorus, Blood 3.3 mg/dL (2.5-4.9); Potassium, Blood 3.8 mmol/L (3.5-5.5); Sodium, Blood 141 mmol/L (136-145); Triglycerides 147 mg/dL (30-160)
--- NOTE | 2019-05-31 07:30 | NUR ---
SUMMARY PT DECONDITIONED, BUT STAFF WHO HAVE PREVIOUSLY CARED FOR PT NOTE SIGNIFICANT IMPROVEMENT.
--- NOTE | 2019-05-31 10:30 | NUR ---
DR. NERISSA CASTORENA IN TO SEE PT. PLAN TO ADVANCE DIET TO FL. PT CURRENTLY SITTING UP IN CHAIR AND TOLERATING IT WELL.
--- NOTE | 2019-05-31 16:16 | NUR ---
DNI STATUS SPOKE WITH DR. NERISSA CASTORENA, PER PALLIATIVE CARE NURSE, TO DISCUSS CHANGING CODE STATUS. NO NEW ORDERS OBTAINED AND PALLIATIVE TEAM NOTIFIED.
--- NOTE | 2019-05-31 16:19 | NUR ---
SHIFT SUMMARY A&O WITH VSS AT BASELINE T/O SHIFT. OSTOMY PRODUCING LIQUID BROWN STOOL AND FLATUS; EMPTIED 3X, BAG AND APPLIANCE CHANGE TODAY. TOLERATING FL DIET WITH INCREASED PO INTAKE T/O SHIFT. DENIES N/V OR ABD DISCOMFORT. VALE/GROIN AREA CONTINUES TO HAVE RED DISCOLORATION; MEDICATION APPLIED PER EMAR, ATTENDS CHANGED PRN WITH FREQUENT REPOSTIONING. MEPILEX DRESSING ON COCCYX AND STERI STRIPS ALONG MIDLINE IN PLACE AND C/D/I. PT UP IN CHAIR MOST OF SHIFT, AMBULATED 2X IN HALLWAY WITH GAITBELT AND FWW; WEAK GATE BUT TOLERATED WELL. FAMILY AND FRIENDS IN TO VISIT TODAY; PT APPEARED RECEPTIVE TO GUESTS. CALL LIGHT WITHIN REACH AND DEMONSTRATED APPROPRIATE USE.
--- NOTE | 2019-05-31 18:20 | NUR ---
Theraputic visit with patient to offer her some of her coloring pages. review of patient with nursing and code status and po intake will review with physician on plan of care and prognosis.
--- NOTE | 2019-05-31 18:33 | NUR ---
CHANGE IN VITALS PT BP, HR, AND TEMP ELEVATED. DOCTOR NOTIFIED.
--- NOTE | 2019-06-01 04:44 | NUR ---
SUMMARY PT AWAKE AND RESTING IN BED HOB UP AT THIS TIME.RESP APPEAR EVEN AND UNLABORED.
[2019-06-01 05:50] LABS: BASOPHILS ABSOLUTE AUTO 0.04 K/mm3 (0.00-0.23); BASOPHILS PERCENT AUTO 1 % (0-2); EOSINOPHILS ABSOLUTE AUTO 0.14 K/mm3 (0.00-0.68); EOSINOPHILS PERCENT AUTO 2 % (0-6); Hematocrit 29.2 % (33.0-51.0); Hemoglobin 9.1 g/dL (11.5-16.0); IMMATURE GRAN ABSOLUTE AUTO 0.29 K/mm3 (0.00-0.10); IMMATURE GRAN PERCENT AUTO 4 % (0-1); LYMPHOCYTES ABSOLUTE AUTO 0.98 K/mm3 (0.84-5.20); LYMPHOCYTES PERCENT AUTO 14 % (21-46); MONOCYTES ABSOLUTE AUTO 0.73 K/mm3 (0.16-1.47); MONOCYTES PERCENT AUTO 10 % (4-13); Mean Corpuscular HGB 30.1 pg (26.0-34.0); Mean Corpuscular HGB Conc 31.2 g/dL (31.5-36.5); Mean Corpuscular Volume 97 fL (80-100); Mean Platelet Volume 9.9 fL (9.1-12.4); NEUTROPHILS ABSOLUTE AUTO 5.02 K/mm3 (1.96-9.15); NEUTROPHILS PERCENT AUTO 70 % (41-73); Platelet Count 326 K/mm3 (150-400); RDW Coefficient Variation 14.2 % (11.7-14.2); RDW Standard Deviation 50.4 fL (35.1-46.3); Red Blood Cell Count 3.02 M/mm3 (3.80-5.20)
[2019-06-01 06:34] LABS: Albumin, Blood 1.5 g/dL (3.4-5.0); Anion Gap 6 mmol/L (6-16); Blood Urea Nitrogen 21 mg/dL (8-24); Bun/Creatinine Ratio 28.2 (12.0-20.0); CO2, Blood 28 mmol/L (21-32); Calcium, Blood 8.2 mg/dL (8.5-10.1); Chloride, Blood 110 mmol/L (98-108); Creatinine, Blood 0.75 mg/dL (0.40-1.00); Glomerular Filtration Rate >60 (60-); Glucose, Blood 86 mg/dL (70-99); Magnesium, Blood 1.9 mg/dL (1.6-2.4); Phosphorus, Blood 3.1 mg/dL (2.5-4.9); Potassium, Blood 3.7 mmol/L (3.5-5.5); Sodium, Blood 144 mmol/L (136-145)
--- NOTE | 2019-06-01 17:14 | NUR ---
SHIFT SUMMARY PT HAS BEEN UP TO CHAIR MOST OF THE DAY TODAY. TOLERATING LIQUID DIET. OSTOMY FUNCTIONING, PT VOIDING. PT IS INCONTINENT AND HAS BEEN CHANGED MULT TIMES TODAY. MEPILEX TO COCCYX WAS CHANGED TODAY BY RN. PT HAD VISITORS TODAY. PT HAS REPORTED NO PAIN. BEEN ASSISTED WITH ADL'S PRN AND REPOSITIONED MULT TIMES.
--- NOTE | 2019-06-01 23:01 | NUR ---
2301: PM CARE COMPLETED. STAGE 2 DECUBITUS ULCER ON SACCRUM CLEANSED WITH WOUND ISOLATION WASHER, COVERED WITH ALGINATE AND SMALL COCCYX MEPILEX DRESSING; PT TOLERATED WELL. NEW PHOTOS TAKEN AND PLACED IN CHART. BARRIER CREAM AND NYSTATIN CREAM APPLIED TO BUTTOCKS, GROIN RASH. NEW OSTOMY WAFER APPLIED AFTER AREA CLEANSED WITH SOAPY WATER, SKIN PREP APPLIED AND WAFER SECURED. PT MEDICATED WITH PRN LIQUID TYLENOL AFTER CARE COMPLETED.
--- NOTE | 2019-06-02 06:15 | NUR ---
0615: DR. CAMACHO ROUNDS ON PT AND ORDERS POTASSIUM LAB DRAW FOR IV LASIX F/U. NO ACUTE CHANGES THIS SHIFT. TOLERATING PO INTAKE, OSTOMY OUTPUT ADEQUATE AND NO SIGNIFICANT PAIN ISSUES.
--- NOTE | 2019-06-02 17:41 | NUR ---
SHIFT SUMMARY PT HAS BEEN UP TO CHAIR TODAY AND WALKED WITH THERAPY WELL HYSTER MACHINE OPERATOR. PT WAS CHANGED MULT TIMES TODAY AND HAD SHOWER THIS MORNING. HAS REPORTED NO PAIN TODAY. TOLERATING LIQUID DIET WELL. PT HAD VISITORS TODAY. ASSISTED WITH ADL'S PRN. REPOSITIONED MULT TIMES.
--- NOTE | 2019-06-03 06:05 | NUR ---
Pt alert and oriented x4. VSS. Tolerating PO. Ostomy pink, producing brown, loose bm and lots of gas. Patient transfering using FWW, Gait belt and two assist. Incontinent of urine. Sore to buttock/coccyx area, covered. no complaints of pain. Medicated as ordered.
[2019-06-03 06:24] LABS: BASOPHILS ABSOLUTE AUTO 0.04 K/mm3 (0.00-0.23); BASOPHILS PERCENT AUTO 1 % (0-2); EOSINOPHILS PERCENT AUTO 3 % (0-6); Hemoglobin 8.9 g/dL (11.5-16.0); IMMATURE GRAN ABSOLUTE AUTO 0.25 K/mm3 (0.00-0.10); IMMATURE GRAN PERCENT AUTO 3 % (0-1); LYMPHOCYTES ABSOLUTE AUTO 1.13 K/mm3 (0.84-5.20); LYMPHOCYTES PERCENT AUTO 14 % (21-46); MONOCYTES ABSOLUTE AUTO 0.86 K/mm3 (0.16-1.47); MONOCYTES PERCENT AUTO 11 % (4-13); Mean Corpuscular HGB 29.4 pg (26.0-34.0); Mean Corpuscular HGB Conc 30.7 g/dL (31.5-36.5); Mean Corpuscular Volume 96 fL (80-100); Mean Platelet Volume 9.4 fL (9.1-12.4); NEUTROPHILS ABSOLUTE AUTO 5.45 K/mm3 (1.96-9.15); NEUTROPHILS PERCENT AUTO 69 % (41-73); Platelet Count 353 K/mm3 (150-400); RDW Coefficient Variation 14.3 % (11.7-14.2); RDW Standard Deviation 49.3 fL (35.1-46.3); Red Blood Cell Count 3.03 M/mm3 (3.80-5.20); White Blood Cell Count 7.93 K/mm3 (4.00-11.30)
[2019-06-03 06:38] LABS: Anion Gap 5 mmol/L (6-16); Blood Urea Nitrogen 18 mg/dL (8-24); Bun/Creatinine Ratio 23.5 (12.0-20.0); CO2, Blood 29 mmol/L (21-32); Calcium, Blood 8.2 mg/dL (8.5-10.1); Chloride, Blood 109 mmol/L (98-108); Creatinine, Blood 0.77 mg/dL (0.40-1.00); Glomerular Filtration Rate >60 (60-); Glucose, Blood 97 mg/dL (70-99); Potassium, Blood 3.7 mmol/L (3.5-5.5); Sodium, Blood 143 mmol/L (136-145)
--- NOTE | 2019-06-03 07:54 | NUR ---
pt sleeping sitting up in her recliner
--- NOTE | 2019-06-03 08:04 | NUR ---
pt awake working with physical therapy
--- NOTE | 2019-06-03 10:29 | NUR ---
PT VISITING WITH HER FAMILY IN ROOM
--- NOTE | 2019-06-03 11:01 | NUR ---
pt working with ot
--- NOTE | 2019-06-03 14:41 | NUR ---
pt back from xray
--- NOTE | 2019-06-03 15:28 | NUR ---
message left on dr fields cell re temp flutter valve given pt unable to use is with demonstration changed pt ostomy leaking earlier
--- NOTE | 2019-06-03 17:08 | NUR ---
amb in hallway with physical therapy
--- NOTE | 2019-06-03 17:40 | NUR ---
pt eating dinner mech soft encouraged pt to eat slowly chew well
--- NOTE | 2019-06-03 18:28 | NUR ---
pt done eating her meal asked pt if she feels short of breath or had any difficulty stated no
[2019-06-04 04:29] LABS: BASOPHILS ABSOLUTE AUTO 0.05 K/mm3 (0.00-0.23); BASOPHILS PERCENT AUTO 1 % (0-2); EOSINOPHILS ABSOLUTE AUTO 0.19 K/mm3 (0.00-0.68); EOSINOPHILS PERCENT AUTO 3 % (0-6); Hematocrit 27.1 % (33.0-51.0); Hemoglobin 8.3 g/dL (11.5-16.0); IMMATURE GRAN ABSOLUTE AUTO 0.25 K/mm3 (0.00-0.10); IMMATURE GRAN PERCENT AUTO 4 % (0-1); LYMPHOCYTES ABSOLUTE AUTO 1.26 K/mm3 (0.84-5.20); LYMPHOCYTES PERCENT AUTO 19 % (21-46); MONOCYTES ABSOLUTE AUTO 0.73 K/mm3 (0.16-1.47); MONOCYTES PERCENT AUTO 11 % (4-13); Mean Corpuscular HGB 29.9 pg (26.0-34.0); Mean Corpuscular HGB Conc 30.6 g/dL (31.5-36.5); Mean Corpuscular Volume 98 fL (80-100); Mean Platelet Volume 9.3 fL (9.1-12.4); NEUTROPHILS ABSOLUTE AUTO 4.28 K/mm3 (1.96-9.15); NEUTROPHILS PERCENT AUTO 63 % (41-73); Platelet Count 376 K/mm3 (150-400); RDW Coefficient Variation 14.2 % (11.7-14.2); RDW Standard Deviation 51.4 fL (35.1-46.3); Red Blood Cell Count 2.78 M/mm3 (3.80-5.20); White Blood Cell Count 6.76 K/mm3 (4.00-11.30)
--- NOTE | 2019-06-04 04:38 | NUR ---
Pt alert and oriented x4. VSS. Ostomy producing soft brown stool and gas. No complaints of pain. Incontinent of urine. Ambulating with FWW and two assist. Tolerating PO intake. Picc line flushed with ease and good blood return.
--- NOTE | 2019-06-04 12:34 | NUR ---
PT UP IN CHAIR FOR LUNCH, SPOUSE AT BEDSIDE.
--- NOTE | 2019-06-04 17:13 | NUR ---
SHIFT SUMMARY PT A&O WITH VSS TODAY. UP IN CHAIR MOST OF SHIFT, AMBULATED SEVERAL TIMES IN HALLWAY AND WORKED WITH THERAPY. MEPILEX REPLACED ON COCCYX AND NYSTATIN CREAM APPLIED TO VALE AREA PER EMAR. PICC LINE DRESSING REPLACED TODAY. NO ACUTE CHANGES T/O SHIFT.
--- NOTE | 2019-06-05 04:34 | NUR ---
pt alert and oriented x4. VSS. No Acute changes.
[2019-06-05 05:14] LABS: BASOPHILS ABSOLUTE AUTO 0.04 K/mm3 (0.00-0.23); BASOPHILS PERCENT AUTO 1 % (0-2); EOSINOPHILS ABSOLUTE AUTO 0.19 K/mm3 (0.00-0.68); EOSINOPHILS PERCENT AUTO 3 % (0-6); Hematocrit 24.9 % (33.0-51.0); Hemoglobin 7.7 g/dL (11.5-16.0); IMMATURE GRAN ABSOLUTE AUTO 0.13 K/mm3 (0.00-0.10); IMMATURE GRAN PERCENT AUTO 2 % (0-1); LYMPHOCYTES ABSOLUTE AUTO 1.37 K/mm3 (0.84-5.20); LYMPHOCYTES PERCENT AUTO 22 % (21-46); MONOCYTES ABSOLUTE AUTO 0.73 K/mm3 (0.16-1.47); MONOCYTES PERCENT AUTO 12 % (4-13); Mean Corpuscular HGB 30.4 pg (26.0-34.0); Mean Corpuscular HGB Conc 30.9 g/dL (31.5-36.5); Mean Corpuscular Volume 98 fL (80-100); Mean Platelet Volume 9.3 fL (9.1-12.4); NEUTROPHILS ABSOLUTE AUTO 3.78 K/mm3 (1.96-9.15); NEUTROPHILS PERCENT AUTO 61 % (41-73); Platelet Count 377 K/mm3 (150-400); RDW Coefficient Variation 14.4 % (11.7-14.2); RDW Standard Deviation 51.6 fL (35.1-46.3); Red Blood Cell Count 2.53 M/mm3 (3.80-5.20); White Blood Cell Count 6.24 K/mm3 (4.00-11.30)
--- NOTE | 2019-06-05 05:23 | NUR ---
Turn and reposition Q1-2H. Patient refuses to stay at 30 degree angle for more than 20min and wants the HOB raised. Educated patient on importance of staying off buttocks to allow pressure sore to heal. Patient still refusing and wants to sit.
--- NOTE | 2019-06-05 13:51 | NUR ---
OSTOMY APPLIANCE CHANGED.
--- NOTE | 2019-06-05 15:30 | NUR ---
DR WEBSTER IN TO SEE PT. DISCUSSED COCCYX WOUND AND H&H.
--- NOTE | 2019-06-05 17:10 | NUR ---
SHIFT SUMMARY PT A&OX4 T/O SHIFT WITH NO ACUTE CHANGES. OSTOMY PRODUCING STOOL WITH UNDIGESTED FOOD; APPLIANCE AND BAG CHANGED TODAY. MEPILEX DRESSING ON COCCYX ALSO CHANGED TODAY WITH NO NEW DRAINAGE NOTED; PHOTOS TAKEN OF COCCYX AND PLACED IN CHART. AMBULATED SEVERAL TIMES IN HALLWAY W/ 1 ASSIST AND WORKED WITH THERAPY. CALL LIGHT WITHIN REACH AND DEMONSTRATED APPROPRIATE USE T/O SHIFT.
--- NOTE | 2019-06-06 05:12 | NUR ---
PATIENT STAYED UP IN HER RECLINER FOR MOST OF THE NIGHT. SHE DID STAND AND AMBULATE SHORT DISTANCES IN THE ROOM AFTER ATTENDS CHANGES. SHE IS CURRENTLY IN BED. SHE IS ABLE TO STATE HER NEEDS, SHE IS APPROPRIATE WITH HER REQUESTS AND USES THE CALL LIGHT WELL. OCCASIONALLY RELEASED GAS FROM THE OSTOMY BAG.
[2019-06-06 05:15] LABS: BASOPHILS ABSOLUTE AUTO 0.05 K/mm3 (0.00-0.23); BASOPHILS PERCENT AUTO 1 % (0-2); EOSINOPHILS ABSOLUTE AUTO 0.16 K/mm3 (0.00-0.68); EOSINOPHILS PERCENT AUTO 3 % (0-6); Hematocrit 27.8 % (33.0-51.0); Hemoglobin 8.5 g/dL (11.5-16.0); IMMATURE GRAN ABSOLUTE AUTO 0.14 K/mm3 (0.00-0.10); IMMATURE GRAN PERCENT AUTO 2 % (0-1); LYMPHOCYTES ABSOLUTE AUTO 1.38 K/mm3 (0.84-5.20); LYMPHOCYTES PERCENT AUTO 22 % (21-46); MONOCYTES PERCENT AUTO 13 % (4-13); Mean Corpuscular HGB 30.2 pg (26.0-34.0); Mean Corpuscular HGB Conc 30.6 g/dL (31.5-36.5); Mean Corpuscular Volume 99 fL (80-100); Mean Platelet Volume 9.3 fL (9.1-12.4); NEUTROPHILS ABSOLUTE AUTO 3.81 K/mm3 (1.96-9.15); NEUTROPHILS PERCENT AUTO 60 % (41-73); Platelet Count 443 K/mm3 (150-400); RDW Coefficient Variation 14.4 % (11.7-14.2); RDW Standard Deviation 52.6 fL (35.1-46.3); Red Blood Cell Count 2.81 M/mm3 (3.80-5.20); White Blood Cell Count 6.34 K/mm3 (4.00-11.30)
[2019-06-06 05:38] LABS: Percent Saturation 15.2 % (15.0-50.0)
[2019-06-06 05:41] LABS: Alanine Aminotransfer (ALT/SGP 51 U/L (12-78); Albumin, Blood 1.9 g/dL (3.4-5.0); Albumin/Globulin Ratio 0.4 (0.8-1.8); Alk Phos 447 U/L (50-136); Anion Gap 7 mmol/L (6-16); Aspartate Aminotrans (AST/SGOT 34 U/L (12-37); Bilirubin, Total 0.3 mg/dL (0.1-1.0); Blood Urea Nitrogen 22 mg/dL (8-24); Bun/Creatinine Ratio 29.2 (12.0-20.0); CO2, Blood 25 mmol/L (21-32); Calcium, Blood 8.6 mg/dL (8.5-10.1); Chloride, Blood 111 mmol/L (98-108); Creatinine, Blood 0.75 mg/dL (0.40-1.00); Globulin, Blood 4.4 g/dL (2.2-4.0); Glomerular Filtration Rate >60 (60-); Glucose, Blood 97 mg/dL (70-99); Magnesium, Blood 1.9 mg/dL (1.6-2.4); Phosphorus, Blood 3.1 mg/dL (2.5-4.9); Potassium, Blood 4.1 mmol/L (3.5-5.5); Sodium, Blood 143 mmol/L (136-145); Total Protein, Blood 6.3 g/dL (6.4-8.2)
--- NOTE | 2019-06-06 17:23 | NUR ---
SHIFT SUMMARY PT HAS BEEN UP TO CHAIR TODAY. TOLERATING DIET WELL. WORKED WITH THERAPY TODAY. PT HAS BEEN REPOSITIONED MULT TIMES AND ASSISTED WITH ADL'S PRN. FAMILY HAS BEEN IN TO SEE PT. PT HAS REPORTED NO PAIN TODAY.
--- NOTE | 2019-06-06 18:53 | NUR ---
LATE ENTRY COMPLETE OSTOMY APPLIANCE CHANGED TODAY AT APPROX 1300.
--- NOTE | 2019-06-07 16:26 | NUR ---
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 HAS REPORTED NO PAIN. TOLERATING DIET AND FLUIDS WELL. OSTOMY HAS BEEN FUNCTIONING WELL. PT BRIEFS CHANGED PRN. PT REPOSITIONED MULT TIMES TODAY. ASSISTED WITH ADL'S PRN. PT HAD VISITOR TODAY.
--- NOTE | 2019-06-08 06:14 | NUR ---
SHIFT SUMMARY: TRACEY IS A&O X 4. SHE IS TOLERATING HER MECHANICAL SOFT DIET WELL. THE MEPILEX TO HER COCCYX WAS CHANGED THIS SHIFT. SHE IS INCONTINENT OF URINE. HER ILEOSTOMY IS DRAINING GREEN LIQUID STOOL. SHE IS ABLE TO MAKE HER NEEDS KNOWN. SHE IS SITTING IN HER CHAIR WITH HER CALL LIGHT IN REACH. NO ACUTE CHANGES THIS SHIFT. VSS.
[2019-06-08 06:19] LABS: BASOPHILS ABSOLUTE AUTO 0.07 K/mm3 (0.00-0.23); BASOPHILS PERCENT AUTO 1 % (0-2); EOSINOPHILS ABSOLUTE AUTO 0.13 K/mm3 (0.00-0.68); EOSINOPHILS PERCENT AUTO 2 % (0-6); Hematocrit 29.7 % (33.0-51.0); IMMATURE GRAN ABSOLUTE AUTO 0.17 K/mm3 (0.00-0.10); IMMATURE GRAN PERCENT AUTO 3 % (0-1); LYMPHOCYTES ABSOLUTE AUTO 1.51 K/mm3 (0.84-5.20); LYMPHOCYTES PERCENT AUTO 26 % (21-46); MONOCYTES ABSOLUTE AUTO 0.64 K/mm3 (0.16-1.47); MONOCYTES PERCENT AUTO 11 % (4-13); Mean Corpuscular HGB Conc 30.3 g/dL (31.5-36.5); Mean Corpuscular Volume 99 fL (80-100); Mean Platelet Volume 9.2 fL (9.1-12.4); NEUTROPHILS ABSOLUTE AUTO 3.34 K/mm3 (1.96-9.15); NEUTROPHILS PERCENT AUTO 57 % (41-73); Platelet Count 489 K/mm3 (150-400); RDW Coefficient Variation 14.5 % (11.7-14.2); RDW Standard Deviation 52.1 fL (35.1-46.3); White Blood Cell Count 5.86 K/mm3 (4.00-11.30)
[2019-06-08 06:40] LABS: Alanine Aminotransfer (ALT/SGP 78 U/L (12-78); Albumin/Globulin Ratio 0.4 (0.8-1.8); Alk Phos 484 U/L (50-136); Anion Gap 6 mmol/L (6-16); Aspartate Aminotrans (AST/SGOT 35 U/L (12-37); Bilirubin, Total 0.4 mg/dL (0.1-1.0); Blood Urea Nitrogen 25 mg/dL (8-24); Bun/Creatinine Ratio 44.8 (12.0-20.0); CO2, Blood 27 mmol/L (21-32); Calcium, Blood 8.9 mg/dL (8.5-10.1); Chloride, Blood 110 mmol/L (98-108); Creatinine, Blood 0.56 mg/dL (0.40-1.00); Globulin, Blood 4.7 g/dL (2.2-4.0); Glomerular Filtration Rate >60 (60-); Glucose, Blood 90 mg/dL (70-99); Potassium, Blood 4.1 mmol/L (3.5-5.5); Sodium, Blood 143 mmol/L (136-145); Total Protein, Blood 6.7 g/dL (6.4-8.2)
--- NOTE | 2019-06-08 18:28 | NUR ---
SUMMARY: NO CHANGE TODAY. VSS, A/O. SOFT STOOL FROM OSTOMY. PT TOLERATING DIET. PT RESISTANT TO CARE AT TIMES TODAY AND NEEDED ENCOURAGEMENT. MEPILEX DRESSING CHANGED AT [facility] BY ADRIÁN GANDHI RN. PT TO NEED POSSIBLE DEBRIDEMENT OF WOUND. DR. HERNADEZ CONSULTED SURGERY. ANSWERING SERVICE CALLED. NO SAFETY CONCERNS AT THIS TIME. WILL REPORT TO NOC RN
--- NOTE | 2019-06-09 04:26 | NUR ---
PT HAD NO ACUTE CHANGES T/O NIGHT; VSS. PT W/FLAT AFFECT, REFUSING Q2 REPOSITIONING. PT UP IN CHAIR DURING NIGHT PER REQ. PT ENC TO SHIFT SELF TO HELP TO KEEP PRESSURE OFF OF COCCYX WOUND. PT INCONTINENT OF URINE, PT ENC TO CALL FOR ASSISTANCE TO GET UP TO [facility]. PT UP OOB W/FWW+1 ASSIST, DOES WELL WHEN UP. PT USING CALL LIGHT FOR ASSISTANCE, WILL CONT TO MONITOR UNTIL REP GIVEN TO ONCOMING RN.
--- NOTE | 2019-06-09 15:46 | NUR ---
PT TURNED Q2 TODAY. ILEOSTOMY BAG CHANGED FREQUENTLY. PT CONTINUES TO BE RESISTANT TO CARE AT TIMES, BUT WITH SOME ENCOURAGMENT IS COMPLIANT. SPOKE WITH IMAGING ABOUT ORDER FOR ECHO, STAFF DOES NOT THINK THE TEST IS NECCECARY. ECHO SPOKE WITH DR. RASMUSSEN AND ORDER WAS DISCONTINUED.
--- NOTE | 2019-06-09 15:55 | NUR ---
DISCHARGE: TRANSPORT HERE FOR PT AT ABOUT 1505 TO TAKE PT TO REHAB. PT ASSISTED ONTO GURNEY BY THIS RN AND RASHEED MEDNIA, FAMILY IN ROOM AND COLLECTED PT BELONGINGS. DISCHARGE PACKET FROM CLINICAL PHARMACY MANAGER SENT WITH PT TRANSPORT. REPORT CALLED TO RN AT [facility] AT ABOUT 1525.
--- NOTE | 2019-06-09 15:58 | NUR ---
PICC LINE DC'D BY FILE CLERK MARIA BEFORE PT DISCHARGE
== END 2019-06-09 15:27 | DRG 326 ==
LOC: ER 19:59 → MEDS 20:00 → ICUE 05-02 08:30 → SURS 05-02 08:30 → MEDS 05-02 08:31 → ICUE 05-03 09:56 → MEDS 05-03 12:16 → SURS 05-05 15:32 → ICUE 05-12 07:45 → SURS 05-15 18:02
PROVIDERS: Emergency Medicine; Family Medicine; Hospitalist; Internal Medicine; Internal Medicine Critical Care Medicine; Internal Medicine Endocrinology, Diabetes & Metabolism; Internal Medicine Gastroenterology; Internal Medicine Nephrology; Internal Medicine Pulmonary Disease; Nurse Practitioner Acute Care; Pharmacist; Student in an Organized Health Care Education/Training Program; Surgery; ADMIT Family Medicine
PROC: 0D9K8ZZ Drainage of Ascending Colon, Via Natural or Artificial Opening Endoscopic (ICD-10-PCS; principal; 2019-05-01 12:30)
PROC: 0D1B0Z4 Bypass Ileum to Cutaneous, Open Approach (ICD-10-PCS; 2019-05-05)
PROC: 0DTN0ZZ Resection of Sigmoid Colon, Open Approach (ICD-10-PCS; 2019-05-05 13:00)
PROC: 0DQV0ZZ Repair Mesentery, Open Approach (ICD-10-PCS; 2019-05-12)
PROC: 02HV33Z Insertion of Infusion Device into Superior Vena Cava, Percutaneous Approach (ICD-10-PCS; 2019-05-12)
PROC: 5A1945Z Respiratory Ventilation, 24-96 Consecutive Hours (ICD-10-PCS; 2019-05-12)
PROC: 3E043XZ Introduction of Vasopressor into Central Vein, Percutaneous Approach (ICD-10-PCS; 2019-05-14)
PROC: 0D968ZZ Drainage of Stomach, Via Natural or Artificial Opening Endoscopic (ICD-10-PCS; 2019-05-22)
DX: K59.8 Other specified functional intestinal disorders (principal); L89.153 Pressure ulcer of sacral region, stage 3; A41.9 Sepsis, unspecified organism; R65.21 Severe sepsis with septic shock; J95.821 Acute postprocedural respiratory failure; E43 Unspecified severe protein-calorie malnutrition; T74.11XA Adult physical abuse, confirmed, initial encounter; N39.0 Urinary tract infection, site not specified; I42.1 Obstructive hypertrophic cardiomyopathy; E87.1 Hypo-osmolality and hyponatremia; N17.9 Acute kidney failure, unspecified; D62 Acute posthemorrhagic anemia; L76.32 Postprocedural hematoma of skin and subcutaneous tissue following other procedure; E87.2 Acidosis; K56.7 Ileus, unspecified; R64 Cachexia; T17.800A Unspecified foreign body in other parts of respiratory tract causing asphyxiation, initial encounter; Z51.5 Encounter for palliative care; Z90.11 Acquired absence of right breast and nipple; F81.9 Developmental disorder of scholastic skills, unspecified; R33.9 Retention of urine, unspecified; E87.6 Hypokalemia; R01.1 Cardiac murmur, unspecified; I95.9 Hypotension, unspecified; E87.5 Hyperkalemia; R32 Unspecified urinary incontinence; N18.2 Chronic kidney disease, stage 2 (mild); I12.9 Hypertensive chronic kidney disease with stage 1 through stage 4 chronic kidney disease, or unspecified chronic kidney disease; K21.9 Gastro-esophageal reflux disease without esophagitis; K29.60 Other gastritis without bleeding; K31.84 Gastroparesis; K59.31 Toxic megacolon; X58.XXXA Exposure to other specified factors, initial encounter; Y92.239 Unspecified place in hospital as the place of occurrence of the external cause
CPT/HCPCS: 31720; 36415; 36430; 36556; 36569; 36600; 51703; 71045; 71046; 74018; 74019; 74176; 74230; 76705; 80048; 80053; 80069; 80076; 80202; 81001; 82330; 82728; 82803; 82947; 83540; 83550; 83605; 83690; 83735; 83880; 84100; 84132; 84439; 84443; 84478; 84484; 85014; 85018; 85025; 85027; 85610; 86850; 86900; 86901; 86923; 87040; 87086; 88304; 88307; 92526; 92610; 92611; 93005; 93010; 93306; 93308; 93321; 94002; 94003; 94667; 94668; 96361; 96366; 96367; 97110; 97116; 97162; 97164; 97165; 97168; 97530; 97535; 99285-25; A9270; A9270-GY; C1751; C9113; G0378; J0330; J0610; J0690; J0696; J1450; J1650; J1815; J1940; J2250; J2405; J2543; J2704; J2710; J3010; J3370; J3475; J3480; J7030; J7040; J7050; J7060; J7070; J7120; J7131; J7799; P9016

== ENCOUNTER 2019-06-25 10:14 | Emergency (ER) | payer OTHER ==
[~2019-06-25] VITALS: Ht 162.6 cm; Wt 33.6 kg
[~2019-06-25 10:14] MED LIST changes: +PERIDEX15 ML PO
[2019-06-25] MEDS ORDERED: Promod946 ML PO (10:33)
--- NOTE | 2019-06-25 11:49 | NUR ---
Notified Bridger window caser. pt window caser coming in to see her. concern for weight loss plan is outpatient management of decubitus and possible peg. pt more frail and cachectic may no be canidate plan is to also review hospice care.
[2019-06-26] MEDS ORDERED: ACETAMINOP325 MG/10. PO (16:46)
[2019-06-26] MEDS ORDERED: Prilosec10 M1 PO (16:46)
[2019-06-26] MEDS ORDERED: MEGESTROL400 MG/10 PO (16:47)
== END 2019-06-25 12:30 | disposition home or self-care (01) ==
LOC: ER 10:14
DX: E46 Unspecified protein-calorie malnutrition (principal); L89.159 Pressure ulcer of sacral region, unspecified stage
CPT/HCPCS: 99284

== ENCOUNTER 2019-06-26 15:22 | Inpatient (IN) | payer OTHER ==
[~2019-06-26] VITALS: Ht 160 cm; Wt 36.3 kg
[~2019-06-26 15:22] MED LIST changes: +Promod946 ML PO
[2019-06-26 16:44] LABS: BASOPHILS ABSOLUTE AUTO 0.04 K/mm3 (0.00-0.23); BASOPHILS PERCENT AUTO 0 % (0-2); EOSINOPHILS ABSOLUTE AUTO 0.01 K/mm3 (0.00-0.68); EOSINOPHILS PERCENT AUTO 0 % (0-6); Hematocrit 38.2 % (33.0-51.0); Hemoglobin 12.2 g/dL (11.5-16.0); IMMATURE GRAN ABSOLUTE AUTO 0.33 K/mm3 (0.00-0.10); IMMATURE GRAN PERCENT AUTO 2 % (0-1); LYMPHOCYTES ABSOLUTE AUTO 1.34 K/mm3 (0.84-5.20); LYMPHOCYTES PERCENT AUTO 8 % (21-46); MONOCYTES ABSOLUTE AUTO 0.95 K/mm3 (0.16-1.47); MONOCYTES PERCENT AUTO 6 % (4-13); Mean Corpuscular HGB 30.3 pg (26.0-34.0); Mean Corpuscular HGB Conc 31.9 g/dL (31.5-36.5); Mean Corpuscular Volume 95 fL (80-100); Mean Platelet Volume 9.4 fL (9.1-12.4); NEUTROPHILS ABSOLUTE AUTO 13.26 K/mm3 (1.96-9.15); NEUTROPHILS PERCENT AUTO 83 % (41-73); Platelet Count 435 K/mm3 (150-400); RDW Coefficient Variation 14.8 % (11.7-14.2); RDW Standard Deviation 51.9 fL (35.1-46.3); Red Blood Cell Count 4.02 M/mm3 (3.80-5.20); White Blood Cell Count 15.93 K/mm3 (4.00-11.30)
[2019-06-26] MEDS ORDERED: Prilosec10 M1 PO (16:46)
[2019-06-26] MEDS ORDERED: ACETAMINOP325 MG/10. PO (16:46)
[2019-06-26] MEDS ORDERED: MEGESTROL400 MG/10 PO (16:47)
[2019-06-26 17:11] LABS: Alanine Aminotransfer (ALT/SGP 143 U/L (12-78); Albumin, Blood 2.5 g/dL (3.4-5.0); Albumin/Globulin Ratio 0.5 (0.8-1.8); Anion Gap 6 mmol/L (6-16); Aspartate Aminotrans (AST/SGOT 62 U/L (12-37); Bilirubin, Total 0.4 mg/dL (0.1-1.0); Blood Urea Nitrogen 38 mg/dL (8-24); Bun/Creatinine Ratio 59.6 (12.0-20.0); CO2, Blood 22 mmol/L (21-32); Calcium, Blood 9.3 mg/dL (8.5-10.1); Chloride, Blood 107 mmol/L (98-108); Creatinine, Blood 0.64 mg/dL (0.40-1.00); Globulin, Blood 4.9 g/dL (2.2-4.0); Glomerular Filtration Rate >60 (60-); Glucose, Blood 116 mg/dL (70-99); Potassium, Blood 4.5 mmol/L (3.5-5.5); Sodium, Blood 135 mmol/L (136-145); Total Protein, Blood 7.4 g/dL (6.4-8.2)
[2019-06-26 17:19] LABS: Alk Phos 1024 U/L (50-136)
--- NOTE | 2019-06-26 18:27 | NUR ---
SHIFT SUMMARY PATIENT IS NPO AT THIS TIME. AWAITING PEG TUBE PLACEMENT. PALLIATIVE CARE CONSULT IN PLACE FOR PATIENT AT THIS TIME. PATIENT HAS BASELINE COGNITIVE IMPAIRMENT.
--- NOTE | 2019-06-26 18:55 | NUR ---
Initial palliative care consult: Pt is well known to palliative care staff from recent admissions to [facility]. She comes in tonight for continued failure to thrive and for PEG tube placement tomorrow. No family or advocates are with her this evening. She is anxious this evening, fearful that she will not sleep. Emotional support given. Chart reviewed from last admission. Pt's last admission was 37 days and she had multiple surgeries and spent some time on a ventilator. Discussions were held with Adela, her , [facility] advocates and [facility] staff. Pt's previous POLST form from 2014 which is available in the EMR is full code and with full treatment. Reviewed palliative care chart notes from 05/12/19 and a new POLST form was discussed and signed by pt's per notes. It is documented that this POLST was faxed to medical records, however it it not available in the EMR. Spoke with staff at rehab and they state they have a recent POLST form that was signed on 06/15/19 for full code, full treatmemt. Requested that this POLST form be faxed to PC department this evening. Spoke with Dr. Concepcion and pt's nurse Agnieszka. Will attempt to obtain most recent POLST form and will follow up with pt's tomorrow. PC to remain available.
--- NOTE | 2019-06-26 23:04 | NUR ---
1999 THIS NURSE ALONG WITH THREE STAFF TURNED PATIENT, OBTAINED PHOTOS COCCYX, WOUND CULTURE OBTAINED COCCYX--SITE CLEANSED AFTERWARDS SALINE, WET TO DRY PACK WITH MEPLEX DRESSING APPLIED, SITE STAGE IV WOUND MEASURING 4 X 3 X 2 X 4CM (4CM UNDERMINING NOTED ENIRE WOUND). LACTATED RINGERS STARTED X 200ML/HR.
[2019-06-27 04:55] LABS: BASOPHILS ABSOLUTE AUTO 0.04 K/mm3 (0.00-0.23); BASOPHILS PERCENT AUTO 0 % (0-2); EOSINOPHILS PERCENT AUTO 0 % (0-6); Hematocrit 29.4 % (33.0-51.0); Hemoglobin 9.1 g/dL (11.5-16.0); IMMATURE GRAN ABSOLUTE AUTO 0.37 K/mm3 (0.00-0.10); IMMATURE GRAN PERCENT AUTO 2 % (0-1); LYMPHOCYTES ABSOLUTE AUTO 0.62 K/mm3 (0.84-5.20); LYMPHOCYTES PERCENT AUTO 3 % (21-46); MONOCYTES ABSOLUTE AUTO 1.18 K/mm3 (0.16-1.47); MONOCYTES PERCENT AUTO 5 % (4-13); Mean Corpuscular HGB 29.3 pg (26.0-34.0); Mean Corpuscular Volume 95 fL (80-100); Mean Platelet Volume 9.2 fL (9.1-12.4); NEUTROPHILS ABSOLUTE AUTO 20.12 K/mm3 (1.96-9.15); NEUTROPHILS PERCENT AUTO 90 % (41-73); Platelet Count 304 K/mm3 (150-400); RDW Coefficient Variation 14.9 % (11.7-14.2); RDW Standard Deviation 51.7 fL (35.1-46.3); Red Blood Cell Count 3.11 M/mm3 (3.80-5.20); White Blood Cell Count 22.33 K/mm3 (4.00-11.30)
--- NOTE | 2019-06-27 05:08 | NUR ---
SHIFT SUMMARY: 69 Y/O SLENDER FEMALE HAD RESTLESS SHIFT AT TIMES, DENIES PAIN, ASKING NUMEROUS TIMES TO GET UP OOB, PT IS ALERT TO PERSON ONLY AND HAS MUCH DIFFICULTY FOLLOWING SIMPLE VERBAL COMMANDS AT TIMES FROM NURSING STAFF, PT RECEIVING LACTATED RINGERS AT 200ML/HR AND ANTIBIOTICS ALL SHIFT, KLINIMIX WAS NOT STARTED YET AND SANJUANITA HOGUE RN, CHARGE WAS ADVISED DUE TO ONLY HAVING ONE IV SITE AT THIS TIME (PT HAS NO VEINS AVAILABLE), PT INCONTINENT URINE WITH ATTENDS DIAPERS APPLIED, TURNED Q2H BY STAFF, BED ALARM APPLIED, BED LOW POSITION WITH CALL LIGHT AT SIDE, MEPLEX DRESSING TO COCCYX (SEE PHOTOS ON CHART).
[2019-06-27 05:22] LABS: Alanine Aminotransfer (ALT/SGP 88 U/L (12-78); Albumin, Blood 1.9 g/dL (3.4-5.0); Albumin/Globulin Ratio 0.5 (0.8-1.8); Alk Phos 757 U/L (50-136); Anion Gap 8 mmol/L (6-16); Aspartate Aminotrans (AST/SGOT 36 U/L (12-37); Bilirubin, Total 0.7 mg/dL (0.1-1.0); Blood Urea Nitrogen 25 mg/dL (8-24); Bun/Creatinine Ratio 41.1 (12.0-20.0); CO2, Blood 21 mmol/L (21-32); Calcium, Blood 8.4 mg/dL (8.5-10.1); Chloride, Blood 111 mmol/L (98-108); Creatinine, Blood 0.61 mg/dL (0.40-1.00); Globulin, Blood 3.6 g/dL (2.2-4.0); Glomerular Filtration Rate >60 (60-); Glucose, Blood 92 mg/dL (70-99); Potassium, Blood 3.7 mmol/L (3.5-5.5); Sodium, Blood 140 mmol/L (136-145); Total Protein, Blood 5.5 g/dL (6.4-8.2)
--- NOTE | 2019-06-27 07:33 | NUR ---
PATIENT IS VERY PLEASANT BUT MILDLY ANXIOUS TODAY. ALERT AND ORIENTED TO SELF. EXPLAINED THEY WERE COMING TO GET HER FOR SURGERY SOON. JUST AWAITING SURGICAL STAFF AT THIS TIME.
--- NOTE | 2019-06-27 12:53 | NUR ---
PATIENT HAS BEEN TAKEN DOWN TO OR FOR DEBRIDEMENT AND WOUND VAC PLACEMENT OF THE SORE ON HER BOTTOM AND ALSO FOR PEG TUBE PLACEMENT. FAMILY HAS BEEN UPDATED PER REQUEST OF THE PATIENT. NO ACUTE CONCERNS. PATIENT IS GETTING ANXIOUS RELATED TO BEING IN BED AND HER UPCOMING SURGERY. WILL ASSESS ANXIETY ONCE SHE IS BACK FROM OR.
--- NOTE | 2019-06-27 12:58 | NUR ---
History, Chart, Medications and Allergies reviewed before start of procedure. Patient confirms NPO status and agrees with scheduled surgery.
--- NOTE | 2019-06-27 13:28 | NUR ---
06/27/19 1328 Gino De Guzman History, Chart, Medications and Allergies reviewed before start of procedure.MONITOR INTACT WITH CONTINUOUS PULSE OXIMETRY AND INTERMITTENT BP.3-LEAD EKG REVIEWED WITH PHYSICIAN PRIOR TO START OF PROCEDURE.See Anesthesia record.
--- NOTE | 2019-06-27 14:30 | NUR ---
06/27/19 1430 Roger Perez PATIENT DIFFICULT TO INTUBATE. SEE ANESTHESIA RECORD. PEG TUBE PERFORMED PRIOR TO THIS PROCEDURE.
--- NOTE | 2019-06-27 16:52 | NUR ---
PATIENT BACK TO THE ROOM FROM OR AND PACU. PATIENT HAD PEG TUBE PLACEMENT WHICH IS 4CM AT THE HUB OF THE PEG TUBE. PATIENT IS CURRENTLY RESTING. SHE HAD GENERAL ANESTHESIA, PEG TUBE PLACEMENT, AND DEBRIDEMENT AND WOUND VAC PLACEMENT ON HER COCYX. PATIENT IS NOW RESTING, VITALS TAKEN.
--- NOTE | 2019-06-27 18:33 | NUR ---
SHIFT SUMMARY PATIENT IS PLEASANT ALERT TO SELF. ORIENTED TO SELF. CURRENTLY VERY LETHARGIC. SHE WENT TO THE OR TODAY TO HAVE HER PEG TUBE PLACED WELL A WOUND DEBRIDEMENT AND WOUND VAC PLACEMENT OVER THE PRESSURE ULCER ON HER BOTTOM. SHE IS VERY ANXIOIUS BUT SETTLED SINCE SHE IS STILL VERY LETHARGIC FROM THE ANESTHESIA. SHE HAS NO MAJOR CONCERNS AT THIS TIME. SHE CANNOT USE THE PEG TUBE UNTIL TOMORROW AM AROUND 0800. WILL START HER TUBE FEEDINGS AT THAT TIME. SHE HAS TWO IV ACCESS AND IS CURRENTLY ON CLINIMIX.
[2019-06-27 19:24] LABS: Vancomycin, Trough 7.2 ug/mL (5.0-10.0)
--- NOTE | 2019-06-28 01:54 | NUR ---
06/27/191999 RESTING COMFORTABLY IN BED WITH BED ALARM APPLIED.
--- NOTE | 2019-06-28 04:32 | NUR ---
SHIFT SUMMARY: 69 Y/O FEMALE RESTED COMFORTABLY ALL SHIFT WITH NO PAIN OR NAUSEA VOICED, PEG TUBE DRESSING DRY AND INTACT, KLIMINEX INFUSING AT 75CC/HR VIA LEFT ANTECUBITAL SITE, WOUND VAC TO COCCYX INTACT, TURNED Q2H, PT TALKS IN 2-3 WORD SENTENCES ONLY WITH THOUGHT PROCESS DISORGANIZED, BED ALARM APPLIED, BED LOW POSITION WITH CALL LIGHT AT SIDE.
[2019-06-28 05:05] LABS: Alanine Aminotransfer (ALT/SGP 58 U/L (12-78); Albumin, Blood 1.5 g/dL (3.4-5.0); Albumin/Globulin Ratio 0.4 (0.8-1.8); Anion Gap 7 mmol/L (6-16); Aspartate Aminotrans (AST/SGOT 16 U/L (12-37); Bilirubin, Total 0.3 mg/dL (0.1-1.0); Blood Urea Nitrogen 23 mg/dL (8-24); Bun/Creatinine Ratio 42.9 (12.0-20.0); CO2, Blood 23 mmol/L (21-32); Calcium, Blood 7.9 mg/dL (8.5-10.1); Chloride, Blood 111 mmol/L (98-108); Creatinine, Blood 0.54 mg/dL (0.40-1.00); Globulin, Blood 3.4 g/dL (2.2-4.0); Glomerular Filtration Rate >60 (60-); Glucose, Blood 143 mg/dL (70-99); Magnesium, Blood 1.8 mg/dL (1.6-2.4); Phosphorus, Blood 3.3 mg/dL (2.5-4.9); Potassium, Blood 3.6 mmol/L (3.5-5.5); Sodium, Blood 141 mmol/L (136-145); Total Protein, Blood 4.9 g/dL (6.4-8.2)
[2019-06-28 05:06] LABS: Alk Phos 508 U/L (50-136)
[2019-06-28 11:55] LABS: BASOPHILS ABSOLUTE AUTO 0.02 K/mm3 (0.00-0.23); BASOPHILS PERCENT AUTO 0 % (0-2); EOSINOPHILS ABSOLUTE AUTO 0.01 K/mm3 (0.00-0.68); EOSINOPHILS PERCENT AUTO 0 % (0-6); Hemoglobin 7.6 g/dL (11.5-16.0); IMMATURE GRAN ABSOLUTE AUTO 0.22 K/mm3 (0.00-0.10); IMMATURE GRAN PERCENT AUTO 1 % (0-1); LYMPHOCYTES ABSOLUTE AUTO 0.65 K/mm3 (0.84-5.20); LYMPHOCYTES PERCENT AUTO 4 % (21-46); MONOCYTES ABSOLUTE AUTO 0.67 K/mm3 (0.16-1.47); MONOCYTES PERCENT AUTO 4 % (4-13); Mean Corpuscular HGB 29.7 pg (26.0-34.0); Mean Corpuscular HGB Conc 30.4 g/dL (31.5-36.5); NEUTROPHILS ABSOLUTE AUTO 14.61 K/mm3 (1.96-9.15); NEUTROPHILS PERCENT AUTO 90 % (41-73); Platelet Count 289 K/mm3 (150-400); RDW Coefficient Variation 15.2 % (11.7-14.2); RDW Standard Deviation 54.6 fL (35.1-46.3); Red Blood Cell Count 2.56 M/mm3 (3.80-5.20); White Blood Cell Count 16.18 K/mm3 (4.00-11.30)
[2019-06-28 11:59] LABS: Mean Corpuscular Volume 98 fL (80-100)
--- NOTE | 2019-06-28 16:01 | NUR ---
patient has been on the tube feeding for 8 hours and is very pleasant, no complaints of abdominal distention. she is currently doing very well. she has no complains of abdominal pain, no excess bowel movements. notes she is tired but feels better. she is not as pale as yesterday. dr. valencia agreed to daily weights to monitor her intake well.
--- NOTE | 2019-06-28 17:58 | NUR ---
CHECKED WITH PHARMACIST FOR REGLAN SOLUTION INSTEAD OF PILL FORM FOR PEG TUBE. MEDICATION ALL PLACED PER TUBE. NO ACUTE CONCERNS AT THIS TIME.
--- NOTE | 2019-06-28 19:12 | NUR ---
SHIFT SUMMARY NO ACUTE CONCERNS AT THIS TIME. PATIENT IS PLEASANT. PEG TUBE WAS STARTED HER FEEDSINGS TODAY. SHE HAS NO COMPLAINTS OF PAIN. SHE IS NO LONGER ON IV FLUIDS.
--- NOTE | 2019-06-29 00:15 | NUR ---
06/28/191999 JEVITY INFUSING AT 30ML/HR PER KANGAROO PUMP, NO RESIDUALS NOTED, TOLERATING PEG TUBE FEEDING WELL, ALERT TO PERSON ONLY, SPEECH DISORGANIZED AND TALKS 2-3 WORDS ONLY, BED ALARM APPLIED WITH CALL LIGHT AT SIDE.
[2019-06-29 04:48] LABS: BASOPHILS ABSOLUTE AUTO 0.03 K/mm3 (0.00-0.23); BASOPHILS PERCENT AUTO 0 % (0-2); EOSINOPHILS ABSOLUTE AUTO 0.16 K/mm3 (0.00-0.68); EOSINOPHILS PERCENT AUTO 1 % (0-6); Hematocrit 32.5 % (33.0-51.0); IMMATURE GRAN ABSOLUTE AUTO 0.15 K/mm3 (0.00-0.10); IMMATURE GRAN PERCENT AUTO 1 % (0-1); LYMPHOCYTES ABSOLUTE AUTO 0.35 K/mm3 (0.84-5.20); LYMPHOCYTES PERCENT AUTO 3 % (21-46); MONOCYTES ABSOLUTE AUTO 0.44 K/mm3 (0.16-1.47); MONOCYTES PERCENT AUTO 4 % (4-13); Mean Corpuscular HGB 28.6 pg (26.0-34.0); Mean Corpuscular HGB Conc 30.8 g/dL (31.5-36.5); Mean Corpuscular Volume 93 fL (80-100); Mean Platelet Volume 9.2 fL (9.1-12.4); NEUTROPHILS ABSOLUTE AUTO 10.06 K/mm3 (1.96-9.15); NEUTROPHILS PERCENT AUTO 90 % (41-73); Platelet Count 274 K/mm3 (150-400); RDW Coefficient Variation 18.2 % (11.7-14.2); RDW Standard Deviation 62.4 fL (35.1-46.3); White Blood Cell Count 11.19 K/mm3 (4.00-11.30)
[2019-06-29 05:16] LABS: Magnesium, Blood 1.8 mg/dL (1.6-2.4)
[2019-06-29 05:17] LABS: Anion Gap 6 mmol/L (6-16); Blood Urea Nitrogen 16 mg/dL (8-24); Bun/Creatinine Ratio 29.3 (12.0-20.0); CO2, Blood 24 mmol/L (21-32); Calcium, Blood 8.1 mg/dL (8.5-10.1); Chloride, Blood 115 mmol/L (98-108); Creatinine, Blood 0.55 mg/dL (0.40-1.00); Glomerular Filtration Rate >60 (60-); Glucose, Blood 106 mg/dL (70-99); Phosphorus, Blood 2.7 mg/dL (2.5-4.9); Potassium, Blood 3.3 mmol/L (3.5-5.5); Sodium, Blood 145 mmol/L (136-145)
--- NOTE | 2019-06-29 05:49 | NUR ---
SHIFT SUMMARY: 69 Y/O SLENDER FEMALE RESTED COMFORTABLY ALL SHIFT, PATIENT ALERT AND ABLE TO CONVERSE WITH NURSING STAFF ALL NEEDS AND APPEARS TO BE FEELING MUCH BETTER, JEVITY 1.2 NAVEEN INFUSING VIA PEG TUBE WITH NO RESIDUALS NOTED AND NO S/S OF INFECTION AT INSERTION SITE NOTED (COVERED WITH 4 X 4 DRAIN SPONGE), WOUND VAC TO COCCYX INTACT AT 120MM/HG CONTINUOUS SUCTION, PT EAGER TO RETURN BACK TO [facility] SOON, BED ALARM APPLIED, BED LOW POSITION WITH CALL LIGHT AT SIDE, DENIES PAIN OR NAUSEA.
--- NOTE | 2019-06-29 09:35 | NUR ---
KLYSTROM TUBE TESTER SPOKE WITH PT'S KLYSTROM TUBE TESTER FROM JULIO C MARTIN, WITH UPDATES ON PT'S CONDITION
--- NOTE | 2019-06-29 18:18 | NUR ---
PT ALERT TO SELF THIS SHIFT. PT DEVELOPMENTALLY DELAYED. PT ABLE TO STATE THAT SHE HAS BEEN LIVING AT [facility]. PT HAS SPENT MOST OF THE DAY IN A CHAIR, STATING THE BED IS UNCOMFORTABLE, LIKELY DUE TO PRESSURE INJURY ON COCCYX. VACUUM DRESSING CHANGED THIS AFTERNOON. DR CASTORENA STATED THAT PT COULD HAVE SIPS AND (ICE) CHIPS. PT ENJOYS ICE CHIPS. PEG TUBE CONTINUOUS FEEDING ADVANCED TO 40 ML PER HOUR, PT TOLERATING WELL. PT CURRENTLY UP IN CHAIR WATCHING TV. WILL CONTINUE TO MONITOR.
[2019-06-30 05:53] LABS: Anion Gap 7 mmol/L (6-16); Blood Urea Nitrogen 13 mg/dL (8-24); Bun/Creatinine Ratio 27.9 (12.0-20.0); CO2, Blood 25 mmol/L (21-32); Chloride, Blood 112 mmol/L (98-108); Creatinine, Blood 0.47 mg/dL (0.40-1.00); Glomerular Filtration Rate >60 (60-); Glucose, Blood 101 mg/dL (70-99); Magnesium, Blood 1.8 mg/dL (1.6-2.4); Phosphorus, Blood 2.2 mg/dL (2.5-4.9); Potassium, Blood 3.1 mmol/L (3.5-5.5); Sodium, Blood 144 mmol/L (136-145)
--- NOTE | 2019-06-30 17:25 | NUR ---
SUMMARY PT SITTING UP IN THE CHAIR AT THE BEDSIDE, PT TOLERATING CONTINUOUS TUBE FEEDS, LIQUID OUTPUT FROM THE OSTOMY, PT HAS HAD SEVERAL FAITH MEMBER VISITORS WELL HER SPOUSE VISIT, PT WORKED WITH PT/OT, HAS DECLINED TO GET BACK INTO THE BED T/O THE DAY, VSS, NO ACUTE CHANGES, WILL CONT TO MONITOR
--- NOTE | 2019-06-30 18:35 | NUR ---
Spiritual Care inital note: Mrs. Paiz was being visited by a dear friend from temple. It appears to me pt is well loved and supported by her temple family and regional property manager. Both are making daily visits, providing prayer and spiritual support. Mrs. Paiz was non-verbal with me, but she allowed me to hold her hand while I prayed for her. Friend states they are hopeful Adela will be able to return to SNF. No concerns or fears presented. I will remain available.
--- NOTE | 2019-07-01 06:51 | NUR ---
GEAR FINISHER SUMMARY patient quite distraught at about getting out of chair. explained tht she already had a very severe wound on her coccyx requiring a vacuum to drain the wound. patient was finally ammenable to transfer to bed. this took a two person maximum assist to pivot transfer her onto the bed. patient wasn't able to bear weight at all. actually held her feet up off the ground. ostomy site looks intact. patient tolerating IV antibiotics. sacral wound (where vac is attached is also dressing intact. no complaints of pain. but consistantly asks if we are going to hurt her whenever we interact. are going to hurt
[2019-07-01 09:25] LABS: Anion Gap 6 mmol/L (6-16); Blood Urea Nitrogen 10 mg/dL (8-24); Bun/Creatinine Ratio 21.1 (12.0-20.0); CO2, Blood 29 mmol/L (21-32); Calcium, Blood 7.9 mg/dL (8.5-10.1); Chloride, Blood 109 mmol/L (98-108); Creatinine, Blood 0.48 mg/dL (0.40-1.00); Glomerular Filtration Rate >60 (60-); Glucose, Blood 106 mg/dL (70-99); Potassium, Blood 3.2 mmol/L (3.5-5.5); Sodium, Blood 144 mmol/L (136-145)
--- NOTE | 2019-07-01 16:00 | NUR ---
Update on current status obtained from [facility] CLinical Dye Maker and EMR.
--- NOTE | 2019-07-01 16:45 | NUR ---
PT. TRANSFERRED TO [facility] VIA VAN. PT. WOUND VAC REMOVED AND WET TO DRY DRESSING PLACED. PT. VERY CACHECTIC . REPORT CALLED TO DORA CARBALLO AT [facility]
== END 2019-07-01 16:45 | DRG 981 ==
LOC: ER 15:22 → MEDS 15:53 → ER 15:53 → MEDS 17:02
PROVIDERS: Emergency Medicine; Family Medicine; Internal Medicine Gastroenterology; Surgery; ADMIT Internal Medicine
PROC: 0LBJ0ZZ Excision of Right Hip Tendon, Open Approach (ICD-10-PCS; 2019-06-27)
PROC: 0DJ08ZZ Inspection of Upper Intestinal Tract, Via Natural or Artificial Opening Endoscopic (ICD-10-PCS; principal; 2019-06-27 08:00)
PROC: 0DH63UZ Insertion of Feeding Device into Stomach, Percutaneous Approach (ICD-10-PCS; 2019-06-27 08:00)
DX: E43 Unspecified severe protein-calorie malnutrition (principal); L89.154 Pressure ulcer of sacral region, stage 4; Z68.1 Body mass index [BMI] 19.9 or less, adult; R64 Cachexia; F81.9 Developmental disorder of scholastic skills, unspecified; K59.8 Other specified functional intestinal disorders; D63.8 Anemia in other chronic diseases classified elsewhere; Z90.10 Acquired absence of unspecified breast and nipple; Z93.2 Ileostomy status; R62.7 Adult failure to thrive; Z90.49 Acquired absence of other specified parts of digestive tract; R62.50 Unspecified lack of expected normal physiological development in childhood; R13.12 Dysphagia, oropharyngeal phase; E86.0 Dehydration; E87.6 Hypokalemia; E83.39 Other disorders of phosphorus metabolism; B95.4 Other streptococcus as the cause of diseases classified elsewhere; B96.89 Other specified bacterial agents as the cause of diseases classified elsewhere
CPT/HCPCS: 36415; 36430; 71045; 80048; 80053; 80202; 82947; 83690; 83735; 84100; 85025; 86850; 86900; 86901; 86923; 87070; 87075; 87077; 87147; 87186; 87205; 93005; 93010; 96365; 96366; 96367; 96372; 96375; 96376; 97110; 97162; 97166; 97530; 99284-25; A9270-GY; C1769; C9113; G0378; J0330; J0690; J1100; J1644; J2370; J2405; J2543; J2704; J2765; J3010; J3370; J7030; J7050; J7120; P9016

== ENCOUNTER 2019-07-16 14:41 | Day surgery (SDC) | payer OTHER ==
[~2019-07-16 14:41] MED LIST changes: +ACETAMINOP325 MG/10. PO; +MEGESTROL400 MG/10 PO; +Prilosec10 M1 PO
[2019-07-16] MEDS ORDERED: Megestrol400 MG/10 PT (20:12)
[2019-07-16] MEDS ORDERED: Prilosec10 M1 PT (20:20)
[2019-07-16] MEDS ORDERED: Potassium20 MEQ/11 PT (20:21)
[2019-07-16] MEDS ORDERED: METO10SY PT (20:21)
[2019-07-16] MEDS ORDERED: Zegerid 20 MG1 EAC1 PT (20:22)
== END 2019-07-16 23:14 | disposition home or self-care (01) ==
LOC: WOUND 14:41
DX: L89.154 Pressure ulcer of sacral region, stage 4 (principal); I10 Essential (primary) hypertension; I95.9 Hypotension, unspecified
CPT/HCPCS: 87071; 87075; 87205; 88305; 88311; G0463

== ENCOUNTER 2019-07-16 17:13 | Inpatient (IN) | payer OTHER ==
[~2019-07-16] VITALS: Ht 162.6 cm; Wt 42.9 kg
[2019-07-16 17:58] LABS: Hematocrit 36.3 % (33.0-51.0); Mean Corpuscular HGB 28.6 pg (26.0-34.0); Mean Corpuscular HGB Conc 30.3 g/dL (31.5-36.5); Mean Corpuscular Volume 94 fL (80-100); Platelet Count 589 K/mm3 (150-400); RDW Coefficient Variation 15.7 % (11.7-14.2); RDW Standard Deviation 53.8 fL (35.1-46.3); Red Blood Cell Count 3.85 M/mm3 (3.80-5.20)
[2019-07-16 18:29] LABS: BAND PERCENT MAN 5 % (0-8); BASOPHILS PERCENT MAN 0 % (0-2); EOSINOPHILS PERCENT MAN 0 % (0-6); LYMPHOCYTES ABSOLUTE MAN 2.94 K/mm3 (0.84-5.20); LYMPHOCYTES PERCENT MAN 19 % (21-46); METAMYELOCYTE ABSOLUTE MAN 0.62 K/mm3 (0.00-0.00); METAMYELOCYTE PERCENT MAN 4 % (0-0); MONOCYTES ABSOLUTE MAN 1.08 K/mm3 (0.16-1.47); MONOCYTES PERCENT MAN 7 % (4-13); MYELOCYTE ABSOLUTE MAN 0.46 K/mm3 (0.00-0.00); MYELOCYTE PERCENT MAN 3 % (0-0); NEUTROPHILS ABSOLUTE MAN 10.38 K/mm3 (1.96-9.15); SEG NEUTROPHILS PERCENT MAN 62 % (41-73); TOTAL CELLS COUNTED 100
[2019-07-16] MEDS ORDERED: Megestrol400 MG/10 PT (20:12)
[2019-07-16] MEDS ORDERED: Prilosec10 M1 PT (20:20)
[2019-07-16] MEDS ORDERED: METO10SY PT (20:21)
[2019-07-16] MEDS ORDERED: Potassium20 MEQ/11 PT (20:21)
[2019-07-16] MEDS ORDERED: Zegerid 20 MG1 EAC1 PT (20:22)
[2019-07-16 20:59] LABS: Source, Urine Catheter
[2019-07-16 21:05] LABS: Bilirubin, Urine Neg (Neg); Blood, Urine 4+ (Neg); Glucose Qualitative, Urine Neg (Neg); Ketones, Urine Neg (Neg); Leukocyte Esterase, Urine 3+ (Neg); Nitrite, Urine Neg (Neg); Protein, Urine 2+ (Neg); Specific Gravity, Urine 1.015 (1.003-1.022); Urobilinogen, Urine NORM (Normal)
[2019-07-16 21:17] LABS: Alanine Aminotransfer (ALT/SGP 230 U/L (12-78); Albumin, Blood 1.5 g/dL (3.4-5.0); Albumin/Globulin Ratio 0.3 (0.8-1.8); Alk Phos 997 U/L (50-136); Anion Gap 7 mmol/L (6-16); Aspartate Aminotrans (AST/SGOT 109 U/L (12-37); Bilirubin, Total 0.4 mg/dL (0.1-1.0); Blood Urea Nitrogen 18 mg/dL (8-24); Bun/Creatinine Ratio 46.4 (12.0-20.0); CO2, Blood 23 mmol/L (21-32); Calcium, Blood 8.3 mg/dL (8.5-10.1); Chloride, Blood 111 mmol/L (98-108); Creatinine, Blood 0.39 mg/dL (0.40-1.00); Globulin, Blood 4.8 g/dL (2.2-4.0); Glomerular Filtration Rate >60 (60-); Glucose, Blood 111 mg/dL (70-99); Potassium, Blood 5.1 mmol/L (3.5-5.5); Sodium, Blood 141 mmol/L (136-145); Total Protein, Blood 6.3 g/dL (6.4-8.2)
[2019-07-16 21:17] LABS: Appearance, Urine Cloudy (Clear); Bacteria Many /hpf; Color, Urine Yellow (P-Yellow); Red Blood Cells, Urine 0-2 /hpf (0-2); Squamous Epithelial Cells Few /hpf (Few); White Blood Cells, Urine TNTC /hpf (0-5)
[2019-07-16 21:45] LABS: Source, Urine Catheter
[2019-07-16 21:51] LABS: Bilirubin, Urine Neg (Neg); Blood, Urine 3+ (Neg); Glucose Qualitative, Urine Neg (Neg); Ketones, Urine Neg (Neg); Leukocyte Esterase, Urine 3+ (Neg); Nitrite, Urine Pos (Neg); Protein, Urine 2+ (Neg); Urobilinogen, Urine NORM (Normal)
[2019-07-16 21:55] LABS: Appearance, Urine Cloudy (Clear); Color, Urine Yellow (P-Yellow)
[2019-07-16 21:58] LABS: Bacteria Many /hpf; Red Blood Cells, Urine 0-2 /hpf (0-2); Squamous Epithelial Cells Few /hpf (Few); White Blood Cells, Urine TNTC /hpf (0-5)
--- NOTE | 2019-07-16 23:37 | NUR ---
Transfer report from ACCOUNTING OFFICERERROL Coombs on PT being admitted with stage 4 decub who was sent to ER for concerns of sepis. PT has hx of sepsis and lactic acidosis in past. bFull code status . PT came to wound clinic from SNF. Has chronic almaguer cath which was changed in ER and UA positive. Recent urine coultures positive. Await admission
[2019-07-17 04:49] LABS: Hematocrit 29.7 % (33.0-51.0); Hemoglobin 8.9 g/dL (11.5-16.0); Mean Corpuscular HGB 27.9 pg (26.0-34.0); Mean Corpuscular Volume 93 fL (80-100); Mean Platelet Volume 9.2 fL (9.1-12.4); Platelet Count 475 K/mm3 (150-400); RDW Coefficient Variation 15.7 % (11.7-14.2); RDW Standard Deviation 53.6 fL (35.1-46.3); Red Blood Cell Count 3.19 M/mm3 (3.80-5.20); White Blood Cell Count 13.39 K/mm3 (4.00-11.30)
[2019-07-17 05:20] LABS: Alanine Aminotransfer (ALT/SGP 177 U/L (12-78); Albumin, Blood 1.4 g/dL (3.4-5.0); Albumin/Globulin Ratio 0.3 (0.8-1.8); Alk Phos 797 U/L (50-136); Anion Gap 6 mmol/L (6-16); Aspartate Aminotrans (AST/SGOT 68 U/L (12-37); Bilirubin, Total 0.3 mg/dL (0.1-1.0); Blood Urea Nitrogen 15 mg/dL (8-24); Bun/Creatinine Ratio 38.3 (12.0-20.0); CO2, Blood 25 mmol/L (21-32); Calcium, Blood 7.9 mg/dL (8.5-10.1); Chloride, Blood 114 mmol/L (98-108); Creatinine, Blood 0.39 mg/dL (0.40-1.00); Globulin, Blood 4.3 g/dL (2.2-4.0); Glomerular Filtration Rate >60 (60-); Glucose, Blood 92 mg/dL (70-99); Potassium, Blood 3.8 mmol/L (3.5-5.5); Sodium, Blood 145 mmol/L (136-145); Total Protein, Blood 5.7 g/dL (6.4-8.2)
--- NOTE | 2019-07-17 07:19 | NUR ---
69 year old Female admitted with sepsis after leaving [facility] to go to [facility] and was sent to ER with suspected sepsis. PT has developmental delays asks to have ear plugs placed as soon as she arrived to floor and coninues to wear. PT has stage 4 dcub ulcer sacral and foul odor present. PT has ileostomy and gtube present. HX of aspiration and SBO as well as multiple septic episodes. Has POLST placed to chart. no one accompanied to floor. Dietary referral for tube feeds. Copy of tube feed currently on at [facility] in chart. Paul in place urine dark cloudy. Paul was changed in ER.Continue to assess.
--- NOTE | 2019-07-17 17:20 | NUR ---
PT AOX3 WITH CONFUSION. PT HAS COOPERATED, BUT CAN BE A LITTLE CRANKY AT TIMES. PT IS NPO AND WANTS TO BE ABLE TO DRINK. PT WAS PROVIDED WITH SWABS TO MOISTURIZE HER MOUTH WHEN NEEDED. WOUND DRESSING WAS CHANGED BY PROCEDURE NURSE AND PICTURES ARE IN HER CHART. WAITING TO REVIEVE HER JEVITY FROM [employer] TO START FEEDING CONTACT THEM AT 1530 TO SEND IT UP. WILL CONTINUE TO MONITOR.
--- NOTE | 2019-07-18 05:20 | NUR ---
SHIFT SUMMARY: 69 Y/O SLENDER FEMALE RESTED COMFORTABLY ALL SHIFT, DENIES PAIN OR NAUSEA, ALERT AND ORIENTED X 2, ABLE TO FOLLOW ALL SIMPLE VERBAL COMMANDS, PT AT TIMES TENDS TO SAY NO ALL CARE AND THEN RELENTS WHEN COAXED BY STAFF TO RECEIVE TURNING FOR EXAMPLE, NO RESIDUALS VIA JEVITY AT 50ML/HR PER PEG TUBE, ILEOSTOMY AND DEE PATENT, BED ALARM APPLIED, BED LOW POSITION WITH CALL LIGHT AT SIDE.
[2019-07-18 06:38] LABS: Hematocrit 35.3 % (33.0-51.0); Hemoglobin 10.3 g/dL (11.5-16.0); Mean Corpuscular HGB 28.4 pg (26.0-34.0); Mean Corpuscular HGB Conc 29.2 g/dL (31.5-36.5); Mean Platelet Volume 9.3 fL (9.1-12.4); Platelet Count 463 K/mm3 (150-400); RDW Coefficient Variation 15.9 % (11.7-14.2); RDW Standard Deviation 56.9 fL (35.1-46.3); Red Blood Cell Count 3.63 M/mm3 (3.80-5.20); White Blood Cell Count 12.64 K/mm3 (4.00-11.30)
[2019-07-18 06:45] LABS: Mean Corpuscular Volume 97 fL (80-100)
[2019-07-18 06:53] LABS: Alanine Aminotransfer (ALT/SGP 135 U/L (12-78); Albumin, Blood 1.5 g/dL (3.4-5.0); Albumin/Globulin Ratio 0.3 (0.8-1.8); Alk Phos 754 U/L (50-136); Anion Gap 4 mmol/L (6-16); Aspartate Aminotrans (AST/SGOT 35 U/L (12-37); Bilirubin, Total 0.1 mg/dL (0.1-1.0); Blood Urea Nitrogen 21 mg/dL (8-24); Bun/Creatinine Ratio 58.5 (12.0-20.0); CO2, Blood 25 mmol/L (21-32); Calcium, Blood 8.2 mg/dL (8.5-10.1); Chloride, Blood 113 mmol/L (98-108); Creatinine, Blood 0.36 mg/dL (0.40-1.00); Globulin, Blood 4.5 g/dL (2.2-4.0); Glomerular Filtration Rate >60 (60-); Glucose, Blood 139 mg/dL (70-99); Phosphorus, Blood 2.9 mg/dL (2.5-4.9); Sodium, Blood 142 mmol/L (136-145)
[2019-07-18 07:11] LABS: BASOPHILS ABSOLUTE MAN 0.12 K/mm3 (0.00-0.23); BASOPHILS PERCENT MAN 1 % (0-2); EOSINOPHILS PERCENT MAN 0 % (0-6); LYMPHOCYTES ABSOLUTE MAN 2.14 K/mm3 (0.84-5.20); LYMPHOCYTES PERCENT MAN 17 % (21-46); METAMYELOCYTE ABSOLUTE MAN 0.12 K/mm3 (0.00-0.00); METAMYELOCYTE PERCENT MAN 1 % (0-0); MONOCYTES ABSOLUTE MAN 0.63 K/mm3 (0.16-1.47); MONOCYTES PERCENT MAN 5 % (4-13); MYELOCYTE PERCENT MAN 4 % (0-0); SEG NEUTROPHILS PERCENT MAN 72 % (41-73); TOTAL CELLS COUNTED 100
--- NOTE | 2019-07-18 17:48 | NUR ---
SHIFT SUMMARY- PT PLESANT AND COOPERATIVE. PT TO IMAGING FOR MRI THIS AFTERNOON. PT RECIEVING TUBE FEEDING THIS SHIFT. PT REQUIRES HELP REPOSITIONING.
[2019-07-19 04:10] LABS: Hematocrit 32.9 % (33.0-51.0); Hemoglobin 9.7 g/dL (11.5-16.0); Mean Corpuscular HGB Conc 29.5 g/dL (31.5-36.5); Mean Corpuscular Volume 95 fL (80-100); Mean Platelet Volume 8.8 fL (9.1-12.4); Platelet Count 449 K/mm3 (150-400); RDW Coefficient Variation 15.8 % (11.7-14.2); RDW Standard Deviation 54.4 fL (35.1-46.3); Red Blood Cell Count 3.46 M/mm3 (3.80-5.20); White Blood Cell Count 15.19 K/mm3 (4.00-11.30)
--- NOTE | 2019-07-19 04:18 | NUR ---
SHIFT SUMMARY: 69 Y/O SLENDER FEMALE HAD RESTLESS NIGHT WITH MINIMAL SLEEP AT TIMES WITH CALL LIGHT UTILIZED TO HAVE NURSING STAFF CHANGE TV CHANNEL, REPOSITION, DIM LIGHTS UP & DOWN, DENIES NEED FOR PAIN MEDS, THIS NURSE CHANGED COCCYX STAGE IV WOUND DRESSING (SITE HAD STRONG ODOR WITH LARGE AMOUNT GREEN/YELLOW DRAINAGE NOTED, DRESSING REPACKED AND MEPLEX APPLIED), PT ALERT AND ORIENTED X 2 AND ABLE TO FOLLOW VERY SIMPLE COMMANDS ONLY, PT NPO AND SUCKS ON BEDSIDE MOISTENED MOUTH STICKS AT TIMES, NO RESIDUAL FROM PEG TUBE FEEDING NOTED, ILEOSTOMY AND DEE CATHETER CARE PROVIDED, BED ALARM APPLIED, BED LOW POSITION WITH CALL LIGHT AT SIDE.
[2019-07-19 04:28] LABS: Alanine Aminotransfer (ALT/SGP 116 U/L (12-78); Albumin, Blood 1.4 g/dL (3.4-5.0); Albumin/Globulin Ratio 0.3 (0.8-1.8); Alk Phos 819 U/L (50-136); Anion Gap 4 mmol/L (6-16); Aspartate Aminotrans (AST/SGOT 44 U/L (12-37); Bilirubin, Total 0.2 mg/dL (0.1-1.0); Blood Urea Nitrogen 21 mg/dL (8-24); Bun/Creatinine Ratio 56.1 (12.0-20.0); CO2, Blood 27 mmol/L (21-32); Calcium, Blood 8.2 mg/dL (8.5-10.1); Chloride, Blood 111 mmol/L (98-108); Creatinine, Blood 0.37 mg/dL (0.40-1.00); Globulin, Blood 4.4 g/dL (2.2-4.0); Glomerular Filtration Rate >60 (60-); Glucose, Blood 104 mg/dL (70-99); Potassium, Blood 3.4 mmol/L (3.5-5.5); Sodium, Blood 142 mmol/L (136-145); Total Protein, Blood 5.8 g/dL (6.4-8.2)
[2019-07-19 05:23] LABS: BAND PERCENT MAN 3 % (0-8); BASOPHILS PERCENT MAN 0 % (0-2); EOSINOPHILS PERCENT MAN 0 % (0-6); LYMPHOCYTES ABSOLUTE MAN 0.91 K/mm3 (0.84-5.20); LYMPHOCYTES PERCENT MAN 6 % (21-46); MONOCYTES PERCENT MAN 2 % (4-13); MYELOCYTE ABSOLUTE MAN 0.15 K/mm3 (0.00-0.00); MYELOCYTE PERCENT MAN 1 % (0-0); NEUTROPHILS ABSOLUTE MAN 13.82 K/mm3 (1.96-9.15); SEG NEUTROPHILS PERCENT MAN 88 % (41-73); TOTAL CELLS COUNTED 100
--- NOTE | 2019-07-19 16:46 | NUR ---
SHIFT SUMMARY- PT IS PLESANT AND COOPERATIVE. INTERMITENT CONFUSION PT IS ON TUBE FEED, TOLERATING WELL. CHANGED FOAM BANDAGE ON PRESSURE ULCER ON PT COCCIX. PT'S VISITED THIS AFTERNOON.
--- NOTE | 2019-07-20 05:44 | NUR ---
SHIFT SUMMARY NO ACUTE CHANGES THIS SHIFT. AOX2, ABLE TO FOLLOW SIMPLE DIRECTIONS. FEARFUL & ANXIOUS W/CARE, ASKS IF STAFF IS GOING TO HURT HER. SLOW TO RESPOND TO QUESTIONS. DENIES N/V, PAIN, SOB. PEG TUBE RUNNING CONTINUOUS FEEDING @75ML/HR. ILEOSTOMY & DEE CATHETER PATENT & DRAINING. CHANGED FOAM DRESSING ON SACRUM & REPACKED WOUND, VERY FOUL SMELLING W/PURULENT & SEROSANGUINOUS DRAINAGE. CALL LIGHT IN REACH & I WILL CONTINUE TO MONITOR.
[2019-07-20] MEDS ORDERED: LEVFLO500 PO (11:08)
--- NOTE | 2019-07-20 18:20 | NUR ---
DISCHARGE NOTE- PT DISCHARGED BACK TO [facility]. CALLED IN REPORT TO ERROL REARDON. ALL QUESTIONS WERE ANSWERED AD CONTACT INFO PROVIDED. PT PEG TUBE FEEDING WAS DELAYED, D/T PENDING DISCHARGE THEN IT WAS STARTED LATE THEN DISCHARGE GOT APPROVED. PT RECIEVED 150ML OF HER FEEDING. WOUND CARE WAS COMPLETED, IV DC'D AND J TUBE FLUSHED PRIOR TO PT DISCHARGE.
== END 2019-07-20 18:18 | disposition home or self-care (01) | DRG 871 ==
LOC: ER 17:13 → MEDS 21:58 → ENPENDDIS 07-20 10:22 → MEDS 07-20 18:18
PROVIDERS: Emergency Medicine; Family Medicine; Nurse Practitioner Acute Care; Physician Assistant; ADMIT Hospitalist
DX: A41.51 Sepsis due to Escherichia coli [E. coli] (principal); L89.154 Pressure ulcer of sacral region, stage 4; J18.9 Pneumonia, unspecified organism; N39.0 Urinary tract infection, site not specified; K59.8 Other specified functional intestinal disorders; R62.50 Unspecified lack of expected normal physiological development in childhood; Z90.10 Acquired absence of unspecified breast and nipple; K80.20 Calculus of gallbladder without cholecystitis without obstruction; F81.9 Developmental disorder of scholastic skills, unspecified; Z90.49 Acquired absence of other specified parts of digestive tract; Z93.4 Other artificial openings of gastrointestinal tract status; N31.9 Neuromuscular dysfunction of bladder, unspecified; B96.1 Klebsiella pneumoniae [K. pneumoniae] as the cause of diseases classified elsewhere; R13.12 Dysphagia, oropharyngeal phase; Z96.0 Presence of urogenital implants
CPT/HCPCS: 36415; 51702; 71046; 74181; 76705; 80053; 81001; 82140; 82947; 83605; 83735; 84100; 85025; 85027; 87040; 87077; 87086; 87186; 96365-59; 97161; 97166; 97530; 99285-25; A9270-GY; J0696; J1650; J1956; J7030

== ENCOUNTER 2019-07-28 00:21 | Day surgery (SDC) | payer OTHER ==
[~2019-07-28 00:21] MED LIST changes: +LEVFLO500 PO; +METO10SY PT; +Megestrol400 MG/10 PT; +Potassium20 MEQ/11 PT; +Prilosec10 M1 PT; +Zegerid 20 MG1 EAC1 PT
== END 2019-07-28 22:58 | disposition home or self-care (01) ==
LOC: WOUND 00:21
DX: L89.154 Pressure ulcer of sacral region, stage 4 (principal); I10 Essential (primary) hypertension; Z79.899 Other long term (current) drug therapy

== ENCOUNTER 2019-08-04 09:28 | Day surgery (SDC) | payer OTHER | END 2019-08-04 22:56 | disposition home or self-care (01) | LOC: WOUND 09:28 | DX: I96 Gangrene, not elsewhere classified (principal); L89.154 Pressure ulcer of sacral region, stage 4; I10 Essential (primary) hypertension; G31.84 Mild cognitive impairment of uncertain or unknown etiology; E46 Unspecified protein-calorie malnutrition; Z93.3 Colostomy status; Z93.2 Ileostomy status; Z93.1 Gastrostomy status; Z79.899 Other long term (current) drug therapy | CPT/HCPCS: G0463 ==

== ENCOUNTER 2019-08-06 18:15 | Emergency (ER) | payer OTHER ==
[~2019-08-06] VITALS: Ht 162.6 cm; Wt 47.6 kg
[2019-08-06] MEDS ORDERED: PAROEX473 ML (18:25)
[2019-08-06] MEDS ORDERED: Lisinopril2.5 MG (18:25)
== END 2019-08-06 21:19 | disposition home or self-care (01) ==
LOC: ER 18:15
DX: M46.28 Osteomyelitis of vertebra, sacral and sacrococcygeal region (principal); L89.154 Pressure ulcer of sacral region, stage 4; D64.9 Anemia, unspecified; Z79.899 Other long term (current) drug therapy
CPT/HCPCS: 46600; 72192; 99283-25

== ENCOUNTER 2019-08-08 12:51 | Day surgery (SDC) | payer OTHER ==
[~2019-08-08 12:51] MED LIST changes: +Lisinopril2.5 MG; +PAROEX473 ML
--- NOTE | 2019-08-08 16:02 | NUR ---
REPORT CALLED AND GIVEN TO CARLOS AUGUSTINE @ [facility], WILL FAX OVER PICC INSERTION RECORD. VS DEFFERED PT WAS ANXIOUS AND CALLING OUT FOR CAREGIVER JERONIMO. CAREGIVER DID ARRIVE SHORTLY AND STAYED IN ROOM AND PT ABLE RELAX T/O PROCEDURE. CAREGIVER ASSISTED PT BACK IN TO W/C AND LEFT TO MEET [facility]. PT LEFT IN STABLE CONDITION.
== END 2019-08-08 22:40 | disposition home or self-care (01) ==
LOC: ATC 12:51
DX: M46.28 Osteomyelitis of vertebra, sacral and sacrococcygeal region (principal); L89.154 Pressure ulcer of sacral region, stage 4; C50.811 Malignant neoplasm of overlapping sites of right female breast; M81.0 Age-related osteoporosis without current pathological fracture; I10 Essential (primary) hypertension; K58.1 Irritable bowel syndrome with constipation; N31.9 Neuromuscular dysfunction of bladder, unspecified; E43 Unspecified severe protein-calorie malnutrition; Z93.1 Gastrostomy status; Z93.3 Colostomy status; Z93.2 Ileostomy status; Z79.2 Long term (current) use of antibiotics; Z79.899 Other long term (current) drug therapy; Z85.3 Personal history of malignant neoplasm of breast; Z90.710 Acquired absence of both cervix and uterus
CPT/HCPCS: 36569; C1751; C1894

== ENCOUNTER 2019-08-11 09:15 | Day surgery (SDC) | payer OTHER | END 2019-08-11 23:31 | disposition home or self-care (01) | LOC: WOUND | DX: I96 Gangrene, not elsewhere classified (principal); L89.154 Pressure ulcer of sacral region, stage 4; M86.9 Osteomyelitis, unspecified; G31.84 Mild cognitive impairment of uncertain or unknown etiology; I10 Essential (primary) hypertension; I49.9 Cardiac arrhythmia, unspecified; D64.9 Anemia, unspecified; E46 Unspecified protein-calorie malnutrition; Z93.3 Colostomy status; Z93.2 Ileostomy status; Z93.1 Gastrostomy status; Z79.899 Other long term (current) drug therapy ==

== ENCOUNTER 2019-08-25 09:18 | Day surgery (SDC) | payer OTHER | END 2019-08-25 22:33 | disposition home or self-care (01) | LOC: WOUND 09:18 | DX: I96 Gangrene, not elsewhere classified (principal); L89.154 Pressure ulcer of sacral region, stage 4; E46 Unspecified protein-calorie malnutrition; I10 Essential (primary) hypertension; M86.9 Osteomyelitis, unspecified; E78.5 Hyperlipidemia, unspecified; G31.84 Mild cognitive impairment of uncertain or unknown etiology; Z93.3 Colostomy status; Z93.2 Ileostomy status; Z79.899 Other long term (current) drug therapy; Z85.3 Personal history of malignant neoplasm of breast ==

== ENCOUNTER 2019-09-01 09:02 | Day surgery (SDC) | payer OTHER | END 2019-09-01 22:36 | disposition home or self-care (01) | LOC: WOUND 09:02 | DX: I96 Gangrene, not elsewhere classified (principal); L89.154 Pressure ulcer of sacral region, stage 4; I10 Essential (primary) hypertension; D64.9 Anemia, unspecified; I49.9 Cardiac arrhythmia, unspecified; M86.9 Osteomyelitis, unspecified; E46 Unspecified protein-calorie malnutrition; Z93.3 Colostomy status; Z93.2 Ileostomy status; Z93.1 Gastrostomy status; Z79.899 Other long term (current) drug therapy | CPT/HCPCS: G0463 ==

== ENCOUNTER 2019-09-08 00:12 | Day surgery (SDC) | payer OTHER | END 2019-09-08 22:57 | disposition home or self-care (01) | LOC: WOUND 00:12 | DX: I96 Gangrene, not elsewhere classified (principal); L89.154 Pressure ulcer of sacral region, stage 4; M86.9 Osteomyelitis, unspecified; I10 Essential (primary) hypertension; E46 Unspecified protein-calorie malnutrition; G31.84 Mild cognitive impairment of uncertain or unknown etiology; Z93.3 Colostomy status; Z93.2 Ileostomy status; Z93.1 Gastrostomy status; Z79.899 Other long term (current) drug therapy | CPT/HCPCS: G0463 ==

== ENCOUNTER 2019-09-22 00:13 | Day surgery (SDC) | payer OTHER | END 2019-09-22 22:51 | disposition home or self-care (01) | LOC: WOUND 00:13 | DX: L89.154 Pressure ulcer of sacral region, stage 4 (principal); M86.9 Osteomyelitis, unspecified; I10 Essential (primary) hypertension; Z79.899 Other long term (current) drug therapy | CPT/HCPCS: G0463 ==

== ENCOUNTER 2019-10-06 00:12 | Day surgery (SDC) | payer OTHER | END 2019-10-06 22:58 | disposition home or self-care (01) | LOC: WOUND 00:12 | DX: L89.154 Pressure ulcer of sacral region, stage 4 (principal); M86.9 Osteomyelitis, unspecified; I10 Essential (primary) hypertension; Z79.899 Other long term (current) drug therapy ==

== ENCOUNTER → 2019-10-06 | Outpatient (CLI) | payer OTHER ==
[2019-10-06 10:55] LABS: Hematocrit 36.4 % (33.0-51.0); Hemoglobin 10.7 g/dL (11.5-16.0); Mean Corpuscular HGB 26.4 pg (26.0-34.0); Mean Corpuscular HGB Conc 29.4 g/dL (31.5-36.5); Mean Corpuscular Volume 90 fL (80-100); Mean Platelet Volume 9.4 fL (9.1-12.4); Platelet Count 447 K/mm3 (150-400); RDW Coefficient Variation 14.9 % (11.7-14.2); Red Blood Cell Count 4.05 M/mm3 (3.80-5.20); White Blood Cell Count 5.86 K/mm3 (4.00-11.30)
[2019-10-06 11:31] LABS: Alanine Aminotransfer (ALT/SGP 84 U/L (12-78); Albumin, Blood 2.5 g/dL (3.4-5.0); Albumin/Globulin Ratio 0.7 (0.8-1.8); Alk Phos 634 U/L (50-136); Anion Gap 2 mmol/L (6-16); Aspartate Aminotrans (AST/SGOT 45 U/L (12-37); Bilirubin, Total 0.6 mg/dL (0.1-1.0); Blood Urea Nitrogen 14 mg/dL (8-24); Bun/Creatinine Ratio 38.1 (12.0-20.0); CO2, Blood 33 mmol/L (21-32); Chloride, Blood 106 mmol/L (98-108); Creatinine, Blood 0.37 mg/dL (0.40-1.00); Globulin, Blood 3.8 g/dL (2.2-4.0); Glomerular Filtration Rate >60 (60-); Glucose, Blood 103 mg/dL (70-99); Potassium, Blood 4.4 mmol/L (3.5-5.5); Sodium, Blood 141 mmol/L (136-145); Total Protein, Blood 6.3 g/dL (6.4-8.2)
== END ==
LOC: LAB UVN 08:00 → EDSTATUS 14:11
PROVIDERS: Family Medicine
DX: M86.18 Other acute osteomyelitis, other site (principal); A41.51 Sepsis due to Escherichia coli [E. coli]
CPT/HCPCS: 36415; 80053; 85027; 85651; 86140

== ENCOUNTER 2019-10-20 02:13 | Day surgery (SDC) | payer OTHER | END 2019-10-20 23:39 | disposition home or self-care (01) | LOC: WOUND 02:13 | DX: L89.154 Pressure ulcer of sacral region, stage 4 (principal); M86.9 Osteomyelitis, unspecified; I10 Essential (primary) hypertension ==

== ENCOUNTER → 2019-10-20 | Outpatient (CLI) | payer OTHER ==
[2019-10-20 10:32] LABS: Hematocrit 36.2 % (33.0-51.0); Hemoglobin 10.5 g/dL (11.5-16.0); Mean Corpuscular HGB 25.9 pg (26.0-34.0); Mean Corpuscular Volume 89 fL (80-100); Mean Platelet Volume 9.5 fL (9.1-12.4); Platelet Count 372 K/mm3 (150-400); RDW Coefficient Variation 15.3 % (11.7-14.2); RDW Standard Deviation 50.4 fL (35.1-46.3); Red Blood Cell Count 4.05 M/mm3 (3.80-5.20); White Blood Cell Count 5.45 K/mm3 (4.00-11.30)
[2019-10-20 11:45] LABS: Alanine Aminotransfer (ALT/SGP 101 U/L (12-78); Albumin, Blood 2.5 g/dL (3.4-5.0); Albumin/Globulin Ratio 0.6 (0.8-1.8); Alk Phos 502 U/L (50-136); Anion Gap 7 mmol/L (6-16); Aspartate Aminotrans (AST/SGOT 63 U/L (12-37); Bilirubin, Total 0.4 mg/dL (0.1-1.0); Blood Urea Nitrogen 17 mg/dL (8-24); Bun/Creatinine Ratio 46.7 (12.0-20.0); CO2, Blood 26 mmol/L (21-32); Chloride, Blood 108 mmol/L (98-108); Creatinine, Blood 0.36 mg/dL (0.40-1.00); Glomerular Filtration Rate >60 (60-); Glucose, Blood 84 mg/dL (70-99); Potassium, Blood 4.8 mmol/L (3.5-5.5); Sodium, Blood 141 mmol/L (136-145); Total Protein, Blood 6.5 g/dL (6.4-8.2)
[2019-10-22 12:42] LABS: Albumin, Blood 2.6 g/dL (3.4-5.0); Prealbumin, Blood 16.8 mg/dL (20.0-40.0)
== END | disposition home or self-care (01) ==
LOC: LAB UVN 08:08 → EDSTATUS 13:28
PROVIDERS: Family Medicine; Nurse Practitioner Family
DX: M86.18 Other acute osteomyelitis, other site (principal); A41.51 Sepsis due to Escherichia coli [E. coli]; L89.154 Pressure ulcer of sacral region, stage 4
CPT/HCPCS: 36415; 80053; 82040; 84134; 85027; 85651; 86140

== ENCOUNTER 2019-10-27 12:00 | Outpatient (CLI) | payer OTHER ==
[2019-10-27 11:13] LABS: Hematocrit 33.4 % (33.0-51.0); Mean Corpuscular HGB 26.4 pg (26.0-34.0); Mean Corpuscular HGB Conc 29.9 g/dL (31.5-36.5); Mean Corpuscular Volume 88 fL (80-100); Mean Platelet Volume 9.6 fL (9.1-12.4); Platelet Count 352 K/mm3 (150-400); RDW Coefficient Variation 15.7 % (11.7-14.2); RDW Standard Deviation 50.6 fL (35.1-46.3); Red Blood Cell Count 3.79 M/mm3 (3.80-5.20)
[2019-10-27 11:26] LABS: Alanine Aminotransfer (ALT/SGP 79 U/L (12-78); Albumin, Blood 2.5 g/dL (3.4-5.0); Albumin/Globulin Ratio 0.7 (0.8-1.8); Alk Phos 482 U/L (50-136); Anion Gap 3 mmol/L (6-16); Aspartate Aminotrans (AST/SGOT 45 U/L (12-37); Bilirubin, Total 0.3 mg/dL (0.1-1.0); Blood Urea Nitrogen 17 mg/dL (8-24); Bun/Creatinine Ratio 49.1 (12.0-20.0); CO2, Blood 29 mmol/L (21-32); Calcium, Blood 8.8 mg/dL (8.5-10.1); Chloride, Blood 109 mmol/L (98-108); Creatinine, Blood 0.35 mg/dL (0.40-1.00); Globulin, Blood 3.5 g/dL (2.2-4.0); Glomerular Filtration Rate >60 (60-); Glucose, Blood 97 mg/dL (70-99); Potassium, Blood 4.8 mmol/L (3.5-5.5); Sodium, Blood 141 mmol/L (136-145)
== END 2019-10-27 23:59 | disposition home or self-care (01) ==
LOC: LAB UVN 12:00 → EDSTATUS 12:53 → LAB UVN 12:53
PROVIDERS: Family Medicine
DX: M86.18 Other acute osteomyelitis, other site (principal); A41.51 Sepsis due to Escherichia coli [E. coli]
CPT/HCPCS: 36415; 80053; 85027; 85651; 86140

== ENCOUNTER 2019-11-03 00:14 | Day surgery (SDC) | payer OTHER | END 2019-11-03 22:48 | disposition home or self-care (01) | LOC: WOUND 00:14 | DX: L89.154 Pressure ulcer of sacral region, stage 4 (principal); M86.9 Osteomyelitis, unspecified; I10 Essential (primary) hypertension; Z79.899 Other long term (current) drug therapy ==

== ENCOUNTER → 2019-11-03 | Outpatient (CLI) | payer OTHER ==
[2019-11-03 11:09] LABS: Hemoglobin 10.4 g/dL (11.5-16.0); Mean Corpuscular HGB 26.5 pg (26.0-34.0); Mean Corpuscular HGB Conc 29.7 g/dL (31.5-36.5); Mean Corpuscular Volume 89 fL (80-100); Mean Platelet Volume 9.6 fL (9.1-12.4); Platelet Count 364 K/mm3 (150-400); RDW Coefficient Variation 16.2 % (11.7-14.2); Red Blood Cell Count 3.92 M/mm3 (3.80-5.20)
[2019-11-03 11:43] LABS: Alanine Aminotransfer (ALT/SGP 143 U/L (12-78); Albumin, Blood 2.6 g/dL (3.4-5.0); Albumin/Globulin Ratio 0.8 (0.8-1.8); Alk Phos 577 U/L (50-136); Anion Gap 4 mmol/L (6-16); Aspartate Aminotrans (AST/SGOT 105 U/L (12-37); Bilirubin, Total 0.6 mg/dL (0.1-1.0); Blood Urea Nitrogen 16 mg/dL (8-24); Bun/Creatinine Ratio 39.1 (12.0-20.0); CO2, Blood 29 mmol/L (21-32); Calcium, Blood 8.8 mg/dL (8.5-10.1); Chloride, Blood 108 mmol/L (98-108); Creatinine, Blood 0.41 mg/dL (0.40-1.00); Globulin, Blood 3.3 g/dL (2.2-4.0); Glomerular Filtration Rate >60 (60-); Glucose, Blood 122 mg/dL (70-99); Potassium, Blood 4.5 mmol/L (3.5-5.5); Sodium, Blood 141 mmol/L (136-145); Total Protein, Blood 5.9 g/dL (6.4-8.2)
== END | disposition home or self-care (01) ==
LOC: LAB UVN 08:53 → EDSTATUS 12:54
PROVIDERS: Family Medicine
DX: A41.51 Sepsis due to Escherichia coli [E. coli] (principal); M86.18 Other acute osteomyelitis, other site
CPT/HCPCS: 36415; 80053; 85027; 85651; 86140

== ENCOUNTER 2019-11-10 00:22 | Day surgery (SDC) | payer OTHER | END 2019-11-10 22:48 | disposition home or self-care (01) | LOC: WOUND 00:22 | DX: L89.154 Pressure ulcer of sacral region, stage 4 (principal); M86.9 Osteomyelitis, unspecified; I10 Essential (primary) hypertension | CPT/HCPCS: G0463 ==

== ENCOUNTER → 2019-11-17 | Outpatient (CLI) | payer OTHER ==
[2019-11-17 09:04] LABS: Hematocrit 35.2 % (33.0-51.0); Hemoglobin 10.5 g/dL (11.5-16.0); Mean Corpuscular HGB 26.3 pg (26.0-34.0); Mean Corpuscular HGB Conc 29.8 g/dL (31.5-36.5); Mean Corpuscular Volume 88 fL (80-100); Platelet Count 336 K/mm3 (150-400); RDW Coefficient Variation 17.1 % (11.7-14.2); RDW Standard Deviation 55.5 fL (35.1-46.3); Red Blood Cell Count 3.99 M/mm3 (3.80-5.20); White Blood Cell Count 6.01 K/mm3 (4.00-11.30)
[2019-11-17 09:19] LABS: C-REACTIVE PROTEIN, EXT RANGE 0.847 mg/dL (0.000-0.300)
[2019-11-17 09:22] LABS: Alanine Aminotransfer (ALT/SGP 96 U/L (12-78); Albumin, Blood 2.8 g/dL (3.4-5.0); Albumin/Globulin Ratio 0.8 (0.8-1.8); Alk Phos 534 U/L (50-136); Anion Gap 5 mmol/L (6-16); Aspartate Aminotrans (AST/SGOT 57 U/L (12-37); Bilirubin, Total 0.5 mg/dL (0.1-1.0); Blood Urea Nitrogen 22 mg/dL (8-24); Bun/Creatinine Ratio 88.7 (12.0-20.0); CO2, Blood 27 mmol/L (21-32); Calcium, Blood 8.9 mg/dL (8.5-10.1); Chloride, Blood 109 mmol/L (98-108); Creatinine, Blood 0.25 mg/dL (0.40-1.00); Globulin, Blood 3.4 g/dL (2.2-4.0); Glomerular Filtration Rate >60 (60-); Glucose, Blood 127 mg/dL (70-99); Potassium, Blood 4.3 mmol/L (3.5-5.5); Sodium, Blood 141 mmol/L (136-145); Total Protein, Blood 6.2 g/dL (6.4-8.2)
== END | disposition home or self-care (01) ==
LOC: LAB UVN 07:44 → EDSTATUS 11:03
PROVIDERS: Family Medicine
DX: A41.51 Sepsis due to Escherichia coli [E. coli] (principal); M86.18 Other acute osteomyelitis, other site
CPT/HCPCS: 36415; 80053; 85027; 85651; 86140

== ENCOUNTER 2019-11-20 00:38 | Day surgery (SDC) | payer OTHER | END 2019-11-20 22:39 | disposition home or self-care (01) | LOC: WOUND 00:38 | DX: L89.154 Pressure ulcer of sacral region, stage 4 (principal); M86.9 Osteomyelitis, unspecified; I10 Essential (primary) hypertension; Z79.899 Other long term (current) drug therapy ==

== ENCOUNTER → 2019-11-23 | Outpatient (CLI) | payer OTHER ==
[2019-11-23 23:46] LABS: BASOPHILS ABSOLUTE AUTO 0.02 K/mm3 (0.00-0.23); BASOPHILS PERCENT AUTO 0 % (0-2); EOSINOPHILS ABSOLUTE AUTO 0.49 K/mm3 (0.00-0.68); EOSINOPHILS PERCENT AUTO 9 % (0-6); Hematocrit 37.5 % (33.0-51.0); Hemoglobin 11.3 g/dL (11.5-16.0); IMMATURE GRAN ABSOLUTE AUTO 0.02 K/mm3 (0.00-0.10); IMMATURE GRAN PERCENT AUTO 0 % (0-1); LYMPHOCYTES ABSOLUTE AUTO 1.25 K/mm3 (0.84-5.20); LYMPHOCYTES PERCENT AUTO 24 % (21-46); MONOCYTES ABSOLUTE AUTO 0.74 K/mm3 (0.16-1.47); MONOCYTES PERCENT AUTO 14 % (4-13); Mean Corpuscular HGB 26.8 pg (26.0-34.0); Mean Corpuscular HGB Conc 30.1 g/dL (31.5-36.5); Mean Corpuscular Volume 89 fL (80-100); Mean Platelet Volume 9.8 fL (9.1-12.4); NEUTROPHILS ABSOLUTE AUTO 2.69 K/mm3 (1.96-9.15); NEUTROPHILS PERCENT AUTO 52 % (41-73); Platelet Count 313 K/mm3 (150-400); RDW Coefficient Variation 16.9 % (11.7-14.2); RDW Standard Deviation 55.1 fL (35.1-46.3); Red Blood Cell Count 4.22 M/mm3 (3.80-5.20); White Blood Cell Count 5.21 K/mm3 (4.00-11.30)
[2019-11-24 00:05] LABS: Alanine Aminotransfer (ALT/SGP 113 U/L (12-78); Albumin, Blood 2.9 g/dL (3.4-5.0); Albumin/Globulin Ratio 0.7 (0.8-1.8); Alk Phos 637 U/L (50-136); Anion Gap 1 mmol/L (6-16); Aspartate Aminotrans (AST/SGOT 64 U/L (12-37); Bilirubin, Total 0.4 mg/dL (0.1-1.0); Blood Urea Nitrogen 15 mg/dL (8-24); CO2, Blood 32 mmol/L (21-32); Calcium, Blood 8.9 mg/dL (8.5-10.1); Chloride, Blood 106 mmol/L (98-108); Creatinine, Blood 0.38 mg/dL (0.40-1.00); Globulin, Blood 3.9 g/dL (2.2-4.0); Glomerular Filtration Rate >60 (60-); Glucose, Blood 95 mg/dL (70-99); Potassium, Blood 4.6 mmol/L (3.5-5.5); Sodium, Blood 139 mmol/L (136-145); Total Protein, Blood 6.8 g/dL (6.4-8.2)
== END | disposition home or self-care (01) ==
LOC: EDSTATUS 11:14 → LAB UVN 22:40
PROVIDERS: Family Medicine
DX: A41.51 Sepsis due to Escherichia coli [E. coli] (principal); M86.18 Other acute osteomyelitis, other site
CPT/HCPCS: 80053; 85025; 85651; 86140

== ENCOUNTER 2019-12-08 00:05 | Day surgery (SDC) | payer OTHER | END 2019-12-08 22:46 | disposition home or self-care (01) | LOC: WOUND 00:05 | DX: L89.154 Pressure ulcer of sacral region, stage 4 (principal); M86.9 Osteomyelitis, unspecified; I10 Essential (primary) hypertension; Z79.899 Other long term (current) drug therapy | CPT/HCPCS: G0463 ==

== ENCOUNTER → 2020-04-12 | Outpatient (CLI) | payer OTHER ==
[2020-04-12 17:47] LABS: Hematocrit 43.1 % (33.0-51.0); Mean Corpuscular HGB 28.9 pg (26.0-34.0); Mean Corpuscular HGB Conc 30.2 g/dL (31.5-36.5); Mean Corpuscular Volume 96 fL (80-100); Mean Platelet Volume 10.5 fL (9.1-12.4); Platelet Count 305 K/mm3 (150-400); RDW Coefficient Variation 15.5 % (11.7-14.2); RDW Standard Deviation 55.2 fL (35.1-46.3); White Blood Cell Count 6.52 K/mm3 (4.00-11.30)
[2020-04-12 21:18] LABS: Alanine Aminotransfer (ALT/SGP 97 U/L (12-78); Albumin, Blood 3.2 g/dL (3.4-5.0); Albumin/Globulin Ratio 0.9 (0.8-1.8); Alk Phos 376 U/L (50-136); Anion Gap 5 mmol/L (6-16); Aspartate Aminotrans (AST/SGOT 47 U/L (12-37); Bilirubin, Total 0.5 mg/dL (0.1-1.0); Blood Urea Nitrogen 20 mg/dL (8-24); Bun/Creatinine Ratio 42.5 (12.0-20.0); C-REACTIVE PROTEIN, EXT RANGE 0.659 mg/dL (0.000-0.300); CO2, Blood 28 mmol/L (21-32); Calcium, Blood 9.1 mg/dL (8.5-10.1); Chloride, Blood 107 mmol/L (98-108); Creatinine, Blood 0.47 mg/dL (0.40-1.00); Globulin, Blood 3.6 g/dL (2.2-4.0); Glomerular Filtration Rate >60 (60-); Glucose, Blood 125 mg/dL (70-99); Potassium, Blood 4.6 mmol/L (3.5-5.5); Sodium, Blood 140 mmol/L (136-145); Total Protein, Blood 6.8 g/dL (6.4-8.2)
== END | disposition home or self-care (01) ==
LOC: EDSTATUS 09:17 → LAB UVN 16:03 → LAB SHORT 16:03
PROVIDERS: Family Medicine
DX: M86.18 Other acute osteomyelitis, other site (principal); L89.154 Pressure ulcer of sacral region, stage 4
CPT/HCPCS: 80053; 85027; 85651; 86140

== ENCOUNTER 2020-04-27 00:42 | Day surgery (SDC) | payer OTHER | END 2020-04-27 22:38 | disposition home or self-care (01) | LOC: WOUND 00:42 | DX: L89.154 Pressure ulcer of sacral region, stage 4 (principal); M86.9 Osteomyelitis, unspecified; I10 Essential (primary) hypertension; Z79.899 Other long term (current) drug therapy ==

== ENCOUNTER → 2020-05-10 | Outpatient (CLI) | payer OTHER ==
[~2020-05-10] MED LIST changes: +Acetaminophen650 M1 PT; +FENTANYL1 EAC9 TOP; +HYDACE10B PO; +KEFLEX500 MG PO; +LANS30EC PO; +MICONAZOLE 745 GM; +POTA20LUD PT; +[UNRECOGNIZED DRUG - OTHER] TOP
[2020-05-10 17:25] LABS: Hemoglobin 13.4 g/dL (11.5-16.0); Mean Corpuscular HGB 29.9 pg (26.0-34.0); Mean Corpuscular HGB Conc 31.2 g/dL (31.5-36.5); Mean Corpuscular Volume 96 fL (80-100); Mean Platelet Volume 10.6 fL (9.1-12.4); Platelet Count 272 K/mm3 (150-400); RDW Coefficient Variation 14.6 % (11.7-14.2); Red Blood Cell Count 4.48 M/mm3 (3.80-5.20); White Blood Cell Count 6.08 K/mm3 (4.00-11.30)
[2020-05-10 17:53] LABS: Alanine Aminotransfer (ALT/SGP 80 U/L (12-78); Albumin, Blood 3.4 g/dL (3.4-5.0); Albumin/Globulin Ratio 0.9 (0.8-1.8); Alk Phos 360 U/L (50-136); Anion Gap 5 mmol/L (6-16); Aspartate Aminotrans (AST/SGOT 40 U/L (12-37); Bilirubin, Total 0.8 mg/dL (0.1-1.0); Blood Urea Nitrogen 22 mg/dL (8-24); Bun/Creatinine Ratio 60.3 (12.0-20.0); CO2, Blood 28 mmol/L (21-32); Calcium, Blood 9.4 mg/dL (8.5-10.1); Chloride, Blood 107 mmol/L (98-108); Creatinine, Blood 0.37 mg/dL (0.40-1.00); Globulin, Blood 3.7 g/dL (2.2-4.0); Glomerular Filtration Rate >60 (60-); Glucose, Blood 97 mg/dL (70-99); Potassium, Blood 4.7 mmol/L (3.5-5.5); Sodium, Blood 140 mmol/L (136-145); Total Protein, Blood 7.1 g/dL (6.4-8.2)
[2020-05-10 18:13] LABS: C-REACTIVE PROTEIN, EXT RANGE 0.618 mg/dL (0.000-0.300)
== END | disposition home or self-care (01) ==
LOC: EDSTATUS 10:56 → LAB UVN 16:18
PROVIDERS: Family Medicine
DX: L89.154 Pressure ulcer of sacral region, stage 4 (principal); M86.18 Other acute osteomyelitis, other site
CPT/HCPCS: 80053; 85027; 85651; 86140

== ENCOUNTER 2020-05-27 00:33 | Day surgery (SDC) | payer OTHER | END 2020-05-27 22:59 | disposition home or self-care (01) | LOC: WOUND 00:33 | DX: L89.154 Pressure ulcer of sacral region, stage 4 (principal); M86.9 Osteomyelitis, unspecified; I10 Essential (primary) hypertension; Z79.84 Long term (current) use of oral hypoglycemic drugs | CPT/HCPCS: G0463 ==

== ENCOUNTER → 2020-06-07 | Outpatient (CLI) | payer OTHER ==
[2020-06-07 06:23] LABS: BASOPHILS ABSOLUTE AUTO 0.03 K/mm3 (0.00-0.23); BASOPHILS PERCENT AUTO 1 % (0-2); EOSINOPHILS PERCENT AUTO 4 % (0-6); Hematocrit 40.9 % (33.0-51.0); IMMATURE GRAN ABSOLUTE AUTO 0.02 K/mm3 (0.00-0.10); IMMATURE GRAN PERCENT AUTO 0 % (0-1); LYMPHOCYTES ABSOLUTE AUTO 1.22 K/mm3 (0.84-5.20); LYMPHOCYTES PERCENT AUTO 25 % (21-46); MONOCYTES ABSOLUTE AUTO 0.57 K/mm3 (0.16-1.47); MONOCYTES PERCENT AUTO 12 % (4-13); Mean Corpuscular HGB 30.5 pg (26.0-34.0); Mean Corpuscular HGB Conc 31.8 g/dL (31.5-36.5); Mean Corpuscular Volume 96 fL (80-100); Mean Platelet Volume 10.4 fL (9.1-12.4); NEUTROPHILS ABSOLUTE AUTO 2.93 K/mm3 (1.96-9.15); NEUTROPHILS PERCENT AUTO 59 % (41-73); Platelet Count 223 K/mm3 (150-400); RDW Standard Deviation 49.1 fL (35.1-46.3); Red Blood Cell Count 4.26 M/mm3 (3.80-5.20); White Blood Cell Count 4.97 K/mm3 (4.00-11.30)
[2020-06-07 06:41] LABS: Alanine Aminotransfer (ALT/SGP 114 U/L (12-78); Albumin, Blood 3.1 g/dL (3.4-5.0); Albumin/Globulin Ratio 0.9 (0.8-1.8); Alk Phos 413 U/L (50-136); Anion Gap 2 mmol/L (6-16); Aspartate Aminotrans (AST/SGOT 49 U/L (12-37); Bilirubin, Total 0.5 mg/dL (0.1-1.0); Blood Urea Nitrogen 23 mg/dL (8-24); Bun/Creatinine Ratio 52.5 (12.0-20.0); C-REACTIVE PROTEIN, EXT RANGE 0.772 mg/dL (0.000-0.300); CO2, Blood 30 mmol/L (21-32); Calcium, Blood 8.8 mg/dL (8.5-10.1); Chloride, Blood 111 mmol/L (98-108); Creatinine, Blood 0.44 mg/dL (0.40-1.00); Globulin, Blood 3.4 g/dL (2.2-4.0); Glomerular Filtration Rate >60 (60-); Glucose, Blood 102 mg/dL (70-99); Potassium, Blood 4.4 mmol/L (3.5-5.5); Sodium, Blood 143 mmol/L (136-145); Total Protein, Blood 6.5 g/dL (6.4-8.2)
== END | disposition home or self-care (01) ==
LOC: LAB UVN 06:17 → EDSTATUS 14:50
PROVIDERS: Family Medicine
DX: M86.18 Other acute osteomyelitis, other site (principal)
CPT/HCPCS: 80053; 85025; 85651; 86140

== ENCOUNTER 2020-07-01 00:51 | Day surgery (SDC) | payer OTHER | END 2020-07-01 23:10 | disposition home or self-care (01) | LOC: WOUND 00:51 | DX: L89.154 Pressure ulcer of sacral region, stage 4 (principal); M86.9 Osteomyelitis, unspecified; I10 Essential (primary) hypertension; Z79.899 Other long term (current) drug therapy ==

== ENCOUNTER → 2020-07-05 | Outpatient (CLI) | payer OTHER ==
[2020-07-05 07:33] LABS: BASOPHILS ABSOLUTE AUTO 0.03 K/mm3 (0.00-0.23); BASOPHILS PERCENT AUTO 1 % (0-2); EOSINOPHILS ABSOLUTE AUTO 0.18 K/mm3 (0.00-0.68); EOSINOPHILS PERCENT AUTO 3 % (0-6); Hematocrit 38.9 % (33.0-51.0); Hemoglobin 12.2 g/dL (11.5-16.0); IMMATURE GRAN ABSOLUTE AUTO 0.02 K/mm3 (0.00-0.10); IMMATURE GRAN PERCENT AUTO 0 % (0-1); LYMPHOCYTES ABSOLUTE AUTO 1.44 K/mm3 (0.84-5.20); LYMPHOCYTES PERCENT AUTO 26 % (21-46); MONOCYTES ABSOLUTE AUTO 0.59 K/mm3 (0.16-1.47); MONOCYTES PERCENT AUTO 11 % (4-13); Mean Corpuscular HGB 29.8 pg (26.0-34.0); Mean Corpuscular HGB Conc 31.4 g/dL (31.5-36.5); Mean Corpuscular Volume 95 fL (80-100); Mean Platelet Volume 10.2 fL (9.1-12.4); NEUTROPHILS PERCENT AUTO 59 % (41-73); Platelet Count 262 K/mm3 (150-400); RDW Coefficient Variation 13.3 % (11.7-14.2); RDW Standard Deviation 46.7 fL (35.1-46.3); White Blood Cell Count 5.46 K/mm3 (4.00-11.30)
[2020-07-05 07:50] LABS: Alanine Aminotransfer (ALT/SGP 107 U/L (12-78); Albumin, Blood 2.7 g/dL (3.4-5.0); Albumin/Globulin Ratio 0.9 (0.8-1.8); Alk Phos 336 U/L (50-136); Anion Gap 1 mmol/L (6-16); Aspartate Aminotrans (AST/SGOT 54 U/L (12-37); Bilirubin, Total 0.5 mg/dL (0.1-1.0); Blood Urea Nitrogen 20 mg/dL (8-24); Bun/Creatinine Ratio 46.4 (12.0-20.0); C-REACTIVE PROTEIN, EXT RANGE 0.821 mg/dL (0.000-0.300); CO2, Blood 30 mmol/L (21-32); Calcium, Blood 8.6 mg/dL (8.5-10.1); Chloride, Blood 109 mmol/L (98-108); Creatinine, Blood 0.43 mg/dL (0.40-1.00); Globulin, Blood 3.1 g/dL (2.2-4.0); Glomerular Filtration Rate >60 (60-); Glucose, Blood 130 mg/dL (70-99); Potassium, Blood 4.3 mmol/L (3.5-5.5); Sodium, Blood 140 mmol/L (136-145); Total Protein, Blood 5.8 g/dL (6.4-8.2)
== END | disposition home or self-care (01) ==
LOC: LAB UVN 07:12 → EDSTATUS 11:32
PROVIDERS: Family Medicine
DX: L89.154 Pressure ulcer of sacral region, stage 4 (principal); M86.18 Other acute osteomyelitis, other site
CPT/HCPCS: 80053; 85025; 85651; 86140

== ENCOUNTER → 2020-08-02 | Outpatient (CLI) | payer OTHER ==
[2020-08-02 04:57] LABS: BASOPHILS ABSOLUTE AUTO 0.03 K/mm3 (0.00-0.23); BASOPHILS PERCENT AUTO 0 % (0-2); EOSINOPHILS PERCENT AUTO 3 % (0-6); Hematocrit 42.4 % (33.0-51.0); Hemoglobin 13.2 g/dL (11.5-16.0); IMMATURE GRAN ABSOLUTE AUTO 0.04 K/mm3 (0.00-0.10); IMMATURE GRAN PERCENT AUTO 1 % (0-1); LYMPHOCYTES ABSOLUTE AUTO 1.52 K/mm3 (0.84-5.20); LYMPHOCYTES PERCENT AUTO 20 % (21-46); MONOCYTES ABSOLUTE AUTO 0.93 K/mm3 (0.16-1.47); MONOCYTES PERCENT AUTO 12 % (4-13); Mean Corpuscular HGB 29.7 pg (26.0-34.0); Mean Corpuscular HGB Conc 31.1 g/dL (31.5-36.5); Mean Corpuscular Volume 96 fL (80-100); Mean Platelet Volume 10.3 fL (9.1-12.4); NEUTROPHILS ABSOLUTE AUTO 4.92 K/mm3 (1.96-9.15); NEUTROPHILS PERCENT AUTO 64 % (41-73); Platelet Count 294 K/mm3 (150-400); RDW Coefficient Variation 13.8 % (11.7-14.2); RDW Standard Deviation 48.4 fL (35.1-46.3); Red Blood Cell Count 4.44 M/mm3 (3.80-5.20); White Blood Cell Count 7.64 K/mm3 (4.00-11.30)
[2020-08-02 05:18] LABS: Alanine Aminotransfer (ALT/SGP 196 U/L (12-78); Albumin, Blood 3.1 g/dL (3.4-5.0); Albumin/Globulin Ratio 0.8 (0.8-1.8); Alk Phos 424 U/L (50-136); Anion Gap 2 mmol/L (6-16); Aspartate Aminotrans (AST/SGOT 107 U/L (12-37); Bilirubin, Total 0.6 mg/dL (0.1-1.0); Blood Urea Nitrogen 19 mg/dL (8-24); Bun/Creatinine Ratio 41.5 (12.0-20.0); CO2, Blood 29 mmol/L (21-32); Chloride, Blood 110 mmol/L (98-108); Creatinine, Blood 0.46 mg/dL (0.40-1.00); Globulin, Blood 3.7 g/dL (2.2-4.0); Glomerular Filtration Rate >60 (60-); Glucose, Blood 86 mg/dL (70-99); Potassium, Blood 4.8 mmol/L (3.5-5.5); Sodium, Blood 141 mmol/L (136-145); Total Protein, Blood 6.8 g/dL (6.4-8.2)
== END | disposition home or self-care (01) ==
LOC: LAB UVN 04:52 → EDSTATUS 15:17
PROVIDERS: Family Medicine
DX: L89.154 Pressure ulcer of sacral region, stage 4 (principal); M86.18 Other acute osteomyelitis, other site
CPT/HCPCS: 80053; 85025; 85651; 86140

== ENCOUNTER 2020-08-04 00:23 | Day surgery (SDC) | payer OTHER | END 2020-08-04 23:11 | disposition home or self-care (01) | LOC: WOUND 00:23 | DX: L89.154 Pressure ulcer of sacral region, stage 4 (principal); M86.9 Osteomyelitis, unspecified; I10 Essential (primary) hypertension; Z79.899 Other long term (current) drug therapy | CPT/HCPCS: G0463 ==

== ENCOUNTER → 2020-08-30 | Outpatient (CLI) | payer OTHER ==
[~2020-08-30] MED LIST changes: +DULO60 PO; +THERA-D2000 UNIT PO; +TRAM50 PO
[2020-08-30 04:38] LABS: Hematocrit 41.4 % (33.0-51.0); Hemoglobin 13.3 g/dL (11.5-16.0); Mean Corpuscular HGB 30.6 pg (26.0-34.0); Mean Corpuscular HGB Conc 32.1 g/dL (31.5-36.5); Mean Corpuscular Volume 95 fL (80-100); Mean Platelet Volume 9.8 fL (9.1-12.4); Platelet Count 294 K/mm3 (150-400); RDW Coefficient Variation 13.7 % (11.7-14.2); RDW Standard Deviation 48.4 fL (35.1-46.3); Red Blood Cell Count 4.35 M/mm3 (3.80-5.20); White Blood Cell Count 6.89 K/mm3 (4.00-11.30)
[2020-08-30 04:55] LABS: Alanine Aminotransfer (ALT/SGP 87 U/L (12-78); Albumin/Globulin Ratio 0.8 (0.8-1.8); Alk Phos 302 U/L (50-136); Anion Gap 4 mmol/L (6-16); Aspartate Aminotrans (AST/SGOT 47 U/L (12-37); Bilirubin, Total 0.6 mg/dL (0.1-1.0); Blood Urea Nitrogen 20 mg/dL (8-24); Bun/Creatinine Ratio 44.4 (12.0-20.0); CO2, Blood 27 mmol/L (21-32); Calcium, Blood 8.9 mg/dL (8.5-10.1); Chloride, Blood 109 mmol/L (98-108); Creatinine, Blood 0.45 mg/dL (0.40-1.00); Globulin, Blood 3.7 g/dL (2.2-4.0); Glomerular Filtration Rate >60 (60-); Glucose, Blood 94 mg/dL (70-99); Potassium, Blood 4.5 mmol/L (3.5-5.5); Sodium, Blood 140 mmol/L (136-145); Total Protein, Blood 6.7 g/dL (6.4-8.2)
== END | disposition home or self-care (01) ==
LOC: LAB UVN 03:20 → EDSTATUS 11:54
PROVIDERS: Family Medicine
DX: M86.18 Other acute osteomyelitis, other site (principal); L89.154 Pressure ulcer of sacral region, stage 4
CPT/HCPCS: 80053; 85027; 85651; 86140

== ENCOUNTER 2020-09-01 00:14 | Day surgery (SDC) | payer OTHER ==
[~2020-09-01 00:14] MED LIST changes: -DULO60 PO; -THERA-D2000 UNIT PO; -TRAM50 PO
== END 2020-09-01 23:33 | disposition home or self-care (01) ==
LOC: WOUND 00:14
DX: L89.154 Pressure ulcer of sacral region, stage 4 (principal); M86.9 Osteomyelitis, unspecified; G31.84 Mild cognitive impairment of uncertain or unknown etiology; I10 Essential (primary) hypertension; Z85.3 Personal history of malignant neoplasm of breast; Z93.3 Colostomy status; Z93.2 Ileostomy status; Z93.1 Gastrostomy status
CPT/HCPCS: A9270

== ENCOUNTER → 2020-09-28 | Outpatient (CLI) | payer OTHER ==
[~2020-09-28] MED LIST changes: +DULO60 PO; +THERA-D2000 UNIT PO; +TRAM50 PO
[2020-09-28 18:48] LABS: Hematocrit 47.7 % (33.0-51.0); Hemoglobin 14.4 g/dL (11.5-16.0); Mean Corpuscular HGB 29.7 pg (26.0-34.0); Mean Corpuscular HGB Conc 30.2 g/dL (31.5-36.5); Mean Corpuscular Volume 98 fL (80-100); Mean Platelet Volume 10.6 fL (9.1-12.4); Platelet Count 346 K/mm3 (150-400); RDW Coefficient Variation 13.2 % (11.7-14.2); RDW Standard Deviation 48.1 fL (35.1-46.3); Red Blood Cell Count 4.85 M/mm3 (3.80-5.20); White Blood Cell Count 7.82 K/mm3 (4.00-11.30)
== END | disposition home or self-care (01) ==
LOC: EDSTATUS 12:43 → LAB UVN 18:36
PROVIDERS: Family Medicine
DX: L89.154 Pressure ulcer of sacral region, stage 4 (principal); M86.18 Other acute osteomyelitis, other site
CPT/HCPCS: 85027; 85651

== ENCOUNTER 2020-09-29 00:17 | Day surgery (SDC) | payer OTHER ==
[~2020-09-29 00:17] MED LIST changes: -DULO60 PO; -THERA-D2000 UNIT PO; -TRAM50 PO
== END 2020-09-29 23:45 | disposition home or self-care (01) ==
LOC: WOUND 00:17
DX: L89.154 Pressure ulcer of sacral region, stage 4 (principal); M86.9 Osteomyelitis, unspecified; I10 Essential (primary) hypertension; Z93.3 Colostomy status; Z93.2 Ileostomy status; Z93.1 Gastrostomy status
CPT/HCPCS: A9270

== ENCOUNTER → 2020-10-25 | Outpatient (CLI) | payer OTHER ==
[~2020-10-25] MED LIST changes: +DULO60 PO; +THERA-D2000 UNIT PO; +TRAM50 PO
[2020-10-25 07:00] LABS: BASOPHILS ABSOLUTE AUTO 0.05 K/mm3 (0.00-0.23); BASOPHILS PERCENT AUTO 1 % (0-2); EOSINOPHILS ABSOLUTE AUTO 0.26 K/mm3 (0.00-0.68); EOSINOPHILS PERCENT AUTO 4 % (0-6); Hematocrit 46.4 % (33.0-51.0); Hemoglobin 14.2 g/dL (11.5-16.0); IMMATURE GRAN ABSOLUTE AUTO 0.06 K/mm3 (0.00-0.10); IMMATURE GRAN PERCENT AUTO 1 % (0-1); LYMPHOCYTES ABSOLUTE AUTO 1.63 K/mm3 (0.84-5.20); LYMPHOCYTES PERCENT AUTO 24 % (21-46); MONOCYTES ABSOLUTE AUTO 0.82 K/mm3 (0.16-1.47); MONOCYTES PERCENT AUTO 12 % (4-13); Mean Corpuscular HGB 31.5 pg (26.0-34.0); Mean Corpuscular HGB Conc 30.6 g/dL (31.5-36.5); Mean Corpuscular Volume 103 fL (80-100); Mean Platelet Volume 10.1 fL (9.1-12.4); NEUTROPHILS ABSOLUTE AUTO 4.07 K/mm3 (1.96-9.15); NEUTROPHILS PERCENT AUTO 59 % (41-73); Platelet Count 243 K/mm3 (150-400); RDW Standard Deviation 49.7 fL (35.1-46.3); Red Blood Cell Count 4.51 M/mm3 (3.80-5.20); White Blood Cell Count 6.89 K/mm3 (4.00-11.30)
[2020-10-25 07:13] LABS: Alanine Aminotransfer (ALT/SGP 47 U/L (12-78); Albumin, Blood 2.9 g/dL (3.4-5.0); Albumin/Globulin Ratio 0.8 (0.8-1.8); Alk Phos 302 U/L (50-136); Anion Gap 4 mmol/L (6-16); Aspartate Aminotrans (AST/SGOT 35 U/L (12-37); Bilirubin, Total 0.6 mg/dL (0.1-1.0); Blood Urea Nitrogen 17 mg/dL (8-24); CO2, Blood 27 mmol/L (21-32); Chloride, Blood 110 mmol/L (98-108); Creatinine, Blood 0.46 mg/dL (0.40-1.00); Globulin, Blood 3.7 g/dL (2.2-4.0); Glomerular Filtration Rate >60 (60-); Glucose, Blood 84 mg/dL (70-99); Phosphorus, Blood 3.9 mg/dL (2.5-4.9); Sodium, Blood 141 mmol/L (136-145); Total Protein, Blood 6.6 g/dL (6.4-8.2)
== END | disposition home or self-care (01) ==
LOC: LAB UVN 06:50 → EDSTATUS 11:26
PROVIDERS: Family Medicine
DX: L89.154 Pressure ulcer of sacral region, stage 4 (principal); M86.9 Osteomyelitis, unspecified
CPT/HCPCS: 80053; 84100; 85025

== ENCOUNTER 2020-10-27 00:08 | Day surgery (SDC) | payer OTHER ==
[~2020-10-27 00:08] MED LIST changes: -DULO60 PO; -THERA-D2000 UNIT PO; -TRAM50 PO
== END 2020-10-27 23:01 | disposition home or self-care (01) ==
LOC: WOUND 00:08
DX: L89.154 Pressure ulcer of sacral region, stage 4 (principal); M86.9 Osteomyelitis, unspecified; I10 Essential (primary) hypertension; G31.84 Mild cognitive impairment of uncertain or unknown etiology; E46 Unspecified protein-calorie malnutrition; Z85.3 Personal history of malignant neoplasm of breast; Z93.3 Colostomy status; Z93.2 Ileostomy status; Z93.1 Gastrostomy status
CPT/HCPCS: A9270

== ENCOUNTER 2020-11-24 00:16 | Day surgery (SDC) | payer OTHER | END 2020-11-24 22:49 | disposition home or self-care (01) | LOC: WOUND 00:16 | DX: L89.154 Pressure ulcer of sacral region, stage 4 (principal); M86.9 Osteomyelitis, unspecified; I10 Essential (primary) hypertension; G31.84 Mild cognitive impairment of uncertain or unknown etiology | CPT/HCPCS: A9270; G0463 ==

== ENCOUNTER 2020-12-29 22:03 | Inpatient (IN) | payer OTHER, MEDICARE ==
[~2020-12-29] VITALS: Ht 162.6 cm; Wt 88.5 kg
[2020-12-29] MEDS ORDERED: DULO60 PO (22:48)
[2020-12-29] MEDS ORDERED: TRAM50 PO (22:50)
[2020-12-29] MEDS ORDERED: THERA-D2000 UNIT PO (22:52)
[2020-12-30 02:22] LABS: Influenza A, PCR NEGATIVE (NEGATIVE); Influenza B, PCR NEGATIVE (NEGATIVE); Resp Syncytial Virus, PCR NEGATIVE (NEGATIVE); SARS-Cov-2 (COVID-19) PCR, MMC NEGATIVE (NEGATIVE)
--- NOTE | 2020-12-30 02:54 | NUR ---
ARRIVAL TO UNIT PT ARRIVED TO THE FLOOR VIA STRETCHER FROM ER, TRANSFERED TO BED W/O INCIDENT, PT A LITTLE RESISTENT W/ REPOSITIONING, MEPILEX APPLIED TO OPEN DECUB ON COCCYX, NO PICTURE TAKEN DUE TO PATIENT NOT BEING ABLE TO STAY ROLLED ONTO EHR SIDE LONG ENOUGH, WOUND APPEARED TO HAVE CREAM ON IT W/ AN ESTIMATED 5MM STAGE 2 DECUBITUS IN THE MIDDLE, UNABLE TO GAUGE DEPTH AT THIS TIME, PT UNABLE TO UNDERSTAND 0-10 PAIN SCALE QUESTION USED TO RATE PAIN SEVERITY, WILL USE FACE SCALE OR FLACC, PT IS ABLE TO CALL FOR PAIN MEDICATIONS WHEN NEEDED. PT UNABLE TO PROVIDE MEDICAL HISTORY, ALL OTHER ADMIT WILL BE COMPLETED. PT RESTING COMFORTABLY IN HER ROOM, CALL LIGHT IN REACH AND SHE IS UNDERSTANDING HOW TO USE IT. WILL CONTINUE TO MONITOR AND REPORT TO ONCOMING DAY RN.
[2020-12-30 04:55] LABS: BASOPHILS ABSOLUTE AUTO 0.02 K/mm3 (0.00-0.23); BASOPHILS PERCENT AUTO 0 % (0-2); EOSINOPHILS ABSOLUTE AUTO 0.01 K/mm3 (0.00-0.68); EOSINOPHILS PERCENT AUTO 0 % (0-6); Hematocrit 40.5 % (33.0-51.0); Hemoglobin 13.2 g/dL (11.5-16.0); IMMATURE GRAN ABSOLUTE AUTO 0.11 K/mm3 (0.00-0.10); IMMATURE GRAN PERCENT AUTO 1 % (0-1); LYMPHOCYTES ABSOLUTE AUTO 0.88 K/mm3 (0.84-5.20); LYMPHOCYTES PERCENT AUTO 9 % (21-46); MONOCYTES ABSOLUTE AUTO 1.05 K/mm3 (0.16-1.47); MONOCYTES PERCENT AUTO 10 % (4-13); Mean Corpuscular HGB 30.6 pg (26.0-34.0); Mean Corpuscular HGB Conc 32.6 g/dL (31.5-36.5); Mean Corpuscular Volume 94 fL (80-100); Mean Platelet Volume 9.6 fL (9.1-12.4); NEUTROPHILS ABSOLUTE AUTO 8.06 K/mm3 (1.96-9.15); NEUTROPHILS PERCENT AUTO 80 % (41-73); Platelet Count 286 K/mm3 (150-400); RDW Coefficient Variation 12.8 % (11.7-14.2); RDW Standard Deviation 44.6 fL (35.1-46.3); Red Blood Cell Count 4.32 M/mm3 (3.80-5.20); White Blood Cell Count 10.13 K/mm3 (4.00-11.30)
[2020-12-30 05:11] LABS: Anion Gap 4 mmol/L (6-16); Blood Urea Nitrogen 15 mg/dL (8-24); CO2, Blood 25 mmol/L (21-32); Calcium, Blood 8.7 mg/dL (8.5-10.1); Chloride, Blood 105 mmol/L (98-108); Creatinine, Blood 0.56 mg/dL (0.40-1.00); Glomerular Filtration Rate >60 (60-); Glucose, Blood 141 mg/dL (70-99); Potassium, Blood 4.4 mmol/L (3.5-5.5); Sodium, Blood 134 mmol/L (136-145)
--- NOTE | 2020-12-30 13:05 | NUR ---
PT FROM 215 TO DAY SURGERY FOR PROCEDURE ON HIP. PER DR. FARRIS, YEHUDA PHILLIPS GIVES CONSENT FOR PROCEDURE. RN SPEAKS ON THE PHONE WITH JACKIE, DR. FARRIS AND DR. AREVALO FOR CONSENTS. PT PREPARED FOR PROCEDURE. COLOSTOMY BAG INTACT, PEG TUBE INTACT. АЛЕКСАНДР ZIMMERMAN,PAS AND SOCKS.
--- NOTE | 2020-12-30 13:12 | NUR ---
ADMIT: 12/30/20 DISCHARGE: DX: Left hip fracture CC: [email or web address] LG CALL: RESIDENCE: [facility] CAREGIVER: Violeta Hogan, Other / Not Listed, DX: breast cancer, physical deconditioning, elevated liver enzymes level, see list DME: none CCM: Referral 2019 HOME HEALTH: [facility]- 11/2020 SUMMARY: Admit: 12/30/20 12/30/20- per chart review, pt is having surgery today. She came in with history of coccyx pressure sore that was being treated by clinic CCM. Per Dr. Strong, pt could potentially be d/c back to [facility] over the weekend if she is stable. -sun
--- NOTE | 2020-12-30 15:20 | NUR ---
Pt resided at [facility] and will be going back to her ICF bed at discharge. Filled out SNF checklist, PASR and given to [facility] for review. Plan to d/c on Saturday due to need for [facility] Authorization needed. -sun
--- NOTE | 2020-12-30 17:56 | NUR ---
PATIENT CAME BACK FROM PACU TODAY 12/30/20 AT AROUND 1430. SHE IS DROWSY BUT EASILY AWOKEN. SHE CAN ANSWER QUESTIONS. THERE ARE TWO AQUACELS ON THE LEFT HIP AND ONE ON THE RIGHT KNEE. THEY ARE ALL C/D/I. SHE IS ABLE TO WIGGLE FINGERS AND TOES WHEN ASKED. VS ARE WNL AND IS ON RA. PATIENT REPORTS NO PAIN AT THIS TIME. IV FLUIDS ARE RUNNING. CALL LIGHT WITHIN REACH. CALLS APPROPRIATELY.
--- NOTE | 2020-12-31 03:42 | NUR ---
SHIFT SUMMARY POD1 L HIP NAILING W/ DR. FARRIS PT AOX2. DEVELOPMENTAL DELAYED. PT SLEPT GOOD T/O SHIFT. REPORTS PAIN 5/10. PAIN MANAGED WITH NORCO 5MG. TOLERATING PO INTAKE DENIES N/V. AQUACEL DRESSING ON L HIP AND R KNEE, CDI. PT DENIES NUMBNESS AND TINGLING SENSATION. SCD ON BLE. FLUIDS INFUSING. OSTOMY BAG AND PEG TUBE (CHRONIC) INTACT. MEPILEX ON COCCYX. DEE INTACT/GRAVITY/ON FLOOR. CALL LIGHT WITHIN REACH. BED IN LOW POSITION.
[2020-12-31 06:49] LABS: BASOPHILS ABSOLUTE AUTO 0.04 K/mm3 (0.00-0.23); BASOPHILS PERCENT AUTO 0 % (0-2); EOSINOPHILS ABSOLUTE AUTO 0.01 K/mm3 (0.00-0.68); EOSINOPHILS PERCENT AUTO 0 % (0-6); Hematocrit 28.9 % (33.0-51.0); Hemoglobin 9.3 g/dL (11.5-16.0); IMMATURE GRAN ABSOLUTE AUTO 0.13 K/mm3 (0.00-0.10); IMMATURE GRAN PERCENT AUTO 1 % (0-1); LYMPHOCYTES ABSOLUTE AUTO 1.96 K/mm3 (0.84-5.20); LYMPHOCYTES PERCENT AUTO 14 % (21-46); MONOCYTES ABSOLUTE AUTO 2.09 K/mm3 (0.16-1.47); MONOCYTES PERCENT AUTO 15 % (4-13); Mean Corpuscular HGB 31.1 pg (26.0-34.0); Mean Corpuscular HGB Conc 32.2 g/dL (31.5-36.5); Mean Corpuscular Volume 97 fL (80-100); Mean Platelet Volume 9.9 fL (9.1-12.4); NEUTROPHILS PERCENT AUTO 70 % (41-73); Platelet Count 274 K/mm3 (150-400); RDW Coefficient Variation 13.1 % (11.7-14.2); RDW Standard Deviation 45.9 fL (35.1-46.3); Red Blood Cell Count 2.99 M/mm3 (3.80-5.20); White Blood Cell Count 14.03 K/mm3 (4.00-11.30)
--- NOTE | 2020-12-31 17:52 | NUR ---
SHIFT SUMMARY PATIENT ALERT AND ORIENTED THROUGHOUT SHIFT. RESPONDS APPROPRIATELY AND FOLLOWS DIRECTIONS. ANXIOUS WITH MOVEMENT AND ATTEMPTS TO GET PATIENT UP TO DANGLE. TOLERATING REGULAR DIET AND ORAL FLUIDS. IV FLUID RUNNING AT 50 MLS/HR. DEE PATENT AND DRAINING. THICK JIMENES DISCHARGE NOTED FROM VAGINA THIS SHIFT. PEG TUBE AND OSTOMY TO ABD. BOTH PATENT. AQUACEL TO LEFT HIP C/D/I. WHEELCHAIR IS BASELINE. PLAN TO DISCHARGE TO SNF.
--- NOTE | 2020-12-31 19:20 | NUR ---
RECEIVED REPORT AND ASSUMED CARE OF PT. SHE IS SITTING UP IN BED, REQUESTED REPOSITIONING. STATES MORE COMFORTABLE AFTER REPOSITION TO L HIP AND BOOST IN BED. SHE STATES THAT THE PEG TUBE IS NO LONGER IN USE. WCTM.
--- NOTE | 2020-12-31 20:40 | NUR ---
PT REFUSED MEDICATIONS THAT WERE ORDERED PER TUBE. SHE STATES THAT SHE HAS HAD AN EVALUATION AND HAS BEEN CLEARED TO EAT/DRINK/TAKE ALL MEDICATIONS ORALLY. SHE STATES THAT THE PEG TUBE IS NO LONGER IN USE. PER THE MAR SENT OVER BY MARTELL JOHNSON, SHE WAS TAKING SOME MEDICATIONS PER TUBE. THE NURSE ON DUTY STATED THAT SHE WAS UNABLE TO FIND ANY RECORDS OF A SPEECH OR SWALLOW EVALUATION. THIS NURSE WAS ABLE TO FIND RECORD OF A BARIUM SWALLOW DONE IN 2018 AND PEG TUBE PLACEMENT DONE JUNE 2019, BUT NO RECORD OF A SWALLOW EVALUATION DONE SINCE THAT TIME. WILL REQUEST EVALUATION FROM HOSPITALIST ON DAY SHIFT.
--- NOTE | 2021-01-01 03:48 | NUR ---
DURING THE CHART REVIEW, IT WAS NOTED THAT TRACEY HAD BEEN RECEIVING FEEDINGS VIA PEG TUBE FOR THREE HOURS PER NIGHT AT [facility]. IT WAS ALSO NOTED THAT SHE HAS A REGULAR DIET WITH THIN LIQUIDS ORDERED FOR PT COMFORT. WILL ADDRESS WITH DAY SHIFT HOSPITALIST. PT RESTING QUIETLY AT THIS TIME WITH HER EYES CLOSED AND EVEN, UNLABORED RESPIRATIONS.
--- NOTE | 2021-01-01 05:41 | NUR ---
SHIFT SUMMARY: TRACEY IS A&OX4. VSS, TACHYCARDIA NOTED WHICH PT REPORTS SHE EXPERIENCES OCCASIONALLY. SHE DENIES ANY CHEST PAIN OR SOB. MAINTAINING SATS ORA. SHE HAS BEEN TURNED AND REPOSITIONED FREQUENTLY D/T THE CHRONIC DECUBITUS ULCER ON HER COCCYX. OSTOMY WITH LIQUID STOOL AND COPIOUS AMOUNTS OF FLATUS. SHE REPORTS EXCELLENT PAIN CONTROL WITH 1 TABLET OF NORCO. AQUACELL X 2 INTACT TO LEFT HIP. PEG TUBE IN PLACE. IV TO LEFT WRIST PATENT. SHE IS LYING IN BED WITH HER CALL LIGHT IN REACH, WHICH SHE USES APPROPRIATELY. WILL REPORT TO DAY SHIFT RN.
[2021-01-01 10:22] LABS: BASOPHILS ABSOLUTE AUTO 0.02 K/mm3 (0.00-0.23); BASOPHILS PERCENT AUTO 0 % (0-2); EOSINOPHILS ABSOLUTE AUTO 0.02 K/mm3 (0.00-0.68); EOSINOPHILS PERCENT AUTO 0 % (0-6); Hematocrit 23.3 % (33.0-51.0); Hemoglobin 7.5 g/dL (11.5-16.0); IMMATURE GRAN ABSOLUTE AUTO 0.12 K/mm3 (0.00-0.10); IMMATURE GRAN PERCENT AUTO 1 % (0-1); LYMPHOCYTES ABSOLUTE AUTO 1.33 K/mm3 (0.84-5.20); LYMPHOCYTES PERCENT AUTO 13 % (21-46); MONOCYTES ABSOLUTE AUTO 1.34 K/mm3 (0.16-1.47); MONOCYTES PERCENT AUTO 14 % (4-13); Mean Corpuscular HGB 31.6 pg (26.0-34.0); Mean Corpuscular HGB Conc 32.2 g/dL (31.5-36.5); Mean Corpuscular Volume 98 fL (80-100); Mean Platelet Volume 10.2 fL (9.1-12.4); NEUTROPHILS ABSOLUTE AUTO 7.13 K/mm3 (1.96-9.15); NEUTROPHILS PERCENT AUTO 72 % (41-73); Platelet Count 213 K/mm3 (150-400); RDW Coefficient Variation 13.2 % (11.7-14.2); RDW Standard Deviation 46.8 fL (35.1-46.3); Red Blood Cell Count 2.37 M/mm3 (3.80-5.20); White Blood Cell Count 9.96 K/mm3 (4.00-11.30)
--- NOTE | 2021-01-01 16:27 | NUR ---
SHIFT SUMMARY PT A&OX4, VSS, POD2 L HIP NAIL, 2 AQUACEL DRY/INTACT. PAIN MANAGED WITH 5 MG NORCO. KATIE PO. DEE PATENT & DRAINING YELLOW URINE, STAT LOCK ON, OFF FLOOR. OSTOMY WITH 500 MLS STOOL OUT. WILL REPORT TO ONCOMING NOC RN.
--- NOTE | 2021-01-01 16:41 | NUR ---
TELEPHONE CALL WITH HOSPITALIST RE SOME MEDS PO, SOME ARE PEG TUBE, PT REF USE OF PEG TUBE AND IS KATIE PO W/O DIFFICULTIES, AND REQ NO IV ACCESS ORDER. HOSPITALIST REP WILL REVIEW MEDICATIONS, AND OKAY TO DC IV.
--- NOTE | 2021-01-01 19:15 | NUR ---
RECEIVED REPORT AND ASSUMED CARE OF PT. SHE IS LYING IN BED WATCHING TV, DENIES ANY NEEDS AT THIS TIME.
--- NOTE | 2021-01-02 04:24 | NUR ---
SHIFT SUMMARY: TRACEY IS A&0X4. VSS, NO ACUTE EVENTS OVERNIGHT. LOW GRADE FEVER THIS AM WITH TEMPORAL MEASUREMENT, ATTEMT TO OBTAIN ORAL TEMPERATURE WAS INEFFECTUAL D/T PT'S ANXIETY. SHE CONTINUES TO EXHIBIT ANXIETY/PANIC WHEN STAFF IS ATTEMPTING TO PROVIDE CARE. SHE IS ABLE TO MAKE HER NEEDS KNOWN. SHE REPORTS ADEQUATE PAIN CONTROL WITH ONE TABLET OF NORCO. AQUACELL X 3 TO LEFT THIGH WITH SCANT DRAINAGE TO UPPER DRESSING, C/D&I OTHERWISE. SHE IS TOLERATING PO INTAKE WELL, CONTINUES TO REFUSE USE OF THE PEG TUBE. OSTOMY WITH LIQUID BROWN STOOL AND FLATUS. DEE PATENT. SHE IS LYING IN BED WITH THE CALL LIGHT IN REACH. WILL REPORT TO DAY SHIFT RN.
--- NOTE | 2021-01-02 10:45 | NUR ---
CONTACTED NURSE AT [facility] PTS NURSE WENDY AT [facility] WAS CONTACTED BY ROSS SHIP ENGINEER AND PEG TUBE USE WAS VERIFIED. WENDY REPORTED THAT THE PT'S PEG TUBE IS USED TO INFUSE TUBE NUTRITION AT A RATE OF 75 ML/HR FOR 4 HR DAILY. PT'S PEG TUBE IS USED TO ASSESS RESIDUAL BEFORE EACH FLUSH. THE PEG TUBE IS FLUSHED Q4H WITH 120 ML H20. PT DOES RECIEVE LIQUID REGLAN VIA PEG TUBE, ALL OTHER MEDS ARE ADMINSTERED PO.
[2021-01-02 11:09] LABS: BASOPHILS ABSOLUTE AUTO 0.02 K/mm3 (0.00-0.23); BASOPHILS PERCENT AUTO 0 % (0-2); EOSINOPHILS ABSOLUTE AUTO 0.11 K/mm3 (0.00-0.68); EOSINOPHILS PERCENT AUTO 1 % (0-6); Hematocrit 22.5 % (33.0-51.0); IMMATURE GRAN ABSOLUTE AUTO 0.13 K/mm3 (0.00-0.10); IMMATURE GRAN PERCENT AUTO 1 % (0-1); LYMPHOCYTES ABSOLUTE AUTO 1.51 K/mm3 (0.84-5.20); LYMPHOCYTES PERCENT AUTO 16 % (21-46); MONOCYTES ABSOLUTE AUTO 1.17 K/mm3 (0.16-1.47); MONOCYTES PERCENT AUTO 13 % (4-13); Mean Corpuscular HGB 30.7 pg (26.0-34.0); Mean Corpuscular HGB Conc 31.1 g/dL (31.5-36.5); Mean Corpuscular Volume 99 fL (80-100); NEUTROPHILS ABSOLUTE AUTO 6.43 K/mm3 (1.96-9.15); NEUTROPHILS PERCENT AUTO 69 % (41-73); Platelet Count 245 K/mm3 (150-400); RDW Coefficient Variation 13.3 % (11.7-14.2); RDW Standard Deviation 47.8 fL (35.1-46.3); Red Blood Cell Count 2.28 M/mm3 (3.80-5.20); White Blood Cell Count 9.37 K/mm3 (4.00-11.30)
--- NOTE | 2021-01-02 12:23 | NUR ---
DR. CASTORENA NOTIFIED OF LOW H&H. PLAN TO GIVE [address] CASTORENA ORDER. PT BECOMES VERY UPSET WITH LAB DRAWS AND IV STARTS, PLAN TO PLACE POWER GLIDE TO REDUCE NEEDLE STICKS. DR. CASTORENA ALSO NOTIFIED OF DIETARY RECOMMENDATION TO DISCONTINUE TUBE FEEDINGS AND ONLY USE FOR MEDICATIONS THAT PT DOES NOT TOLERATE ORALLY. PLAN FOR POSSIBLE DISCHARGE TOMORROW. VSS. WILL CONTINUE TO MONITOR.
--- NOTE | 2021-01-02 13:35 | NUR ---
01/02/21- per chart review with Dr. Hawk, pt is medically stable to d/c back to [facility]. She does need to have H&H drawn prior to d/c to check her anemia. Pt does have colostomy bag. Will try to set up transport for either this afternoon or morning. -sun
--- NOTE | 2021-01-02 19:10 | NUR ---
SHIFT SUMMARY PT IS A&O X4. PT HAS BEEN IN PLEASENT MOOD DURING SHIFT, HOWEVER VERY ANXIOUS WHEN LABS OR PROCEDURES NEED TO BE COMPLETED. PT'S CAME AND VISITED DURING VISITING HOURS. PT IS RECIEVING 1 UNIT OF PRBC DUE TO LOW H&H. PT HAS BEEN EXPERIENCING HYPOTENSION, BUT VS ARE CURRENTLY STABLE. SPEECH THERAPY CLEARED PT FOR ORAL INTAKE, AND VERBALIZED NO NEED FOR PEG TUBE NUTRITION AT THIS TIME. CALL LIGHT IS WITHIN REACH.
--- NOTE | 2021-01-02 19:55 | NUR ---
SHIFT SUMMARY PT IS POD#3 FROM L HIP PINNING WITH DR. FARRIS. PAIN HAS BEEN MANAGED WITH PO PAIN MEDICATION. PT HAD LOW H&H TODAY AND IS GETTING A UNIT OF PRBC. PT WAS A DIFFICULT IV START AND POWER GLIDE WAS STARTED BY ISABELA NORTON FROM PCU. PT HAS BEEN ASYMPTOMATIC MOST OF THE DAY FROM LOW H&H HOWEVER THIS EVENING BP STARTED TO DECREASE AND HR STARTED TO INCREASE. PT DECLINED TO WORK WITH THERAPY AND BECOMES VERY ANXIOUS WITH ANY MOVEMENT. PLAN FOR DC TO SNF WHEN STABLE. REPORT GIVEN TO GLEN NORTON.
--- NOTE | 2021-01-03 06:32 | NUR ---
SUMMARY PT HAS HAD NO FURTHER DRNG NOTED AT PEG TUBE. TOLERATING PO FLUIDS TO TAKE PO PAIN MEDS.PT HAD LEAKAGE AT OSTOMY WAFER AND I CHANGED IT.PT ANXIOUS OFF AND ON THIS SHIFT.INTOLERANT IF STAFF TRY TO USE A DIFFERENT COLORED GOWN OR IV TUBES OR CORDS REST IN ANY POSITION THAT WOULD BE A CHANGE OR ANYTHING ELSE THAT PT MAY PERCIEVE A CHANGE.ENC DEEP BREATHE AND RELAXATION.
--- NOTE | 2021-01-03 07:50 | NUR ---
SHIFT ASSESSMENT PT SITTING UP IN BED DROWSY AT TIME OF ASSESSMENT. SHE VERBALIZED THAT SHE WANTED TO SLEEP. PT IS ALERT AND ORIENTED PER HER BASELINE. SHE IS SOMEWHAT ANXIOUS WITH NURSING CARE AND WANTS STAFF TO "HURRY UP." PT APPEARS COMFORTABLE AT REST. L HIP IS SWOLLEN. AQUACELL DRESSING IN PLACE C/D/I. PT IS ABLE TO MOVE ALL EXTREMITIES. PEDAL AND TIBIAL PULSES PALPABLE AND PRESENT. LUNG SOUNDS CLEAR, HEART SOUNDS WNL AND BOWEL SOUNDS PRESENT. CLEAN DRESSING AROUND PEG TUBE. OSTOMY APPLINACE IN PLACE, BROWN LIQUID STOOL OUT OF OSTOMY. DARK YELLOW URINE DRAINING FROM DEE CATH. PT DECLINED REPOSITIONING FOR STAFF TO ASSESS BUTTOCKS AT THIS TIME. WILL CONTINUE TO MONITOR.
[2021-01-03 09:41] LABS: Anion Gap 4 mmol/L (6-16); Blood Urea Nitrogen 20 mg/dL (8-24); CO2, Blood 28 mmol/L (21-32); Calcium, Blood 8.4 mg/dL (8.5-10.1); Chloride, Blood 109 mmol/L (98-108); Creatinine, Blood 0.54 mg/dL (0.40-1.00); Glomerular Filtration Rate >60 (60-); Glucose, Blood 112 mg/dL (70-99); Potassium, Blood 4.5 mmol/L (3.5-5.5); Sodium, Blood 141 mmol/L (136-145)
--- NOTE | 2021-01-03 11:04 | NUR ---
DR. CASTORENA ROUNDED. DISCUSSED PLAN FOR DISCHARGE. PLAN FOR PT TO DISCHARGE WITH POWER GLIDE FOR BLOOD DRAWS AND DEE CATHETER TO IMPROVE WOUND HEALING POTASSIUM DC'D. PLAN FOR DISCHARGE BACK TO [facility] TODAY.
--- NOTE | 2021-01-03 11:52 | NUR ---
LOW BP DR. CASTORENA NOTIFIED THAT PT'S BLOOD PRESSURE IS DECREASING FROM MORNING BP CHECK. PLAN TO GIVEN NS 500ML BOLUS TO INCREASE BP AND TYLENOL FOR PAIN.
--- NOTE | 2021-01-03 12:21 | NUR ---
FLUID BOLUS FLUID BOLUS WAS STARTED AT APPROX. 1215. PT IS TOLLERATING WELL, WILL CONTINUE TO MONITOR FOR S/S OF CHANGE. WILL CONTINUE TO MONITOR VS.
--- NOTE | 2021-01-03 12:30 | NUR ---
LOW BP AND BOLUS FLUID BOLUS STARTED AT 1206. BP TRENDING DOWN SINCE AM VS, BP AT 1126 92/51 AND HR 90. PT TOLERATED BOLUS WELL. PT AWAKE ALERT AND ORIENTED. SHE DENIES SHORTNESS OF BREATH AND CHEST PAIN. PT DENIES DIZZINESS.
--- NOTE | 2021-01-03 13:55 | NUR ---
LOW BP AFTER BOLUS PT'S BP AT 1351 87/51 AND INCREASING. PT TOLERATED 500ML BOLUS, HOWEVER BP APPEARS TO BE REAMINING LOW. PT IS ASYMPTOMATIC EXCEPT FOR MILD TACHYCARDIA. DR. CASTORENA NOTIFIED AND ANOTHER FLUID BOLUS ORDERED. FOR LOW BP.
[2021-01-03 14:26] LABS: Hematocrit 26.8 % (33.0-51.0); Hemoglobin 8.5 g/dL (11.5-16.0)
--- NOTE | 2021-01-03 14:30 | NUR ---
FLUID BOLUS SECOND FLUID BOLUS STARTED AT 1420. BP WHILE LYING WAS 114/68 AND HR 105. WHILE SITTING WITH HOB >30 DEGREES PT BP REMAINED LOW AT 90/59.
--- NOTE | 2021-01-03 15:07 | NUR ---
PT UPDATE PT HAD A BP READING OF 87/51 AND A HR OF 103 @ APPROX. 1400 OBTAINED BY WHOLESALE REPRESENTATIVE ROSS. THE PT APPEARS TO BE A&O X4 AND DENIED SOB. NURSE RAJEEV WAS NOTIFIED AND NOTIFIED DR. CASTORENA. THE PT RECIEVED A 500ML BOLUS OF NS. STAT BLOOD LAB WAS OBTAINED PER DR VERBAL ORDER. VITAL SIGNS HAVE BEEN TAKEN Q15 MINUTE AND HAVE SHOWN AN UPWARD TREND.
--- NOTE | 2021-01-03 15:51 | NUR ---
01/03/21- PER CHART REVIEW WITH DR. CASTORENA, PT IS MEDICALLY STABLE TO D/C BACK TO [facility]. SHE WAS REVIEWED BY THE FACILITY BUT NOT ABLE TO RETURN DUE TO HAVING A TEMP IN THE LAST 24 HRS. NURSE CALLED AND ASKED IF PT COULD BE RE-REVIEWED DUE TO TEMP OCCURRING WHILE THE PT WAS RECEIVING A BLOOD TRANSFUSION AND RAISE IN TEMP IS NORMAL. NURSE ALSO REPORTS THAT PT'S BASELINE TEMP IS ALWAYS A LITTLE HIGHER. DR. FARRIS HAS CLEARED THE PT FOR D/C. DR. CASTORENA HAS PLACED D/C ORDERS WITH THE HOPE THAT THE PT WILL BE ABLE TO D/C TODAY. RECEIVED NOTIFICATION THAT PT WILL NOT BE ABLE TO RETURN AFTER RE-REVIEWING. ALSO WAS INFORMED THAT HER INSURANCE HAS DENIED THE REQUESTED FOR PT/OT SERVICES. SHE WILL BE ALLOWED TO RETURN A RESIDENT. [facility] WILL HAVE NURSE HOLD THE COVID TEST UNTIL TOMORROW SO IT IS THE SAME DAY TESTING. WILL HAVE DR. CASTORENA SIGN D/C NOTES ON DAY THAT SHE WILL BE ADMITTED BACK TO [facility]. -RAD
--- NOTE | 2021-01-03 17:00 | NUR ---
PAIN AND BP BLOOD PRESSURE IMPROVED AFTER BOLUS TO 108/70 WITH HR OF 99. PT HAD SEVERAL LOW BPs AFTER INITIAL IMPROVEMENT IN BP. DR. CASTORENA NOTIFIED OF BP IMPROVEMENT AND IMPROVED H&H. SINCE PT CONTINUED TO COMPLAIN OF PAIN DESPITE TYLENOL DR. ANGELO SAID OK TO GIVE NORCO AND ADJUST FREQUENCY TO Q6 HOURS AND HOLD IF SBP <90. WILL CONTINUE TO MONITOR. PT APPEARS TO BE IMPROVING. PLAN FOR DC TO SNF WHEN [facility] APPROVES TRANSFER.
--- NOTE | 2021-01-03 17:44 | NUR ---
SHIFT SUMMARY PT HAS BEEN ANXIOUS THROGHOUT SHIFT. PT HAS BEEN RESTING IN BED WATCHING T.V. THROUGHOUT SHIFT. LOW BP AND BOLUSES GIVEN, SEE NOTES. PT CONTACTED VIA PHONE AND THAT SEEMED TO HELP EASE ANXIETY. PT DRESSINGS ARE C/D/I. PT PEG TUBE IS CLAMPED. PT OSTOMY POUCHING SYSTEM WAS REPLACED DURING SHIFT. PT HAS BEEN TURNED Q2H. CALL LIGHT IS WITHIN REACH.
--- NOTE | 2021-01-03 18:26 | NUR ---
SHIFT SUMMARY PT IS POD#4 FROM L HIP PINNING WITH DR. FARRIS. PAIN MANAGED WITH TYLENOL AND NORCO. LOW BP TODAY (SEE NOTES), BOLUSES GIVEN. PT UNABLE TO DC TO [facility] TODAY RELATED TO LOW GRADE FEVER YESTERDAY, PLAN FOR DC TOMORROW TO [facility]. PT STILL UNWILLING TO WORK WITH THERAPY AND BECOMES VERY ANXIOUS WITH ANY REPOSTIONGING OR MOVEMENTS. PT IS ANXIOUS WILL ALL MEDICAL CARE BUT RESPONDS WELL TO CALM EDUCATION AND INSTRUCTION REGARDING NURSING AND MEDICAL CARE. PT DOES BECOME HIGHTLY AXIOUS AT TIMES AND IS UNABLE TO FOCUS ON INSTRUCTIONS, EDUCATION OR REASSURANCE. WILL MONITOR UNTIL REPORT TO NOC RN.
--- NOTE | 2021-01-04 07:15 | NUR ---
pt sleeping will obtain covid swab when awake
[2021-01-04 10:42] LABS: SARS-Cov-2 (COVID-19) PCR, MMC NEGATIVE (NEGATIVE)
--- NOTE | 2021-01-04 11:20 | NUR ---
pt discharged to [facility] via gurney no acute changes tried to call pt no answer will call report to [facility]
== END 2021-01-04 11:54 | DRG 481 ==
LOC: ER 22:03 → SURS 12-30 00:16
PROVIDERS: Emergency Medicine; Family Medicine; Orthopaedic Surgery; ADMIT Family Medicine
PROC: 30233N1 Transfusion of Nonautologous Red Blood Cells into Peripheral Vein, Percutaneous Approach (ICD-10-PCS; 2020-12-30)
PROC: 0QS706Z Reposition Left Upper Femur with Intramedullary Internal Fixation Device, Open Approach (ICD-10-PCS; principal; 2020-12-30 12:30)
DX: S72.142A Displaced intertrochanteric fracture of left femur, initial encounter for closed fracture (principal); I42.1 Obstructive hypertrophic cardiomyopathy; D62 Acute posthemorrhagic anemia; Z20.822 Contact with and (suspected) exposure to COVID-19; F79 Unspecified intellectual disabilities; M81.0 Age-related osteoporosis without current pathological fracture; I10 Essential (primary) hypertension; K59.81 Ogilvie syndrome; N39.46 Mixed incontinence; F41.9 Anxiety disorder, unspecified; G31.84 Mild cognitive impairment of uncertain or unknown etiology; Z99.3 Dependence on wheelchair; Z90.11 Acquired absence of right breast and nipple; Z85.3 Personal history of malignant neoplasm of breast; Z93.2 Ileostomy status; Z79.899 Other long term (current) drug therapy; W18.39XA Other fall on same level, initial encounter; Y92.129 Unspecified place in nursing home as the place of occurrence of the external cause
CPT/HCPCS: 0241U; 36415; 36430; 71045; 73502; 73552; 73700; 76377; 80048; 85014; 85018; 85025; 86850; 86900; 86901; 86923; 94667; 94760; 97110; 97161; 99285-25; A9270; C1713; C1769; G0463; J0690; J1100; J1650; J1885; J2405; J2704; J3010; J7030; J7050; J7120; P9016; U0004

== ENCOUNTER → 2021-01-09 | Outpatient (CLI) | payer OTHER ==
[~2021-01-09] MED LIST changes: +DULO60 PO; +THERA-D2000 UNIT PO; +TRAM50 PO
[2021-01-09 17:52] LABS: Hematocrit 30.2 % (33.0-51.0); Hemoglobin 9.1 g/dL (11.5-16.0); Mean Corpuscular HGB 30.2 pg (26.0-34.0); Mean Corpuscular HGB Conc 30.1 g/dL (31.5-36.5); Mean Corpuscular Volume 100 fL (80-100); Mean Platelet Volume 9.2 fL (9.1-12.4); Platelet Count 553 K/mm3 (150-400); RDW Coefficient Variation 14.6 % (11.7-14.2); RDW Standard Deviation 52.8 fL (35.1-46.3); Red Blood Cell Count 3.01 M/mm3 (3.80-5.20); White Blood Cell Count 8.37 K/mm3 (4.00-11.30)
[2021-01-09 18:25] LABS: Anion Gap 4 mmol/L (6-16); Blood Urea Nitrogen 11 mg/dL (8-24); Bun/Creatinine Ratio 18.3 (12.0-20.0); CO2, Blood 28 mmol/L (21-32); Calcium, Blood 8.6 mg/dL (8.5-10.1); Chloride, Blood 110 mmol/L (98-108); Glomerular Filtration Rate >60 (60-); Glucose, Blood 113 mg/dL (70-99); Sodium, Blood 142 mmol/L (136-145)
== END | disposition home or self-care (01) ==
LOC: EDSTATUS 13:56 → LAB UVN 17:40
PROVIDERS: Family Medicine
DX: S72.142D Displaced intertrochanteric fracture of left femur, subsequent encounter for closed fracture with routine healing (principal); L89.154 Pressure ulcer of sacral region, stage 4
CPT/HCPCS: 80048; 85027

== ENCOUNTER → 2021-10-16 | Outpatient (CLI) | payer OTHER ==
[2021-10-17 00:59] LABS: BASOPHILS ABSOLUTE AUTO 0.03 K/mm3 (0.00-0.23); BASOPHILS PERCENT AUTO 0 % (0-2); EOSINOPHILS PERCENT AUTO 2 % (0-6); Hematocrit 40.4 % (33.0-51.0); Hemoglobin 12.7 g/dL (11.5-16.0); IMMATURE GRAN ABSOLUTE AUTO 0.06 K/mm3 (0.00-0.10); IMMATURE GRAN PERCENT AUTO 0 % (0-1); LYMPHOCYTES ABSOLUTE AUTO 0.62 K/mm3 (0.84-5.20); LYMPHOCYTES PERCENT AUTO 5 % (21-46); MONOCYTES ABSOLUTE AUTO 0.73 K/mm3 (0.16-1.47); MONOCYTES PERCENT AUTO 5 % (4-13); Mean Corpuscular HGB 28.7 pg (26.0-34.0); Mean Corpuscular HGB Conc 31.4 g/dL (31.5-36.5); Mean Corpuscular Volume 91 fL (80-100); Mean Platelet Volume 10.1 fL (9.1-12.4); NEUTROPHILS ABSOLUTE AUTO 11.82 K/mm3 (1.96-9.15); NEUTROPHILS PERCENT AUTO 88 % (41-73); Platelet Count 294 K/mm3 (150-400); RDW Coefficient Variation 14.6 % (11.7-14.2); RDW Standard Deviation 49.2 fL (35.1-46.3); Red Blood Cell Count 4.43 M/mm3 (3.80-5.20); White Blood Cell Count 13.46 K/mm3 (4.00-11.30)
[2021-10-17 01:25] LABS: Alanine Aminotransfer (ALT/SGP 27 U/L (12-78); Albumin, Blood 3.2 g/dL (3.4-5.0); Albumin/Globulin Ratio 0.9 (0.8-1.8); Alk Phos 254 U/L (50-136); Anion Gap 9 mmol/L (6-16); Aspartate Aminotrans (AST/SGOT 26 U/L (12-37); Bilirubin, Total 0.7 mg/dL (0.1-1.0); Blood Urea Nitrogen 13 mg/dL (8-24); Bun/Creatinine Ratio 21.8 (12.0-20.0); CO2, Blood 25 mmol/L (21-32); Calcium, Blood 8.8 mg/dL (8.5-10.1); Chloride, Blood 106 mmol/L (98-108); Globulin, Blood 3.7 g/dL (2.2-4.0); Glomerular Filtration Rate >60 (60-); Glucose, Blood 103 mg/dL (70-99); Potassium, Blood 4.7 mmol/L (3.5-5.5); Sodium, Blood 140 mmol/L (136-145); Total Protein, Blood 6.9 g/dL (6.4-8.2)
== END | disposition home or self-care (01) ==
LOC: EDSTATUS 10:46 → LAB UVN 21:56
PROVIDERS: Internal Medicine
DX: Z47.89 Encounter for other orthopedic aftercare (principal); R13.12 Dysphagia, oropharyngeal phase
CPT/HCPCS: 80053; 85025

== ENCOUNTER → 2021-10-17 | Outpatient (CLI) | payer OTHER ==
[2021-10-17 10:23] LABS: Source, Urine Straight Cath
[2021-10-17 11:16] LABS: Appearance, Urine Cloudy (Clear); Bilirubin, Urine Neg (Neg); Blood, Urine 3+ (Neg); Color, Urine Yellow (P-Yellow); Glucose Qualitative, Urine Neg (Neg); Ketones, Urine Neg (Neg); Leukocyte Esterase, Urine 3+ (Neg); Nitrite, Urine Pos (Neg); Protein, Urine 3+ (Neg); Urobilinogen, Urine NORM (Normal)
[2021-10-17 12:00] LABS: Red Blood Cells, Urine TNTC /hpf (0-2)
[2021-10-17 12:02] LABS: Bacteria Few /hpf; Squamous Epithelial Cells Few /hpf (Few); White Blood Cells, Urine TNTC /hpf (0-5)
== END | disposition home or self-care (01) ==
LOC: LAB UVN 09:30 → EDSTATUS 10:47
PROVIDERS: Internal Medicine
DX: N39.0 Urinary tract infection, site not specified (principal)
CPT/HCPCS: 81001; 87077; 87086; 87186

== ENCOUNTER → 2022-01-18 | Outpatient (CLI) | payer OTHER ==
[2022-01-18 18:42] LABS: Appearance, Urine Cloudy (Clear); Bilirubin, Urine Neg (Neg); Blood, Urine 3+ (Neg); Color, Urine Yellow (P-Yellow); Glucose Qualitative, Urine Neg (Neg); Ketones, Urine Neg (Neg); Leukocyte Esterase, Urine 3+ (Neg); Nitrite, Urine Pos (Neg); Protein, Urine 2+ (Neg); Urobilinogen, Urine NORM (Normal)
[2022-01-18 18:56] LABS: Bacteria Many /hpf; Granular Casts 0-2 /lpf (0); Hyaline Casts 0-2 /lpf (0-2); Red Blood Cells, Urine TNTC /hpf (0-2); Squamous Epithelial Cells Mod /hpf (Few); White Blood Cells, Urine TNTC /hpf (0-5)
== END | disposition home or self-care (01) ==
LOC: EDSTATUS 12:21 → LAB UVN 17:46
PROVIDERS: Internal Medicine
DX: R39.9 Unspecified symptoms and signs involving the genitourinary system (principal)
CPT/HCPCS: 81001; 87077; 87086; 87186

== ENCOUNTER 2024-03-01 14:29 | Emergency (ER) | payer OTHER ==
[~2024-03-01] VITALS: Ht 162.6 cm; Wt 49.9 kg
[2024-03-01] MEDS ORDERED: TraMADol HCl 50 MG Tab PO ONE (16:20)
[2024-03-01 17:18] VITALS: BP 116/70
== END 2024-03-01 17:26 | disposition home or self-care (01) ==
LOC: ER 14:29
DX: T83.092A Other mechanical complication of nephrostomy catheter, initial encounter (principal); Z79.899 Other long term (current) drug therapy; I10 Essential (primary) hypertension; K21.9 Gastro-esophageal reflux disease without esophagitis
CPT/HCPCS: 76770; 99284-25; A9270

== ENCOUNTER 2024-06-18 17:24 | Inpatient (IN) | payer OTHER ==
[~2024-06-18] VITALS: Ht 162.6 cm; Wt 49.5 kg
[~2024-06-18 17:24] MED LIST changes: +Acetaminophen650 M1 PO; -Acetaminophen650 M1 PT
[2024-06-18] MEDS ORDERED: ClonazePAM 0.5 MG Tab PO ONE (20:15)
[2024-06-18] MEDS ORDERED: BusPIRone HCl 10 MG Tab PO ONE (20:15)
[2024-06-18] MEDS ORDERED: Pramipexole DI-HCL 0.125 MG Tab PO ONE (20:15)
[2024-06-18] MEDS ORDERED: TraMADol HCl 50 MG Tab PO ONE (20:15)
[2024-06-18] MEDS ORDERED: Melatonin 3 MG Tab PO ONE (20:20)
[2024-06-19] MEDS ORDERED: FLU VACC TS2024-25(6MOS UP)/PF 45 MCG/0.5 ML SYRINGE IM ONE (00:15)
[2024-06-19] MEDS ORDERED: TraMADol HCl 50 MG Tab PO PRN (00:20)
[2024-06-19] MEDS ORDERED: HYDROcodone 10-APAP 325 TAB PO PRN (00:20)
[2024-06-19] MEDS ORDERED: Lactated Ringer's 1,000 ML IV SCH (01:00)
[2024-06-19 06:18] LABS: BASOPHILS ABSOLUTE AUTO 0.04 K/mm3 (0.00-0.23); BASOPHILS PERCENT AUTO 1 % (0-2); EOSINOPHILS ABSOLUTE AUTO 0.19 K/mm3 (0.00-0.68); EOSINOPHILS PERCENT AUTO 2 % (0-6); Hematocrit 36.1 % (33.0-51.0); Hemoglobin 11.5 g/dL (11.5-16.0); IMMATURE GRAN ABSOLUTE AUTO 0.15 K/mm3 (0.00-0.10); IMMATURE GRAN PERCENT AUTO 2 % (0-1); LYMPHOCYTES ABSOLUTE AUTO 2.04 K/mm3 (0.84-5.20); LYMPHOCYTES PERCENT AUTO 23 % (21-46); MONOCYTES PERCENT AUTO 7 % (4-13); Mean Corpuscular HGB 28.9 pg (26.0-34.0); Mean Corpuscular HGB Conc 31.9 g/dL (31.5-36.5); Mean Corpuscular Volume 91 fL (80-100); Mean Platelet Volume 9.4 fL (9.1-12.4); NEUTROPHILS ABSOLUTE AUTO 5.74 K/mm3 (1.96-9.15); NEUTROPHILS PERCENT AUTO 66 % (41-73); Platelet Count 404 K/mm3 (150-400); RDW Coefficient Variation 14.6 % (11.7-14.2); RDW Standard Deviation 48.1 fL (35.1-46.3); Red Blood Cell Count 3.98 M/mm3 (3.80-5.20); White Blood Cell Count 8.76 K/mm3 (4.00-11.30)
[2024-06-19 06:50] LABS: Albumin, Blood 3.1 g/dL (3.4-5.0); Albumin/Globulin Ratio 0.6 (0.8-1.8); Bilirubin, Total 0.5 mg/dL (0.1-1.0); Bun/Creatinine Ratio 23.3 (12.0-20.0); Calcium, Blood 9.6 mg/dL (8.5-10.1); Creatinine, Blood 1.16 mg/dL (0.40-1.00); Globulin, Blood 4.9 g/dL (2.2-4.0); Potassium, Blood 5.5 mmol/L (3.5-5.5)
[2024-06-19 16:30] VITALS: BP 121/76
--- NOTE | 2024-06-19 17:48 | NUR ---
SHIFT SUMMARY: RECEIVED REPORTS FROM ER, RN LYNN. PER LYNN PATIENT HAD A FALL IN ED LAST NIGHT, CONFUSED AND HAS 1:1 SITTER. PATIENT HAD CONSULT FOR IR-DR. CORNELIUS, FOR NEPHROSTOMY PLACEMENT. PATIENT CURRENTLY NPO. PATIENT ARRIVES TO ROOM AT 1330 VIA GURNEY FOR DX'S OF NEPHROSTOMY TUBE DISPLACED. PATIENT TRANSFERRED TO BED USING SLIDER SHEET c 3 MAX ASSIST. PATIENT ANXIOUS, CONFUSED, A/O TO SELF ONLY AND NOT ABLE TO CONTRIBUTE ANY MEDICAL HX. MEDRIC IS NOT COMPLETED. PATIENT LIVES AT [facility]. THIS RN CALLED [facility] AND SPOKE c DAVIDE PIERRE. PER IGNACIO SHE WILL FAXED THE MED LIST TO MEDICAL UNIT. IGNACIO ALSO REPORTS "PATIENT BASELINE IS WHEELCHAIR BOUND, SHE CAN STAND/PIVOT FOR TRANSFER TO BED/CHAIR, ON REGULAR EASY TO CHEW DIET, MEDS WHOLE c THIN LIQUID." PATIENT HAS RASHES TO FOREHEAD, UNDER BILAT BREAST, MID ABDOMEN-SMALL HOLE c MILKY DRAINAIGE COMING OUT-REDNESS AROUND THE SITE, RLQ CHRONIC OSTOMY, REDENESS TO GROIN, SMALL PUNCTURED SITE TO L SIDE AND DECUB WOUND TO COCCYX. MIPELEX DRESSING IN PLACED TO AFFECTED SITE. DR. PIÑA NOTIFIED. DR. CORNELIUS CAME IN AT 1450 FOR CONSULT AND SPOKE TO PATIENT c THE PLAN OF CARE. PATIENT AGREED TO HAVE NEPHROSTOMY PLACEMENT. PATIENT HAS 1:1 SITTER IN ROOM. PATIENT ON TELE, SR HR IN THE 90'S BPM. PATIENT LEFT THE ROOM AT 1815 TRANSPORTED VIA BED TO OR FOR NEPHROSTOMY PLACEMENT.
[2024-06-19] MEDS ORDERED: Heparin Sodium 1000 Units/ML 10ML MDV ONE (17:50)
[2024-06-19] MEDS ORDERED: NS 250 ML IV ONE (17:50)
[2024-06-19 19:25] VITALS: BP 100/68
[2024-06-19] MEDS ORDERED: Vancomycin HCL 750 MG in NS 250 ML IV ONE (19:25)
[2024-06-19] MEDS ORDERED: BENZOCAINE 20% TOP PRN (19:55)
[2024-06-19] MEDS ORDERED: Piperacillin/Tazobactam Sod 3.375 GM in NS 100 ML IV SCH (20:00)
[2024-06-19] MEDS ORDERED: NS 250 ML IV PRN (20:15)
[2024-06-19] MEDS ORDERED: Arginine/Glutamine/Calcium Hmb 1 Packet PO SCH (21:00)
[2024-06-19] MEDS ORDERED: Miconazole Nitrate 2% 85 GM PWD TOP SCH (21:00)
[2024-06-20 03:53] VITALS: BP 110/59
--- NOTE | 2024-06-20 04:56 | NUR ---
SHIFT SUMMARY: TRACEY IS ALERT AND ORIENTED TO SELF, KNOWS THAT SHE IS NOT AT HOME AND STATES SHE WISHES TO RETURN SOON POSSIBLE. VSS, NO ACUTE EVENTS OVERNIGHT. SHE REPORTS ADEQUATE PAIN MANAGEMENT WITH MEDICATION PER MAR AND REPOSITIONING. COLOSTOMY PATENT, WITH BROWN LIQUID OUTPUT. NEPHROSTOMY TUBE TO LEFT FLANK WITH SCANT SS DRAINAGE. PT IS TOLERATING PO INTAKE WELL, USES THE CALL LIGHT APPROPRIATELY, AND THE IV TO THE LEFT WRIST IS PATENT. ATTENDS IN PLACE, CLEAN AND DRY AT THIS TIME. SHE IS LYING IN BED WITH THE CALL LIGHT IN REACH, BED IN LOWEST POSITION. 1:[address] PT HAS NOT BEEN IMPULSIVE THIS SHIFT. WILL GIVE REPORT TO DAY SHIFT RN.
[2024-06-20 08:47] VITALS: BP 96/58
[2024-06-20 10:24] LABS: BASOPHILS ABSOLUTE AUTO 0.03 K/mm3 (0.00-0.23); BASOPHILS PERCENT AUTO 0 % (0-2); EOSINOPHILS PERCENT AUTO 1 % (0-6); Hematocrit 29.5 % (33.0-51.0); Hemoglobin 9.7 g/dL (11.5-16.0); IMMATURE GRAN ABSOLUTE AUTO 0.07 K/mm3 (0.00-0.10); IMMATURE GRAN PERCENT AUTO 1 % (0-1); LYMPHOCYTES ABSOLUTE AUTO 0.35 K/mm3 (0.84-5.20); LYMPHOCYTES PERCENT AUTO 4 % (21-46); MONOCYTES ABSOLUTE AUTO 0.39 K/mm3 (0.16-1.47); MONOCYTES PERCENT AUTO 5 % (4-13); Mean Corpuscular HGB 29.2 pg (26.0-34.0); Mean Corpuscular HGB Conc 32.9 g/dL (31.5-36.5); Mean Corpuscular Volume 89 fL (80-100); Mean Platelet Volume 8.9 fL (9.1-12.4); NEUTROPHILS ABSOLUTE AUTO 7.28 K/mm3 (1.96-9.15); NEUTROPHILS PERCENT AUTO 89 % (41-73); Platelet Count 358 K/mm3 (150-400); RDW Coefficient Variation 14.7 % (11.7-14.2); RDW Standard Deviation 47.4 fL (35.1-46.3); Red Blood Cell Count 3.32 M/mm3 (3.80-5.20); White Blood Cell Count 8.22 K/mm3 (4.00-11.30)
[2024-06-20 10:40] LABS: Albumin, Blood 2.4 g/dL (3.4-5.0); Anion Gap 10 mmol/L (3-11); Blood Urea Nitrogen 24 mg/dL (8-24); Bun/Creatinine Ratio 20.2 (12.0-20.0); CO2, Blood 20 mmol/L (21-32); Calcium, Blood 8.5 mg/dL (8.5-10.1); Chloride, Blood 110 mmol/L (98-108); Creatinine, Blood 1.19 mg/dL (0.40-1.00); Glomerular Filtration Rate 49 (60-); Glucose, Blood 105 mg/dL (70-99); Phosphorus, Blood 3.2 mg/dL (2.5-4.9); Potassium, Blood 4.1 mmol/L (3.5-5.5); Sodium, Blood 136 mmol/L (136-145)
[2024-06-20 15:50] VITALS: BP 109/64
[2024-06-20] MEDS ORDERED: ESCI20 PO (16:08)
[2024-06-20] MEDS ORDERED: MELA3 PO (16:09)
[2024-06-20] MEDS ORDERED: PRAM.125 PO (16:10)
[2024-06-20] MEDS ORDERED: VITAMIN D5000 UNIT PO (16:13)
[2024-06-20] MEDS ORDERED: CETI5 PO (16:14)
[2024-06-20] MEDS ORDERED: SULTRIDS PO (16:15)
[2024-06-20] MEDS ORDERED: BACTRIM DS TAB1 EAC1 PO (16:21)
[2024-06-20] MEDS ORDERED: BUSP10 PO (16:26)
[2024-06-20] MEDS ORDERED: CLON.5 PO (16:27)
[2024-06-20] MEDS ORDERED: BISA10S PR (16:28)
[2024-06-20] MEDS ORDERED: ORAJEL 4X TOOTHA7 GM MM (16:32)
[2024-06-20] MEDS ORDERED: SENNA LAXATIVE8.6 MG PO (16:33)
[2024-06-20] MEDS ORDERED: ClonazePAM 0.5 MG Tab PO PRN (17:00)
[2024-06-20] MEDS ORDERED: Bisacodyl 10 MG Supp PR PRN (17:00)
[2024-06-20] MEDS ORDERED: Sennosides 8.6 MG Tab PO PRN (17:00)
[2024-06-20] MEDS ORDERED: ORAJEL TOP PRN (17:25)
--- NOTE | 2024-06-20 18:10 | NUR ---
SHIFT SUMMARY: PATIENT A/OX2-3, CONFUSED, ANXIOUS AT TIMES AND YELLS OUT T/O THE DAY. PATIENT REQUESTING TO BE DISCHARGE BACK TO [facility] T/O THE DAY. DR. PIÑA IS AWARE OF THIS REQUEST. PATIENT MEDS RECONCILED. PATIENT L NEPHROSTOMY TUBE c SCANT OF SANGUINEOUS DRAINAIGE. PATIENT HAD LOW GRADE BODY TEMP 99.9. VITAL SIGNS REVIEWED. PATIENT RECEIVED IV ABX/SCHEDULED MEDS PER EMAR. MIPELEX DRESSING CHANGED TO COCCYX AND MID ABDOMEN. PATIENT HAS GOOD APPETITE, TOLERATING CURRENT DIET WELL, CHRONIC OSTOMY PRODUCING BROWN, LIQUID STOOL, INCONTINET OF BLADDER, ATTENDS CHANGED AND REPOSITIONED T/O SHIFT. PATIENT HAS 1:1 SITTER OUTSIDE HER ROOM FOR SAFETY. CALL LIGHT IN REACH.
[2024-06-20 19:20] VITALS: BP 97/58
[2024-06-20] MEDS ORDERED: Acetaminophen 325 MG TABLET PO SCH (21:00)
[2024-06-20] MEDS ORDERED: BusPIRone HCl 10 MG Tab PO SCH (21:00)
[2024-06-20] MEDS ORDERED: Melatonin 3 MG Tab PO SCH (21:00)
[2024-06-20] MEDS ORDERED: Pramipexole DI-HCL 0.125 MG Tab PO SCH (21:00)
[2024-06-20] MEDS ORDERED: NS 250 ML IV PRN (22:10)
[2024-06-20 22:27] LABS: Vancomycin, Trough 8.6 ug/mL (5.0-10.0)
[2024-06-20] MEDS ORDERED: Vancomycin HCL 750 MG in NS 250 ML IV SCH (23:00)
[2024-06-21 01:17] VITALS: BP 76/51
[2024-06-21 01:35] VITALS: BP 98/59
--- NOTE | 2024-06-21 04:37 | NUR ---
SHIFT SUMMARY PT IS A&O X2-3, ABLE TO MAKE HER NEEDS KNOWN. PT IS VERY WEAK, 1-2 PERSON ASSIST. PT RESTING IN BED, BEANIE OVER THE EYES. IV ABX INFUSED ORDERED. LOW BP'S, STITCH WELDER NOTIFIED. COLOSTOMY INTACT, HAS OUTPUT. [id number] RESPOSITIONING WHILE AWAKE PER PT REQUEST. SCANT AMOUNT OF SEROSANGUINEUS OUTPUT FROM LEFT NEPHROSTOMY BAG. MEDICATED FOR LOGAN, SEE EMAR. NO ACUTE EVENTS DURING THIS SHIFT.BED AT THE LOWEST POSITION, 1:1 SITTER BY THE BEDSIDE T/O THIS SHIFT.
[2024-06-21 05:12] VITALS: BP 85/60
[2024-06-21 05:48] LABS: Bun/Creatinine Ratio 23.3 (12.0-20.0); Calcium, Blood 8.6 mg/dL (8.5-10.1); Creatinine, Blood 1.16 mg/dL (0.40-1.00); Potassium, Blood 3.5 mmol/L (3.5-5.5)
[2024-06-21 08:24] VITALS: BP 124/65
[2024-06-21] MEDS ORDERED: Citalopram Hydrobromide 20 MG Tab PO SCH (09:00)
[2024-06-21] MEDS ORDERED: Loratadine 10 MG Tab PO SCH (09:00)
[2024-06-21] MEDS ORDERED: JUVEN PACKET1 EAC3 PO (12:21)
--- NOTE | 2024-06-21 12:59 | NUR ---
SHIFT/DISCHARGE SUMMARY: PATIENT HAS HAD NO NEW CHANGES THIS SHIFT. PATIENT A/OX2-3, ANXIOUS AND CONFUSED AT TIMES. PATIENT DENIES CP/PRESSURE, N/V, DIZZINESS AND SOB. PATIENT HAS HAD NO CHANGES IN TELE, SR HR IN THE HIGH 80'S BPM. PATIENT NEPHROSTOMY TO L FLANK c SCANT SANGUINEOUS DRAINAIGE. PATIENT HAS CHRONIC OSTOMY PATENT c BROWN LIQUID STOOL, INCONTINENT OF BLADDER, ATTENDS CHANGED AND REPOSTIONED. PATIENT TOLERATING CURRENT DIET WELL. PATIENT RECEIVED IV ABX/SCHEDULED MEDS PER EMAR. MIPEPELEX DRESSING CHANGED TO MID ABDOMEN AND COCCYX. VITAL SIGNS REVIEWED. PIV DC'D BY DANIA IQBAL. PATIENT DISCHARGE BACK TO [facility] c DISCHARGE INSTRUCTIONS PACKET. TR GIVEN TO DAVIDE NGUYEN AT [facility] REGARDING PATIENT CONDITION. WENDY VERBALIZED UNDERSTANDING AND NO FURTHER QUESTIONS. TRANSPORT RIDES WAS SET-UP BY TEACHER'[employer]. PER LIAT EXPECTED TIME FOR BACKGROUND CHECK COORDINATOR BETWEEN [id number]. ALL PATIENT BELONGINGS WERE PACK AND READY TO GO. PATIENT LAYING IN BED, AWAITING FOR RIDES c CALL LIGHT IN REACH.
--- NOTE | 2024-06-21 13:34 | NUR ---
ADDITIONAL NOTE: PATIENT 1:1 SITTER IN ROOM FOR SAFETY. PATIENT DISCHARGE AND LEFT THE ROOM AT 1334, TRANSPORTED VIA WHEELCHAIR BY [employer]. ALL PERSONAL BELONGINGS WERE SENT c THE PATIENT.
[2024-06-27] MEDS ORDERED: Cholecalciferol 1000 Unit Tablet (=25MCG) PO SCH
== END 2024-06-21 13:30 | DRG 698 ==
LOC: ER 17:24 → MEDS 17:25 → ERHOLD 17:25 → MEDS 06-19 13:26
PROVIDERS: Internal Medicine; ADMIT Student in an Organized Health Care Education/Training Program
PROC: 0T9430Z Drainage of Left Kidney Pelvis with Drainage Device, Percutaneous Approach (ICD-10-PCS; principal; 2024-06-19)
DX: T83.022A Displacement of nephrostomy catheter, initial encounter (principal); E43 Unspecified severe protein-calorie malnutrition; L89.154 Pressure ulcer of sacral region, stage 4; N15.1 Renal and perinephric abscess; K63.2 Fistula of intestine; N17.9 Acute kidney failure, unspecified; F03.94 Unspecified dementia, unspecified severity, with anxiety; F03.93 Unspecified dementia, unspecified severity, with mood disturbance; N13.2 Hydronephrosis with renal and ureteral calculous obstruction; R64 Cachexia; Y83.8 Other surgical procedures as the cause of abnormal reaction of the patient, or of later complication, without mention of misadventure at the time of the procedure; K21.9 Gastro-esophageal reflux disease without esophagitis; D50.9 Iron deficiency anemia, unspecified; G25.81 Restless legs syndrome; N18.30 Chronic kidney disease, stage 3 unspecified; I12.9 Hypertensive chronic kidney disease with stage 1 through stage 4 chronic kidney disease, or unspecified chronic kidney disease; R74.01 Elevation of levels of liver transaminase levels; D63.1 Anemia in chronic kidney disease; Z86.19 Personal history of other infectious and parasitic diseases; G89.29 Other chronic pain; Z87.01 Personal history of pneumonia (recurrent); Z87.440 Personal history of urinary (tract) infections; Z90.710 Acquired absence of both cervix and uterus; Z90.89 Acquired absence of other organs; Z98.890 Other specified postprocedural states; Z79.891 Long term (current) use of opiate analgesic; Z90.10 Acquired absence of unspecified breast and nipple; Z68.20 Body mass index [BMI] 20.0-20.9, adult
CPT/HCPCS: 36415; 50432; 70450; 74176; 80048; 80053; 80069; 80202; 82947; 83735; 85025; 93005; 93010; 96360; 96361; 96365; 96366; 96367; 96376; 99285-25; A9270; C1729; C1769; C1887; G0378; J1644; J2543; J3370; J7050; J7120; Q9967

== ENCOUNTER 2024-06-25 08:56 | Inpatient (IN) | payer OTHER ==
[~2024-06-25] VITALS: Ht 152.4 cm; Wt 46.3 kg
[~2024-06-25 08:56] MED LIST changes: +BACTRIM DS TAB1 EAC1 PO; +BISA10S PR; +BUSP10 PO; +CETI5 PO; +CLON.5 PO; +ESCI20 PO; +JUVEN PACKET1 EAC3 PO; +MELA3 PO; +ORAJEL 4X TOOTHA7 GM MM; +PRAM.125 PO; +SENNA LAXATIVE8.6 MG PO; +SULTRIDS PO; +VITAMIN D5000 UNIT PO
[2024-06-25] MEDS ORDERED: LORazepam 1 MG Tab PO ONE (09:25)
[2024-06-25 09:49] LABS: BASOPHILS ABSOLUTE AUTO 0.03 K/mm3 (0.00-0.23); BASOPHILS PERCENT AUTO 0 % (0-2); EOSINOPHILS ABSOLUTE AUTO 0.14 K/mm3 (0.00-0.68); EOSINOPHILS PERCENT AUTO 2 % (0-6); Hematocrit 32.8 % (33.0-51.0); Hemoglobin 10.4 g/dL (11.5-16.0); IMMATURE GRAN ABSOLUTE AUTO 0.05 K/mm3 (0.00-0.10); IMMATURE GRAN PERCENT AUTO 1 % (0-1); LYMPHOCYTES ABSOLUTE AUTO 1.46 K/mm3 (0.84-5.20); LYMPHOCYTES PERCENT AUTO 21 % (21-46); MONOCYTES ABSOLUTE AUTO 0.37 K/mm3 (0.16-1.47); MONOCYTES PERCENT AUTO 5 % (4-13); Mean Corpuscular HGB 28.9 pg (26.0-34.0); Mean Corpuscular HGB Conc 31.7 g/dL (31.5-36.5); Mean Corpuscular Volume 91 fL (80-100); Mean Platelet Volume 9.1 fL (9.1-12.4); NEUTROPHILS ABSOLUTE AUTO 4.87 K/mm3 (1.96-9.15); NEUTROPHILS PERCENT AUTO 71 % (41-73); Platelet Count 354 K/mm3 (150-400); RDW Coefficient Variation 15.3 % (11.7-14.2); RDW Standard Deviation 50.7 fL (35.1-46.3); White Blood Cell Count 6.92 K/mm3 (4.00-11.30)
[2024-06-25 10:08] LABS: Bun/Creatinine Ratio 30.8 (12.0-20.0); Calcium, Blood 9.8 mg/dL (8.5-10.1); Creatinine, Blood 0.94 mg/dL (0.40-1.00); Potassium, Blood 4.1 mmol/L (3.5-5.5)
[2024-06-25] MEDS ORDERED: FLU VACC TS2024-25(6MOS UP)/PF 45 MCG/0.5 ML SYRINGE IM SCH (12:30)
[2024-06-25] MEDS ORDERED: Meropenem 1,000 MG in NS 100 ML IV SCH (13:00)
[2024-06-25] MEDS ORDERED: Lactated Ringer's 1,000 ML IV SCH (13:00)
[2024-06-25 16:03] VITALS: BP 107/79
--- NOTE | 2024-06-25 16:13 | NUR ---
NOTE NOTICED PRESSURE SORE ON COCCYX DURING [address] CHECK[address] NOTIF[address] TRACY. DR TRACY STATED HE WOULD PUT IN WOUND CARE ORDERS. PICTURES IN CHART.
--- NOTE | 2024-06-25 18:26 | NUR ---
SHIFT SUMMARY PT A&OX2. ORIENTED TO SELF AND PLACE. PT IS CONFUSED. PT ADMITTED DUE TO NEPHROSTOMY TUBE DISPLACEMENT. PT IN BED WATCHING TV. PT ON BEDREST. PT INC. OF URINE. PT HAS NOT HAD BM ON SHIFT. ATTENDS IN PLACE. PT NPO DUE TO PRE-PROCEDURE, FOR NEPHROSTOMY PLACEMENT. PT HAS FLUIDS RUNNING IN IV. PT ON ROOM AIR. PT HAS SCD'S ON BILATERAL LOWER EXTREMITIED. VSS. PT CALLS OUT, MAKES NEEDS KNOWN. CALL LIGHT IN REACH. PT TURNED Q2.
[2024-06-25 20:18] VITALS: BP 114/87
[2024-06-25] MEDS ORDERED: Lactobacil 2-S.Thermo-Bifido 1 1 Cap PO SCH (21:00)
[2024-06-25] MEDS ORDERED: Acetaminophen 500 MG Tab PO PRN (21:10)
[2024-06-25] MEDS ORDERED: Melatonin 5 MG Tablet PO PRN (21:10)
--- NOTE | 2024-06-26 04:53 | NUR ---
SHIFT SUMMARY. PATIENT IS A&OX2. PATIENT USING CALL LIGHT AND CALLING OUT T/O SHIFT. PATIENT IS INCONTINENT-ATTENDS IN PLACE. PATIENT REPOSITIONED T/O NIGHT. NO ACUTE CHANGES. BED IS LOCKED IN THE LOWEST POSITION WITH CALL LIGHT IN REACH. CARE IS ONGOING.
[2024-06-26 06:52] VITALS: BP 143/71
[2024-06-26 07:41] VITALS: BP 132/75
[2024-06-26] MEDS ORDERED: NS 250 ML IV PRN (10:05)
[2024-06-26 13:51] VITALS: BP 112/72
[2024-06-26] MEDS ORDERED: TraMADol HCl 50 MG Tab PO PRN (16:45)
[2024-06-26] MEDS ORDERED: Bisacodyl 10 MG Supp PR PRN (16:45)
[2024-06-26] MEDS ORDERED: Sennosides 8.6 MG Tab PO PRN (16:45)
[2024-06-26] MEDS ORDERED: Benzocaine Oral Spray 0.5ML UD MT PRN (16:45)
[2024-06-26] MEDS ORDERED: ClonazePAM 0.5 MG Tab PO PRN (16:50)
--- NOTE | 2024-06-26 19:28 | NUR ---
SHIFT SUMMARY PT A&O TO SELF AND PLACE. PT ADMITTED DUE TO NEPHROSTOMY TUBE DISPLACEMENT. PT DOES NO REPORT PAIN, ONLY WHILE REPOSITIONING WITH COCCYX WOUND. USED WOUND SPRAY TO PAT DRY WOUND ON COCCYX. NEW MEPILEX APPLIED TO BOTTOM. PT NO LONGER NPO. PT EATING ADEQUATELY. PT INC. OF URINE. ATTENDS IN PLACE. HOME MEDS ORDERED. PT CONSTANTLY ASKING WHEN SHE CAN GO HOME, PT SHOWING SIGNS OF ANXIETY, GAVE CLONAZEPAM. PT REPOSITIONED Q2 HOURS. PT CALLS OUT AND MAKES NEEDS KNOWN. CALL LIGHT IN REACH.
[2024-06-26 20:14] VITALS: BP 108/83
[2024-06-26] MEDS ORDERED: Pramipexole DI-HCL 0.125 MG Tab PO SCH (21:00)
[2024-06-26] MEDS ORDERED: Miconazole 2% Vaginal Cream 45 GM VAG SCH (21:00)
[2024-06-26] MEDS ORDERED: BusPIRone HCl 10 MG Tab PO SCH (21:00)
[2024-06-26] MEDS ORDERED: Arginine/Glutamine/Calcium Hmb 1 Packet PO SCH (21:00)
[2024-06-27 05:26] VITALS: BP 131/68
--- NOTE | 2024-06-27 06:51 | NUR ---
SHIFT SUMMARY. PATIENT IS A&OX2-3 WITH CONFUSION. PATIENT LIVES AT [facility]. PATIENT IRRITABLE TODAY WANTING TO GO HOME. COLOSTOMY CHANGED. PATIENT REPOSITIONED T/O NIGHT. PATIENT IS WAITING TO HEAR FROM DOCTOR FOR PLAN IN REGARDS TO HER PULLED NEPROSTOMY. BED IS LOCKED IN THE LOWEST POSITION WITH CALL LIGHT IN REACH. CARE IS ONGOING.
[2024-06-27 07:24] VITALS: BP 122/71
[2024-06-27] MEDS ORDERED: Citalopram Hydrobromide 20 MG Tab PO SCH (09:00)
[2024-06-27] MEDS ORDERED: Cholecalciferol 1000 Unit Tablet (=25MCG) PO SCH (09:00)
[2024-06-27 15:01] VITALS: BP 126/70
--- NOTE | 2024-06-27 15:22 | NUR ---
NOTE: DR. GRIFFIN (GENERAL SURGEON) CAME IN AT AROUND 1520 FOR CONSULT AND SPOKE TO PATIENT.
--- NOTE | 2024-06-27 18:26 | NUR ---
SHIFT SUMMARY: PATIENT A/OX2, ANXIOUS AT TIMES AND WANTING TO BE DISCHARGE BACK TO [facility]. DR. GRIFFIN CAME IN FOR CONSULT TODAY FOR L RENAL SMALL BOWEL FISTULA, RECOMMENDING TRANSFER TO HIGHER LEVEL OF CARE THAT HAS UROLOGY, IR AND SURGICAL ONCOLOGY AVAILABLE. DR. TRACY (HOSPITALIST) SPOKE TO PATIENT AND JACKIE (PT-POA) REGARDING PLAN OF CARE. PATIENT AGREEABLE TO STAY TONIGHT, BUT CONTINUES TO EXPRESSESS TO BE DISCHARGE BACK TO [facility] TOMORROW. PATIENT DRESSING TO COCCYX, ABDOMEN AND L SIDE C/D/I. PATIENT HAS CHRONIC OSTOMY, PRODUCING BROWN LIQUID STOOL, INCONTINENT OF BLADDER, ATTENDS PLACED, CHANGED PRN AND REPOSITIONED T/O SHIFT. PATIENT RECEIVED SCHEDULED MEDS PER EMAR. VITAL SIGNS REVIEWED. BED ALARM ON FOR SAFETY. CALL LIGHT IN REACH.
[2024-06-27 20:16] VITALS: BP 113/63
[2024-06-28 04:12] VITALS: BP 105/74
--- NOTE | 2024-06-28 05:18 | NUR ---
SHIFT SUMMARY: PT IS A 74 YO FULL CODE WOMAN. PT WAS ADMITTED FOR DISPLACED X2 NEPHROSTOMY TUBE ON LEFT SIDE. PT TAKES MEDS WHOLE W/WATER. PT IS INCONTINENT AND ON BED REST. PT WAS SLIGHTLY CONFUSED AND CALLED OUT FOR HELP A FEW TIMES THROUGH OUT THE NIGHT. PT HAS A COLOSTOMY BAG THAT WAS EMPTIED. PT REFUSED MORNING LABS AND WAS GRUMPY THAT I DISRUPTED HER SLEEP TO CHANGE HER WET ATTENDS. I CHANGED MEPILEX ON OLD PEG TUBE SITE ON ABDOMEN, ON STAGE 2 PRESSURE WOUND ON COCCYX AND SORE FROM NEPHROSTOMY TUBE ON LEFT SIDE. PT IS ON RA AND A&OX2. WAITING ON THE PLAN ON WHAT WILL HAPPEN WITH PT BUT SHE WOULD LIKE TO RETURN HOME TO [facility]. WOUND CARE DONE ON WOUNDS. CONTACT PRECAUTIONS FOR ESBL IN URINE. CALL LIGHT IN REACH.
[2024-06-28 07:09] VITALS: BP 99/57
[2024-06-28 09:26] LABS: BASOPHILS ABSOLUTE AUTO 0.03 K/mm3 (0.00-0.23); BASOPHILS PERCENT AUTO 1 % (0-2); EOSINOPHILS ABSOLUTE AUTO 0.13 K/mm3 (0.00-0.68); EOSINOPHILS PERCENT AUTO 2 % (0-6); Hematocrit 31.2 % (33.0-51.0); Hemoglobin 9.8 g/dL (11.5-16.0); IMMATURE GRAN ABSOLUTE AUTO 0.03 K/mm3 (0.00-0.10); IMMATURE GRAN PERCENT AUTO 1 % (0-1); LYMPHOCYTES PERCENT AUTO 28 % (21-46); MONOCYTES ABSOLUTE AUTO 0.33 K/mm3 (0.16-1.47); MONOCYTES PERCENT AUTO 6 % (4-13); Mean Corpuscular HGB 29.3 pg (26.0-34.0); Mean Corpuscular HGB Conc 31.4 g/dL (31.5-36.5); Mean Corpuscular Volume 93 fL (80-100); Mean Platelet Volume 9.2 fL (9.1-12.4); NEUTROPHILS ABSOLUTE AUTO 3.36 K/mm3 (1.96-9.15); NEUTROPHILS PERCENT AUTO 62 % (41-73); Platelet Count 307 K/mm3 (150-400); RDW Coefficient Variation 15.4 % (11.7-14.2); RDW Standard Deviation 52.5 fL (35.1-46.3); Red Blood Cell Count 3.34 M/mm3 (3.80-5.20); White Blood Cell Count 5.38 K/mm3 (4.00-11.30)
[2024-06-28 09:41] LABS: Albumin, Blood 2.5 g/dL (3.4-5.0); Albumin/Globulin Ratio 0.6 (0.8-1.8); Bilirubin, Total 0.3 mg/dL (0.1-1.0); Bun/Creatinine Ratio 24.2 (12.0-20.0); Calcium, Blood 8.9 mg/dL (8.5-10.1); Creatinine, Blood 0.83 mg/dL (0.40-1.00); Globulin, Blood 3.9 g/dL (2.2-4.0); Potassium, Blood 3.9 mmol/L (3.5-5.5); Total Protein, Blood 6.4 g/dL (6.4-8.2)
[2024-06-28 14:45] VITALS: BP 103/70
--- NOTE | 2024-06-28 18:21 | NUR ---
SHIFT SUMMARY PT A&OX2 AND IS ABLE TO MAKE NEEDS KNOWN. PT RECEIVED SCHEDULED AND PRN MEDICATION. PT HAD CAT SCAN TODAY. PT VSS, NO COMPLAINTS OF CP/PRESSURE OR SOB. PT TO BE NPO AT MIDNIGHT. PT SPENT MOST OF SHIFT IN BED RESTING. NO ACUTE EVENTS AT THIS TIME. PT REPOSITIONED Q2 AND CHANGES PRN. PT EFT IN A POSITION OF SAFETY WITH FALL PRECAUTIONS IN PLACE AND CALL LIGHT IN REACH.
[2024-06-28 19:35] VITALS: BP 127/84
--- NOTE | 2024-06-29 04:55 | NUR ---
FIRE PROTECTION ENGINEER SUMMARY: PT A&OX2; PERSON, PLACE. PT CAN MAKE SIMPLE NEEDS KNOWN AND FOLLOWS CUES FOR CARE. PT VSS. NO ACUTE EVENTS THIS SHIFT. PT MEDICATED FOR 6/10 PAIN AND ANXIETY X1 WITH PRN MEDS; EFFECTIVE. PT IS INCONTINENET OF BLADDER; OSTOMY BAG FOR BM PRODUCING BROWN LIQUID STOOL. PT NPO AT MIDNIGHT PER ORDER PENDING NEED FOR NEPHROSTOMY REPLACEMENT. BED IS LOCKED IN LOWEST POSITION WITH CALL LIGHT IN REACH. CARE IS ONGOING ORDERED.
[2024-06-29 05:46] VITALS: BP 100/58
[2024-06-29 06:22] LABS: BASOPHILS ABSOLUTE AUTO 0.05 K/mm3 (0.00-0.23); BASOPHILS PERCENT AUTO 1 % (0-2); EOSINOPHILS ABSOLUTE AUTO 0.16 K/mm3 (0.00-0.68); EOSINOPHILS PERCENT AUTO 3 % (0-6); Hemoglobin 10.1 g/dL (11.5-16.0); IMMATURE GRAN ABSOLUTE AUTO 0.02 K/mm3 (0.00-0.10); IMMATURE GRAN PERCENT AUTO 0 % (0-1); LYMPHOCYTES ABSOLUTE AUTO 2.05 K/mm3 (0.84-5.20); LYMPHOCYTES PERCENT AUTO 37 % (21-46); MONOCYTES ABSOLUTE AUTO 0.42 K/mm3 (0.16-1.47); MONOCYTES PERCENT AUTO 8 % (4-13); Mean Corpuscular HGB 29.5 pg (26.0-34.0); Mean Corpuscular HGB Conc 31.6 g/dL (31.5-36.5); Mean Corpuscular Volume 94 fL (80-100); Mean Platelet Volume 9.1 fL (9.1-12.4); NEUTROPHILS ABSOLUTE AUTO 2.82 K/mm3 (1.96-9.15); NEUTROPHILS PERCENT AUTO 51 % (41-73); Platelet Count 298 K/mm3 (150-400); RDW Coefficient Variation 15.4 % (11.7-14.2); RDW Standard Deviation 52.5 fL (35.1-46.3); Red Blood Cell Count 3.42 M/mm3 (3.80-5.20); White Blood Cell Count 5.52 K/mm3 (4.00-11.30)
[2024-06-29 06:44] LABS: Albumin, Blood 2.5 g/dL (3.4-5.0); Anion Gap 9 mmol/L (3-11); Blood Urea Nitrogen 18 mg/dL (8-24); Bun/Creatinine Ratio 23.1 (12.0-20.0); CO2, Blood 27 mmol/L (21-32); Calcium, Blood 9.2 mg/dL (8.5-10.1); Chloride, Blood 110 mmol/L (98-108); Creatinine, Blood 0.78 mg/dL (0.40-1.00); Glomerular Filtration Rate 81 (60-); Glucose, Blood 83 mg/dL (70-99); Phosphorus, Blood 2.8 mg/dL (2.5-4.9); Potassium, Blood 4.5 mmol/L (3.5-5.5); Sodium, Blood 141 mmol/L (136-145)
[2024-06-29 07:19] VITALS: BP 114/64
--- NOTE | 2024-06-29 13:28 | NUR ---
PT REMAINS NPO PENDING INTERVENTIONAL RADIOLOGY PROCEDURE, AT THIS TIME I AM UNABLE TO CONFIRM PROCEDURE. DR. LING GRIFFIN WILL NOT BE DOING ANY PROCEDURES FOR THIS PT, CURRENTLY AWAITING CALL BACK FROM [facility] AND OR [facility]. DR FULLER STATES THAT SHE WILL CALL [facility] AND GET BACK TO ME WHEN SHE HAS MORE INFORMATION. PT VERBALIZES UPSET THAT SHE CAN NOT EAT ANYTHING.
[2024-06-29 15:51] VITALS: BP 111/64
--- NOTE | 2024-06-29 16:09 | NUR ---
dr. hooker notified. pt continues to be npo. per dr. hooker, dr. couch requested pt npo at midnight yesterday. dr. hooker will update rn when information is available
--- NOTE | 2024-06-29 16:45 | NUR ---
PT IS ALERT AND ORIENTED X2. DIET NOW UPDATED PER DR. CORNELIUS. PT IS BEDREST Q2HR TURNS, PT ABLE TO EXPRESS NEEDS. ABDOMEN CT ORDERED THIS SHIFT. NO PLAN FOR PROCEDURE TODAY.
[2024-06-29 19:20] VITALS: BP 79/62
[2024-06-29 23:06] VITALS: BP 94/60
[2024-06-30 04:09] VITALS: BP 98/61
--- NOTE | 2024-06-30 04:16 | NUR ---
BRAID FOLDER SUMMARY: PT IS A&OX4 THIS SHIFT, DOES HAVE SOME LIMITED COMPREHENSION OF WHY SHE IS AT THE HOSPITAL. IT IS NOTED THAT SHE DOES FLUCTUATE WITH ORIENTATION. PT VERBAL WITH MUMBLED SPEECH, MAKES SIMPLE CARE NEEDS KNOWN. PT ABLE TO TURN IN BED WITH ASSISTANCE. INCONTINENT OF BOWEL AND BLADDER. PT ON BEDREST AT THIS TIME. BP 79/62 AT BEGINNING OF SHIFT ; ASYMPTOMATIC. RECHECK : 98/61; ASYMPTOMATIC. ALL OTHER VSS. PT MEDICATED WITH PRN PAIN MED PER ORDER IN EMAR FOR BUTTOCKS PAIN; EFFECTIVE. COCCYX DRESSING CHANGED WITH MEPILEX DRESSING PER ORDER. PT CURRENTLY RESTING IN BED, CALL LIGHT IN REACH. BED LOCKED IN LOWEST POSITION.
[2024-06-30 07:51] VITALS: BP 107/71
[2024-06-30 15:07] VITALS: BP 103/56
[2024-06-30 15:36] LABS: BASOPHILS ABSOLUTE AUTO 0.03 K/mm3 (0.00-0.23); BASOPHILS PERCENT AUTO 1 % (0-2); EOSINOPHILS ABSOLUTE AUTO 0.12 K/mm3 (0.00-0.68); EOSINOPHILS PERCENT AUTO 2 % (0-6); Hematocrit 30.1 % (33.0-51.0); Hemoglobin 9.5 g/dL (11.5-16.0); IMMATURE GRAN ABSOLUTE AUTO 0.02 K/mm3 (0.00-0.10); IMMATURE GRAN PERCENT AUTO 0 % (0-1); LYMPHOCYTES ABSOLUTE AUTO 1.51 K/mm3 (0.84-5.20); LYMPHOCYTES PERCENT AUTO 27 % (21-46); MONOCYTES ABSOLUTE AUTO 0.43 K/mm3 (0.16-1.47); MONOCYTES PERCENT AUTO 8 % (4-13); Mean Corpuscular HGB 29.7 pg (26.0-34.0); Mean Corpuscular HGB Conc 31.6 g/dL (31.5-36.5); Mean Corpuscular Volume 94 fL (80-100); Mean Platelet Volume 9.2 fL (9.1-12.4); NEUTROPHILS ABSOLUTE AUTO 3.58 K/mm3 (1.96-9.15); NEUTROPHILS PERCENT AUTO 63 % (41-73); Platelet Count 287 K/mm3 (150-400); RDW Coefficient Variation 15.4 % (11.7-14.2); RDW Standard Deviation 53.1 fL (35.1-46.3); White Blood Cell Count 5.69 K/mm3 (4.00-11.30)
[2024-06-30 16:02] LABS: Albumin, Blood 2.5 g/dL (3.4-5.0); Albumin/Globulin Ratio 0.6 (0.8-1.8); Bilirubin, Total 0.4 mg/dL (0.1-1.0); Bun/Creatinine Ratio 25.3 (12.0-20.0); Calcium, Blood 8.7 mg/dL (8.5-10.1); Creatinine, Blood 0.79 mg/dL (0.40-1.00); Potassium, Blood 4.2 mmol/L (3.5-5.5); Total Protein, Blood 6.5 g/dL (6.4-8.2)
--- NOTE | 2024-06-30 17:25 | NUR ---
A/O X 3, PATIENT REFUSED TO HAVE WOUND LOOKED AT TODAY AND STATED "I DO NOT WANT THAT TODAY". [facility] PENDING POSSIBLE TRANSFER TO [facility] VS HOME TO [facility] AND CONSULT TO [facility]. PATIENT HAS BEEN EATING ABOUT 50-70% OF MEALS AND HAS BEEN ASKING FOR SHAKES. PATIENT DIET HAS BEEN CHANGED BY NUTRITION AND NEW DIET ORDER IN CHART. PATIENT REMAINS BEDBOUND AND CALLS FOR ANY ASSISTANCE. PATIENT COLOSTOMY BAG INTACT WITH NO ISSUES NOTED.
[2024-06-30 20:13] VITALS: BP 95/62
--- NOTE | 2024-07-01 04:59 | NUR ---
SHIFT SUMMARY PT ALERT ORIENTED TO SELF AND PLACE BUT UNSURE WHY SHES HERE. AT THE BEGINNING OF THE SHIFT SHE KEPT SCREAMING OUT AND THEN REQUESTED A PAIN MED SO I MEDICATED HER FOR PAIN X 1 AND ANXIETY X 1 WITH GOOD RELIEF. SHE SLEPT MOST OF THE NIGHT. SHE REMAINS ON [place] ORDERED NO ADVERSE EFFECTS NOTED. REMAINS ON CONTACT ISOLATION. VSS THIS SHIFT BUT BP WAS SLIGHTLY LOW AT 95/62. COLOSTOMY BAG INTACT DRAINING BROWN STOOL RESTING IN BED AT THIS TIME
[2024-07-01 07:52] VITALS: BP 111/78
[2024-07-01] MEDS ORDERED: Multivitamins 1 Tab PO SCH (09:00)
[2024-07-01] MEDS ORDERED: Protein Supplement 30 ML UD PO SCH (09:00)
[2024-07-01 15:11] VITALS: BP 83/70
--- NOTE | 2024-07-01 17:54 | NUR ---
SHIFT SUMMARY PT A&OX2 W/ CONFUSION AND FORGETFULNESS AT TIMES, TOLERATING PO, VOIDING, AND PAIN MANAGED PER EMAR. PT COOPERATIVE W/ SOME CARE, BUT REFUSED REPOSITIONING, SOME MEDICATIONS, AND SOME MEPILEX CHANGES AT TIMES. PT EDUCATED ON THE IMPORTANCE OF REPOSITIONING, MEDICATIONS, AND MEPILEX DRESSING CHANGES. NO OTHER ACUTE CHANGES. CALL LIGHT WITHIN REACH AND PT ABLE TO MAKE NEEDS KNOWN.
[2024-07-01 19:33] VITALS: BP 90/57
--- NOTE | 2024-07-02 04:25 | NUR ---
SHIFT SUMMARY. PATIENT IS A&OX2 WITH CONFUSION AND FORGETFULNESS AT TIMES. PATIENT CALLING OUT FOR THIS RN AND ASSISTANT DIRECTOR AT BEGINNING OF SHIFT TO GET READY FOR BED. PATIENT REFUSING CARE AT TIMES. PATIENT TOLERATED PO MEDICATIONS WITH WATER. BED IS LOCKED IN THE LOWEST POSITION [facility] CALL LIGHT IN REACH. CARE IS ONGOING.
[2024-07-02 05:08] VITALS: BP 99/66
[2024-07-02 07:32] VITALS: BP 113/59
[2024-07-02 15:19] VITALS: BP 80/50
[2024-07-02 17:50] VITALS: BP 79/57
--- NOTE | 2024-07-02 17:52 | NUR ---
THIS NURSE CALLED TO NOTIFY OF PT'S LOW BP AND TREND THE LAST COUPLE OF DAYS. PT ASYMPTOMATIC AT THIS TIME. PER PROVIDER, RECHECK BP IN 2 HOURS.
--- NOTE | 2024-07-02 17:55 | NUR ---
SHIFT SUMMARY PT CONT TO BE A&OX2 W/ CONFUSION AND FORGETFULNESS AT TIMES. PT SEMI COOPERATIVE W/ CARE AND MEDICATIONS. PT HYPOTENSIVE, BUT ASYMPTOMATIC. SEE PREVIOUS NOTE. NO OTHER ACUTE CHANGES. CALL LIGHT WITHIN REACH AND PT ABLE TO MAKE NEEDS KNOWN.
[2024-07-02 19:42] VITALS: BP 98/58
[2024-07-03 02:35] VITALS: BP 92/58
--- NOTE | 2024-07-03 05:54 | NUR ---
SHIFT SUMMARY. PATIENT IS A&OX2 WITH CONFUSION. PATIENT YELLS OUT AT TIMES. PATIENT IS RESISTIVE TO CARE AT TIMES AND HAS A SMALL TOLERANCE FOR CARE. ALL BANDAGES CHANGED THIS SHIFT. PATIENT REPOSITIONED SHE WOULD ALLOW. PATIENT RESTING WITH A SLEEPING MASK AND BEANIE ON. BED IS LOCKED IN THE LOWEST POSITION [facility] CALL LIGHT IN REACH. CARE IS ONGOING.
[2024-07-03 07:05] VITALS: BP 100/58
--- NOTE | 2024-07-03 11:04 | NUR ---
CALLED DR FULLER- PT INSISTED HER IV WAS PAINFUL AND MUST BE REMOVED. SHE REFUSES TO ALLOW ANOTHER IV TO BE PLACED. EXPLAINED TO HER THAT SHE HAS IV ABX ANS SHE STILL REFUSED TO ALLOW IV PLACEMENT. CALLED DR FULLER, SHE IS AWARE THE PT IS CURRENTLY REFUSING IV AND IV ABX. FREDY BLACKMAN IS SUPPOSED TO BE IN TO DISCUSS PLAN OF CARE AND GOALS TODAY. PT STATES SHE IS LEAVING TO GO TO SNF TODAY. PER CARE MANAGEMENT PLAN IS TO SPEAK TO THE PT YEHUDA AND MAKE A PLAN.
[2024-07-03 15:02] VITALS: BP 96/72
[2024-07-03 15:13] LABS: SARS-Cov-2 (COVID-19) PCR, MMC NEGATIVE (NEGATIVE)
--- NOTE | 2024-07-03 17:28 | NUR ---
CALLED DR TRACY- PT HAS NO IV ACCESS AND IV ABX WERE NOT RECIEVED THIS MORNING. PT WAS SUPPOSED TO DC TODAY TO [facility] HOWEVER SHE DID NOT. CALLED TO CLARIFY IF PO MED SHOULD BE ORDERED.ECIEVED ORDER TO DC IV ABX AND FOR NO IV ACCESS NEEDED.
[2024-07-03 19:16] VITALS: BP 107/70
--- NOTE | 2024-07-03 20:04 | NUR ---
SHIFT SUMMARY- PT ALERT TO SELF AND FAMILY SHE IS VERY ANXIOUS AND WAS EXTREMELY HYPER FOCUSED ON LEAVING TODAY. SHE REFUSED TO DO SOME THINGS BECAUSE SHE WAS "NOT GONNA STAY ONE MORE NIGHT." ONCE SHE REALIZED SHE WAS LEAVING LATER IN THE DAY SHE CALLED FOR REPOSITIONING, SHE WAS CLEANED AND ASSISTED INTO PAPER SCRUBS WITH THE INTENT THAT SHE WAS BEING TRANSPORTED BACK TO [facility] AT 1630, TIME WAS CHANGED FOR TRANSPORT TO 1800. BADGER DISTILLER OPERATOR RECIEVED WORD FROM [facility], D/T STAFFING THEY CAN NOT TAKE THE PT BACK TONIGHT, THEY CAN TAKE HER BACK TOMORROW AT 0700. NO TRANSPORT ARRANGED FOR THAT TIME. TRANSPORT WAS CANCELED WHEN THEY ARRIVED FOR 1800 PICKUP TIME. PT OSTOMY WAS EMPTIED AND FLUSHED WITH VALE BOTTLE AT 1630. PT IN BED WITH HER CALL LIGHT IN REACH NO S&S OF DISTRESS NOTED.
[2024-07-03] MEDS ORDERED: ClonazePAM 0.5 MG Tab PO PRN (21:00)
[2024-07-04 04:27] VITALS: BP 110/70
--- NOTE | 2024-07-04 06:44 | NUR ---
SHIFT SUMMARY PT WAS LYING IN BED RELAXING AT START OF SHIFT. PT CALLED APPROX [phone] TO INFORM THIS RN SHE WAS READY FOR BED. PT MEDS PASSED, AND PT WENT TO SLEEP FOR NIGHT. ROUNDING, PT SLEPT THROUGH MOST OF SHIFT, WAKING FOR VITALS, ROUNDING. PT HAS BEEN COOPERATIVE WITH CARE. WILL RELAY TO DAY SHIFT.
[2024-07-04 07:55] VITALS: BP 102/61
--- NOTE | 2024-07-04 09:11 | NUR ---
discharge orders Dr Kelly called to lizet umana order for a duration. And clarify duration on pt oral antibiotic. Care ongoing.
--- NOTE | 2024-07-04 10:47 | NUR ---
HARD SCRIPTS HARD SCRIPTS X2 PLACED IN PACKET FOR [place]. ONE FOR TRAMADOL AND ONE FOR KLONOPIN. CLINICAL INFORMATICS SPECIALIST WATCHED THIS RN PLACE HARD SCRIPTS IN PACKET AND CONFIRMED BOTH WERE IN THERE. COPIES MADE FOR PATIENT CHART.
--- NOTE | 2024-07-04 11:02 | NUR ---
DISCHARGE NOTE- THE PT WAS DISCHARGED BACK TO [facility], SHE RECIEVED A BED BATH, WOUND CARE AND DRESSING CHANGE JUST PRIOR TO LEAVING MEDICAL FLOOR. OSTOMY APPLIANCE WAS EMPTIED AND FLUSHED WITH WARM WATER. FRESH CLEAN ATTENDS PLACED. PT WAS TAKEN VIA GURNEY TRANSPORT. NO S&S OF DISTRESS NOTED AT THE TIME OF TRANSPORT.
== END 2024-07-04 10:19 | DRG 698 ==
LOC: ER 08:56 → MEDS 08:57 → ER 13:58 → MEDS 14:46 → ENPENDDIS 07-03 15:03 → MEDS 07-04 10:19
PROVIDERS: Emergency Medicine; Family Medicine; ADMIT Hospitalist
DX: T83.022A Displacement of nephrostomy catheter, initial encounter (principal); L89.154 Pressure ulcer of sacral region, stage 4; N15.1 Renal and perinephric abscess; F84.0 Autistic disorder; E46 Unspecified protein-calorie malnutrition; N28.89 Other specified disorders of kidney and ureter; Z90.49 Acquired absence of other specified parts of digestive tract; F03.90 Unspecified dementia, unspecified severity, without behavioral disturbance, psychotic disturbance, mood disturbance, and anxiety; K21.9 Gastro-esophageal reflux disease without esophagitis; G89.29 Other chronic pain; D64.9 Anemia, unspecified; Z90.710 Acquired absence of both cervix and uterus; Z90.10 Acquired absence of unspecified breast and nipple; Y73.8 Miscellaneous gastroenterology and urology devices associated with adverse incidents, not elsewhere classified
CPT/HCPCS: 36415; 74177; 74178; 80048; 80053; 80069; 82947; 85025; 85027; 96374; 96374-59; 96376; 99285-25; A9270; G0378; J2185; J7050; J7120; Q9967; U0002

== ENCOUNTER 2024-08-04 01:33 | Day surgery (SDC) | payer OTHER ==
--- NOTE | 2024-08-03 17:19 | NUR ---
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
[2024-08-04 10:55] VITALS: BP 109/73
== END 2024-08-04 10:57 | disposition home or self-care (01) ==
LOC: ATC 01:33
DX: L89.154 Pressure ulcer of sacral region, stage 4 (principal); B95.62 Methicillin resistant Staphylococcus aureus infection as the cause of diseases classified elsewhere; F03.90 Unspecified dementia, unspecified severity, without behavioral disturbance, psychotic disturbance, mood disturbance, and anxiety; I10 Essential (primary) hypertension; M81.0 Age-related osteoporosis without current pathological fracture; K21.9 Gastro-esophageal reflux disease without esophagitis; F33.0 Major depressive disorder, recurrent, mild; M15.0 Primary generalized (osteo)arthritis; Z90.710 Acquired absence of both cervix and uterus; Z93.6 Other artificial openings of urinary tract status
CPT/HCPCS: 99211; C1751

== ENCOUNTER 2024-10-05 00:47 | Day surgery (SDC) | payer OTHER | END 2024-10-05 23:00 | disposition home or self-care (01) | LOC: WOUND 00:47 | DX: L89.153 Pressure ulcer of sacral region, stage 3 (principal); I10 Essential (primary) hypertension; Z93.1 Gastrostomy status; Z93.2 Ileostomy status; Z85.3 Personal history of malignant neoplasm of breast; Z90.710 Acquired absence of both cervix and uterus | CPT/HCPCS: G0463 ==

== ENCOUNTER 2024-10-16 03:53 | Day surgery (SDC) | payer OTHER ==
[2024-10-16] MEDS ORDERED: Lidocaine HCl 4% Cream 5 GM ONE (09:50)
== END 2024-10-16 23:00 | disposition home or self-care (01) ==
LOC: WOUND 03:53
DX: L89.153 Pressure ulcer of sacral region, stage 3 (principal); I10 Essential (primary) hypertension
CPT/HCPCS: A9270; G0463

== ENCOUNTER 2024-10-22 00:59 | Day surgery (SDC) | payer OTHER ==
[2024-10-22] MEDS ORDERED: Lidocaine HCl 4% Cream 5 GM ONE (14:16)
== END 2024-10-22 23:00 | disposition home or self-care (01) ==
LOC: WOUND 00:59
DX: L89.153 Pressure ulcer of sacral region, stage 3 (principal); I10 Essential (primary) hypertension; Z93.3 Colostomy status; Z93.2 Ileostomy status; Z93.1 Gastrostomy status; Z85.3 Personal history of malignant neoplasm of breast
CPT/HCPCS: A6213; A9270; G0463

== ENCOUNTER → 2024-10-29 | Day surgery (SDC) | payer OTHER ==
[~2024-10-29] MED LIST changes: +Lidocaine HCl 4% Cream 5 GM ONE
== END ==
LOC: WOUND 02:23
DX: L89.153 Pressure ulcer of sacral region, stage 3 (principal); I10 Essential (primary) hypertension
CPT/HCPCS: A9270

== ENCOUNTER 2024-11-05 04:03 | Day surgery (SDC) | payer OTHER ==
[~2024-11-05 04:03] MED LIST changes: -Lidocaine HCl 4% Cream 5 GM ONE
[2024-11-05] MEDS ORDERED: Lidocaine HCl 4% Cream 5 GM ONE (10:03)
== END 2024-11-05 23:00 | disposition home or self-care (01) ==
LOC: WOUND 04:03
DX: L89.153 Pressure ulcer of sacral region, stage 3 (principal); I10 Essential (primary) hypertension
CPT/HCPCS: A9270

== ENCOUNTER 2024-11-12 00:52 | Day surgery (SDC) | payer OTHER ==
[2024-11-12] MEDS ORDERED: Lidocaine HCl 4% Cream 5 GM ONE (10:01)
== END 2024-11-12 23:00 | disposition home or self-care (01) ==
LOC: WOUND 00:52
DX: L89.153 Pressure ulcer of sacral region, stage 3 (principal); I10 Essential (primary) hypertension
CPT/HCPCS: A9270

== ENCOUNTER 2024-11-26 08:00 | Day surgery (SDC) | payer OTHER ==
[2024-11-26] MEDS ORDERED: Lidocaine HCl 4% Cream 5 GM ONE (09:19)
== END 2024-11-27 23:00 | disposition home or self-care (01) ==
LOC: WOUND 08:00
DX: L89.154 Pressure ulcer of sacral region, stage 4 (principal); I10 Essential (primary) hypertension
CPT/HCPCS: A9270; G0463

== ENCOUNTER 2024-12-03 04:15 | Day surgery (SDC) | payer OTHER ==
[2024-12-03] MEDS ORDERED: Lidocaine HCl 4% Cream 5 GM ONE (08:57)
== END 2024-12-03 23:00 | disposition home or self-care (01) ==
LOC: WOUND 04:15
DX: L89.154 Pressure ulcer of sacral region, stage 4 (principal); I10 Essential (primary) hypertension; Z85.3 Personal history of malignant neoplasm of breast
CPT/HCPCS: A9270

== ENCOUNTER 2024-12-10 01:53 | Day surgery (SDC) | payer OTHER ==
[2024-12-10] MEDS ORDERED: Lidocaine HCl 4% Cream 5 GM ONE (10:18)
== END 2024-12-10 23:00 | disposition home or self-care (01) ==
LOC: WOUND 01:53
DX: L89.154 Pressure ulcer of sacral region, stage 4 (principal); I10 Essential (primary) hypertension
CPT/HCPCS: A9270

== ENCOUNTER 2024-12-17 02:09 | Day surgery (SDC) | payer OTHER ==
[2024-12-17] MEDS ORDERED: Lidocaine HCl 4% Cream 5 GM ONE (09:59)
== END 2024-12-17 23:00 | disposition home or self-care (01) ==
LOC: WOUND 02:09
DX: L89.154 Pressure ulcer of sacral region, stage 4 (principal); I10 Essential (primary) hypertension; Z85.3 Personal history of malignant neoplasm of breast
CPT/HCPCS: A9270; G0463

== ENCOUNTER 2024-12-24 01:38 | Day surgery (SDC) | payer OTHER ==
[2024-12-24] MEDS ORDERED: Lidocaine HCl 4% Cream 5 GM ONE (09:39)
[2024-12-24] MEDS ORDERED: Miconazole Nitrate 28 GM CREAM..G. TOP ONE (10:07)
== END 2024-12-24 23:00 | disposition home or self-care (01) ==
LOC: WOUND 01:38
DX: L89.153 Pressure ulcer of sacral region, stage 3 (principal)
CPT/HCPCS: A9270; G0463

== ENCOUNTER 2024-12-26 09:16 | Emergency (ER) | payer OTHER ==
[~2024-12-26] VITALS: Ht 162.6 cm; Wt 45.4 kg
[2024-12-26 09:42] VITALS: BP 115/88
== END 2024-12-26 13:30 | disposition home or self-care (01) ==
LOC: ER 09:16
DX: Z00.00 Encounter for general adult medical examination without abnormal findings (principal)
CPT/HCPCS: 93005; 93010; 99284-25

== ENCOUNTER 2024-12-26 14:48 | Emergency (ER) | payer OTHER ==
[~2024-12-26] VITALS: Ht 167.6 cm; Wt 43.1 kg
[2024-12-26 15:25] LABS: BASOPHILS ABSOLUTE AUTO 0.03 K/mm3 (0.00-0.23); BASOPHILS PERCENT AUTO 0 % (0-2); EOSINOPHILS PERCENT AUTO 0 % (0-6); Hematocrit 48.7 % (33.0-51.0); Hemoglobin 14.8 g/dL (11.5-16.0); IMMATURE GRAN PERCENT AUTO 1 % (0-1); LYMPHOCYTES ABSOLUTE AUTO 1.28 K/mm3 (0.84-5.20); LYMPHOCYTES PERCENT AUTO 8 % (21-46); MONOCYTES ABSOLUTE AUTO 0.58 K/mm3 (0.16-1.47); MONOCYTES PERCENT AUTO 4 % (4-13); Mean Corpuscular HGB 27.5 pg (26.0-34.0); Mean Corpuscular HGB Conc 30.4 g/dL (31.5-36.5); Mean Corpuscular Volume 91 fL (80-100); Mean Platelet Volume 9.5 fL (9.1-12.4); NEUTROPHILS ABSOLUTE AUTO 13.98 K/mm3 (1.96-9.15); NEUTROPHILS PERCENT AUTO 88 % (41-73); Platelet Count 629 K/mm3 (150-400); RDW Coefficient Variation 17.8 % (11.7-14.2); RDW Standard Deviation 58.6 fL (35.1-46.3); Red Blood Cell Count 5.38 M/mm3 (3.80-5.20); White Blood Cell Count 15.97 K/mm3 (4.00-11.30)
[2024-12-26] MEDS ORDERED: NS 1,000 ML IV SCH (15:55)
[2024-12-26 16:09] LABS: Albumin, Blood 3.9 g/dL (3.4-5.0); Albumin/Globulin Ratio 0.6 (0.8-1.8); Bilirubin, Total 0.7 mg/dL (0.1-1.0); Calcium, Blood 10.6 mg/dL (8.5-10.1); Creatinine, Blood 3.21 mg/dL (0.40-1.00); Potassium, Blood 7.8 mmol/L (3.5-5.5); Total Protein, Blood 9.9 g/dL (6.4-8.2)
[2024-12-26] MEDS ORDERED: CALCIUM GLUC IN NACL, ISO-OSM 100 ML IV ONE (16:35)
[2024-12-26] MEDS ORDERED: Dextrose 50% 50 ML Syringe IV ONE (16:35)
[2024-12-26] MEDS ORDERED: Dextrose 50% 50 ML Vial IV ONE (16:40)
--- NOTE | 2024-12-26 17:16 | NUR ---
PT IS A RESIDENT OF [facility]. HER NIECE JACKIE IS DECISION-MAKER. PT WILL BE ADMITTED TO [facility] TOMORROW FOR RENAL FAILURE. NEW POLST COMPLETED, PT NOW DNR.
[2024-12-26 17:17] LABS: Influenza A, PCR NEGATIVE (NEGATIVE); Influenza B, PCR NEGATIVE (NEGATIVE); Resp Syncytial Virus, PCR NEGATIVE (NEGATIVE); SARS-Cov-2 (COVID-19) PCR, MMC NEGATIVE (NEGATIVE)
[2024-12-26] MEDS ORDERED: Morphine Sulfate 20 MG/1ML 1 ML Oral Syringe SL ONE (17:30)
[2024-12-26 17:50] VITALS: BP 90/67
== END 2024-12-26 19:02 | disposition home or self-care (01) ==
LOC: ER 14:48
PROVIDERS: Emergency Medicine
DX: Z51.5 Encounter for palliative care (principal); N17.9 Acute kidney failure, unspecified; E87.5 Hyperkalemia; Z79.2 Long term (current) use of antibiotics; Z79.899 Other long term (current) drug therapy; K21.9 Gastro-esophageal reflux disease without esophagitis
CPT/HCPCS: 0241U; 71045; 80053; 85025; 93005; 93010; 96360; 99285-25; A9270; J7030